=== PATIENT | female | born 1980 | race Caucasian/White ===

== ENCOUNTER → 2016-05-28 | Outpatient (CLI) | payer OTHER ==
[~2016-05-28] MED LIST: ALBU17IN INH; ALBU83IN INH; BISO5TAB5 PO; CEFD1CAP8 PO; DULE100A INH; LORA10TA2 PO; METF-699 PO; MONT10TA2 PO; PANT40TA2 PO; PRED10PA PO; PRED10TA PO; QUET1TAB8 PO; SERT-138 PO; TRAZ100T4 PO
[2016-05-28 15:23] LABS: ALBUMIN 3.6 GM/DL (3.2-5.2); ALBUMIN/GLOBULIN RATIO 1.24 (1.00-1.93); ALKALINE PHOSPHATASE 104 U/L (45-117); ALT/SGPT 27 U/L (12-78); ANION GAP 7 MEQ/L (8-16); AST/SGOT 14 U/L (15-37); BILIRUBIN,TOTAL 0.3 MG/DL (0.2-1.0); BLOOD UREA NITROGEN 13 MG/DL (7-18); CALCIUM LEVEL 8.7 MG/DL (8.5-10.1); CARBON DIOXIDE LEVEL 31 MEQ/L (21-32); CHLORIDE LEVEL 106 MEQ/L (98-107); CHOLESTEROL LEVEL 148 MG/DL (<200); GLOMERULAR FILTRATION RATE > 60.0 (>60); GLUCOSE, FASTING 88 MG/DL (70-105); POTASSIUM SERUM 4.1 MEQ/L (3.5-5.1); SODIUM LEVEL 144 MEQ/L (136-145); TOTAL PROTEIN 6.5 GM/DL (6.4-8.2); TRIGLYCERIDES LEVEL 88 MG/DL (<150)
== END | disposition home or self-care (01) ==
LOC: M WUC 13:07
PROVIDERS: ATTEND Nurse Practitioner Adult Health
DX: E11.9 Type 2 diabetes mellitus without complications (principal); E66.01 Morbid (severe) obesity due to excess calories

== ENCOUNTER → 2016-06-13 | Outpatient (CLI) | payer OTHER | LOC: M HL 15:15 | PROVIDERS: ATTEND Nurse Practitioner Adult Health | DX: E11.9 Type 2 diabetes mellitus without complications (principal) ==

== ENCOUNTER 2016-09-29 14:19 | Observation (INO) | payer OTHER ==
[~2016-09-29] VITALS: Ht 165.1 cm; Wt 112.0 kg
[2016-09-29] MEDS ORDERED: ONDANSETRON 4MG/2ML VIAL (J2405) IV ONE ×2 (15:15→18:45)
[2016-09-29] MEDS ORDERED: MORPHINE 2 MG/ML 1ML SYRINGE IV ONE (15:30)
[2016-09-29 15:40] LABS: BASO % 0.1 % (0.0-1.0); EOS # 0.4 K/mm3 (0.0-0.50); EOS % 2.7 % (0.0-3.0); LARGE UNSTAINED CELL # 0.1 K/mm3 (0.0-0.4); LARGE UNSTAINED CELL % 0.7 % (0.0-4.0); LYMPH # 2.1 K/mm3 (1.5-4.5); LYMPH % 13.2 % (24.0-44.0); MEAN CORPUSCULAR HEMOGLOBIN 29.2 pg (27.0-33.0); MEAN CORPUSCULAR HGB CONC 32.8 g/dl (32.0-36.5); MONO # 0.5 K/mm3 (0.0-0.8); NEUTROPHILS # 12.9 K/mm3 (1.8-7.7); NEUTROPHILS % 80.1 % (36.0-66.0); PLATELET COUNT, AUTOMATED 362 k/mm3 (150-450); RED CELL DISTRIBUTION WIDTH 13.5 % (11.5-14.5); WHITE BLOOD COUNT 16.1 K/mm3 (4.0-10.0)
[2016-09-29] MEDS: NS 1,000 ML IV SCH ×2 (15:46→18:37)
--- NOTE | 2016-09-29 15:55 | REP ---
Clinical: Flank pain. Comparison: 11/10/2013. Findings: Evaluation of the urinary tract system demonstrates a 3 mm nonobstructing left renal calculus. There is no evidence for hydroureteronephrosis or perinephric stranding and no obstructing ureteral calculi are identified. Pelvis demonstrates normal bladder. Mild hepatomegaly suggested. Spleen, pancreas, gallbladder, bilateral adrenal glands are normal for noncontrast evaluation. The enteric system including stomach, small and large bowel is without obstruction or acute inflammatory process. Normal terminal ileum and appendix are identified in the right lower quadrant. Pelvis demonstrates normal bladder and uterus/adnexa. IUD in satisfactory position along with evidence for bilateral tubal ligation. No ascites. No free air. No obvious adenopathy. Musculoskeletal structures are intact lung bases are clear Impression: 3 mm nonobstructing left renal calculus. Otherwise normal CT of the abdomen and pelvis. Signed by Chago Shirley MD 09/29/2016 03:47 P
[2016-09-29 16:01] LABS: ALBUMIN 3.8 GM/DL (3.2-5.2); ALBUMIN/GLOBULIN RATIO 1.23 (1.00-1.93); ALKALINE PHOSPHATASE 109 U/L (45-117); ALT/SGPT 32 U/L (12-78); AMYLASE 40 U/L (25-115); ANION GAP 9 MEQ/L (8-16); AST/SGOT 22 U/L (15-37); BILIRUBIN,DIRECT < 0.1 MG/DL (0.0-0.2); BILIRUBIN,TOTAL 0.3 MG/DL (0.2-1.0); BLOOD UREA NITROGEN 15 MG/DL (7-18); CALCIUM LEVEL 8.9 MG/DL (8.5-10.1); CARBON DIOXIDE LEVEL 25 MEQ/L (21-32); CHLORIDE LEVEL 106 MEQ/L (98-107); CREATININE FOR GFR 0.59 MG/DL (0.55-1.02); GLOMERULAR FILTRATION RATE > 60.0 (>60); GLUCOSE, FASTING 100 MG/DL (70-105); POTASSIUM SERUM 4.1 MEQ/L (3.5-5.1); SODIUM LEVEL 140 MEQ/L (136-145); TOTAL PROTEIN 6.9 GM/DL (6.4-8.2)
--- NOTE | 2016-09-29 16:14 | REP ---
CHEST X-RAY, PA AND LATERAL: 09/29/2016. Comparison: 10/21/2015. Clinical history: Right-sided flank pain. Findings: The two views show the lungs better inflated than the previous study. There is no pleural effusion or dense consolidation. I see no lateral pleural thickening, apical scarring or pneumothorax. The heart, mediastinal and hilar contours are normal. Airway is intact. Bony thorax shows no focal lesions. There is no free air under the diaphragm. Impression: 1. There is no acute cardiopulmonary change. Better inflation than on the previous study. Signed by Cj Diana MD 09/29/2016 04:58 P
[2016-09-29] MEDS ORDERED: NS 1,000 ML IV ONE (17:15)
[2016-09-29] MEDS ORDERED: CIPROFLOXACIN 400 MG in APPROPRIATE DILUENT 1 EA IV ONE (17:30)
[2016-09-29 17:48] LABS: CONTROL LINE HCG INT CTR LINE PRESENT
[2016-09-29] MEDS ORDERED: METOCLOPRAMIDE INJ 10MG/2ML VIAL (J2765) IV PRN (18:45)
[2016-09-29] MEDS ORDERED: ONDANSETRON 4MG/2ML VIAL (J2405) IV PRN (18:45)
[2016-09-29] MEDS ORDERED: BREO1INH3 INH (19:09)
[2016-09-29] MEDS ORDERED: ALLE180T33 PO (19:09)
[2016-09-29] MEDS ORDERED: ALBUTEROL SULFATE 2.5 MG/0.5 ML INH NEB SOLN NEB PRN (19:15)
[2016-09-29] MEDS ORDERED: traZODone 100 MG TAB PO PRN (19:15)
[2016-09-29] MEDS ORDERED: DEXTROSE 50% 50 ML SYRINGE IV PRN (19:30)
[2016-09-29] MEDS ORDERED: GLUCAGON FOR INJ 1 MG VIAL (J1610) SC PRN (19:30)
[2016-09-29] MEDS ORDERED: GLUCOSE 4 GM CHEW TABLET PO PRN (19:30)
[2016-09-29 20:35] VITALS: BP 147/80
[2016-09-29] MEDS: HumaLOG INSULIN (NovoLOG) PER UNIT SC SCH (21:00)
[2016-09-29] MEDS ORDERED: SYMBICORT 80/4.5MCG INHALER 6GM INH SCH (21:00)
[2016-09-29] MEDS: SERTRALINE 100 MG TAB PO SCH (21:05)
[2016-09-29] MEDS: PANTOPRAZOLE 40MG INJ (PROTONIX) (C9113) IV SCH (21:05)
[2016-09-29] MEDS: MONTELUKAST 10 MG TAB PO SCH (21:05)
[2016-09-29] MEDS: QUEtiapine FUMARATE 100 MG TAB PO SCH (21:05)
[2016-09-29] MEDS: cefTRIAXone SOD 1 GM in D5W MINI-BAG PLUS 50 ML IV SCH (21:06)
[2016-09-29] MEDS: DOXYCYCLINE HYCLATE 100 MG in D5W MINI-BAG PLUS 100 ML IV SCH (21:50)
[2016-09-29] MEDS: BREO ELLIPTA INH SCH (22:34)
[2016-09-30 05:43] LABS: BASO % 0.3 % (0.0-1.0); EOS # 0.5 K/mm3 (0.0-0.50); LARGE UNSTAINED CELL # 0.1 K/mm3 (0.0-0.4); LARGE UNSTAINED CELL % 1.1 % (0.0-4.0); LYMPH # 2.5 K/mm3 (1.5-4.5); LYMPH % 22.1 % (24.0-44.0); MEAN CORPUSCULAR HEMOGLOBIN 29.2 pg (27.0-33.0); MEAN CORPUSCULAR HGB CONC 32.6 g/dl (32.0-36.5); MEAN CORPUSCULAR VOLUME 89.7 fl (80.0-96.0); MONO # 0.5 K/mm3 (0.0-0.8); MONO % 4.4 % (0.0-5.0); NEUTROPHILS # 7.8 K/mm3 (1.8-7.7); NEUTROPHILS % 68.2 % (36.0-66.0); PLATELET COUNT, AUTOMATED 341 k/mm3 (150-450); RED CELL DISTRIBUTION WIDTH 13.4 % (11.5-14.5); WHITE BLOOD COUNT 11.4 K/mm3 (4.0-10.0)
[2016-09-30 05:53] LABS: ANION GAP 6 MEQ/L (8-16); BLOOD UREA NITROGEN 10 MG/DL (7-18); CARBON DIOXIDE LEVEL 29 MEQ/L (21-32); CHLORIDE LEVEL 107 MEQ/L (98-107); CREATININE FOR GFR 0.64 MG/DL (0.55-1.02); GLOMERULAR FILTRATION RATE > 60.0 (>60); GLUCOSE, FASTING 94 MG/DL (70-105); SODIUM LEVEL 142 MEQ/L (136-145)
[2016-09-30 06:00] VITALS: BP 129/75
[2016-09-30 06:37] LABS: POTASSIUM SERUM 3.2 MEQ/L (3.5-5.1)
[2016-09-30 06:38] LABS: CALCIUM LEVEL 7.7 MG/DL (8.5-10.1)
[2016-09-30] MEDS: NS 1,000 ML IV SCH ×2 (07:24→18:47)
[2016-09-30] MEDS: HumaLOG INSULIN (NovoLOG) PER UNIT SC SCH ×4 (07:30→21:00)
--- NOTE | 2016-09-30 07:44 | ECGEPIP ---
Stationary ECG Study [facility] Test Date: 2016-09-30 Pat Name: MACHO ARRIOLA Department: Room: [place] [address] Gender: F Security Site Supervisor: BAHMAN : 1980 Requested By: MARIA TERESA HOLT Order Number: [id number] Reading MD: Maria G Nance Measurements Intervals [place] Rate: 82 P: 50 PA: 185 QRS: -16 QRSD: 112 T: 30 QT: 392 QTc: 458 Interpretive Statements SINUS RHYTHM Left axis deviation STABLE C/W 10/18/11 Electronically Signed On 09-30-2016 7:43:32 EDT by Maria G Nance
[2016-09-30] MEDS: IPRATROPIUM 0.5MG/ALBUTEROL 2.5MG INH SOL UD 3ML (DUONEB)(J7620) NEB SCH ×3 (08:14→15:06)
[2016-09-30] MEDS: ENOXAPARIN 40 MG/0.4 ML SYRINGE (J1650) SC SCH (09:53)
[2016-09-30] MEDS: DOXYCYCLINE HYCLATE 100 MG in D5W MINI-BAG PLUS 100 ML IV SCH ×2 (09:53→22:32)
[2016-09-30 14:00] VITALS: BP 147/82
--- NOTE | 2016-09-30 14:51 | IPNPDOC ---
Subjective Date Seen The patient was seen on 09/30/16. Subjective Chief Complaint/HPI The patient is a 36-year-old female admitted with a reason for visit of Intractable Vomiting;Uti. Constitutional: Denies: Chills Eyes: Denies: Pain ENT: Denies: Head Aches Skin: Denies: Rash Pulmonary: Denies: Dyspnea Cardiovascular: Denies: Chest Pain, Palpitations Gastrointestinal: Denies: Nausea, Vomiting Genitourinary: Reports: Dysuria Objective Physical Examination General Exam: Positive: Alert, No Acute Distress Eye Exam: Positive: PERRLA Neck Exam: Negative: JVD Chest Exam: Positive: Clear to auscultation Heart Exam: Positive: Rate Normal Abdomen Exam: Positive: Normal bowel sounds, Tenderness (mild L CVAT, no suprapubic tenderness) Extremity Exam: Negative: Edema Skin Exam: Positive: Nl turgor and temperature Neuro Exam: Positive: Normal Gait Assessment /Plan Problems (1) Pyelonephritis Status: Acute Response to Treatment: Improving Problem Text: D2 ceftriaxone 1/doxy IV 100 BID patient denies vaginal dc, dyspareunia nor CMT c pelvic exam favor constellation of 1W worsening L CVAT, dysuria, acutely worse 09/29 and improved by 09/30 p abx is 2 L PN; although, placed on emperic PID coverage? patient reports Mirena-related infection being rxed x 3W c topical then unknown PO abx (Dr. 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 re what she was being rxed for, check UCX/BCX, check pelvic US-if -, change to PN rx 09/29/16 endocervical CX/wet prep few yeast 09/29/16 CT AP NAD, L intrarenal NO 3 stone 09/29/16 UA +LE, but no UCX/BCX done prior to abx (2) T2DM (type 2 diabetes mellitus) Status: Chronic Response to Treatment: Stable Problem Text: 08/2016 A1C 6.1 (3) Asthma, moderate persistent Status: Chronic Response to Treatment: Stable Problem Text: Stable on home regimen Plan/VTE VTE Prophylaxis Ordered?: Yes VS, I&O, 24H, [place] Vital Signs/I&O Vital Signs Date Time Temp Pulse Resp B/P (MAP) Pulse Ox O2 Delivery O2 Flow Rate FiO2 09/30/16 06:00 97.9 85 18 129/75 (93) 95 Room Air I&O- Last 24 Hours up to 6 AM 09/30/16 06:00 Intake Total 390 ml Output Total 200 ml Balance 190 ml Laboratory Data 24H LABS Laboratory Tests 2 09/29/16 15:27: White Blood Count 16.1H, Red Blood Count 4.78, Hemoglobin 14.0, Hematocrit 42.6 , Mean Corpuscular Volume 89.0, Mean Corpuscular Hemoglobin 29.2, Mean Corpuscular Hemoglobin Concent 32.8, Red Cell Distribution Width 13.5, Platelet Count 362, Neutrophils (%) (Auto) 80.1H, Lymphocytes (%) (Auto) 13.2L, Monocytes (%) (Auto) 3.0, Eosinophils (%) (Auto) 2.7, Basophils (%) (Auto) 0.1, Neutrophils # (Auto) 12.9H, Lymphocytes # (Auto) 2.1, Monocytes # (Auto) 0.5, Eosinophils # (Auto) 0.4, Basophils # (Auto) 0.0, Large Unclassified Cells % 0.7 , Large Unclassified Cells # 0.1, Anion Gap 9, Glomerular Filtration Rate > 60.0 , Calcium Level 8.9, Aspartate Amino Transf (AST/SGOT) 22, Alanine Aminotransferase (ALT/SGPT) 32, Alkaline Phosphatase 109, Total Bilirubin 0.3, Direct Bilirubin < 0.1, Total Protein 6.9, Albumin 3.8, Albumin/Globulin Ratio 1.23, Amylase Level 40, Lipase 84, Human Chorionic Gonadotropin, Qual NEGATIVE 09/29/16 16:18: Urine Appearance HAZY, Urine Color YELLOW, Urine pH 5.0, Urine Specific [place] 1.025, Urine Protein NEGATIVE, Urine Glucose (UA) NEGATIVE, Urine Ketones NEGATIVE, Urine Urobilinogen 0.2, Urine Bilirubin NEGATIVE, Urine Leukocyte Esterase 2+H, Urine Blood 3+H, Urine Nitrite NEGATIVE, Urine WBC (Auto) 29H, Urine RBC (Auto) 41H, Urine Hyaline Casts (Auto) 0, Urine Bacteria (Auto) 1+H, Urine Squamous Epithelial Cells 4, Urine Mucus (Auto) SMALL, Urine Sperm (Auto) 09/29/16 17:26: Chlamydia trachomatis DNA (NANCY) NEGATIVE, Neisseria gonorrhoeae DNA (NANCY) NEGATIVE 09/29/16 18:28: Lactic Acid Level 1.7 09/29/16 20:45: Bedside Glucose (Misc Panel) 104 09/30/16 05:07: White Blood Count 11.4H, Red Blood Count 4.22, Hemoglobin 12.3, Hematocrit 37.9 , Mean Corpuscular Volume 89.7, Mean Corpuscular Hemoglobin 29.2, Mean Corpuscular Hemoglobin Concent 32.6, Red Cell Distribution Width 13.4, Platelet Count 341, Neutrophils (%) (Auto) 68.2H, Lymphocytes (%) (Auto) 22.1L, Monocytes (%) (Auto) 4.4, Eosinophils (%) (Auto) 4.0H, Basophils (%) (Auto) 0.3 , Neutrophils # (Auto) 7.8H, Lymphocytes # (Auto) 2.5, Monocytes # (Auto) 0.5, Eosinophils # (Auto) 0.5, Basophils # (Auto) 0.0, Large Unclassified Cells % 1.1 , Large Unclassified Cells # 0.1, Anion Gap 6L, Glomerular Filtration Rate > 60.0, Blood Urea Nitrogen 10, Creatinine 0.64, Sodium Level 142, Potassium Level 3.2#L, Chloride Level 107, Carbon Dioxide Level 29, Calcium Level 7.7L 09/30/16 11:23: Bedside Glucose (Misc Panel) 113H CBC/BMP Laboratory Tests 09/29/16 15:27 Red Blood Count 4.78, Mean Corpuscular Volume 89.0, Mean Corpuscular Hemoglobin 29.2, Mean Corpuscular Hemoglobin Concent 32.8, Red Cell Distribution Width 13.5 , Neutrophils (%) (Auto) 80.1 H, Lymphocytes (%) (Auto) 13.2 L, Monocytes (%) ( Auto) 3.0, Eosinophils (%) (Auto) 2.7, Basophils (%) (Auto) 0.1, Neutrophils # ( Auto) 12.9 H, Lymphocytes # (Auto) 2.1, Monocytes # (Auto) 0.5, Eosinophils # ( Auto) 0.4, Basophils # (Auto) 0.0 09/30/16 05:07 Red Blood Count 4.22, Mean Corpuscular Volume 89.7, Mean Corpuscular Hemoglobin 29.2, Mean Corpuscular Hemoglobin Concent 32.6, Red Cell Distribution Width 13.4 , Neutrophils (%) (Auto) 68.2 H, Lymphocytes (%) (Auto) 22.1 L, Monocytes (%) ( Auto) 4.4, Eosinophils (%) (Auto) 4.0 H, Basophils (%) (Auto) 0.3, Neutrophils # (Auto) 7.8 H, Lymphocytes # (Auto) 2.5, Monocytes # (Auto) 0.5, Eosinophils # (Auto) 0.5, Basophils # (Auto) 0.0, Calcium Level 7.7 L Microbiology Microbiology 09/29/16 Wet Prep - Final, Resulted 09/29/16 Genital Culture - Preliminary, Resulted Yeast Like Organism Be Mae M.D. September 30, 2016 14:51
[2016-09-30] MEDS ORDERED: POTASSIUM CHLORIDE 10 MEQ SR TABLET PO ONE (16:00)
--- NOTE | 2016-09-30 16:36 | REP ---
Clinical: Pelvic pain. Technique: Transabdominal pelvic ultrasound followed by transvaginal examination for better evaluation of the endometrium and adnexa with color Doppler evaluation of the ovaries. Findings: Bladder is normal and measures 9.7 x 5.7 x 7.8 cm. Normal anteverted uterus measures 8.2 x 3.8 x 5.2 cm. The endometrial complex measures 4.8 mm thickness and IUD is identified in satisfactory position. Bilateral ovaries are normal in appearance and vascularity without torsion. Right ovary measures 4.9 x 3.3 x 3.9 cm; RI equal 0.66 and includes 3.6 cm cyst. Left ovary measures 2.7 x 1.8 x 2.4 cm; RI equal 0.57 and includes 1.5 cm cyst / follicle. No pelvic fluid or adnexal mass lesion. Impression: Normal uterus with IUD in satisfactory position. Normal bilateral ovaries without torsion. No free fluid. Signed by Chago Shirley MD 09/30/2016 04:28 P
[2016-09-30] MEDS: FLUCONAZOLE 100 MG TAB PO SCH (17:23)
[2016-09-30] MEDS: MONTELUKAST 10 MG TAB PO SCH (20:10)
[2016-09-30] MEDS: cefTRIAXone SOD 1 GM in D5W MINI-BAG PLUS 50 ML IV SCH (20:10)
[2016-09-30] MEDS: PANTOPRAZOLE 40MG INJ (PROTONIX) (C9113) IV SCH (20:10)
[2016-09-30] MEDS: SERTRALINE 100 MG TAB PO SCH (20:10)
[2016-09-30] MEDS: QUEtiapine FUMARATE 100 MG TAB PO SCH (20:10)
[2016-09-30] MEDS: BREO ELLIPTA INH SCH (20:18)
--- NOTE | 2016-09-30 21:20 | HPE ---
DATE OF ADMISSION: 09/29/2016 PRIMARY CARE PROVIDER: Be Negrete. CHIEF COMPLAINT: The patient presented to the hospital with generalized abdominal pain off-and-on, going on for 1-12 months, and intractable vomiting from today, inability to keep any food down. PAST MEDICAL HISTORY: The patient had an intrauterine device (IUD) placed in the end of July 2016, and had an infection after that, for which she completed a course of metronidazole, diabetes, asthma, fatty liver, morbid obesity, gastroesophageal reflux disease (GERD), irritable bowel syndrome, sleep apnea, bipolar one disorder, sensory neural hearing loss, liver cyst worked up at [facility], thought to be stress related, sinus tachycardia. HISTORY OF PRESENT ILLNESS: This is a 36-year-old female with the above past medical history who had an IUD placed at [facility] in the end of July 2016. After the procedure, she developed vaginal discharge and was thought to have an infection, so treated with a course of metronidazole, which she had finished about 1-2 weeks ago. She had been having intermittent abdominal pain, off and on for the past one and a half months since her IUD placement, as well as ongoing vaginal discharge. She presented to the hospital today because she started having intractable vomiting from the this afternoon and unable to keep anything down. In the emergency department (ED), the patient had lab work done which showed a white blood cell count (WBC) of 16.1. She had a pelvic exam done by the ED physician which did not show any cervical tenderness. However, there was a clear vaginal discharge present. The patient had a urinalysis (UA) which was dirty with 2+ leukocyte esterase, WBC of 29, RBC of 41. The patient had a CT abdomen and pelvis done without contrast which did not reveal any acute abnormality. Did show a 3 mm nonobstructing left renal calculus. The patient was treated in the emergency room with morphine for pain, Zofran for nausea. She was given intravenous (IV) fluids and was given a dose of Cipro. However, she continued to vomit. She was given a second dose of Zofran. Still her nausea did not decrease, so the hospitalist service was consulted for admission for urinary tract infection. On my exam, the patient complained of generalized abdominal pain, though on initial presentation she said that her pain was more on the right flank. She complained of persistent nausea. She denied any fever or chills. She denied any chest pain. Denied any shortness of breath. Denied any diarrhea. The patient is being admitted to the hospitalist service for urinary tract infection and possible pelvic inflammatory disease. PAST SURGICAL HISTORY: 1. Tubal ligation. 2. Tonsillectomy. 3. Perforated bowel. FAMILY HISTORY: Brother with juvenile diabetes. Two sisters, one has juvenile diabetes. Paternal grandmother with diabetes. Maternal uncle with diabetes. SOCIAL HISTORY: The patient does not smoke, does not use alcohol or recreational drugs. ALLERGIES: AMOXICILLIN, CLARITHROMYCIN, CLAVULANIC ACID, CONTRAST MEDIA, LATEX, METFORMIN, SHELLFISH. The patient, however, is on metformin as an outpatient. HOME MEDICATIONS: - albuterol two puff inhalation every four hours as needed - albuterol nebulizer every four hours as needed - Katerin 180 mg by mouth daily - fluticasone vilanterol 200/25 one puff at bedtime - metformin 1000 mg by mouth twice a day - montelukast 10 mg at bedtime - pantoprazole 40 mg at bedtime - quetiapine 500 mg at bedtime - sertraline 100 mg at bedtime - trazodone 100 mg at bedtime REVIEW OF SYSTEMS: All 10-point review of systems are negative except those mentioned in history of present illness (HPI). PHYSICAL EXAMINATION: VITAL SIGNS: Temperature 98, pulse 94, blood pressure 133/70, pulse oximetry 96% on room air. GENERAL: Patient awake, alert, oriented times three. Sitting up in bed in no acute distress. HEENT: Normocephalic, atraumatic. Moist mucous membranes. Anicteric eyes. The face is flushed as well as the neck. CHEST: Clear to auscultation. CARDIOVASCULAR: S1, S2 regular. No rubs, murmurs, or gallops. ABDOMEN: Obese, soft. Generalized tenderness present. Bowel sounds are sluggish. No guarding or rigidity. EXTREMITIES: No edema. LABORATORY DATA: WBC is 16.1, hemoglobin 14, platelets 362. Sodium 140, potassium 4.1, chloride 103, bicarbonate 25, BUN 15, creatinine 0.5, glucose 100, lactic acid 1.7, calcium 8.9. Total bilirubin 0.3. Liver function tests are normal. Amylase, lipase normal. UA as mentioned above. CT scan as mentioned above. ASSESSMENT AND PLAN: This is a 36-year-old female admitted for urinary tract infection and possible pelvic inflammatory disease. PLAN: 1. For urinary tract infection we will continue with ceftriaxone. Await urine culture. 2. Pelvic inflammatory disease. Dr. Payne from gynecology has been consulted. He is going to see the patient as a consult. We will continue the patient on ceftriaxone, as well as we will add doxycycline to cover for chlamydia. Endocervical and vaginal fluid cultures have been sent for chlamydia and gonococcus from the ED. 3. Asthma. Will continue with nebulizers. Will place the patient on Symbicort in place of Breo Ellipta. Continue with montelukast. 4. Diabetes. We will hold metformin as an inpatient. Will give the patient sliding-scale insulin and if required, long-acting insulin. 5. Bipolar one disorder. We will continue with sertraline, quetiapine and trazodone. 6. Obstructive sleep apnea (RYLIE). We will continue with continuous positive airway pressure (CPAP). 7. Morbid obesity complicating care. 8. Deep venous thrombosis (DVT) prophylaxis has been ordered. 9. Gastrointestinal (GI) prophylaxis has been ordered.
[2016-09-30 22:00] VITALS: BP 132/71
[2016-09-30] MEDS ORDERED: ACETAMINOPHEN 500 MG TAB PO PRN (22:15)
[2016-09-30] MEDS: IBUPROFEN 600 MG TAB PO PRN (22:33)
[2016-10-01 06:00] VITALS: BP 133/76
[2016-10-01 06:31] LABS: BASO % 0.4 % (0.0-1.0); EOS # 0.6 K/mm3 (0.0-0.50); EOS % 6.3 % (0.0-3.0); LARGE UNSTAINED CELL # 0.1 K/mm3 (0.0-0.4); LARGE UNSTAINED CELL % 1.3 % (0.0-4.0); LYMPH # 2.6 K/mm3 (1.5-4.5); LYMPH % 24.9 % (24.0-44.0); MEAN CORPUSCULAR HEMOGLOBIN 29.4 pg (27.0-33.0); MEAN CORPUSCULAR HGB CONC 33.4 g/dl (32.0-36.5); MEAN CORPUSCULAR VOLUME 87.9 fl (80.0-96.0); MONO # 0.5 K/mm3 (0.0-0.8); MONO % 4.9 % (0.0-5.0); NEUTROPHILS # 6.2 K/mm3 (1.8-7.7); NEUTROPHILS % 62.2 % (36.0-66.0); PLATELET COUNT, AUTOMATED 306 k/mm3 (150-450); RED CELL DISTRIBUTION WIDTH 13.7 % (11.5-14.5); WHITE BLOOD COUNT 9.9 K/mm3 (4.0-10.0)
[2016-10-01 06:38] LABS: ANION GAP 6 MEQ/L (8-16); BLOOD UREA NITROGEN 8 MG/DL (7-18); CALCIUM LEVEL 7.7 MG/DL (8.5-10.1); CARBON DIOXIDE LEVEL 28 MEQ/L (21-32); CHLORIDE LEVEL 109 MEQ/L (98-107); CREATININE FOR GFR 0.56 MG/DL (0.55-1.02); GLOMERULAR FILTRATION RATE > 60.0 (>60); GLUCOSE, FASTING 103 MG/DL (70-105); POTASSIUM SERUM 3.3 MEQ/L (3.5-5.1); SODIUM LEVEL 143 MEQ/L (136-145)
[2016-10-01] MEDS: NS 1,000 ML IV SCH (06:42)
[2016-10-01] MEDS: HumaLOG INSULIN (NovoLOG) PER UNIT SC SCH ×4 (07:57→21:00)
[2016-10-01] MEDS: IPRATROPIUM 0.5MG/ALBUTEROL 2.5MG INH SOL UD 3ML (DUONEB)(J7620) NEB SCH ×4 (08:02→23:05)
[2016-10-01] MEDS: FLUCONAZOLE 100 MG TAB PO SCH (09:52)
[2016-10-01] MEDS: ENOXAPARIN 40 MG/0.4 ML SYRINGE (J1650) SC SCH (09:52)
[2016-10-01] MEDS: DOXYCYCLINE HYCLATE 100 MG in D5W MINI-BAG PLUS 100 ML IV SCH (09:52)
[2016-10-01] MEDS: IBUPROFEN 600 MG TAB PO PRN ×2 (10:04→19:48)
[2016-10-01 14:00] VITALS: BP 125/75
--- NOTE | 2016-10-01 14:49 | IPNPDOC ---
Subjective Date Seen The patient was seen on 10/01/16. Subjective Chief Complaint/HPI The patient is a 36-year-old female admitted with a reason for visit of Intractable Vomiting;Uti. Constitutional: Denies: Chills Eyes: Denies: Pain ENT: Denies: Head Aches Cardiovascular: Denies: Chest Pain Gastrointestinal: Denies: Nausea, Vomiting Genitourinary: Denies: Dysuria Objective Physical Examination General Exam: Positive: Alert, No Acute Distress Eye Exam: Positive: PERRLA Neck Exam: Negative: JVD Chest Exam: Positive: Clear to auscultation Heart Exam: Positive: Rate Normal Abdomen Exam: Positive: Normal bowel sounds, Tenderness (mild L CVAT, no suprapubic tenderness) Extremity Exam: Negative: Edema Skin Exam: Positive: Nl turgor and temperature Neuro Exam: Positive: Normal Gait Assessment /Plan Problems (1) Pyelonephritis Status: Acute Response to Treatment: Improving Problem Text: D3 ceftriaxone 2 patient denies vaginal dc, dyspareunia nor CMT c pelvic exam favor constellation of 1W worsening L CVAT, dysuria, acutely worse 09/29 and improved by 09/30 p abx is 2 L PN; although, placed on emperic PID coverage? patient reports Mirena-related infection being rxed x 3W c topical then unknown PO abx (Dr. 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 trach/N. isaiah NANCY - 09/29/16 endocervical CX/wet prep few yeast 09/29/16 CT AP NAD, L intrarenal NO 3 stone 09/29/16 UA +LE, but no UCX/BCX done prior to abx (2) T2DM (type 2 diabetes mellitus) Status: Chronic Response to Treatment: Stable Problem Text: 08/2016 A1C 6.1 (3) Asthma, moderate persistent Status: Chronic Response to Treatment: Stable Problem Text: Stable on home regimen Plan/VTE VTE Prophylaxis Ordered?: Yes Disposition dc 10/02 vs 10/03 P CX results VS, I&O, 24H, Fishbone Vital Signs/I&O Vital Signs Date Time Temp Pulse Resp B/P (MAP) Pulse Ox O2 Delivery O2 Flow Rate FiO2 10/01/16 09:55 Room Air 10/01/16 08:04 92 10/01/16 06:00 97.2 17 133/76 (95) 93 I&O- Last 24 Hours up to 6 AM 10/01/16 06:00 Intake Total 1830 ml Output Total 2850 ml Balance -1020 ml Laboratory Data 24H LABS Laboratory Tests 2 09/30/16 17:10: Bedside Glucose (Misc Panel) 99 09/30/16 20:38: Bedside Glucose (Misc Panel) 134H 10/01/16 05:56: White Blood Count 9.9, Red Blood Count 4.06, Hemoglobin 11.9L, Hematocrit 35.7L , Mean Corpuscular Volume 87.9, Mean Corpuscular Hemoglobin 29.4, Mean Corpuscular Hemoglobin Concent 33.4, Red Cell Distribution Width 13.7, Platelet Count 306, Neutrophils (%) (Auto) 62.2, Lymphocytes (%) (Auto) 24.9, Monocytes ( %) (Auto) 4.9, Eosinophils (%) (Auto) 6.3H, Basophils (%) (Auto) 0.4, Neutrophils # (Auto) 6.2, Lymphocytes # (Auto) 2.6, Monocytes # (Auto) 0.5, Eosinophils # (Auto) 0.6H, Basophils # (Auto) 0.0, Large Unclassified Cells % 1.3, Large Unclassified Cells # 0.1, Anion Gap 6L, Glomerular Filtration Rate > 60.0, Blood Urea Nitrogen 8, Creatinine 0.56, Sodium Level 143, Potassium Level 3.3L, Chloride Level 109H, Carbon Dioxide Level 28, Calcium Level 7.7L 10/01/16 11:17: Bedside Glucose (Misc Panel) 167H CBC/BMP Laboratory Tests 10/01/16 05:56 Red Blood Count 4.06, Mean Corpuscular Volume 87.9, Mean Corpuscular Hemoglobin 29.4, Mean Corpuscular Hemoglobin Concent 33.4, Red Cell Distribution Width 13.7 , Neutrophils (%) (Auto) 62.2, Lymphocytes (%) (Auto) 24.9, Monocytes (%) (Auto ) 4.9, Eosinophils (%) (Auto) 6.3 H, Basophils (%) (Auto) 0.4, Neutrophils # ( Auto) 6.2, Lymphocytes # (Auto) 2.6, Monocytes # (Auto) 0.5, Eosinophils # (Auto ) 0.6 H, Basophils # (Auto) 0.0, Calcium Level 7.7 L Microbiology Microbiology 09/30/16 Blood Culture, Received Pending 09/30/16 Blood Culture, Received Pending 09/29/16 Wet Prep - Final, Resulted 09/29/16 Genital Culture - Preliminary, Resulted Yeast Like Organism 09/30/16 Urine Culture, Received Pending Be Mae M.D. October 01, 2016 14:48
[2016-10-01] MEDS: cefTRIAXone SOD 1 GM in D5W MINI-BAG PLUS 50 ML IV SCH (19:47)
[2016-10-01] MEDS: BREO ELLIPTA INH SCH (20:19)
[2016-10-01] MEDS: PANTOPRAZOLE 40MG INJ (PROTONIX) (C9113) IV SCH (20:40)
[2016-10-01] MEDS: SERTRALINE 100 MG TAB PO SCH (20:40)
[2016-10-01] MEDS: QUEtiapine FUMARATE 100 MG TAB PO SCH (20:40)
[2016-10-01] MEDS: MONTELUKAST 10 MG TAB PO SCH (20:40)
[2016-10-01 22:00] VITALS: BP 145/64
[2016-10-01] MEDS ORDERED: diphenhydrAMINE 50 MG CAP PO ONE (22:15)
[2016-10-01] MEDS ORDERED: methylPREDNISolone INJ 125 MG/2 ML VIAL (J2930) IV ONE (22:15)
[2016-10-02 01:30] VITALS: BP 129/86
[2016-10-02 06:55] LABS: BASO % 0.2 % (0.0-1.0); EOS # 0.1 K/mm3 (0.0-0.50); LARGE UNSTAINED CELL % 0.3 % (0.0-4.0); LYMPH # 1.1 K/mm3 (1.5-4.5); LYMPH % 8.6 % (24.0-44.0); MEAN CORPUSCULAR HEMOGLOBIN 29.4 pg (27.0-33.0); MEAN CORPUSCULAR VOLUME 89.1 fl (80.0-96.0); MONO # 0.2 K/mm3 (0.0-0.8); MONO % 1.4 % (0.0-5.0); NEUTROPHILS # 11.5 K/mm3 (1.8-7.7); NEUTROPHILS % 88.4 % (36.0-66.0); PLATELET COUNT, AUTOMATED 365 k/mm3 (150-450); RED CELL DISTRIBUTION WIDTH 13.6 % (11.5-14.5)
[2016-10-02 07:09] LABS: ANION GAP 8 MEQ/L (8-16); BLOOD UREA NITROGEN 10 MG/DL (7-18); CALCIUM LEVEL 8.1 MG/DL (8.5-10.1); CARBON DIOXIDE LEVEL 25 MEQ/L (21-32); CHLORIDE LEVEL 106 MEQ/L (98-107); CREATININE FOR GFR 0.66 MG/DL (0.55-1.02); GLOMERULAR FILTRATION RATE > 60.0 (>60); GLUCOSE, FASTING 158 MG/DL (70-105); SODIUM LEVEL 139 MEQ/L (136-145)
[2016-10-02 08:00] VITALS: BP 132/75
[2016-10-02] MEDS: IPRATROPIUM 0.5MG/ALBUTEROL 2.5MG INH SOL UD 3ML (DUONEB)(J7620) NEB SCH (08:06)
[2016-10-02] MEDS: FLUCONAZOLE 100 MG TAB PO SCH (08:12)
[2016-10-02] MEDS: HumaLOG INSULIN (NovoLOG) PER UNIT SC SCH (08:12)
[2016-10-02] MEDS: ENOXAPARIN 40 MG/0.4 ML SYRINGE (J1650) SC SCH (08:13)
[2016-10-02] MEDS ORDERED: FLUC10TA PO (10:04)
[2016-10-02] MEDS ORDERED: CEFD1CAP8 PO (10:04)
--- NOTE | 2016-10-02 10:37 | DSES ---
DATE OF ADMISSION: 09/29/2016 DATE OF DISCHARGE: 10/02/16 Primary care physician is JIL Marcano. Attending today is Dr. Momo Tinoco. HISTORY: This is a 36-year-old female, morbidly obese patient who presented at [facility] emergency room via ambulance with generalized abdominal pain on and off for 1-2 months with intractable vomiting, unable to keep any food down the day of her presentation. She was admitted to the hospital for urinary tract infection as well as suspected pelvic inflammatory disease. During her hospitalization, she has remained medically stable. She was started on intravenous (IV) Rocephin and doxycycline. She had a chest x-ray done in the ER, which was benign. CT scan of the abdomen and pelvis was benign with the exception of a 3 mm nonobstructing left kidney stone. Pelvic ultrasound was also obtained and was normal. She had genital culture done as well as wet prep which showed few yeast, otherwise was also normal. Blood cultures were negative. Urine culture was also obtained, although this was obtained after she had been started on antibiotics. On admission, her urinalysis revealed 3+ blood, 2+ leukocytes, +1 bacteria. Suspected that she in fact has pyelonephritis and therefore the doxycycline for pelvic inflammatory disease (PID). She was started on Diflucan as she did complain of some genital pruritus and she did have yeast on her culture. She has been continued on the Rocephin, receiving this once daily. We will change this to oral Omnicef for additional 7 days. She is eager to return home. She does feel comfortable returning home. Of note, she did have a rash on her abdomen that has developed since her hospitalization. She did get a dose of Benadryl and Solu-Medrol last night. The patient denies any hives. She feels as though the rash is associated with the detergents in the hospital and she is in fact had this occur in the past. Her discharge diagnoses include: 1. Acute pyelonephritis. 2. Type 2 diabetes. 3. Morbid obesity. 4. Moderate persistent asthma. 5. Renal lithiasis. Discharge medications include: - Cefdinir 300 mg by mouth twice a day times seven days - fluconazole 100 mg daily times seven days - albuterol sulfate nebulizer every 4 hours as needed for shortness of breath - Ventolin inhaler two puffs every four hours as needed for shortness of breath - Katerin 180 mg daily - Breo Ellipta 200/25 mcg one puff daily - metformin 1000 mg twice daily - singular 10 mg daily - Protonix 40 mg daily - Seroquel 500 mg daily before bed - sertraline 100 mg daily - trazodone 100 mg as needed for sleep Discharge plan: Will followup with JIL Marcano in 1 week. Activity should be as tolerated. Diet should be consistent carbohydrate. Attending attestation: I saw and evaluated the patient on the day of discharge, and I agree with the discharge plan of care as discussed and documented by Janiya Roach. Momo Tinoco MD [facility]omer
== END 2016-10-02 11:10 | disposition home or self-care (01) ==
LOC: M ED 18:05 → M ED INP 18:34 → M MSPAV 20:34 → M PED 10-02 01:20
PROVIDERS: ADMIT Internal Medicine Nephrology; ATTEND Family Medicine
DX: N10 Acute pyelonephritis (principal); E11.9 Type 2 diabetes mellitus without complications; E66.01 Morbid (severe) obesity due to excess calories; J45.40 Moderate persistent asthma, uncomplicated; N20.0 Calculus of kidney; R11.10 Vomiting, unspecified; R10.9 Unspecified abdominal pain; N73.9 Female pelvic inflammatory disease, unspecified; R21 Rash and other nonspecific skin eruption; F31.9 Bipolar disorder, unspecified; G47.33 Obstructive sleep apnea (adult) (pediatric); K21.9 Gastro-esophageal reflux disease without esophagitis; Z88.0 Allergy status to penicillin; Z88.1 Allergy status to other antibiotic agents; Z88.8 Allergy status to other drugs, medicaments and biological substances; Z91.040 Latex allergy status; Z91.041 Radiographic dye allergy status; Z91.013 Allergy to seafood; Z79.899 Other long term (current) drug therapy; Z79.84 Long term (current) use of oral hypoglycemic drugs
CPT/HCPCS: 36415; 71020; 74176; 76830; 76856; 80048; 80076; 81001; 82150; 83605; 83690; 84703; 85025; 87040; 87070; 87088; 87186; 87210; 87491; 87591; 93005; 93041; 93976; 94640; 96361; 96366; 96367; 96372; 96374; 96375; 96376; 99285; C9113; J0696; J0744; J1650; J2405; J2930

== ENCOUNTER → 2016-10-24 | Outpatient (CLI) | payer OTHER ==
[~2016-10-24] MED LIST changes: +ALLE180T33 PO; +BREO1INH3 INH; +FLUC10TA PO
== END ==
LOC: M WUC 17:33
PROVIDERS: ATTEND Nurse Practitioner Adult Health
DX: R82.99 Other abnormal findings in urine (principal)

== ENCOUNTER → 2016-10-26 | Outpatient (CLI) | payer OTHER | LOC: M WUC 08:20 | PROVIDERS: ATTEND Nurse Practitioner Adult Health | DX: R82.99 Other abnormal findings in urine (principal) ==

== ENCOUNTER → 2016-12-29 | Outpatient (CLI) | payer OTHER ==
[~2016-12-29] MED LIST changes: +TRAZ-136 PO; -TRAZ100T4 PO
[2016-12-29 13:57] LABS: ALBUMIN 3.5 GM/DL (3.2-5.2); ALKALINE PHOSPHATASE 87 U/L (45-117); ALT/SGPT 46 U/L (12-78); ANION GAP 11 MEQ/L (8-16); AST/SGOT 20 U/L (15-37); BILIRUBIN,TOTAL 0.3 MG/DL (0.2-1.0); BLOOD UREA NITROGEN 18 MG/DL (7-18); CALCIUM LEVEL 8.4 MG/DL (8.5-10.1); CARBON DIOXIDE LEVEL 25 MEQ/L (21-32); CHLORIDE LEVEL 105 MEQ/L (98-107); CREATININE FOR GFR 0.81 MG/DL (0.55-1.02); GLOMERULAR FILTRATION RATE > 60.0 (>60); GLUCOSE, FASTING 124 MG/DL (70-105); POTASSIUM SERUM 3.9 MEQ/L (3.5-5.1); SODIUM LEVEL 141 MEQ/L (136-145); TOTAL PROTEIN 6.2 GM/DL (6.4-8.2)
== END ==
LOC: M WUC 09:03
PROVIDERS: ATTEND Nurse Practitioner Adult Health
DX: E11.9 Type 2 diabetes mellitus without complications (principal); R94.6 Abnormal results of thyroid function studies

== ENCOUNTER → 2017-01-18 | Outpatient (CLI) | payer OTHER ==
[2017-01-18 15:38] LABS: ALBUMIN/GLOBULIN RATIO 1.33 (1.00-1.93); ALKALINE PHOSPHATASE 112 U/L (45-117); ALT/SGPT 55 U/L (12-78); AST/SGOT 38 U/L (15-37); BILIRUBIN,DIRECT < 0.1 MG/DL (0.0-0.2); BILIRUBIN,TOTAL 0.3 MG/DL (0.2-1.0); BLOOD UREA NITROGEN 13 MG/DL (7-18); CREATININE FOR GFR 0.74 MG/DL (0.55-1.02); GLOMERULAR FILTRATION RATE > 60.0 (>60)
== END ==
LOC: M LAB 14:28
PROVIDERS: ATTEND Nurse Practitioner Family
DX: K76.9 Liver disease, unspecified (principal)

== ENCOUNTER → 2017-03-23 | Outpatient (CLI) | payer OTHER ==
[2017-03-23 16:48] LABS: ALBUMIN 3.7 GM/DL (3.2-5.2); ALBUMIN/GLOBULIN RATIO 1.37 (1.00-1.93); ALKALINE PHOSPHATASE 102 U/L (45-117); ALT/SGPT 44 U/L (12-78); ANION GAP 9 MEQ/L (8-16); AST/SGOT 24 U/L (7-37); BILIRUBIN,TOTAL 0.3 MG/DL (0.2-1.0); BLOOD UREA NITROGEN 11 MG/DL (7-18); CALCIUM LEVEL 8.9 MG/DL (8.5-10.1); CARBON DIOXIDE LEVEL 27 MEQ/L (21-32); CHLORIDE LEVEL 106 MEQ/L (98-107); CHOLESTEROL LEVEL 154 MG/DL (<200); CREATININE FOR GFR 0.58 MG/DL (0.55-1.02); GLOMERULAR FILTRATION RATE > 60.0 (>60); GLUCOSE, FASTING 105 MG/DL (70-105); POTASSIUM SERUM 4.2 MEQ/L (3.5-5.1); SODIUM LEVEL 142 MEQ/L (136-145); TOTAL PROTEIN 6.4 GM/DL (6.4-8.2); TRIGLYCERIDES LEVEL 115 MG/DL (<150)
== END ==
LOC: M WUC 10:56
PROVIDERS: ATTEND Nurse Practitioner Adult Health
DX: E11.9 Type 2 diabetes mellitus without complications (principal); E66.01 Morbid (severe) obesity due to excess calories; R94.6 Abnormal results of thyroid function studies

== ENCOUNTER → 2017-04-18 | Outpatient (CLI) | payer OTHER ==
[2017-04-18 19:39] LABS: ANION GAP 8 MEQ/L (8-16); BLOOD UREA NITROGEN 15 MG/DL (7-18); CARBON DIOXIDE LEVEL 29 MEQ/L (21-32); CHLORIDE LEVEL 104 MEQ/L (98-107); CREATININE FOR GFR 0.67 MG/DL (0.55-1.02); GLOMERULAR FILTRATION RATE > 60.0 (>60); GLUCOSE, FASTING 95 MG/DL (70-105); POTASSIUM SERUM 4.3 MEQ/L (3.5-5.1); SODIUM LEVEL 141 MEQ/L (136-145)
== END ==
LOC: M WUC 17:23
PROVIDERS: ATTEND Nurse Practitioner Adult Health
DX: N20.0 Calculus of kidney (principal)

== ENCOUNTER → 2017-04-26 | Outpatient (CLI) | payer OTHER ==
[2017-04-26 17:49] LABS: IONIZED CALCIUM 4.7 MG/DL (4.5-5.3)
[2017-04-26 18:15] LABS: PHOSPHORUS LEVEL 2.3 MG/DL (2.5-4.9); URIC ACID 4.8 MG/DL (2.6-6.0)
[2017-04-26 20:27] LABS: CALCIUM OXALATE CRYSTALS LARGE
== END ==
LOC: M SMT 15:31
PROVIDERS: ATTEND Nurse Practitioner Women's Health
DX: N13.2 Hydronephrosis with renal and ureteral calculous obstruction (principal)

== ENCOUNTER → 2017-06-23 | Outpatient (CLI) | payer OTHER ==
[2017-06-23 11:05] LABS: HEMOGLOBIN 12.7 g/dl (12.0-16.0); MEAN CORPUSCULAR HEMOGLOBIN 27.6 pg (27.0-33.0); MEAN CORPUSCULAR HGB CONC 31.8 g/dl (32.0-36.5); PLATELET COUNT, AUTOMATED 343 10^3/uL (150-450); RED CELL DISTRIBUTION WIDTH 13.6 % (11.5-14.5); WHITE BLOOD COUNT 10.6 10^3/uL (4.0-10.0)
[2017-06-23 11:35] LABS: ALBUMIN 3.6 GM/DL (3.2-5.2); ALKALINE PHOSPHATASE 106 U/L (45-117); ALT/SGPT 36 U/L (12-78); ANION GAP 8 MEQ/L (8-16); AST/SGOT 19 U/L (7-37); BILIRUBIN,TOTAL 0.2 MG/DL (0.2-1.0); BLOOD UREA NITROGEN 15 MG/DL (7-18); CALCIUM LEVEL 8.5 MG/DL (8.5-10.1); CARBON DIOXIDE LEVEL 28 MEQ/L (21-32); CHLORIDE LEVEL 105 MEQ/L (98-107); CREATININE FOR GFR 0.68 MG/DL (0.55-1.30); GLOMERULAR FILTRATION RATE > 60.0 (>60); GLUCOSE, FASTING 125 MG/DL (70-100); POTASSIUM SERUM 4.4 MEQ/L (3.5-5.1); SODIUM LEVEL 141 MEQ/L (136-145); TOTAL PROTEIN 6.6 GM/DL (6.4-8.2)
[2017-06-23 11:41] LABS: MALB URINE SIEMENS 6.1 MG/L; MAU/CREAT RATIO 4.6 MCG/MG (0.0-30.0)
[2017-06-23 11:45] LABS: ESTIMATED AVERAGE GLUCOSE 137 MG/DL (60-110); HEMOGLOBIN A1c 6.4 %
== END ==
LOC: M WUC 08:48
DX: Z00.00 Encounter for general adult medical examination without abnormal findings (principal); E11.9 Type 2 diabetes mellitus without complications; E03.9 Hypothyroidism, unspecified

== ENCOUNTER 2017-07-30 21:22 | Inpatient (IN) | payer OTHER ==
[2017-07-30 22:28] LABS: HEMATOCRIT 39.3 % (36.0-47.0); HEMOGLOBIN 12.9 g/dl (12.0-16.0); MEAN CORPUSCULAR HEMOGLOBIN 27.4 pg (27.0-33.0); MEAN CORPUSCULAR HGB CONC 32.8 g/dl (32.0-36.5); MEAN CORPUSCULAR VOLUME 83.4 fl (80.0-96.0); PLATELET COUNT, AUTOMATED 363 10^3/uL (150-450); RED BLOOD COUNT 4.71 10^6/uL (4.00-5.40); RED CELL DISTRIBUTION WIDTH 13.2 % (11.5-14.5); WHITE BLOOD COUNT 11.8 10^3/uL (4.0-10.0)
[2017-07-30 22:42] LABS: AMPHETAMINES LEVEL URINE NEGATIVE (NEGATIVE); BARBITURATES URINE NEGATIVE (NEGATIVE); BENZODIAZEPINES URINE NEGATIVE (NEGATIVE); CANNABINOIDS URINE NEGATIVE (NEGATIVE); COCAINE METABOLITE URINE NEGATIVE (NEGATIVE); METHADONE URINE NEGATIVE (NEGATIVE); OPIATES URINE NEGATIVE (NEGATIVE); PHENCYCLIDINE URINE NEGATIVE (NEGATIVE)
[2017-07-30 22:54] LABS: ACETAMINOPHEN LEVEL < 2.0 UG/ML (10.0-30.0); ALBUMIN/GLOBULIN RATIO 1.29 (1.00-1.93); ALKALINE PHOSPHATASE 115 U/L (45-117); ALT/SGPT 40 U/L (12-78); ANION GAP 9 MEQ/L (8-16); AST/SGOT 24 U/L (7-37); BILIRUBIN,DIRECT < 0.1 MG/DL (0.0-0.2); BILIRUBIN,TOTAL 0.2 MG/DL (0.2-1.0); BLOOD UREA NITROGEN 14 MG/DL (7-18); CALCIUM LEVEL 8.9 MG/DL (8.5-10.1); CARBON DIOXIDE LEVEL 27 MEQ/L (21-32); CHLORIDE LEVEL 106 MEQ/L (98-107); CREATININE FOR GFR 0.69 MG/DL (0.55-1.30); ETHYL ALCOHOL (ETHANOL) 0.003 % (0.000-0.010); GLOMERULAR FILTRATION RATE > 60.0 (>60); GLUCOSE, FASTING 106 MG/DL (70-100); POTASSIUM SERUM 3.9 MEQ/L (3.5-5.1); SALICYLATE LEVEL < 1.7 MG/DL (5.0-30.0); SODIUM LEVEL 142 MEQ/L (136-145); TOTAL PROTEIN 7.1 GM/DL (6.4-8.2)
[2017-07-30 23:21] LABS: FREE THYROXINE INDEX 3.3 % (1.3-4.8); T UPTAKE 32 % (30-39); THYROXINE (T4) 10.2 UG/DL (4.5-12.0)
[2017-07-30] MEDS: QUEtiapine FUMARATE 200 MG TAB PO (23:47)
[2017-07-30] MEDS: LORazepam 1 MG TAB PO (23:47)
[2017-07-31] MEDS ORDERED: MOM 30ML SUSPENSION UDC PO (02:15)
[2017-07-31] MEDS ORDERED: MAALOX 30 ML SUSP *UDC PO (02:15)
[2017-07-31 06:44] LABS: BEDSIDE GLUCOSE 106 MG/DL (70-105)
[2017-07-31] MEDS: QUEtiapine FUMARATE 100 MG TAB PO (08:31)
[2017-07-31] MEDS: FEXOFENADINE 60 MG TAB PO (08:31)
[2017-07-31] MEDS: oxyBUTYnin *DITROPAN XL* 5 MG TABCR PO (08:31)
[2017-07-31] MEDS: metFORMIN XR 500MG TAB *GLUCOPHAGE XR PO ×2 (08:31→21:26)
[2017-07-31] MEDS: POTASSIUM CITRATE 1080 MG (10MEQ) TAB PO ×3 (08:31→17:32)
[2017-07-31] MEDS ORDERED: SERTRALINE HCL 50 MG TAB PO (09:00)
[2017-07-31 13:43] LABS: PROLACTIN 4.8 NG/ML
[2017-07-31 17:20] LABS: BEDSIDE GLUCOSE 96 MG/DL (70-105)
[2017-07-31] MEDS: ACETAMINOPHEN TAB 650MG DOSE (2X325MG) PO (19:37)
[2017-07-31] MEDS: SERTRALINE HCL 50 MG TAB PO (21:26)
[2017-07-31] MEDS: MONTELUKAST 10 MG TAB PO (21:26)
[2017-07-31] MEDS: PANTOPRAZOLE 40MG TAB (PROTONIX) PO (21:26)
[2017-07-31] MEDS: QUEtiapine FUMARATE 200 MG TAB PO (21:26)
[2017-07-31] MEDS: ALBUTEROL 90 MCG/ACT 8GM HFA INHALER INH (21:27)
[2017-07-31] MEDS: NYSTATIN 100,000 UNITS/GM TOPICAL PWD 15 GM TOP (22:03)
[2017-08-01 06:50] LABS: BEDSIDE GLUCOSE 115 MG/DL (70-105)
[2017-08-01 07:22] LABS: HEMATOCRIT 39.5 % (36.0-47.0); HEMOGLOBIN 12.9 g/dl (12.0-16.0); MEAN CORPUSCULAR HEMOGLOBIN 27.8 pg (27.0-33.0); MEAN CORPUSCULAR HGB CONC 32.7 g/dl (32.0-36.5); MEAN CORPUSCULAR VOLUME 85.1 fl (80.0-96.0); PLATELET COUNT, AUTOMATED 326 10^3/uL (150-450); RED BLOOD COUNT 4.64 10^6/uL (4.00-5.40); RED CELL DISTRIBUTION WIDTH 13.4 % (11.5-14.5)
[2017-08-01 07:55] LABS: FREE THYROXINE INDEX 2.6 % (1.3-4.8); T UPTAKE 35 % (30-39); THYROXINE (T4) 7.3 UG/DL (4.5-12.0)
[2017-08-01] MEDS: FEXOFENADINE 60 MG TAB PO (08:24)
[2017-08-01] MEDS: QUEtiapine FUMARATE 100 MG TAB PO ×2 (08:24→22:02)
[2017-08-01] MEDS: metFORMIN XR 500MG TAB *GLUCOPHAGE XR PO ×2 (08:24→22:02)
[2017-08-01] MEDS: oxyBUTYnin *DITROPAN XL* 5 MG TABCR PO (08:24)
[2017-08-01] MEDS: NYSTATIN 100,000 UNITS/GM TOPICAL PWD 15 GM TOP ×2 (08:25→22:17)
[2017-08-01] MEDS: POTASSIUM CITRATE 1080 MG (10MEQ) TAB PO ×3 (08:31→17:19)
[2017-08-01] MEDS: OLANZapine ORAL DISINTEGRATING TAB 5MG PO (13:15)
[2017-08-01] MEDS ORDERED: OLANZapine ORAL DISINTEGRATING TAB 5MG PO (15:45)
[2017-08-01 17:23] LABS: BEDSIDE GLUCOSE 96 MG/DL (70-105)
[2017-08-01] MEDS: OLANZapine 5 MG TAB PO (22:01)
[2017-08-01] MEDS: SERTRALINE HCL 50 MG TAB PO (22:02)
[2017-08-01] MEDS: PANTOPRAZOLE 40MG TAB (PROTONIX) PO (22:02)
[2017-08-01] MEDS: MONTELUKAST 10 MG TAB PO (22:02)
[2017-08-01] MEDS: BREO ELLIPTA INH (22:03)
[2017-08-02 06:16] LABS: BEDSIDE GLUCOSE 123 MG/DL (70-105)
[2017-08-02] MEDS: FEXOFENADINE 60 MG TAB PO (08:41)
[2017-08-02] MEDS: POTASSIUM CITRATE 1080 MG (10MEQ) TAB PO ×3 (08:41→17:36)
[2017-08-02] MEDS: QUEtiapine FUMARATE 100 MG TAB PO ×2 (08:41→22:04)
[2017-08-02] MEDS: oxyBUTYnin *DITROPAN XL* 5 MG TABCR PO (08:41)
[2017-08-02] MEDS: metFORMIN XR 500MG TAB *GLUCOPHAGE XR PO ×2 (08:41→22:04)
[2017-08-02] MEDS: NYSTATIN 100,000 UNITS/GM TOPICAL PWD 15 GM TOP (08:43)
[2017-08-02] MEDS: ACETAMINOPHEN TAB 650MG DOSE (2X325MG) PO (11:42)
[2017-08-02] MEDS: CLOTRIMAZOLE 1% TOPICAL CREAM 30GM TOP ×2 (14:35→22:06)
[2017-08-02 17:41] LABS: BEDSIDE GLUCOSE 130 MG/DL (70-105)
[2017-08-02] MEDS: OLANZapine 5 MG TAB PO (22:03)
[2017-08-02] MEDS: PANTOPRAZOLE 40MG TAB (PROTONIX) PO (22:03)
[2017-08-02] MEDS: MONTELUKAST 10 MG TAB PO (22:03)
[2017-08-02] MEDS: BREO ELLIPTA INH (22:05)
[2017-08-03 06:18] LABS: BEDSIDE GLUCOSE 124 MG/DL (70-105)
[2017-08-03] MEDS: ACETAMINOPHEN TAB 650MG DOSE (2X325MG) PO (08:12)
[2017-08-03] MEDS: metFORMIN XR 500MG TAB *GLUCOPHAGE XR PO ×2 (08:12→21:48)
[2017-08-03] MEDS: CLOTRIMAZOLE 1% TOPICAL CREAM 30GM TOP ×2 (08:12→21:49)
[2017-08-03] MEDS: oxyBUTYnin *DITROPAN XL* 5 MG TABCR PO (08:12)
[2017-08-03] MEDS: FEXOFENADINE 60 MG TAB PO (08:12)
[2017-08-03] MEDS: QUEtiapine FUMARATE 100 MG TAB PO ×2 (08:12→21:48)
[2017-08-03] MEDS: POTASSIUM CITRATE 1080 MG (10MEQ) TAB PO ×3 (08:12→17:21)
[2017-08-03] MEDS: SERTRALINE HCL 50 MG TAB PO (10:33)
[2017-08-03 17:06] LABS: BEDSIDE GLUCOSE 101 MG/DL (70-105)
[2017-08-03] MEDS: OLANZapine 5 MG TAB PO (21:48)
[2017-08-03] MEDS: MONTELUKAST 10 MG TAB PO (21:48)
[2017-08-03] MEDS: PANTOPRAZOLE 40MG TAB (PROTONIX) PO (21:48)
[2017-08-03] MEDS: SERTRALINE 100 MG TAB PO (21:48)
[2017-08-03] MEDS: BREO ELLIPTA INH (21:50)
[2017-08-04 06:41] LABS: BEDSIDE GLUCOSE 119 MG/DL (70-105)
[2017-08-04] MEDS: FEXOFENADINE 60 MG TAB PO (08:02)
[2017-08-04] MEDS: CLOTRIMAZOLE 1% TOPICAL CREAM 30GM TOP ×2 (08:02→21:46)
[2017-08-04] MEDS: metFORMIN XR 500MG TAB *GLUCOPHAGE XR PO ×2 (08:03→21:47)
[2017-08-04] MEDS: POTASSIUM CITRATE 1080 MG (10MEQ) TAB PO ×3 (08:03→17:25)
[2017-08-04] MEDS: QUEtiapine FUMARATE 100 MG TAB PO ×2 (08:03→21:47)
[2017-08-04] MEDS: oxyBUTYnin *DITROPAN XL* 5 MG TABCR PO (08:04)
[2017-08-04 17:17] LABS: BEDSIDE GLUCOSE 157 MG/DL (70-105)
[2017-08-04] MEDS: BREO ELLIPTA INH (21:46)
[2017-08-04] MEDS: OLANZapine 5 MG TAB PO (21:46)
[2017-08-04] MEDS: PANTOPRAZOLE 40MG TAB (PROTONIX) PO (21:47)
[2017-08-04] MEDS: SERTRALINE 100 MG TAB PO (21:47)
[2017-08-04] MEDS: MONTELUKAST 10 MG TAB PO (21:47)
[2017-08-05 07:41] LABS: BEDSIDE GLUCOSE 130 MG/DL (70-105)
[2017-08-05] MEDS: metFORMIN XR 500MG TAB *GLUCOPHAGE XR PO ×2 (08:06→22:18)
[2017-08-05] MEDS: POTASSIUM CITRATE 1080 MG (10MEQ) TAB PO ×3 (08:06→17:26)
[2017-08-05] MEDS: oxyBUTYnin *DITROPAN XL* 5 MG TABCR PO (08:07)
[2017-08-05] MEDS: FEXOFENADINE 60 MG TAB PO (08:08)
[2017-08-05] MEDS: QUEtiapine FUMARATE 100 MG TAB PO (08:09)
[2017-08-05] MEDS: CLOTRIMAZOLE 1% TOPICAL CREAM 30GM TOP ×2 (08:10→22:18)
[2017-08-05] MEDS: ACETAMINOPHEN TAB 650MG DOSE (2X325MG) PO (13:23)
[2017-08-05 17:14] LABS: BEDSIDE GLUCOSE 112 MG/DL (70-105)
[2017-08-05] MEDS: MONTELUKAST 10 MG TAB PO (22:17)
[2017-08-05] MEDS: OLANZapine 5 MG TAB PO (22:17)
[2017-08-05] MEDS: traZODone 50 MG TAB PO (22:17)
[2017-08-05] MEDS: SERTRALINE 100 MG TAB PO (22:17)
[2017-08-05] MEDS: PANTOPRAZOLE 40MG TAB (PROTONIX) PO (22:19)
[2017-08-05] MEDS: BREO ELLIPTA INH (22:19)
[2017-08-06 06:21] LABS: BEDSIDE GLUCOSE 110 MG/DL (70-105)
[2017-08-06] MEDS: FEXOFENADINE 60 MG TAB PO (08:04)
[2017-08-06] MEDS: CLOTRIMAZOLE 1% TOPICAL CREAM 30GM TOP ×2 (08:05→22:26)
[2017-08-06] MEDS: metFORMIN XR 500MG TAB *GLUCOPHAGE XR PO ×2 (08:05→22:25)
[2017-08-06] MEDS: oxyBUTYnin *DITROPAN XL* 5 MG TABCR PO (08:05)
[2017-08-06] MEDS: POTASSIUM CITRATE 1080 MG (10MEQ) TAB PO ×3 (08:05→17:27)
[2017-08-06] MEDS: ACETAMINOPHEN TAB 650MG DOSE (2X325MG) PO (10:26)
[2017-08-06 17:12] LABS: BEDSIDE GLUCOSE 121 MG/DL (70-105)
[2017-08-06] MEDS: PANTOPRAZOLE 40MG TAB (PROTONIX) PO (22:24)
[2017-08-06] MEDS: SERTRALINE 100 MG TAB PO (22:25)
[2017-08-06] MEDS: OLANZapine 5 MG TAB PO (22:25)
[2017-08-06] MEDS: MONTELUKAST 10 MG TAB PO (22:25)
[2017-08-06] MEDS: traZODone 50 MG TAB PO (22:25)
[2017-08-06] MEDS: BREO ELLIPTA INH (22:26)
[2017-08-07 06:18] LABS: BEDSIDE GLUCOSE 108 MG/DL (70-105)
[2017-08-07] MEDS: POTASSIUM CITRATE 1080 MG (10MEQ) TAB PO (07:50)
[2017-08-07] MEDS: ACETAMINOPHEN TAB 650MG DOSE (2X325MG) PO (07:52)
[2017-08-07] MEDS: CLOTRIMAZOLE 1% TOPICAL CREAM 30GM TOP (08:25)
[2017-08-07] MEDS: metFORMIN XR 500MG TAB *GLUCOPHAGE XR PO (08:26)
[2017-08-07] MEDS: FEXOFENADINE 60 MG TAB PO (08:27)
[2017-08-07] MEDS: oxyBUTYnin *DITROPAN XL* 5 MG TABCR PO (08:27)
== END 2017-08-07 12:00 | disposition home or self-care (01) | DRG 885 ==
LOC: M PSY 07-31 00:11 → M ED 21:22 → M PSY 07-31 20:40 → M ED INP 23:30
DX: F31.9 Bipolar disorder, unspecified (principal); Z68.42 Body mass index [BMI] 45.0-49.9, adult; K21.9 Gastro-esophageal reflux disease without esophagitis; J45.909 Unspecified asthma, uncomplicated; E28.2 Polycystic ovarian syndrome; E11.9 Type 2 diabetes mellitus without complications; G47.33 Obstructive sleep apnea (adult) (pediatric); B35.8 Other dermatophytoses; E66.9 Obesity, unspecified; Z79.4 Long term (current) use of insulin; Z79.899 Other long term (current) drug therapy; Z81.8 Family history of other mental and behavioral disorders; Z88.0 Allergy status to penicillin; Z91.013 Allergy to seafood; Z91.040 Latex allergy status; Z88.8 Allergy status to other drugs, medicaments and biological substances

== ENCOUNTER → 2017-09-06 | Outpatient (CLI) | payer OTHER ==
[2017-09-06 14:32] LABS: LITHIUM LEVEL 0.45 MEQ/L (0.60-1.20)
== END ==
LOC: M LAB 13:01
DX: Z51.81 Encounter for therapeutic drug level monitoring (principal); Z79.899 Other long term (current) drug therapy; F31.2 Bipolar disorder, current episode manic severe with psychotic features

== ENCOUNTER → 2017-09-11 | Outpatient (CLI) | payer OTHER ==
[2017-09-11 18:30] LABS: HEMATOCRIT 38.8 % (36.0-47.0); HEMOGLOBIN 12.5 g/dl (12.0-15.5); MEAN CORPUSCULAR HEMOGLOBIN 27.8 pg (27.0-33.0); MEAN CORPUSCULAR HGB CONC 32.2 g/dl (32.0-36.5); MEAN CORPUSCULAR VOLUME 86.2 fl (80.0-96.0); PLATELET COUNT, AUTOMATED 408 10^3/uL (150-450); RED CELL DISTRIBUTION WIDTH 13.8 % (11.5-14.5); WHITE BLOOD COUNT 14.8 10^3/uL (4.0-10.0)
[2017-09-11 20:08] LABS: LITHIUM LEVEL 0.34 MEQ/L (0.60-1.20)
== END ==
LOC: M LAB 17:52
DX: F31.2 Bipolar disorder, current episode manic severe with psychotic features (principal)

== ENCOUNTER → 2017-09-13 | Outpatient (CLI) | payer OTHER ==
[2017-09-13 07:19] LABS: LITHIUM LEVEL 0.48 MEQ/L (0.60-1.20)
== END ==
LOC: M LAB 06:07
DX: F31.2 Bipolar disorder, current episode manic severe with psychotic features (principal)
CPT/HCPCS: 80178

== ENCOUNTER → 2017-09-26 | Outpatient (CLI) | payer OTHER ==
[2017-09-26 07:10] LABS: HEMATOCRIT 39.5 % (36.0-47.0); HEMOGLOBIN 12.8 g/dl (12.0-15.5); MEAN CORPUSCULAR HEMOGLOBIN 27.8 pg (27.0-33.0); MEAN CORPUSCULAR HGB CONC 32.4 g/dl (32.0-36.5); MEAN CORPUSCULAR VOLUME 85.7 fl (80.0-96.0); PLATELET COUNT, AUTOMATED 407 10^3/uL (150-450); RED BLOOD COUNT 4.61 10^6/uL (4.00-5.40); WHITE BLOOD COUNT 14.2 10^3/uL (4.0-10.0)
[2017-09-26 07:42] LABS: ALBUMIN 3.5 GM/DL (3.2-5.2); ALBUMIN/GLOBULIN RATIO 1.17 (1.00-1.93); ALKALINE PHOSPHATASE 94 U/L (45-117); ALT/SGPT 34 U/L (12-78); ANION GAP 7 MEQ/L (8-16); AST/SGOT 20 U/L (7-37); BILIRUBIN,TOTAL 0.4 MG/DL (0.2-1.0); BLOOD UREA NITROGEN 10 MG/DL (7-18); CALCIUM LEVEL 8.8 MG/DL (8.5-10.1); CARBON DIOXIDE LEVEL 28 MEQ/L (21-32); CHLORIDE LEVEL 108 MEQ/L (98-107); CHOLESTEROL LEVEL 111 MG/DL (<200); CREATININE FOR GFR 0.71 MG/DL (0.55-1.30); GLOMERULAR FILTRATION RATE > 60.0 (>60); GLUCOSE, FASTING 124 MG/DL (70-100); HDL CHOLESTEROL 37 MG/DL (>40); LDL CHOLESTEROL 55.4 MG/DL (<100); NON-HDL-C 74 MG/DL; POTASSIUM SERUM 4.4 MEQ/L (3.5-5.1); SODIUM LEVEL 143 MEQ/L (136-145); TOTAL PROTEIN 6.5 GM/DL (6.4-8.2); TRIGLYCERIDES LEVEL 93 MG/DL (<150)
[2017-09-26 08:03] LABS: LITHIUM LEVEL 0.63 MEQ/L (0.60-1.20)
[2017-09-26 08:59] LABS: TOTAL 25(OH) VITAMIN D 14.5 NG/ML (30.0-100.0)
== END ==
LOC: M LAB 06:04
DX: F31.2 Bipolar disorder, current episode manic severe with psychotic features (principal)
CPT/HCPCS: 80178

== ENCOUNTER → 2017-09-26 | Outpatient (CLI) | payer OTHER | LOC: M EKG 16:55 | DX: I45.10 Unspecified right bundle-branch block (principal); Z79.899 Other long term (current) drug therapy | CPT/HCPCS: 93005 ==

== ENCOUNTER → 2017-11-03 | Outpatient (CLI) | payer OTHER ==
[2017-11-03 12:01] LABS: HEMATOCRIT 41.2 % (36.0-47.0); HEMOGLOBIN 13.1 g/dl (12.0-15.5); MEAN CORPUSCULAR HEMOGLOBIN 27.5 pg (27.0-33.0); MEAN CORPUSCULAR HGB CONC 31.8 g/dl (32.0-36.5); MEAN CORPUSCULAR VOLUME 86.4 fl (80.0-96.0); PLATELET COUNT, AUTOMATED 386 10^3/uL (150-450); RED BLOOD COUNT 4.77 10^6/uL (4.00-5.40); RED CELL DISTRIBUTION WIDTH 14.5 % (11.5-14.5); WHITE BLOOD COUNT 13.3 10^3/uL (4.0-10.0)
[2017-11-03 12:18] LABS: ALKALINE PHOSPHATASE 73 U/L (45-117); ALT/SGPT 43 U/L (12-78); ANION GAP 11 MEQ/L (8-16); AST/SGOT 15 U/L (7-37); BILIRUBIN,TOTAL 0.4 MG/DL (0.2-1.0); BLOOD UREA NITROGEN 10 MG/DL (7-18); CALCIUM LEVEL 8.6 MG/DL (8.5-10.1); CARBON DIOXIDE LEVEL 27 MEQ/L (21-32); CHLORIDE LEVEL 105 MEQ/L (98-107); CREATININE FOR GFR 0.66 MG/DL (0.55-1.30); GLOMERULAR FILTRATION RATE > 60.0 (>60); GLUCOSE, FASTING 97 MG/DL (70-100); POTASSIUM SERUM 3.9 MEQ/L (3.5-5.1); SODIUM LEVEL 143 MEQ/L (136-145)
[2017-11-03 12:19] LABS: ALBUMIN 3.5 GM/DL (3.2-5.2); ALBUMIN/GLOBULIN RATIO 1.17 (1.00-1.93); TOTAL PROTEIN 6.5 GM/DL (6.4-8.2)
[2017-11-03 12:21] LABS: ESTIMATED AVERAGE GLUCOSE 131 MG/DL (60-110); HEMOGLOBIN A1c 6.2 %
[2017-11-03 12:27] LABS: MALB URINE SIEMENS 7.4 MG/L; MAU/CREAT RATIO 5.2 MCG/MG (0.0-30.0)
== END ==
LOC: M WUC 08:25
DX: G47.30 Sleep apnea, unspecified (principal); E11.9 Type 2 diabetes mellitus without complications; R94.6 Abnormal results of thyroid function studies

== ENCOUNTER → 2018-01-18 | Outpatient (CLI) | payer OTHER ==
[2018-01-18 07:36] LABS: HEMATOCRIT 40.4 % (36.0-47.0); HEMOGLOBIN 12.9 g/dl (12.0-15.5); MEAN CORPUSCULAR HEMOGLOBIN 28.4 pg (27.0-33.0); MEAN CORPUSCULAR HGB CONC 31.9 g/dl (32.0-36.5); PLATELET COUNT, AUTOMATED 400 10^3/uL (150-450); RED BLOOD COUNT 4.54 10^6/uL (4.00-5.40); RED CELL DISTRIBUTION WIDTH 13.8 % (11.5-14.5); WHITE BLOOD COUNT 13.3 10^3/uL (4.0-10.0)
[2018-01-18 08:05] LABS: ALBUMIN 3.6 GM/DL (3.2-5.2); ALBUMIN/GLOBULIN RATIO 1.33 (1.00-1.93); ALKALINE PHOSPHATASE 73 U/L (45-117); ALT/SGPT 35 U/L (12-78); ANION GAP 12 MEQ/L (8-16); AST/SGOT 21 U/L (7-37); BILIRUBIN,TOTAL 0.3 MG/DL (0.2-1.0); BLOOD UREA NITROGEN 8 MG/DL (7-18); CALCIUM LEVEL 8.9 MG/DL (8.5-10.1); CARBON DIOXIDE LEVEL 24 MEQ/L (21-32); CHLORIDE LEVEL 107 MEQ/L (98-107); CREATININE FOR GFR 0.63 MG/DL (0.55-1.30); GLOMERULAR FILTRATION RATE > 60.0 (>60); GLUCOSE, FASTING 127 MG/DL (70-100); POTASSIUM SERUM 4.1 MEQ/L (3.5-5.1); SODIUM LEVEL 143 MEQ/L (136-145); TOTAL PROTEIN 6.3 GM/DL (6.4-8.2)
[2018-01-18 08:09] LABS: LITHIUM LEVEL 0.51 MEQ/L (0.60-1.20)
== END ==
LOC: M LAB 06:07
DX: F31.9 Bipolar disorder, unspecified (principal)
CPT/HCPCS: 80178

== ENCOUNTER → 2018-02-14 | Outpatient (CLI) | payer OTHER ==
[2018-02-14 06:59] LABS: HEMATOCRIT 41.2 % (36.0-47.0); MEAN CORPUSCULAR HEMOGLOBIN 28.4 pg (27.0-33.0); MEAN CORPUSCULAR HGB CONC 31.6 g/dl (32.0-36.5); PLATELET COUNT, AUTOMATED 401 10^3/uL (150-450); RED BLOOD COUNT 4.58 10^6/uL (4.00-5.40); RED CELL DISTRIBUTION WIDTH 13.7 % (11.5-14.5); WHITE BLOOD COUNT 12.7 10^3/uL (4.0-10.0)
[2018-02-14 07:28] LABS: ALBUMIN 3.8 GM/DL (3.2-5.2); ALBUMIN/GLOBULIN RATIO 1.36 (1.00-1.93); ALKALINE PHOSPHATASE 83 U/L (45-117); ALT/SGPT 34 U/L (12-78); ANION GAP 8 MEQ/L (8-16); AST/SGOT 19 U/L (7-37); BILIRUBIN,TOTAL 0.4 MG/DL (0.2-1.0); BLOOD UREA NITROGEN 10 MG/DL (7-18); CALCIUM LEVEL 9.3 MG/DL (8.5-10.1); CARBON DIOXIDE LEVEL 28 MEQ/L (21-32); CHLORIDE LEVEL 105 MEQ/L (98-107); CREATININE FOR GFR 0.71 MG/DL (0.55-1.30); GLOMERULAR FILTRATION RATE > 60.0 (>60); GLUCOSE, FASTING 131 MG/DL (70-100); LITHIUM LEVEL 0.68 MEQ/L (0.60-1.20); POTASSIUM SERUM 4.1 MEQ/L (3.5-5.1); SODIUM LEVEL 141 MEQ/L (136-145); TOTAL PROTEIN 6.6 GM/DL (6.4-8.2)
== END ==
LOC: M LAB 06:19
DX: F31.9 Bipolar disorder, unspecified (principal)

== ENCOUNTER → 2018-02-14 | Outpatient (CLI) | payer OTHER ==
[2018-02-14 08:21] LABS: ALBUMIN 3.8 GM/DL (3.2-5.2); ALBUMIN/GLOBULIN RATIO 1.36 (1.00-1.93); ALKALINE PHOSPHATASE 85 U/L (45-117); ALT/SGPT 33 U/L (12-78); ANION GAP 10 MEQ/L (8-16); AST/SGOT 18 U/L (7-37); BILIRUBIN,TOTAL 0.3 MG/DL (0.2-1.0); BLOOD UREA NITROGEN 10 MG/DL (7-18); CALCIUM LEVEL 9.3 MG/DL (8.5-10.1); CARBON DIOXIDE LEVEL 28 MEQ/L (21-32); CHLORIDE LEVEL 105 MEQ/L (98-107); CREATININE FOR GFR 0.74 MG/DL (0.55-1.30); GLOMERULAR FILTRATION RATE > 60.0 (>60); GLUCOSE, FASTING 121 MG/DL (70-100); POTASSIUM SERUM 4.3 MEQ/L (3.5-5.1); SODIUM LEVEL 143 MEQ/L (136-145); TOTAL PROTEIN 6.6 GM/DL (6.4-8.2)
[2018-02-14 08:34] LABS: ESTIMATED AVERAGE GLUCOSE 126 MG/DL (60-110)
== END ==
LOC: M LAB 07:11
DX: E11.9 Type 2 diabetes mellitus without complications (principal); R94.6 Abnormal results of thyroid function studies

== ENCOUNTER → 2018-02-28 | Outpatient (CLI) | payer OTHER | LOC: M RAD 15:54 | DX: R39.15 Urgency of urination (principal); Q62.31 Congenital ureterocele, orthotopic | CPT/HCPCS: 76775 ==

== ENCOUNTER → 2018-05-28 | Outpatient (CLI) | payer OTHER ==
[~2018-05-28] MED LIST changes: +CINN500T PO; +CRAN400C PO; +HYDR1CRE2 EXT; +IBUPOTC PO; -LORA10TA2 PO; +LORA10TA3 PO; +OLAN5TAB PO; +OXYB5TAB PO; -PANT40TA2 PO; +PANT40TA3 PO; +POTA10808 PO; +SERO400T PO; -TRAZ-136 PO; +TRAZ-163 PO; +TRAZO50TA PO
--- NOTE | 2018-05-29 05:15 | REP ---
Clinical: Right upper quadrant abdominal pain. Technique: Scott scale ultrasound using curved array transducer. Findings: The liver demonstrates diffuse fatty infiltration without focal hepatic lesion identified. The pancreas is incompletely evaluated due to interposed bowel gas but visualized portions appear normal. The gallbladder is partially contracted but without obvious wall thickening, gallstones or pericholecystic fluid. No biliary ductal dilatation is appreciated, and the common bile duct measures 4.0 mm diameter. The right kidney is normal in reniform shape without hydronephrosis and measures 12.2 x 6.4 x 5.3 cm. No ascites. Visualized portions of the abdominal aorta normal. Impression: Hepatic steatosis. Electronically Signed by Chago Shirley MD 05/29/2018 05:07 A
== END ==
LOC: M RAD 08:31
PROVIDERS: ATTEND Nurse Practitioner Adult Health
DX: K76.89 Other specified diseases of liver (principal); R10.11 Right upper quadrant pain

== ENCOUNTER → 2018-06-04 | Outpatient (CLI) | payer OTHER | LOC: M LAB 17:10 | PROVIDERS: ATTEND Nurse Practitioner Adult Health | DX: K58.9 Irritable bowel syndrome, unspecified (principal) ==

== ENCOUNTER → 2018-06-22 | Outpatient (CLI) | payer OTHER ==
[2018-06-22 09:58] LABS: HEMATOCRIT 39.9 % (36.0-47.0); HEMOGLOBIN 12.9 g/dl (12.0-15.5); MEAN CORPUSCULAR HEMOGLOBIN 28.1 pg (27.0-33.0); MEAN CORPUSCULAR HGB CONC 32.3 g/dl (32.0-36.5); MEAN CORPUSCULAR VOLUME 86.9 fl (80.0-96.0); PLATELET COUNT, AUTOMATED 357 10^3/uL (150-450); RED BLOOD COUNT 4.59 10^6/uL (4.00-5.40); WHITE BLOOD COUNT 11.7 10^3/uL (4.0-10.0)
== END ==
LOC: M LAB 09:29
PROVIDERS: ATTEND Registered Nurse Psychiatric/Mental Health
DX: F31.9 Bipolar disorder, unspecified (principal)

== ENCOUNTER → 2018-06-25 | Outpatient (CLI) | payer OTHER ==
--- NOTE | 2018-06-25 11:11 | REP ---
Radionuclide biliary scan: This is a continuation of the previously dictated report. Followup three our delayed images performed in AP and lateral projections. No gallbladder radiolabeling is identified on these three hour follow-up images. Electronically Signed by Adonay Lyman MD 06/25/2018 11:02 A
== END ==
LOC: M RAD 07:37
PROVIDERS: ATTEND Nurse Practitioner Adult Health
DX: R10.11 Right upper quadrant pain (principal)
CPT/HCPCS: 78226; A9537

== ENCOUNTER 2018-08-09 07:04 | Day surgery (SDC) | payer OTHER ==
[~2018-08-09] VITALS: Ht 157.5 cm; Wt 98.9 kg
[~2018-08-09 07:04] MED LIST changes: +BREO1INH INH; +DRIS50003 PO; +HYOS0.374 PO; +JANU100T PO; +LEVA0.636 INH; +LEVAINH INH; +LIDOCAINE 1% MDV 20ML VIAL SQ PRN; +LITH300C PO; +SERO1TAB PO; +TOLT4CAP3 PO; +TRAZ-160 PO; +ZOLO25TA PO
[2018-08-09] MEDS ORDERED: PROPOFOL 200 MG/20 ML VIAL As Ordered ONE ×2 (07:50→09:25)
[2018-08-09] MEDS ORDERED: dexameTHASONE 4 MG/ML 1ML VIAL (J1100) As Ordered ONE (07:50)
[2018-08-09] MEDS ORDERED: MIDAZOLAM INJ 2 MG/2 ML VIAL (J2250) As Ordered ONE (07:50)
[2018-08-09] MEDS ORDERED: ONDANSETRON 4MG/2ML VIAL (J2405) As Ordered ONE (07:50)
[2018-08-09] MEDS ORDERED: NEOSTIGMINE 10 MG/10 ML VIAL (J2710) As Ordered ONE (07:50)
[2018-08-09] MEDS ORDERED: fentaNYL 100 MCG/2 ML INJECTION (J3010) As Ordered ONE ×2 (07:50→09:06)
[2018-08-09] MEDS ORDERED: ROCURONIUM BROMIDE 50 MG/5 ML VIAL As Ordered ONE (07:50)
[2018-08-09] MEDS ORDERED: GLYCOPYRROLATE INJ 0.2 MG/ML 2 ML VIAL As Ordered ONE ×2 (07:50→07:55)
[2018-08-09] MEDS ORDERED: LIDOCAINE 2% INJ 100 MG/5 ML SDV (FOR ANES.) As Ordered ONE (07:50)
[2018-08-09] MEDS ORDERED: LR 1,000 ML IV ONE (08:00)
[2018-08-09] MEDS ORDERED: BUPIVACAINE/EPIN 0.25% 30 ML VIAL As Ordered ONE (08:26)
[2018-08-09] MEDS ORDERED: ONDANSETRON 4MG/2ML VIAL (J2405) IV PRN (10:15)
[2018-08-09] MEDS ORDERED: fentaNYL 100 MCG/2 ML INJECTION (J3010) IV PRN (10:15)
[2018-08-09] MEDS ORDERED: LR 1,000 ML IV SCH (10:15)
[2018-08-09] MEDS ORDERED: NORCO, ANEXSIA 5/325MG TABLET (HYDROcodone/ACETAMINOPHEN) PO PRN ×2 (10:15)
[2018-08-09] MEDS ORDERED: METOCLOPRAMIDE INJ 10MG/2ML VIAL (J2765) As Ordered ONE (10:26)
[2018-08-09] MEDS ORDERED: METOCLOPRAMIDE INJ 10MG/2ML VIAL (J2765) IV PRN (10:45)
[2018-08-09 12:27] VITALS: BP 133/68
--- NOTE | 2018-08-12 11:53 | RO ---
DATE OF PROCEDURE: 08/09/2018 PREPROCEDURE DIAGNOSIS: Chronic cholecystitis. POSTOPERATIVE DIAGNOSIS: Chronic cholecystitis. PROCEDURE: Laparoscopic cholecystectomy. SURGEON: Dr. Salamanca ACQUISITION ANALYST: None. ANESTHESIA: General: ESTIMATED BLOOD LOSS: 5. COMPLICATIONS: None. INDICATIONS FOR PROCEDURE: The patient 38-year-old female who presents with persistent upper quadrant abdominal pain and found to have chronic cholecystitis. Recommendation was to proceed with laparoscopic, possible open cholecystectomy. Risks and benefits of the procedure not limited but including bleeding, infection, hernia formation, damage to surrounding structures, need for further surgery were discussed in detail with the patient. Informed consent was obtained and procedure was planned. DESCRIPTION OF PROCEDURE: The patient brought back to operating room #3. After sufficient sedation, the abdomen was sterilely prepped and draped. Next, a time out was done confirming proper patient and proper procedure. Following that, a stab incision was made in left upper quadrant, Veress needle inserted and the abdomen was insufflated to 15 mmHg. Next, a 5 mm supraumbilical midline incision was made and a 5 mm Optiview port was used to gain access to the abdomen. Once the abdomen was entered, Veress needle site was examined and there were no signs of any injury. Veress needle was then removed. An 11 mm port placed subxiphoid and two 5 mm ports in right upper quadrant. Next, using the hook cautery, peritoneal and omental adhesions to the superior abdominal wall overlying the gallbladder and the liver were gently taken down. Once that was done, the gallbladder was identified scarred in to the liver bed. I was able to take down adhesions surrounding it and gently relax it a little bit to the point where I could get to the base. I was able to use some blunt and sharp dissection to dissect free the cystic duct and cystic artery. Once that was completed, they were both doubly clipped and cut. The gallbladder was removed from gallbladder fossa with electrocautery. Gallbladder was then brought out through the subxiphoid port site in a 10 mm EndoCatch bag. Abdomen was then desufflated. Skin incisions closed with #4-0 Vicryl subcuticular sutures. The abdomen was cleaned and dried. Steri-Strips, 4x4 and tape were applied, thus ending procedure.
== END 2018-08-09 12:30 | disposition home or self-care (01) ==
LOC: M SDC 07:04
PROVIDERS: ATTEND Surgery
DX: K80.10 Calculus of gallbladder with chronic cholecystitis without obstruction (principal); I10 Essential (primary) hypertension; E11.9 Type 2 diabetes mellitus without complications; K21.9 Gastro-esophageal reflux disease without esophagitis; G47.33 Obstructive sleep apnea (adult) (pediatric); K58.9 Irritable bowel syndrome, unspecified; J45.909 Unspecified asthma, uncomplicated; R00.0 Tachycardia, unspecified; F41.9 Anxiety disorder, unspecified; F31.9 Bipolar disorder, unspecified; F32.9 Major depressive disorder, single episode, unspecified; R06.83 Snoring; E66.9 Obesity, unspecified; Z88.1 Allergy status to other antibiotic agents; Z88.8 Allergy status to other drugs, medicaments and biological substances; Z91.013 Allergy to seafood; Z91.040 Latex allergy status; Z91.041 Radiographic dye allergy status; Z79.899 Other long term (current) drug therapy; Z79.84 Long term (current) use of oral hypoglycemic drugs; Z90.710 Acquired absence of both cervix and uterus; Z98.51 Tubal ligation status; Z68.41 Body mass index [BMI] 40.0-44.9, adult
CPT/HCPCS: 47562; 88304; J1100; J2250; J2405; J2710; J2765; J3010

== ENCOUNTER → 2018-08-16 | Outpatient (CLI) | payer OTHER ==
[~2018-08-16] MED LIST changes: -LIDOCAINE 1% MDV 20ML VIAL SQ PRN; +PRED-351 PO; -PRED10TA PO
[2018-08-16 09:11] LABS: ALBUMIN 3.7 GM/DL (3.2-5.2); ALT/SGPT 26 U/L (12-78); BILIRUBIN,TOTAL 0.3 MG/DL (0.2-1.0); BLOOD UREA NITROGEN 8 MG/DL (7-18); CALCIUM LEVEL 9.1 MG/DL (8.5-10.1); CARBON DIOXIDE LEVEL 28 MEQ/L (21-32); CHLORIDE LEVEL 106 MEQ/L (98-107); CREATININE FOR GFR 0.65 MG/DL (0.55-1.30); GLOMERULAR FILTRATION RATE > 60.0 (>60); GLUCOSE, FASTING 100 MG/DL (70-100); POTASSIUM SERUM 3.9 MEQ/L (3.5-5.1); SODIUM LEVEL 142 MEQ/L (136-145); TOTAL PROTEIN 6.7 GM/DL (6.4-8.2)
[2018-08-16 11:36] LABS: HEMOGLOBIN A1c 5.4 %
== END ==
LOC: M LAB 08:11
PROVIDERS: ATTEND Nurse Practitioner Adult Health
DX: E11.9 Type 2 diabetes mellitus without complications (principal)

== ENCOUNTER → 2018-11-18 | Outpatient (CLI) | payer OTHER ==
[~2018-11-18] MED LIST changes: -TRAZ-160 PO; +TRAZ-252 PO; +TRAZ1TAB10 PO; -TRAZO50TA PO
[2018-11-18 07:55] LABS: LITHIUM LEVEL 0.32 MEQ/L (0.60-1.20); THYROID STIMULATING HORMONE 8.37 uIU/ML (0.358-3.740)
== END ==
LOC: M LAB 07:03
PROVIDERS: ATTEND Registered Nurse Psychiatric/Mental Health
DX: F31.64 Bipolar disorder, current episode mixed, severe, with psychotic features (principal)

== ENCOUNTER → 2018-11-19 | Outpatient (CLI) | payer OTHER ==
[2018-11-19 07:59] LABS: HEMATOCRIT 41.8 % (36.0-47.0); HEMOGLOBIN 13.5 g/dl (12.0-15.5); MEAN CORPUSCULAR HGB CONC 32.3 g/dl (32.0-36.5); MEAN CORPUSCULAR VOLUME 89.7 fl (80.0-96.0); PLATELET COUNT, AUTOMATED 344 10^3/uL (150-450); RED BLOOD COUNT 4.66 10^6/uL (4.00-5.40); WHITE BLOOD COUNT 10.2 10^3/uL (4.0-10.0)
[2018-11-19 08:22] LABS: HEMOGLOBIN A1c 5.5 %
[2018-11-19 08:33] LABS: ALBUMIN 3.5 GM/DL (3.2-5.2); ALT/SGPT 28 U/L (12-78); BILIRUBIN,TOTAL 0.3 MG/DL (0.2-1.0); BLOOD UREA NITROGEN 9 MG/DL (7-18); CALCIUM LEVEL 8.8 MG/DL (8.5-10.1); CARBON DIOXIDE LEVEL 29 MEQ/L (21-32); CHLORIDE LEVEL 113 MEQ/L (98-107); GLOMERULAR FILTRATION RATE > 60.0 (>60); GLUCOSE, FASTING 100 MG/DL (70-100); POTASSIUM SERUM 3.8 MEQ/L (3.5-5.1); SODIUM LEVEL 137 MEQ/L (136-145); TOTAL PROTEIN 6.4 GM/DL (6.4-8.2)
[2018-11-19 08:35] LABS: MALB URINE SIEMENS 11.3 MG/L; MAU/CREAT RATIO 9.9 MCG/MG (0.0-30.0)
== END ==
LOC: M LAB 07:21
PROVIDERS: ATTEND Nurse Practitioner Adult Health
DX: D72.829 Elevated white blood cell count, unspecified (principal); E11.9 Type 2 diabetes mellitus without complications; E03.9 Hypothyroidism, unspecified

== ENCOUNTER → 2018-11-20 | Outpatient (REF) | payer OTHER | LOC: M SFHCPLAZ 15:41 | PROVIDERS: ATTEND Nurse Practitioner Adult Health | DX: R19.7 Diarrhea, unspecified (principal) ==

== ENCOUNTER → 2019-01-14 | Outpatient (CLI) | payer OTHER ==
[~2019-01-14] MED LIST changes: -BISO5TAB5 PO; +BISO5TAB9 PO; -OXYB5TAB PO; +OXYB5TAB2 PO
--- NOTE | 2019-01-14 08:00 | REP ---
Clinical: Hepatic adenoma. Technique: Real time tolbert scale and color evaluation using curved array transducer. Findings: Liver is diffusely heterogeneous and mildly increased echogenicity suggesting fatty infiltration. A small 1.9 cm isoechoic solid lesion in the anterior right lobe may correspond to the given history of hepatic adenoma. No further hepatic lesions are identified by ultrasound. Pancreas is incompletely evaluated due to interposed bowel gas. Gallbladder is not visualized. No biliary ductal dilatation is appreciated and the common bile duct measures 3.2 mm diameter. The right kidney is normal in reniform shape without hydronephrosis and measures 12/ 4 x 4.7 x 4.6 cm. No ascites. Impression: 1. Hepatic steatosis and/or hepatocellular disease with 1.9 cm isoechoic lesion in the right lobe possibly representing the given study of adenoma. Electronically Signed by Chago Shirley MD 01/14/2019 07:51 A
== END ==
LOC: M RAD 07:07
PROVIDERS: ATTEND Nurse Practitioner Family
DX: D13.4 Benign neoplasm of liver (principal)

== ENCOUNTER → 2019-02-19 | Outpatient (CLI) | payer OTHER ==
[2019-02-19 08:30] LABS: HEMATOCRIT 40.4 % (36.0-47.0); HEMOGLOBIN 13.3 g/dl (12.0-15.5); MEAN CORPUSCULAR HEMOGLOBIN 29.4 pg (27.0-33.0); MEAN CORPUSCULAR HGB CONC 32.9 g/dl (32.0-36.5); MEAN CORPUSCULAR VOLUME 89.4 fl (80.0-96.0); PLATELET COUNT, AUTOMATED 350 10^3/uL (150-450); RED BLOOD COUNT 4.52 10^6/uL (4.00-5.40); WHITE BLOOD COUNT 9.6 10^3/uL (4.0-10.0)
[2019-02-19 09:03] LABS: ALBUMIN 3.5 GM/DL (3.2-5.2); ALT/SGPT 31 U/L (12-78); BILIRUBIN,TOTAL 0.3 MG/DL (0.2-1.0); BLOOD UREA NITROGEN 9 MG/DL (7-18); CALCIUM LEVEL 8.8 MG/DL (8.5-10.1); CARBON DIOXIDE LEVEL 27 MEQ/L (21-32); CHLORIDE LEVEL 108 MEQ/L (98-107); CHOLESTEROL LEVEL 139 MG/DL (<200); CHOLESTEROL RISK RATIO 3.861 (<5); CREATININE FOR GFR 0.72 MG/DL (0.55-1.30); GLOMERULAR FILTRATION RATE > 60.0 (>60); GLUCOSE, FASTING 94 MG/DL (70-100); HDL CHOLESTEROL 36 MG/DL (>40); LDL CHOLESTEROL 70 MG/DL (<100); NON-HDL-C 103 MG/DL; POTASSIUM SERUM 4.3 MEQ/L (3.5-5.1); SODIUM LEVEL 142 MEQ/L (136-145); TOTAL PROTEIN 6.4 GM/DL (6.4-8.2); TRIGLYCERIDES LEVEL 166 MG/DL (<150)
[2019-02-19 09:08] LABS: MALB URINE SIEMENS 27.4 MG/L; MAU/CREAT RATIO 9.5 MCG/MG (0.0-30.0)
[2019-02-19 10:09] LABS: HEMOGLOBIN A1c 5.6 %
== END ==
LOC: M LAB 07:33
PROVIDERS: ATTEND Nurse Practitioner Adult Health
DX: E11.9 Type 2 diabetes mellitus without complications (principal); D72.829 Elevated white blood cell count, unspecified; E03.9 Hypothyroidism, unspecified; Z13.220 Encounter for screening for lipoid disorders

== ENCOUNTER → 2019-02-26 | Outpatient (CLI) | payer OTHER ==
[2019-02-26 12:13] LABS: BASO # 0.1 10^3/uL (0.0-0.2); BASO % 0.8 % (0.0-1.0); EOS # 0.3 10^3/uL (0.0-0.5); EOS % 2.8 % (0.0-3.0); HEMATOCRIT 40.9 % (36.0-47.0); HEMOGLOBIN 13.2 g/dl (12.0-15.5); LYMPH # 2.4 10^3/uL (1.5-5.0); LYMPH % 22.3 % (24.0-44.0); MEAN CORPUSCULAR HEMOGLOBIN 28.8 pg (27.0-33.0); MEAN CORPUSCULAR HGB CONC 32.3 g/dl (32.0-36.5); MEAN CORPUSCULAR VOLUME 89.3 fl (80.0-96.0); MONO # 0.7 10^3/uL (0.0-0.8); MONO % 6.4 % (0.0-5.0); NEUTROPHILS # 7.2 10^3/uL (1.5-8.5); NEUTROPHILS % 67.3 % (36.0-66.0); PLATELET COUNT, AUTOMATED 370 10^3/uL (150-450); RED BLOOD COUNT 4.58 10^6/uL (4.00-5.40); WHITE BLOOD COUNT 10.7 10^3/uL (4.0-10.0)
[2019-02-26 12:29] LABS: ALBUMIN 3.7 GM/DL (3.2-5.2); ALT/SGPT 31 U/L (12-78); BILIRUBIN,TOTAL 0.2 MG/DL (0.2-1.0); BLOOD UREA NITROGEN 12 MG/DL (7-18); CALCIUM LEVEL 9.2 MG/DL (8.5-10.1); CARBON DIOXIDE LEVEL 26 MEQ/L (21-32); CHLORIDE LEVEL 109 MEQ/L (98-107); CREATININE FOR GFR 0.68 MG/DL (0.55-1.30); GLOMERULAR FILTRATION RATE > 60.0 (>60); GLUCOSE, FASTING 98 MG/DL (70-100); LITHIUM LEVEL 0.66 MEQ/L (0.60-1.20); POTASSIUM SERUM 4.3 MEQ/L (3.5-5.1); SODIUM LEVEL 140 MEQ/L (136-145); TOTAL PROTEIN 6.5 GM/DL (6.4-8.2)
== END ==
LOC: M LRY 08:00
PROVIDERS: ATTEND Registered Nurse Psychiatric/Mental Health
DX: F31.64 Bipolar disorder, current episode mixed, severe, with psychotic features (principal)

== ENCOUNTER → 2019-03-03 | Outpatient (CLI) | payer OTHER ==
--- NOTE | 2019-03-03 19:22 | REP ---
Clinical: Left ovarian cyst. Technique: Transabdominal and transvaginal ultrasound examination using curved array transducer. Findings: Bladder is unremarkable and measures 12.0 x 5.8 x 8.0 cm. Evidence for prior hysterectomy. Right ovary measures 2.6 x 2.4 x 3.1 cm (RI 0.56) and includes 2.2 x 1.6 x 2.1 cm cyst. Left ovary measures 7.5 x 4.1 x 6.5 cm (RI 0.57) and includes 5.0 x 3.6 x 4.4 cm cyst, 5.9 x 3.5 x 4.4 cm complex septated cyst, and 3.4 x 2.2 x 3.1 cm septated cyst. No pelvic free fluid or adnexal mass lesion. Impression: 1. Simple and complex cysts (left greater than right). Consider reevaluation in 4-6 weeks to evaluate for resolution. Electronically Signed by Chago Shirley MD 03/03/2019 07:13 P
== END ==
LOC: M RAD 17:31
DX: N83.292 Other ovarian cyst, left side (principal)

== ENCOUNTER → 2019-03-08 | Outpatient (CLI) | payer OTHER | LOC: M LAB 09:48 | PROVIDERS: ATTEND Specialist | DX: N83.299 Other ovarian cyst, unspecified side (principal); E11.9 Type 2 diabetes mellitus without complications; E03.9 Hypothyroidism, unspecified; Z13.220 Encounter for screening for lipoid disorders ==

== ENCOUNTER → 2019-05-15 | Outpatient (CLI) | payer OTHER ==
[~2019-05-15] MED LIST changes: -OXYB5TAB2 PO; +OXYB5TAB3 PO
== END ==
LOC: M LAB 11:53
PROVIDERS: ATTEND Nurse Practitioner Adult Health
DX: E03.9 Hypothyroidism, unspecified (principal)

== ENCOUNTER → 2019-05-29 | Outpatient (CLI) | payer OTHER ==
[~2019-05-29] MED LIST changes: +BISO5TAB14 PO; -BISO5TAB9 PO; +OXYB-54 PO; -OXYB5TAB3 PO; -TRAZ-163 PO; +TRAZ-257 PO
[2019-05-29 08:11] LABS: BASO # 0.1 10^3/uL (0.0-0.2); BASO % 0.8 % (0.0-1.0); EOS # 0.4 10^3/uL (0.0-0.5); EOS % 3.5 % (0.0-3.0); HEMATOCRIT 42.3 % (36.0-47.0); HEMOGLOBIN 13.2 g/dl (12.0-15.5); LYMPH # 2.6 10^3/uL (1.5-5.0); LYMPH % 22.5 % (24.0-44.0); MEAN CORPUSCULAR HEMOGLOBIN 28.1 pg (27.0-33.0); MEAN CORPUSCULAR HGB CONC 31.2 g/dl (32.0-36.5); MEAN CORPUSCULAR VOLUME 90.2 fl (80.0-96.0); MONO # 0.6 10^3/uL (0.0-0.8); MONO % 5.5 % (0.0-5.0); NEUTROPHILS # 7.8 10^3/uL (1.5-8.5); NEUTROPHILS % 67.3 % (36.0-66.0); PLATELET COUNT, AUTOMATED 316 10^3/uL (150-450); RED BLOOD COUNT 4.69 10^6/uL (4.00-5.40); WHITE BLOOD COUNT 11.5 10^3/uL (4.0-10.0)
[2019-05-29 08:31] LABS: ALBUMIN 3.7 GM/DL (3.2-5.2); ALT/SGPT 29 U/L (12-78); BILIRUBIN,TOTAL 0.3 MG/DL (0.2-1.0); BLOOD UREA NITROGEN 10 MG/DL (7-18); CALCIUM LEVEL 8.9 MG/DL (8.5-10.1); CARBON DIOXIDE LEVEL 27 MEQ/L (21-32); CHLORIDE LEVEL 108 MEQ/L (98-107); CREATININE FOR GFR 0.61 MG/DL (0.55-1.30); GLOMERULAR FILTRATION RATE > 60.0 (>60); GLUCOSE, FASTING 102 MG/DL (70-100); LITHIUM LEVEL 0.68 MEQ/L (0.60-1.20); POTASSIUM SERUM 3.9 MEQ/L (3.5-5.1); SODIUM LEVEL 141 MEQ/L (136-145); TOTAL PROTEIN 6.3 GM/DL (6.4-8.2)
== END ==
LOC: M LAB 07:32
PROVIDERS: ATTEND Registered Nurse Psychiatric/Mental Health
DX: F31.64 Bipolar disorder, current episode mixed, severe, with psychotic features (principal)

== ENCOUNTER → 2019-06-21 | Outpatient (CLI) | payer OTHER ==
[~2019-06-21] MED LIST changes: -MONT10TA2 PO; +MONT10TA4 PO; +QUET100T2 PO; -QUET1TAB8 PO
[2019-06-21 18:22] LABS: BASO # 0.1 10^3/uL (0.0-0.2); BASO % 0.8 % (0.0-1.0); EOS # 0.3 10^3/uL (0.0-0.5); EOS % 3.1 % (0.0-3.0); HEMATOCRIT 41.9 % (36.0-47.0); HEMOGLOBIN 13.4 g/dl (12.0-15.5); LYMPH # 2.8 10^3/uL (1.5-5.0); MEAN CORPUSCULAR HEMOGLOBIN 28.9 pg (27.0-33.0); MEAN CORPUSCULAR VOLUME 90.3 fl (80.0-96.0); MONO # 0.6 10^3/uL (0.0-0.8); MONO % 5.4 % (0.0-5.0); NEUTROPHILS # 6.6 10^3/uL (1.5-8.5); NEUTROPHILS % 63.3 % (36.0-66.0); PLATELET COUNT, AUTOMATED 355 10^3/uL (150-450); RED BLOOD COUNT 4.64 10^6/uL (4.00-5.40); WHITE BLOOD COUNT 10.4 10^3/uL (4.0-10.0)
== END ==
LOC: M WUC 11:12
PROVIDERS: ATTEND Registered Nurse Psychiatric/Mental Health
DX: F31.64 Bipolar disorder, current episode mixed, severe, with psychotic features (principal)

== ENCOUNTER 2019-07-02 20:34 | Emergency (ER) | payer OTHER ==
[~2019-07-02] VITALS: Ht 157.5 cm; Wt 106.8 kg
[2019-07-02] MEDS ORDERED: dexameTHASONE 20 MG/5 ML VIAL (J1100) IV ONE (21:30)
[2019-07-02] MEDS ORDERED: IPRATROPIUM 0.5MG/ALBUTEROL 2.5MG INH SOL UD 3ML (DUONEB)(J7620) NEB ONE (21:30)
[2019-07-02] MEDS ORDERED: DEXTROMETHORPHAN 60MG/10ML SUSP 90ML BTL(DELSYM) PO ONE (21:30)
[2019-07-02 21:41] LABS: BASO # 0.1 10^3/uL (0.0-0.2); BASO % 0.8 % (0.0-1.0); EOS # 0.2 10^3/uL (0.0-0.5); EOS % 2.4 % (0.0-3.0); HEMATOCRIT 38.5 % (36.0-47.0); HEMOGLOBIN 12.4 g/dl (12.0-15.5); LYMPH # 1.2 10^3/uL (1.5-5.0); LYMPH % 12.6 % (24.0-44.0); MEAN CORPUSCULAR HEMOGLOBIN 28.6 pg (27.0-33.0); MEAN CORPUSCULAR HGB CONC 32.2 g/dl (32.0-36.5); MEAN CORPUSCULAR VOLUME 88.7 fl (80.0-96.0); MONO # 0.7 10^3/uL (0.0-0.8); MONO % 7.6 % (0.0-5.0); NEUTROPHILS % 76.3 % (36.0-66.0); PLATELET COUNT, AUTOMATED 262 10^3/uL (150-450); RED BLOOD COUNT 4.34 10^6/uL (4.00-5.40); WHITE BLOOD COUNT 9.2 10^3/uL (4.0-10.0)
[2019-07-02 21:58] LABS: BLOOD UREA NITROGEN 6 MG/DL (7-18); CALCIUM LEVEL 8.4 MG/DL (8.5-10.1); CARBON DIOXIDE LEVEL 25 MEQ/L (21-32); CHLORIDE LEVEL 109 MEQ/L (98-107); GLOMERULAR FILTRATION RATE > 60.0 (>60); GLUCOSE, FASTING 140 MG/DL (70-100); POTASSIUM SERUM 3.8 MEQ/L (3.5-5.1); SODIUM LEVEL 141 MEQ/L (136-145)
[2019-07-02 22:49] LABS: INFLUENZA A AMPLIFICATION NEGATIVE (NEGATIVE); INFLUENZA B AMPLIFICATION POSITIVE (NEGATIVE)
[2019-07-02] MEDS ORDERED: OSEL75CA PO (23:06)
[2019-07-02] MEDS ORDERED: PRED20TA PO (23:06)
[2019-07-02 23:13] VITALS: BP 118/72
[2019-07-02] MEDS ORDERED: OSELTAMIVIR PHOSPHATE 75 MG CAP (TAMIFLU) PO ONE (23:15)
--- NOTE | 2019-07-03 08:03 | REP ---
Chest x-ray: Two views. History: Dyspnea . Comparison study: September 29, 2016 . Findings: The lungs are well inflated and free of infiltrate. The pleural angles are sharp. The heart size is normal. Pulmonary vasculature is not increased. No significant bony abnormality is seen. Impression: Negative chest x-ray. Electronically Signed by Austin Navarrete MD 07/03/2019 07:54 A
--- NOTE | 2019-07-03 18:29 | ECGEPIP ---
[facility] - ED Test Date: 2019-07-02 Pat Name: MACHO ARRIOLA Department: Room: - Gender: Female Manager Brand: YVROSE : 1980 Requested By: OLIVER Luna Order Number: [id number] Reading MD: Adan Lewis Measurements Intervals Candor Rate: 96 P: 49 [place]: 174 QRS: -23 QRSD: 110 T: 49 QT: 372 QTc: 470 Interpretive Statements SINUS RHYTHM BORDERLINE LEFT AXIS DEVIATION LOW QRS VOLTAGE IN PRECORDIAL LEADS PATTERN CONSISTENT WITH PULMONARY DISEASE INCOMPLETE RIGHT BUNDLE BRANCH BLOCK MINIMAL VOLTAGE CRITERIA FOR LVH, CONSIDER NORMAL VARIANT SIMILAR TO 09/26/17 Electronically Signed on 07-03-2019 18:29:46 EST by Adan Lewis
== END 2019-07-02 23:18 | disposition home or self-care (01) ==
LOC: M ED 20:34 → EDBD 20:34 → M ED 23:18
DX: J10.1 Influenza due to other identified influenza virus with other respiratory manifestations (principal); J40 Bronchitis, not specified as acute or chronic; J45.901 Unspecified asthma with (acute) exacerbation; E11.9 Type 2 diabetes mellitus without complications; F31.9 Bipolar disorder, unspecified; K21.9 Gastro-esophageal reflux disease without esophagitis; Z79.899 Other long term (current) drug therapy; Z79.84 Long term (current) use of oral hypoglycemic drugs; Z88.0 Allergy status to penicillin; Z88.1 Allergy status to other antibiotic agents; Z88.8 Allergy status to other drugs, medicaments and biological substances; Z91.018 Allergy to other foods; Z91.040 Latex allergy status; Z91.041 Radiographic dye allergy status
CPT/HCPCS: 71046; 80048; 85025; 87502; 93005; 93041; 94640; 94760; 96374; 99284; J1100

== ENCOUNTER → 2019-09-18 | Outpatient (REF) | payer OTHER ==
[~2019-09-18] MED LIST changes: +OSEL75CA PO; +PRED20TA PO
[2019-09-18 18:48] LABS: APPEARANCE, URINE CLEAR (CLEAR); BACTERIA, URINE AUTO 1+ (NEGATIVE); BILIRUBIN, URINE AUTO NEGATIVE (NEGATIVE); BLOOD, URINE BLOOD NEGATIVE (NEGATIVE); COLOR, URINE YELLOW (YELLOW); GLUCOSE, URINE (UA) AUTO NEGATIVE (NEGATIVE); KETONE, URINE AUTO NEGATIVE (NEGATIVE); LEUKOCYTE ESTERASE, URINE AUTO NEGATIVE (NEGATIVE); MUCUS, URINE SMALL (NEGATIVE); NITRITE, URINE AUTO NEGATIVE (NEGATIVE); PROTEIN, URINE AUTO NEGATIVE (NEGATIVE); RBC, URINE AUTO 0 /HPF (0-3); SPECIFIC GRAVITY URINE AUTO 1.015 (1.002-1.035); SQUAMOUS EPITHELIAL CELL UR AU 1 /HPF (0-6); UROBILINOGEN, URINE AUTO 0.2 mg/dL (0.0-2.0); WBC, URINE AUTO 2 /HPF (0-3)
== END ==
LOC: M SMT 18:08
PROVIDERS: ATTEND Specialist
DX: R35.0 Frequency of micturition (principal)

== ENCOUNTER → 2019-09-25 | Outpatient (CLI) | payer OTHER ==
[2019-09-25 18:03] LABS: BLOOD UREA NITROGEN 9 MG/DL (7-18); GLOMERULAR FILTRATION RATE > 60.0 (>60)
== END ==
LOC: M WUC 12:58
DX: D13.4 Benign neoplasm of liver (principal)

== ENCOUNTER → 2019-11-12 | Outpatient (CLI) | payer OTHER ==
[2019-11-12 14:57] LABS: HEMATOCRIT 41.5 % (36.0-47.0); MEAN CORPUSCULAR HEMOGLOBIN 29.1 pg (27.0-33.0); MEAN CORPUSCULAR HGB CONC 31.3 g/dl (32.0-36.5); MEAN CORPUSCULAR VOLUME 92.8 fl (80.0-96.0); PLATELET COUNT, AUTOMATED 324 10^3/uL (150-450); RED BLOOD COUNT 4.47 10^6/uL (4.00-5.40); WHITE BLOOD COUNT 10.9 10^3/uL (4.0-10.0)
[2019-11-12 15:22] LABS: HEMOGLOBIN A1c 5.9 %
[2019-11-12 15:31] LABS: ALBUMIN 3.6 GM/DL (3.2-5.2); ALT/SGPT 39 U/L (12-78); BILIRUBIN,TOTAL 0.3 MG/DL (0.2-1.0); BLOOD UREA NITROGEN 8 MG/DL (7-18); CALCIUM LEVEL 9.1 MG/DL (8.5-10.1); CARBON DIOXIDE LEVEL 27 MEQ/L (21-32); CHLORIDE LEVEL 106 MEQ/L (98-107); CHOLESTEROL LEVEL 115 MG/DL (<200); CHOLESTEROL RISK RATIO 3.484 (<5); CREATININE FOR GFR 0.76 MG/DL (0.55-1.30); GLOMERULAR FILTRATION RATE > 60.0 (>60); GLUCOSE, FASTING 124 MG/DL (70-100); HDL CHOLESTEROL 33 MG/DL (>40); LDL CHOLESTEROL 52 MG/DL (<100); MAU/CREAT RATIO 7.6 MCG/MG (0.0-30.0); NON-HDL-C 82 MG/DL; POTASSIUM SERUM 3.8 MEQ/L (3.5-5.1); SODIUM LEVEL 141 MEQ/L (136-145); TRIGLYCERIDES LEVEL 149 MG/DL (<150)
== END ==
LOC: M WUC 10:03
PROVIDERS: ATTEND Nurse Practitioner Adult Health
DX: Z13.220 Encounter for screening for lipoid disorders (principal); E03.9 Hypothyroidism, unspecified; E11.9 Type 2 diabetes mellitus without complications; D72.829 Elevated white blood cell count, unspecified

== ENCOUNTER → 2019-11-12 | Outpatient (CLI) | payer OTHER ==
[2019-11-12 14:58] LABS: BASO # 0.1 10^3/uL (0.0-0.2); BASO % 0.8 % (0.0-1.0); EOS # 0.4 10^3/uL (0.0-0.5); EOS % 3.2 % (0.0-3.0); HEMATOCRIT 41.8 % (36.0-47.0); HEMOGLOBIN 12.9 g/dl (12.0-15.5); LYMPH # 2.5 10^3/uL (1.5-5.0); LYMPH % 22.7 % (24.0-44.0); MEAN CORPUSCULAR HEMOGLOBIN 28.7 pg (27.0-33.0); MEAN CORPUSCULAR HGB CONC 30.9 g/dl (32.0-36.5); MEAN CORPUSCULAR VOLUME 92.9 fl (80.0-96.0); MONO # 0.6 10^3/uL (0.0-0.8); MONO % 5.6 % (0.0-5.0); NEUTROPHILS # 7.5 10^3/uL (1.5-8.5); NEUTROPHILS % 67.3 % (36.0-66.0); PLATELET COUNT, AUTOMATED 320 10^3/uL (150-450); WHITE BLOOD COUNT 11.2 10^3/uL (4.0-10.0)
[2019-11-12 15:21] LABS: HEMOGLOBIN A1c 5.9 %
[2019-11-12 15:28] LABS: ALBUMIN 3.6 GM/DL (3.2-5.2); ALT/SGPT 35 U/L (12-78); BILIRUBIN,TOTAL 0.4 MG/DL (0.2-1.0); BLOOD UREA NITROGEN 7 MG/DL (7-18); CALCIUM LEVEL 9.2 MG/DL (8.5-10.1); CARBON DIOXIDE LEVEL 27 MEQ/L (21-32); CHLORIDE LEVEL 106 MEQ/L (98-107); CHOLESTEROL LEVEL 114 MG/DL (<200); CHOLESTEROL RISK RATIO 3.454 (<5); GLOMERULAR FILTRATION RATE > 60.0 (>60); GLUCOSE, FASTING 128 MG/DL (70-100); HDL CHOLESTEROL 33 MG/DL (>40); LDL CHOLESTEROL 51 MG/DL (<100); LITHIUM LEVEL 0.96 MEQ/L (0.60-1.20); NON-HDL-C 81 MG/DL; POTASSIUM SERUM 3.7 MEQ/L (3.5-5.1); SODIUM LEVEL 142 MEQ/L (136-145); TOTAL PROTEIN 6.1 GM/DL (6.4-8.2); TRIGLYCERIDES LEVEL 149 MG/DL (<150)
== END ==
LOC: M WUC 09:58
PROVIDERS: ATTEND Registered Nurse Psychiatric/Mental Health
DX: F31.64 Bipolar disorder, current episode mixed, severe, with psychotic features (principal)

== ENCOUNTER → 2019-12-25 | Outpatient (REF) | payer OTHER ==
[~2019-12-25] MED LIST changes: -METF-699 PO; +METF-817 PO; +PANT40TA29 PO; -PANT40TA3 PO
== END ==
LOC: M LABWUC 14:15
PROVIDERS: ATTEND Nurse Practitioner Adult Health
DX: E03.9 Hypothyroidism, unspecified (principal)

== ENCOUNTER → 2020-01-22 | Outpatient (CLI) | payer OTHER | LOC: M WUC 16:54 | PROVIDERS: ATTEND Nurse Practitioner Psychiatric/Mental Health | DX: F31.9 Bipolar disorder, unspecified (principal) ==

== ENCOUNTER → 2020-03-03 | Outpatient (CLI) | payer OTHER ==
[2020-03-03 11:45] LABS: HEMOGLOBIN A1c 6.3 %
[2020-03-03 12:03] LABS: ALT/SGPT 26 U/L (12-78); BLOOD UREA NITROGEN 7 MG/DL (7-18); CARBON DIOXIDE LEVEL 25 MEQ/L (21-32); CHLORIDE LEVEL 106 MEQ/L (98-107); CREATININE FOR GFR 0.64 MG/DL (0.55-1.30); GLOMERULAR FILTRATION RATE > 60.0 (>60); GLUCOSE, FASTING 148 MG/DL (70-100); SODIUM LEVEL 139 MEQ/L (136-145)
[2020-03-03 12:04] LABS: ALBUMIN 3.4 GM/DL (3.2-5.2); BILIRUBIN,TOTAL 0.4 MG/DL (0.2-1.0); TOTAL PROTEIN 6.3 GM/DL (6.4-8.2)
[2020-03-03 12:06] LABS: CREATININE, URINE 97.8 MG/DL; MALB URINE SIEMENS 6.3 MG/L; MAU/CREAT RATIO 6.4 MCG/MG (0.0-30.0)
== END ==
LOC: M WUC 08:02
PROVIDERS: ATTEND Nurse Practitioner Adult Health
DX: E11.9 Type 2 diabetes mellitus without complications (principal); K76.0 Fatty (change of) liver, not elsewhere classified; E03.9 Hypothyroidism, unspecified

== ENCOUNTER → 2020-03-26 | Outpatient (CLI) | payer OTHER ==
[2020-03-26 18:05] LABS: BLOOD UREA NITROGEN 4 MG/DL (7-18); GLOMERULAR FILTRATION RATE > 60.0 (>60)
== END ==
LOC: M WUC 15:54
PROVIDERS: ATTEND Nurse Practitioner Family
DX: D13.4 Benign neoplasm of liver (principal)

== ENCOUNTER → 2020-05-04 | Outpatient (CLI) | payer OTHER ==
[~2020-05-04] MED LIST changes: -MONT10TA4 PO; +MONT5TAB2 PO
== END ==
LOC: M WUC 17:20
PROVIDERS: ATTEND Nurse Practitioner Psychiatric/Mental Health
DX: F31.9 Bipolar disorder, unspecified (principal)

== ENCOUNTER → 2020-05-19 | Outpatient (CLI) | payer OTHER ==
[2020-05-19 11:05] LABS: HEMATOCRIT 41.3 % (36.0-47.0); HEMOGLOBIN 12.9 g/dl (12.0-15.5); MEAN CORPUSCULAR HEMOGLOBIN 28.2 pg (27.0-33.0); MEAN CORPUSCULAR HGB CONC 31.2 g/dl (32.0-36.5); MEAN CORPUSCULAR VOLUME 90.2 fl (80.0-96.0); PLATELET COUNT, AUTOMATED 280 10^3/uL (150-450); RED BLOOD COUNT 4.58 10^6/uL (4.00-5.40); WHITE BLOOD COUNT 8.9 10^3/uL (4.0-10.0)
[2020-05-19 11:26] LABS: HEMOGLOBIN A1c 7.2 %
[2020-05-19 11:39] LABS: ALBUMIN 3.8 GM/DL (3.2-5.2); ALT/SGPT 36 U/L (12-78); BILIRUBIN,TOTAL 0.3 MG/DL (0.2-1.0); BLOOD UREA NITROGEN 8 MG/DL (7-18); CARBON DIOXIDE LEVEL 30 MEQ/L (21-32); CHLORIDE LEVEL 106 MEQ/L (98-107); CHOLESTEROL LEVEL 144 MG/DL (<200); CHOLESTEROL RISK RATIO 4.235 (<5); CREATININE FOR GFR 0.66 MG/DL (0.55-1.30); GLOMERULAR FILTRATION RATE > 60.0 (>60); GLUCOSE, FASTING 267 MG/DL (70-100); HDL CHOLESTEROL 34 MG/DL (>40); LDL CHOLESTEROL 72 MG/DL (<100); NON-HDL-C 110 MG/DL; POTASSIUM SERUM 3.8 MEQ/L (3.5-5.1); SODIUM LEVEL 141 MEQ/L (136-145); TOTAL PROTEIN 6.3 GM/DL (6.4-8.2); TRIGLYCERIDES LEVEL 188 MG/DL (<150)
[2020-05-19 11:45] LABS: MALB URINE SIEMENS 7.9 MG/L; MAU/CREAT RATIO 5.7 MCG/MG (0.0-30.0)
== END ==
LOC: M WUC 08:01
PROVIDERS: ATTEND Nurse Practitioner Adult Health
DX: K76.0 Fatty (change of) liver, not elsewhere classified (principal); E11.9 Type 2 diabetes mellitus without complications; D72.829 Elevated white blood cell count, unspecified; E03.9 Hypothyroidism, unspecified

== ENCOUNTER → 2020-08-11 | Outpatient (CLI) | payer OTHER ==
[~2020-08-11] MED LIST changes: +MONT10TA10 PO; -MONT5TAB2 PO
[2020-08-11 11:40] LABS: HEMATOCRIT 42.9 % (36.0-47.0); MEAN CORPUSCULAR HEMOGLOBIN 28.6 pg (27.0-33.0); MEAN CORPUSCULAR HGB CONC 32.6 g/dl (32.0-36.5); MEAN CORPUSCULAR VOLUME 87.7 fl (80.0-96.0); PLATELET COUNT, AUTOMATED 319 10^3/uL (150-450); RED BLOOD COUNT 4.89 10^6/uL (4.00-5.40); WHITE BLOOD COUNT 7.7 10^3/uL (4.0-10.0)
[2020-08-11 12:05] LABS: HEMOGLOBIN A1c 6.7 %
[2020-08-11 12:13] LABS: CREATININE, URINE 72.3 MG/DL; MALB URINE SIEMENS < 5.0 MG/L; MAU/CREAT RATIO 6.9 MCG/MG (0.0-30.0)
[2020-08-11 12:20] LABS: ALBUMIN 3.7 GM/DL (3.2-5.2); ALT/SGPT 39 U/L (12-78); BILIRUBIN,TOTAL 0.5 MG/DL (0.2-1.0); BLOOD UREA NITROGEN 6 MG/DL (7-18); CALCIUM LEVEL 9.1 MG/DL (8.5-10.1); CARBON DIOXIDE LEVEL 28 MEQ/L (21-32); CHLORIDE LEVEL 108 MEQ/L (98-107); CHOLESTEROL LEVEL 138 MG/DL (<200); CHOLESTEROL RISK RATIO 3.833 (<5); GLOMERULAR FILTRATION RATE > 60.0 (>60); GLUCOSE, FASTING 125 MG/DL (70-100); HDL CHOLESTEROL 36 MG/DL (>40); LDL CHOLESTEROL 82 MG/DL (<100); NON-HDL-C 102 MG/DL; POTASSIUM SERUM 3.8 MEQ/L (3.5-5.1); SODIUM LEVEL 140 MEQ/L (136-145); TOTAL 25(OH) VITAMIN D 38.9 NG/ML (30.0-100.0); TOTAL PROTEIN 6.2 GM/DL (6.4-8.2); TRIGLYCERIDES LEVEL 101 MG/DL (<150)
== END ==
LOC: M WUC 10:15
PROVIDERS: ATTEND Nurse Practitioner Adult Health
DX: K76.0 Fatty (change of) liver, not elsewhere classified (principal); E11.9 Type 2 diabetes mellitus without complications; E03.9 Hypothyroidism, unspecified; Z13.220 Encounter for screening for lipoid disorders; E55.9 Vitamin D deficiency, unspecified

== ENCOUNTER → 2020-08-17 | Outpatient (CLI) | payer OTHER | LOC: M WUC 11:00 | PROVIDERS: ATTEND Nurse Practitioner Psychiatric/Mental Health | DX: F31.9 Bipolar disorder, unspecified (principal) ==

== ENCOUNTER → 2020-08-26 | Outpatient (CLI) | payer OTHER | LOC: M LABSMTC 12:14 | PROVIDERS: ATTEND Anesthesiology | DX: Z01.818 Encounter for other preprocedural examination (principal); Z11.52 Encounter for screening for COVID-19 ==

== ENCOUNTER 2020-08-31 06:33 | Day surgery (SDC) | payer OTHER ==
[~2020-08-31] VITALS: Ht 157.5 cm; Wt 105.2 kg
[~2020-08-31 06:33] MED LIST changes: +ATOM60CA7 PO; +CLON0.5T2 PO; +COLE625T PO; +ESTR1DIS TOP; +FAMO1TAB25 PO; +GLIP2.5T6 PO; +HYDR50TA70 PO; +LEVO75TA4 PO; +LEVOTAB10 PO; +LITH150C PO; +LITH600C PO; +NS 1,000 ML IV ONE; +PROP10TA56 PO; +QUET400T PO; +SERT50TA29 PO; +VITA-243 PO
[2020-08-31] MEDS ORDERED: propofoL 200 MG/20 ML VIAL As Ordered ONE (07:18)
[2020-08-31] MEDS ORDERED: fentaNYL 100 MCG/2 ML INJECTION (J3010) As Ordered ONE (07:19)
[2020-08-31] MEDS ORDERED: LIDOCAINE 2% 100MG/5ML SDV (FOR ANES.) As Ordered ONE (07:24)
--- NOTE | 2020-08-31 07:50 | ROOR ---
Patient Name: Dilma Wade Procedure Date: 08/31/2020 7:32 AM Date of : 1980 Age: 40 Room: [facility] Gender: Female Note Status: Finalized Procedure: Upper GI endoscopy Indications: Suspected gastroparesis, Nausea with vomiting Providers: Jayson PALMER MD Referring MD: Lakesha Buck NP Requesting Provider: Medicines: Monitored Anesthesia Care Complications: No immediate complications. Procedure: Pre-Anesthesia Assessment: - The heart rate, respiratory rate, oxygen saturations, blood pressure, adequacy of pulmonary ventilation, and response to care were monitored throughout the procedure. The Endoscope was introduced through the mouth, and advanced to the second part of duodenum. The upper GI endoscopy was somewhat difficult due to presence of food. Successful completion of the procedure was aided by lavage. The patient tolerated the procedure well. Findings: A medium amount of food (residue) was found in the entire examined stomach. Removal of food was accomplished. The esophagus was normal. The stomach was normal. The examined duodenum was normal. Suspect gastroparesis due to retained gastric contents. Impression: - Gastroparesis: A medium amount of food (residue) in the stomach. Removal was successful. - Normal stomach. - Normal esophagus. - Normal examined duodenum. Recommendation: - Gastroparesis diet: - Eat smaller, more frequent meals throughout the day. - Low fat diet. - Liquid/soft foods are tolerated better than solid foods. - Low fiber/well cooked vegetables are tolerated better than high fiber/fibrous foods/raw vegetables. - Avoid medications that inhibit gastric/intestinal motility such as narcotic medications. Procedure Code(s): --- Professional --- 20824, Esophagogastroduodenoscopy, flexible, transoral; with removal of foreign body(s) Diagnosis Code(s): --- Professional --- T18.2XXA, Foreign body in stomach, initial encounter K31.84, Gastroparesis R11.2, Nausea with vomiting, unspecified CPT copyright 2019 [employer]. All rights reserved. The codes documented in this report are preliminary and upon information coder review may be revised to meet current compliance requirements. Jayson Palmer MD Jayson PALMER MD 08/31/2020 7:50:12 AM Electronically signed by Jayson PALMER MD Number of Addenda: 0 Note Initiated On: 08/31/2020 7:32 AM Estimated Blood Loss: Estimated blood loss: none.
[2020-08-31 08:05] VITALS: BP 135/98
== END 2020-08-31 08:11 | disposition home or self-care (01) ==
LOC: M OPP 06:33
PROVIDERS: ATTEND Internal Medicine Gastroenterology
DX: R11.2 Nausea with vomiting, unspecified (principal); T18.2XXA Foreign body in stomach, initial encounter; K31.84 Gastroparesis; E11.9 Type 2 diabetes mellitus without complications; E03.9 Hypothyroidism, unspecified; K58.9 Irritable bowel syndrome, unspecified; K21.9 Gastro-esophageal reflux disease without esophagitis; F41.9 Anxiety disorder, unspecified; F31.9 Bipolar disorder, unspecified; J45.909 Unspecified asthma, uncomplicated; G47.30 Sleep apnea, unspecified; Z88.1 Allergy status to other antibiotic agents; Z91.013 Allergy to seafood; Z91.040 Latex allergy status; Z91.041 Radiographic dye allergy status; Z79.51 Long term (current) use of inhaled steroids; Z79.899 Other long term (current) drug therapy; Z83.3 Family history of diabetes mellitus
CPT/HCPCS: 43247; J3010

== ENCOUNTER → 2020-10-05 | Outpatient (CLI) | payer OTHER ==
[~2020-10-05] MED LIST changes: -NS 1,000 ML IV ONE
[2020-10-05 11:09] LABS: BLOOD UREA NITROGEN 7 MG/DL (7-18); CALCIUM LEVEL 9.2 MG/DL (8.5-10.1); CARBON DIOXIDE LEVEL 27 MEQ/L (21-32); CHLORIDE LEVEL 107 MEQ/L (98-107); GLOMERULAR FILTRATION RATE > 60.0 (>60); GLUCOSE, FASTING 206 MG/DL (70-100); POTASSIUM SERUM 3.7 MEQ/L (3.5-5.1); SODIUM LEVEL 140 MEQ/L (136-145)
== END ==
LOC: M WUC 08:01
PROVIDERS: ATTEND Nurse Practitioner Women's Health
DX: Q64.4 Malformation of urachus (principal); R10.30 Lower abdominal pain, unspecified

== ENCOUNTER → 2020-10-07 | Outpatient (CLI) | payer OTHER ==
[~2020-10-07] MED LIST changes: +ISOVUE-370 76% 100ML VIAL As Ordered ONE
--- NOTE | 2020-10-07 11:58 | REPVR ---
PROCEDURE INFORMATION: Exam: CT Abdomen And Pelvis Without And With Contrast Exam date and time: 10/07/2020 10:47 AM Age: 40 years old Clinical indication: Other: Pelvic pain; Additional info: Urachal cyst abd pelvic pain TECHNIQUE: Imaging protocol: Computed tomography of the abdomen and pelvis without and with contrast. Radiation optimization: All CT scans at this facility use at least one of these dose optimization techniques: automated exposure control; mA and/or kV adjustment per patient size (includes targeted exams where dose is matched to clinical indication); or iterative reconstruction. Contrast material: ISOVUE 370; Contrast volume: 100 ml; Contrast route: INTRAVENOUS (IV); COMPARISON: CT ABD PELVIS W/O CONTRAST 09/29/2016 3:28 PM FINDINGS: Pleural spaces: Interstitial prominence, trace dependent airspace disease, small pleural effusions. Liver: Fatty infiltration of the liver. Gallbladder and bile ducts: Status post cholecystectomy. Pancreas: No pancreatic mass or ductal dilatation. Spleen: No splenomegaly. Adrenal glands: Unremarkable adrenals. Kidneys and ureters: 1 mm right ureteral calculus at the L3 level, without significant hydronephrosis. Stomach and bowel: Mild gastric wall thickening. Mild ileal dilatation and fecalization. Prominent stool. Diverticula, without pericolonic inflammation. Appendix: No acute appendicitis. Intraperitoneal space: No significant free fluid. Vasculature: Normal caliber of the abdominal aorta. Lymph nodes: Subcentimeter lymph nodes. Urinary bladder: Normal bladder morphology. Reproductive: Status post hysterectomy. Bones/joints: Osteitis pubis and asymmetric sacroiliac joint sclerosis. Subcentimeter bone islands. Degenerative change. Soft tissues: Infiltration of subcutaneous fat about the umbilicus. IMPRESSION: 1. 1 mm right ureteral calculus at the L3 level, without significant hydronephrosis. 2. Additional findings as described above. Electronically signed by: Joaquín Florez On 10/07/2020 11:58:37 AM
== END ==
LOC: M RAD 10:14
PROVIDERS: ATTEND Nurse Practitioner Women's Health
DX: R10.30 Lower abdominal pain, unspecified (principal); Q64.4 Malformation of urachus

== ENCOUNTER → 2020-11-09 | Outpatient (CLI) | payer OTHER ==
[~2020-11-09] MED LIST changes: +FAMO10TA50 PO; -FAMO1TAB25 PO; -ISOVUE-370 76% 100ML VIAL As Ordered ONE
[2020-11-09 12:55] LABS: HEMOGLOBIN A1c 6.2 %
[2020-11-09 13:17] LABS: CREATININE, URINE 91.5 MG/DL; MALB URINE SIEMENS 8.3 MG/L
[2020-11-09 13:19] LABS: ALBUMIN 3.8 GM/DL (3.2-5.2); ALT/SGPT 33 U/L (12-78); BILIRUBIN,TOTAL 0.2 MG/DL (0.2-1.0); BLOOD UREA NITROGEN 9 MG/DL (7-18); CALCIUM LEVEL 9.1 MG/DL (8.5-10.1); CARBON DIOXIDE LEVEL 28 MEQ/L (21-32); CHLORIDE LEVEL 108 MEQ/L (98-107); CREATININE FOR GFR 0.58 MG/DL (0.55-1.30); GLOMERULAR FILTRATION RATE > 60.0 (>60); GLUCOSE, FASTING 145 MG/DL (70-100); SODIUM LEVEL 140 MEQ/L (136-145); TOTAL 25(OH) VITAMIN D 39.6 NG/ML (30.0-100.0); TOTAL PROTEIN 6.2 GM/DL (6.4-8.2)
== END ==
LOC: M WUC 10:30
PROVIDERS: ATTEND Nurse Practitioner Adult Health
DX: E11.9 Type 2 diabetes mellitus without complications (principal); K76.0 Fatty (change of) liver, not elsewhere classified; E03.9 Hypothyroidism, unspecified

== ENCOUNTER → 2021-02-03 | Outpatient (CLI) | payer OTHER ==
[~2021-02-03] MED LIST changes: +OLAN1TAB16 PO; -OLAN5TAB PO; -QUET400T PO; +QUET400T2 PO
[2021-02-03 19:56] LABS: BLOOD UREA NITROGEN 9 MG/DL (7-18); GLOMERULAR FILTRATION RATE > 60.0 (>60)
== END ==
LOC: M WUC 15:54
PROVIDERS: ATTEND Internal Medicine Gastroenterology
DX: D37.6 Neoplasm of uncertain behavior of liver, gallbladder and bile ducts (principal)

== ENCOUNTER → 2021-02-07 | Outpatient (CLI) | payer OTHER ==
[~2021-02-07] MED LIST changes: +PROHANCE 279.3MG/ML 15ML VIAL As Ordered ONE; +PROHANCE 279.3MG/ML 5ML VIAL As Ordered ONE
--- NOTE | 2021-02-08 08:38 | REP ---
INDICATION: NEOPLASM OF UNCERTAIN BEHAVIOR OF LIVER, GB . COMPARISON: Comparison is made with recent CT study abdomen and pelvis October 07, 2020. There is a comparison MRI study of the liver from November 25 2013. TECHNIQUE: Axial and coronal T1 and T2 weighted sequences include spin echo, gradient echo, diffusion, 3D MRCP, and dynamically acquired sequential postcontrast images. Gadolinium enhancement dose is 20 mL of intravenous ProHance. FINDINGS: The liver is mildly prominent in size with a midclavicular vertical span of 18 cm. The spleen is normal in size and homogeneous. The gallbladder is surgically absent. There is no evidence of intrahepatic or extrahepatic biliary obstruction or dilation. The common bile duct is normal in size and appearance. No filling defect. Common bile duct diameter is a 0.4 cm. The pancreatic duct is not dilated. T2 weighted scans do not confirm the presence of subtle liver mass lesions. Hepatic parenchyma is homogeneous on today's MR images. There is signal dropout diffusely in the liver on the out of phase sequence consistent with diffuse fatty infiltration in the liver. No focal hepatic mass lesion is seen. No renal or adrenal lesion is observed. No pancreatic lesion is seen. On dynamically acquired sequential postcontrast sequences, the liver parenchyma enhances homogeneously without evidence of mass or focal abnormality. IMPRESSION: Mildly enlarged liver with diffuse fatty infiltration but no focal mass lesion. Post cholecystectomy. Otherwise normal ERCP sequences. <Electronically signed by Yoel Navarrete > 02/08/21 1807
== END ==
LOC: M RAD 18:00
PROVIDERS: ATTEND Internal Medicine Gastroenterology
DX: K76.0 Fatty (change of) liver, not elsewhere classified (principal)
CPT/HCPCS: 74183; A9576

== ENCOUNTER → 2021-02-17 | Outpatient (REF) | payer OTHER ==
[~2021-02-17] MED LIST changes: -PROHANCE 279.3MG/ML 15ML VIAL As Ordered ONE; -PROHANCE 279.3MG/ML 5ML VIAL As Ordered ONE
== END ==
LOC: M SFHCPLAZ 08:14
PROVIDERS: ATTEND Nurse Practitioner Adult Health
DX: K76.0 Fatty (change of) liver, not elsewhere classified (principal); E11.9 Type 2 diabetes mellitus without complications; Z13.220 Encounter for screening for lipoid disorders; E03.9 Hypothyroidism, unspecified; E55.9 Vitamin D deficiency, unspecified

== ENCOUNTER → 2021-02-18 | Outpatient (CLI) | payer OTHER ==
[2021-02-18 13:30] LABS: MALB URINE SIEMENS 6.4 MG/L; MAU/CREAT RATIO 5.7 MCG/MG (0.0-30.0)
[2021-02-18 13:42] LABS: ALBUMIN 3.6 GM/DL (3.2-5.2); ALT/SGPT 45 U/L (12-78); BILIRUBIN,TOTAL 0.3 MG/DL (0.2-1.0); BLOOD UREA NITROGEN 10 MG/DL (7-18); CALCIUM LEVEL 9.6 MG/DL (8.5-10.1); CARBON DIOXIDE LEVEL 28 MEQ/L (21-32); CHLORIDE LEVEL 108 MEQ/L (98-107); CHOLESTEROL LEVEL 156 MG/DL (<200); CHOLESTEROL RISK RATIO 4.216 (<5); CREATININE FOR GFR 0.74 MG/DL (0.55-1.30); GLOMERULAR FILTRATION RATE > 60.0 (>58); GLUCOSE, FASTING 153 MG/DL (70-100); HDL CHOLESTEROL 37 MG/DL (>40); LDL CHOLESTEROL 91 MG/DL (<100); NON-HDL-C 119 MG/DL; POTASSIUM SERUM 4.2 MEQ/L (3.5-5.1); SODIUM LEVEL 139 MEQ/L (136-145); TOTAL PROTEIN 6.2 GM/DL (6.4-8.2); TRIGLYCERIDES LEVEL 142 MG/DL (<150)
[2021-02-18 13:48] LABS: TOTAL 25(OH) VITAMIN D 34.2 NG/ML (30.0-100.0)
[2021-02-18 18:36] LABS: HEMOGLOBIN A1c 6.2 %
== END ==
LOC: M WUC 07:44
PROVIDERS: ATTEND Nurse Practitioner Adult Health
DX: E55.9 Vitamin D deficiency, unspecified (principal); E11.9 Type 2 diabetes mellitus without complications; K76.0 Fatty (change of) liver, not elsewhere classified; Z13.220 Encounter for screening for lipoid disorders

== ENCOUNTER → 2021-02-18 | Outpatient (CLI) | payer OTHER ==
[2021-02-18 12:47] LABS: LITHIUM LEVEL 1.05 MEQ/L (0.60-1.20)
[2021-02-21 08:42] LABS: ALBUMIN 3.6 GM/DL (3.2-5.2); BLOOD UREA NITROGEN 10 MG/DL (7-18); CALCIUM LEVEL 9.5 MG/DL (8.5-10.1); CARBON DIOXIDE LEVEL 26 MEQ/L (21-32); CHLORIDE LEVEL 109 MEQ/L (98-107); CREATININE FOR GFR 0.75 MG/DL (0.55-1.30); FREE THYROXINE INDEX 2.2 % (1.3-4.8); GLOMERULAR FILTRATION RATE > 60.0 (>58); GLUCOSE, FASTING 151 MG/DL (70-100); PHOSPHORUS LEVEL 3.1 MG/DL (2.5-4.9); POTASSIUM SERUM 4.2 MEQ/L (3.5-5.1); SODIUM LEVEL 140 MEQ/L (136-145); T UPTAKE 34 % (30-39); THYROXINE (T4) 6.4 UG/DL (4.5-12.0)
== END ==
LOC: M WUC 08:03
PROVIDERS: ATTEND Nurse Practitioner Psychiatric/Mental Health
DX: F31.9 Bipolar disorder, unspecified (principal)

== ENCOUNTER 2021-03-19 15:41 | Emergency (ER) | payer OTHER ==
[~2021-03-19] VITALS: Ht 157.5 cm; Wt 104.5 kg
--- OUTSIDE RECORDS SUMMARY | 2021-03-19 15:46 | CCD | Continuity of Care Document ---
Author Author Dilma PALMER MD Organization Unknown Address [address] [place] [id number] Phone [phone] Care Team Providers Care Manager Auto Name Role Phone Lakesha Buck R.N. AUTM [phone] AUTM Unavailable AUTM Unavailable Daya Adams NP AUTM Unavailable AUTM Unavailable Problems Active Problems Provider Date Gastrointestinal tract finding Jayson Palmer MD Onset: Irritable bowel syndrome Jayson Palmer MD Onset: 03/22/20 15 Digestive symptom Jayson Palmer MD Onset: 03/22/2015 Generalized abdominal pain Jayson Palmer MD Onset: 2014 Nausea Jayson Palmer MD Onset: 03/22/2015 Heartburn Jayson Palmer MD Onset: 03/22/2015 Dysphagia Jayson Palmer MD Onset: 03/22/2015 Endometriosis (clinical) Shelby Grullon MD Onset: 03/22/20 15 Morbid obesity Shelby Grullon MD Onset: 03/22/2015 Counseling Shelby Grullon MD Onset: 03/22/2015 Female climacteric state Shelby Grullon MD Onset: 03/22/20 15 Mild intermittent asthma Wilder Hernandez D.O. Onset: 11/08/19 16 Obstructive sleep apnea syndrome Wilder Hernandez D.O. Onset: 11/08/2015 Mild intermittent asthma Wilder Hernandez D.O. Onset: 11/03/19 17 Candidiasis Wilder Hernandez D.O. Onset: 11/02/2016 Allergic asthma without status asthmaticus Adonay Salamanca DO Onset: 07/04/2018 Social History Type Date Description Comments Sex Unknown ETOH Use Denies alcohol use Recreational Drug Use Denies Drug Use Tobacco Use Reviewed: 11/28/19 Patient has never smoked Smoking Status Reviewed: 11/09/20 Patient has never smoked Allergies and adverse reactions Active Allergies Criticality Reaction | Severity Comments Date Latex Unable to assess criticality RASH 12/30/2013 Clindamycin Unable to assess criticality 12/30/2013 Clarithromycin Unable to assess criticality mood disorder 12/03/2013 Augmentin Unable to assess criticality Diarrhea, RASH 07/03/2011 IVP Dye Unable to assess criticality 12/05/2007 Medications Active Medications SIG Qnty Indications Ordering Provide r Date Famotidine 40mg Tablets 1 tab by mouth at bedtime 30tabs Jayson Palmer MD 02/23/[address] 1 by mouth twice a day (esophagitis, difficult swallowing) 60tabs Jayson Palmer MD 02/23/2021 Prednisone 10mg Tablets 4 tabs daily x 5days, then 3 tabs daily x 5 days, then 2 tabs daily x 5 days, then 1 tab daily x 5 days 50tabs J45.21 Wilder Hernandez D.O. 11/09/2020 Symbicort 160-4.5mcg/Act Aerosol 2 puff twice a day 10.200gm Wilder Hernandez D.O. 11/09/2020 Singulair 10mg Tablets 1 po q d 1month Shelby Grullon MD 09/06/2010 Welchol 625mg Tablets take 2 tablets by mouth 2 times per day with meals Unknown Estradiol 0.1mg/24HR Patches Biweek Unknown Glipizide 5mg Tablets Unknown Januvia 50mg Tablets 60 daily Unknown Hydroxyzine HCL 10mg Tablets Unknown Propranolol HCL 10mg Tablets 1 tab by mouth twice daily. hold dose if having dizziness/ light headedness.. Unknown Strattera 60mg Capsules 1 tab by mouth every day Unknown Clonazepam 0.5mg Tablets 1 tab by mouth every day Unknown Seroquel 100mg Tablets 1 tab by mouth every night Unknown Levothyroxine Sodium 50mcg Tablets 1 by mouth every day 30tabs Unknown Levalbuterol HCL 1.25mg/3ML Nebuli zer 1 vial via neb every 4 hours as needed Unknown Levocetirizine Dihydrochloride 5mg Tablets 1 by mouth every day Unknown 000 Hyoscyamine Sulfate ER 0.375mg Tablets ER 12HR 1 by mouth twice a day 30tabs Unknown [place] Carbonate 600mg Capsules 3 caps by mouth every day Unknown Trazodone HCL 100mg Tablets 1 tab by mouth every day every evening 30tabs Unknown 00 Vitamin D (Ergocalciferol) [id number] Capsules 1 by mouth every week Unknown CPAP +6 marras Unknown Seroquel 400mg Tablets 1 by mouth every night Unknown Immunizations CPT Code Status Date Vaccine Lot # [id number] Given 02/06/2019 Flublock, Quadrivalent 64713 Given 01/13/2016 Influenza Virus Split 3 Yrs And Above For Intramuscular Use 35005 Given 03/17/2015 Influenza Virus Split 3 Yrs And Above For Intramuscular Use Q2036 Given 2013 Influenza Vaccine 3 Years Of Age Or Older (Flulaval) Vital Signs Date Vital Result Comment 02/23/2021 3:29pm BP Systolic 129 mmHg BP Diastolic 82 mmHg Height 62.50 inches 5'2.50" Weight 234.00 lb BMI (Body Mass Index) 42.1 kg/m2 [place] Body Weight 110 lb Weight 106.142 kg BSA (Body Surface Area) 2.06 m2 11/09/2020 2:47pm BP Systolic 122 mmHg BP Diastolic 78 mmHg Heart Rate 80 /min O2 % BldC Oximetry 96 % Height 62.50 inches 5'2.50" Weight 234.25 lb BMI (Body Mass Index) 42.2 kg/m2 [place] Body Weight 110 lb Weight 106.256 kg BSA (Body Surface Area) 2.06 m2 Results Test Acquired Date Facility Test Result H/L Range Note BUN & Creatinine ([facility]) 02/03/2021 [facility] Lab [address] [place], [place] [id number] [phone] Blood Urea Nitrogen 9 mg/dL Normal 7-18 Creatinine With GFR 02/03/2021 [facility] nter Main Lab [address] [place], [place] [id number] [phone] Creatinine For GFR 0.70 mg/dL Normal 0.55-1.30 Glomerular Filtration Rate > 60.0 Normal >60 1 FVL/Tanner 11/09/2020 [facility] SEE IMAGE FVC-Pred 3.53 L FVC-Pre 1.66 L FVC-%Pred-Pre 47 L FVC-LLN 2.86 L Fev1-Pred 2.89 L Fev1-Pre 1.45 L Fev1-%Pred-Pre 49 L Fev1-LLN 2.34 L Fev6-Pred 3.47 L Fev6-Pre 1.66 L Fev6-%Pred-Pre 47 L Fev6-LLN 2.82 L Tkz2cgl-Akqv 83 % Thl7fqo-Buc 87 % Cuz5ucp-%Pred-Pre 105 % Yad5tav-MTY 73 % Iji2knw-Kqno 98 % Wht6mig-Ehv 100 % Cnj1xgg-%Pred-Pre 101 % FEFMax-Pred 6.75 L/E/sec FEFMax-Pre 3.11 L/E/sec FEFMax-%Pred-Pre 46 L/E/sec FEFMax-LLN 5.12 L/E/sec Axa8125-Gboh 3.08 L/E/sec Add8413-Wxz 1.48 L/E/sec Njn9557-%Pred-Pre 47 L/E/sec Kjj8148-NWW 1.90 L/E/sec ExpTime-Pre 5.98 sec Onj4mkz9-Gzma 84 % Daf0htk0-Wti 87 % Kju7stf0-%Pred-Pre 103 % Crd4ahm3-USJ 75 % 1 Units are mL/min/1.73 m2 Chronic Kidney Disease Staging per NKF: Stage I & II GFR >=60 Normal to Mildly Decreased Stage III GFR 30-59 Moderately Decreased Stage IV GFR 15-29 Severely Decreased Stage V GFR <15 Very Little GFR Left ESRD GFR <15 on ANTENNA INSTALLER Procedures Date Code Description Status 02/23/2021 18072 Office/Outpatient Established Mo d MDM 30-39 Min Completed 11/09/2020 41204 Office/Outpatient Established Mo d MDM 30-39 Min Completed 11/09/2020 03461 Spirometry Completed 08/31/2020 94245 Endoscopy Upper GI Remove Foreig n Body Completed Medical Devices Description No Information Available Encounters Type Date Location Provider Dx Diagnosis Office Visit 02/23/2021 3:30p [facility] Gastroenterology Pra ctice Jayson Palmer MD K31.84 Gastroparesis D13.4 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liver 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 J45.21 Mild intermittent asthma with (acute) ex acerbation G47.33 Obstructive sleep apnea (tanesha lt) (pediatric) Assessments Date Code Description Provider 02/23/2021 K31.84 Gastroparesis Jayson Palmer MD 02/23/2021 D13.4 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liver Jayson reyes MD 02/23/2021 D37.6 Neoplasm of uncertai n behavior of liver, gallbladder and bile ducts Jayson Palmer MD 11/09/2020 J45.21 Mild intermittent asthma with (a cute) exacerbation Liset RamirezA. 11/09/2020 G47.33 Obstructive sleep apnea (adult) (pediatric) Liset RamirezAArmani 08/31/2020 T18.2xxA Foreign body in stomach, initial encounter Jayson Palmer MD 08/31/2020 K31.84 Gastroparesis Jayson Palmer MD 08/31/2020 R11.2 Nausea with vomiting, unspecifie d Jayson Palmer MD Plan of Treatment Future Appointment(s):* 03/24/2021 2:30 pm - Tong Ya PArmaniAArmani at [facility] Pulmonary/Thoracic 02/23/2021 - Jayson Palmer MD* K31.84 Gastroparesis * D13.4 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liver * D37.6 Neoplasm of uncertain behavior of liver, gallbladder and bile ducts * * Comments:* 1) gastroparesis is intermittently quite symptomatic for her. She is following instructions on dietary modification, but has not had great improvement---, I will increase her PPI to BID and Use H2B at bedtime. to see if we can get improvement.2) The biopsy proven hepatic adenoma is not visualized on this MRI. Either this has resolved (s/p Oophorectomy 2018)---Itr is possiblew that the reduction of hormones has allowed the adenoma to shrink/diasappear---I will recheck her MRI in another year. thren will decide if needs follow up.3) FATIMA--Cont to try to lose weight. -no other treatment available * Follow up:* 1 year (MRI/Ct before) Functional Status Description No Information Available Mental Status Description No Information Available Referrals Description No Information Available
--- OUTSIDE RECORDS SUMMARY | 2021-03-19 15:46 | CCD ---
Author Author [facility] Organization [facility] Address Unknown Phone Unavailable Care Team Providers Care Manager Dialysis Name Role Phone Melissa Cavazos Unavailable PROBLEMS Type Condition ICD9-CM Code [id number] Code Onset Dates Condition S tatus W/U Status Risk SNOMED Code Notes Problem DM2 (diabetes mellitus, type 2) E11.9 Active confi rmed [id number] She is a type 2 diabetic who is treated with metformin and Januvia therapy. Her most recent hemoglobin A1c was 5.8% in May 2018. At that time she also had optimal lipid control. Problem IBS (irritable bowel syndrome) K58.9 Active confir med 25082551 She had a negative test for celiac sprue in May 2018. Her symptoms are controlled with hyoscyamine as needed. Problem Sleep apnea G47.30 Active confirmed 03032916 She is monitored by her lay up operator and is compliant with her CPAP +6 cm of water therapy. Problem Fatty liver K76.0 Active confirmed 28865525 7 Problem Seasonal allergies J30.2 Active confirmed 3 69149512 Problem Mood disorder F39 Active confirmed 596882 05 Problem Renal calculus, left N20.0 Active confirmed 06231004 Problem Sensorineural hearing loss (SNHL) of both ears H90 .3 Active confirmed 561562096 Problem Adenoma determined by biopsy of liver D13.4 Ac tive confirmed 600430495 Problem Tachycardia R00.0 Active confirmed 7561166 Problem Ureteral stone with hydronephrosis N13.2 Activ e confirmed 697869506 Problem Urge incontinence N39.41 Active confirmed 87 402204 Problem Leukocytosis, unspecified D72.829 Active confirmed 229866116 Problem Gastroparesis K31.84 Active confirmed 261622 006 Problem Kidney stone on left side N20.0 Active confirmed 61327727 Problem GERD (gastroesophageal reflux disease) K21.9 A ctive confirmed 540123046 Problem 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 Problem Morbid obesity E66.01 Active confirmed 20294 6002 She has been losing weight partially due to her abdominal issues but her body mass index still exceeds 40 kg/m2. Problem Asthma J45.909 Active confirmed 497874475 He r asthma is well- controlled. PFTs were normal in May 2018. Refer to pulmonary note from May 2018. She is on Breo daily and albuterol MDI as needed. She has not required albuterol nebulizations in some time. She is also on Singulair. 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 confirmed 530024295 Problem Hypothyroidism (acquired) E03.9 Active confirmed 232923389 Problem Vitamin D deficiency E55.9 Active confirmed 05506125 ALLERGIES Allergen (clinical drug ingredient) Drug/Non Drug Allergy do cumented on EMR Reaction Allergy Type Onset Date Status lurasidone Latuda(NDC Code:[address]-79) confusion Drug Allergy Active amoxicillin / clavulanate Augmentin(NDC Code:[address]-17) Rash Drug Allergy Active metformin MetFORMIN HCl ER(NDC Code:[address]-53) nausea/vomiti ng Drug Allergy Active erythromycin Erythromycin Base(NDC Code:[address]-85) Confusion Peng g Allergy Active benztropine Cogentin(NDC Code:[address]-07) shakes Drug Allergy Active aripiprazole Abilify(NDC Code:[address]-86) Confusion Drug Allergy Active Resperal Confusion Drug Allergy Active CT contrast rash,hives,vomiting Non Drug Allergy Active olanzapine Zyprexa(NDC Code:[address]-42) Confusion Drug Allergy Active ziprasidone Geodon(NDC Code:[address]-16) massive weight gain Drug A llergy Active Latex Latex Rash Non Drug Allergy Active ENCOUNTERS from 1981 to 2021-01-13 Encounter Location Date Provider Diagnosis [facility] [address] [phone] [place] [address] Jan, Melissa Cavazos Nocturia R35.1 ; Urge incontinence N39.4 1 and Urinary frequency R35.0 IMMUNIZATIONS Vaccine Route Administration Date Status Influenza Pharmacy Given Unknown Feb 03, 2019 Adminis tered Influenza Pharmacy Given Unknown Jan 15, 2018 Adminis tered Depo-Medrol 40mg Methylpredisolone Acetate IM Intramuscular Jul 02, 2019 Administered Depo-Medrol 40mg Methylpredisolone Acetate IM Intramuscular October 24, 2017 Administered TDAP 0.5mL (Boostrix) IM Intramuscular December 05, 2019 Administe red Pneumococcal 0.5mL Prevnar 13 IM Intramuscular November 16, 2020 A dministered Influenza Pharmacy Given Unknown Jan 22, 2020 Adminis tered Influenza 6mo & up Fluzone IM Intramuscular Jan 15, 2018 Admi nistered Influenza 6mo & up Fluzone Unknown Jan 04, 2017 Admin istered Influenza 6mo & up Fluzone Unknown Jan 13, 2016 Admin istered SOCIAL HISTORY Tobacco Use: Social History Observation Description Date Details (start date - stop date) Never Smoker Sex Assigned At : Social History Observation Description Sex Assigned At Unknown Audit Question Answer Notes Total Score: 0 Interpretation: Alcohol Education Language: Question Answer Notes Languages spoken: Czech Yarsanism: Question Answer Notes Yarsanism 03 Amish Sexual Hx: Question Answer Notes Had sex in the last 12 months (vaginal, oral, or anal)? Yes with Men only Use protection? Yes How often? All of the time Drug and Alcohol Question Answer Notes Total Score: 0 Interpretation: No problems reported Alcohol Screening: Question Answer Notes Did you have a drink containing alcohol in the past year? No Points 0 Interpretation Negative BMI Care Goal Follow-Up Question Answer Notes Above Normal BMI Follow-Up Exercise promotion: strengt h training, Exercise promotion: stretching, Giving encouragement to exercise Tobacco Use: Question Answer Notes Are you a: never smoker never smoker REASON FOR REFERRAL No Information VITAL SIGNS Weight 235 lbs Jan, Weight-kg 106.6 kg Jan, Height 62 in Jan, BMI 42.98 kg/m2 Jan, Heart Rate 83 /min Jan, Respiratory Rate 18 /min Jan, Temperature 96.9 degrees Fahrenheit Jan, Oximetry 98% Jan, Blood pressure systolic 132 mm Hg Jan, Blood pressure diastolic 78 mm Hg Jan, MEDICATIONS Medication SIG (Take, Route, Frequency, Duration) Notes Start Da te End Date Status Breo Ellipta 200-25 MCG/INH 1 puff Inhalation Once a day Active traZODone HCl 100 MG 1 tablet Orally before bedtime Active OneTouch Delica Lancets Fine _ one lancet subcutaneous ly daily Dx:E11.9 for 30 day(s) May, Active hydrOXYzine HCl 50 MG 1 tablet as needed Orally twice daily Active clonazePAM 0.5 MG 1 tablet at bedtime Orally Once a day Not-Taking Benadryl Allergy 25 MG 1 cap Orally 2 caps [address] sc an September, Active Levalbuterol HCl 1.25 MG/3ML 3 ml Inhalation every 6 h rs prn shortness of breath Active SEROquel _ 400mg and 100 mg= 500 mgs Orally Once a day at bedtime psych (tolerating 05/20/18) Active OKKAMTouch Verio Flex System w/Device as directed Dx:E11.9 Daily Feb, Active Famotidine 20 MG 1 tablet at bedtime as needed Orally Onc e a day for 30 day(s) Active Cogentin 1 MG/ML 1 ml Injection Once a day for 30 day(s) BID Not-Taking Pantoprazole Sodium 40 mg 1 tablet Orally Once a day for 30 Active Fluconazole 100 MG 1 tablet Orally Daily for 3 days September Active OneTouch Verio _ one strip In Vitro three times a day Dx:E11.9 for 30 day(s) May, Active Strattera 80 MG 1 capsule in the morning Orally Once a day Active clonazePAM 0.5 MG 1 tablet on the tongue and a llow to dissolve at bedtime Orally Once a day Active Hyoscyamine Sulfate ER 0.375 MG 1 tablet Orally every 12 hrs for 30 Active May Use CPAP _ _ Active predniSONE 50 MG 1 tablet Orally 1 tablet [address], then a 7 hours prior and 1 hour prior September, Active Vitamin D (Ergocalciferol) 1.25 MG (71243 UT) TAKE 1 C APSULE BY MOUTH ONCE WEEKLY for 28 Active OneTouch Verio - ONE MISCELLANEOUS EVERY DAY for 50 Not-Taking Pimecrolimus 1 % 1 application Externally Twice a day Active Levocetirizine Dihydrochloride 5 MG 1 tablet in the ev ening Orally Once a day for 30 Active Estradiol 0.025 MG/24HR 1 patch to skin Transdermal Two times a Week for 30 day(s) September, Active glipiZIDE ER 2.5 MG TAKE ONE TABLET BY MOUTH IN THE MORNING WITH BREAKFAST for 30 Active Montelukast Sodium 10 MG 1 tab orally Daily for 30 Active Drisdol 07350 UNIT 1 capsule Orally weekly for 28 Active Zoloft 50 MG 1 tablet Orally Daily A ctive [place] Carbonate 600 MG 1 cap Orally twice daily take 150 at bedtim e Active Temovate 0.05 % 1 application topically Twic e a day prn right leg rash for 10 day(s) May, Active Januvia 100 MG 1 tablet Orally Once a day for 30 day(s) Active Estradiol 0.1 MG/GM as directed Vaginal Active Propranolol HCl 10 MG 1 tablet Orally bid for 30 day(s) Active Pantoprazole Sodium 40 mg 1 tablet Orally Once a day Active Welchol 625 MG 1 tab Orally Twice a day Active Levothyroxine Sodium 75 MCG 1 tablet in the morning on an empty stomach Orally Once a day for 30 day(s) May, Active Symbicort 160-4.5 MCG/ACT 2 puffs Inhalation Twice a day Active Propranolol HCl 10 MG 1 tablet Orally Once a day for 30 day( s) 10 mg in AM and 20mg in PM Active Levalbuterol Tartrate 45 MCG/ACT 1 puff as needed Inhalation every 4 hrs Active PROCEDURES No Information RESULTS No Results REASON FOR VISIT PTNS MEDICAL (GENERAL) HISTORY Type Description Date Medical History DM2 (diabetes mellitus, type 2) Medical History Asthma Medical History Fatty liver Medical History Morbid obesity Medical History IBS (irritable bowel syndrome) Medical History GERD (gastroesophageal reflux disease) Medical History Sleep apnea Medical History Bipolar 1 disorder Medical History Tachycardia Medical History Sensorineural Hearing Loss Medical History Liver Cyst work up at [facility]-continues to follow with [facility] estrogen generated Surgical History Tonsillectomy Surgical History Tubal ligation Surgical History perforated bowel 2002? Surgical History Partial hysterectomy, [facility] A ssist 12/21/16 Surgical History Laproscopic cholecystectomy-Dr. Salamanca 0 08/09/2018 Surgical History Larroscopic -bilateral ovaries-[facility] Surgical History Upper GI endoscopy, suspect gastroparesi s 08/31/20 Hospitalization History [facility]-Asthma exacerbation, DM2 , Morbid obesity, Depression, Insomnia 10/19-10/21/2015 Goals Section No Information Health Concerns No Information MEDICAL EQUIPMENT No Information MENTAL STATUS No Information FUNCTIONAL STATUS No Information ASSESSMENTS Encounter Date Diagnosis Assessment Notes Treatment Notes Treatm ent Clinical Notes Jan, Nocturia (ICD-10 - R35.1) Jan, Urge incontinence (ICD-10 - N39.41) Jan, Urinary frequency (ICD-10 - R35.0) PLAN OF TREATMENT Next Appt Details 2 Months Reason:PTNS Provider Name:Lakesha Buck, 01:00:00 PM, [address] [facility], , [place], [address], Provider Name:Melissa Cavazos, 2021-03-14 1 03:30:00 PM, [address], , [place], [address], Follow Up:2 MonthsPTNS Insurance Providers Payer Name Payer Address Payer Phone Insured Name Patient Relati onship to Insured Coverage Start Date Coverage End Date [facility] [id number] [facility] [id number] MACHO ARRIOLA self
--- OUTSIDE RECORDS SUMMARY | 2021-03-19 15:46 | CCD | Continuity of Care Document ---
Author Author Dilma PALMER MD Organization Unknown Address [address] [place] [address] Phone [phone] Care Team Providers Care Production Machine Tender Name Role Phone Lakesha Buck R.N. AUTM [phone] AUTM Unavailable AUTM Unavailable Daya Adams NP [...] by mouth twice a day 30tabs Unknown [place] Carbonate 600mg Capsules 3 caps by mouth every day Unknown Trazodone HCL 100mg Tablets 1 tab by mouth every day every evening 30tabs Unknown 00 Vitamin D (Ergocalciferol) 23732Jxgm Capsules 1 by mouth every week Unknown CPAP +6 marras Unknown Seroquel 400mg Tablets 1 by mouth every night Unknown Immunizations CPT Code Status Date Vaccine Lot # [id number] Given 02/06/2019 Flublock, Quadrivalent 93861 Given 01/13/2016 Influenza Virus Split 3 Yrs And Above For Intramuscular Use 79670 Given 03/17/2015 Influenza Virus Split 3 Yrs And Above For Intramuscular Use Q2036 Given 2013 Influenza Vaccine 3 Years Of Age Or Older (Flulaval) Vital Signs Date Vital Result Comment 02/23/2021 3:29pm BP Systolic 129 mmHg BP Diastolic 82 mmHg Height 62.50 inches 5'2.50" Weight 234.00 lb BMI (Body Mass Index) 42.1 kg/m2 [place] Body Weight 110 lb Weight 106.142 kg BSA (Body Surface Area) 2.06 m2 11/09/2020 2:47pm BP Systolic 122 mmHg BP Diastolic 78 mmHg Heart Rate 80 /min O2 % BldC Oximetry 96 % Height 62.50 inches 5'2.50" Weight 234.25 lb BMI (Body Mass Index) 42.2 kg/m2 [place] Body Weight 110 lb Weight 106.256 kg BSA (Body Surface Area) 2.06 m2 Results Test Acquired Date Facility Test Result H/L Range Note BUN & Creatinine ([facility]) 02/03/2021 [facility] Main Lab [address], [place] [id number] [phone] Blood Urea Nitrogen 9 mg/dL Normal 7-18 Creatinine With GFR 02/03/2021 [facility] nter Main Lab [address], [place] [address] [phone] Creatinine For GFR 0.70 mg/dL Normal 0.55-1.30 Glomerular Filtration Rate > 60.0 Normal >60 1 FVL/Tanner 11/09/2020 [employer] [facility] SEE IMAGE FVC-Pred 3.53 L FVC-Pre 1.66 L FVC-%Pred-Pre 47 L FVC-LLN 2.86 L Fev1-Pred 2.89 L Fev1-Pre 1.45 L Fev1-%Pred-Pre 49 L Fev1-LLN 2.34 L Fev6-Pred 3.47 L Fev6-Pre 1.66 L Fev6-%Pred-Pre 47 L Fev6-LLN 2.82 L Lbl2crn-Qfwp 83 % Gzx6rvv-Sah 87 % Mqf6jhu-%Pred-Pre 105 % Zkg7jcu-HBV 73 % Htk8qvk-Macb 98 % Nhn2tif-Xbw 100 % Ahh6xpj-%Pred-Pre 101 % FEFMax-Pred 6.75 L/E/sec FEFMax-Pre 3.11 L/E/sec FEFMax-%Pred-Pre 46 L/E/sec FEFMax-LLN 5.12 L/E/sec Wlg5991-Byhf 3.08 L/E/sec Psx4287-Kvg 1.48 L/E/sec Gsz1284-%Pred-Pre 47 L/E/sec Xxb9325-SJA 1.90 L/E/sec ExpTime-Pre 5.98 sec Byv0glo9-Mkch 84 % Lby6yga7-Svb 87 % Arg8dyy0-%Pred-Pre 103 % Vmn1eyn1-QMS 75 % 1 Units are mL/min/1.73 m2 Chronic Kidney Disease Staging per NKF: Stage I & II GFR >=60 Normal to Mildly Decreased Stage III GFR 30-59 Moderately Decreased Stage IV GFR 15-29 Severely Decreased Stage V GFR <15 Very Little GFR Left ESRD GFR <15 on CASE MANAGEMENT COORDINATOR Procedures Date Code Description Status 02/23/2021 19831 Office/Outpatient Established Mo d MDM 30-39 Min Completed 11/09/2020 65049 Office/Outpatient Established Mo d MDM 30-39 Min Completed 11/09/2020 41661 Spirometry Completed 08/31/2020 98751 Endoscopy Upper GI Remove Foreig n Body Completed Medical Devices Description No Information Available Encounters Type Date Location Provider Dx Diagnosis Office Visit 02/23/2021 3:30p [facility] G[facility] Jayson Palmer MD K31.84 Gastroparesis D13.4 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 J45.21 Mild intermittent [...] 2:30 pm - Tong Ya PArmaniAArmani at [facility] Pulmonary/Thoracic 02/23/2021 - Jayson Palmer MD* K31.84 [...]
--- OUTSIDE RECORDS SUMMARY | 2021-03-19 15:46 | CCD | Continuity of Care Document ---
Author Author Dilma PALMER MD Organization Unknown Address [address] [place] [address] Phone [phone] Care Team Providers Care Case Liner Name Role Phone Laurenkeyonna Lakesha Swift R.N. AUTM [phone] AUTM Unavailable AUTM Unavailable Daya Adams NP [...] Status Reviewed: 11/09/20 Patient has never smoked Allergies, Adverse Reactions, Alerts Active Allergies Criticality Reaction | Severity Comments Date Latex Unable to assess criticality RASH 12/30/2013 Clindamycin Unable to assess criticality 12/30/2013 Clarithromycin Unable to assess criticality mood disorder 12/03/2013 Augmentin Unable to assess criticality Diarrhea, RASH 07/03/2011 IVP Dye Unable to assess criticality 12/05/2007 Medications Active Medications SIG Qnty Indications Ordering Provide r Date Symbicort 160-4.5mcg/Act Aerosol 2 puff twice a day 10.200gm Wilder Hernandez D.O. 11/09/2020 Prednisone 10mg Tablets 4 tabs daily x 5days, then 3 tabs daily x 5 days, then 2 tabs daily x 5 days, then 1 tab daily x 5 days 50tabs J45.21 Wilder Hernandez D.O. 11/09/2020 Singulair 10mg Tablets 1 po q d 1month Shelby Grullon MD 09/06/2010 Famotidine 20mg Tablets 1 tab by mouth Unknown Welchol 625mg Tablets take 2 tablets by [...] Tablets 1 by mouth every day Unknown 00/00/0 000 Hyoscyamine Sulfate ER 0.375mg Tablets ER 12HR 1 by mouth twice a day 30tabs Unknown [place] Carbonate 600mg Capsules 3 caps by mouth every day Unknown Trazodone HCL 100mg Tablets 1 tab by mouth every day every evening 30tabs Unknown 00 Vitamin D (Ergocalciferol) 47499Whdl Capsules 1 by mouth every week Unknown CPAP +6 marras Unknown Seroquel 400mg Tablets 1 by mouth every night Unknown Protonix 40mg Tablets DR 1 by mouth every day 30tabs Unknown Immunizations CPT Code Status Date Vaccine Lot # 52778 Given 02/06/2019 Flublock, Quadrivalent 00144 Given 01/13/2016 Influenza Virus Split 3 Yrs And Above For Intramuscular Use 61152 Given 03/17/2015 Influenza Virus Split 3 Yrs And Above For Intramuscular Use Q2036 Given 2013 Influenza Vaccine 3 Years Of Age Or Older (Flulaval) Vital Signs Date Vital Result Comment 11/09/2020 2:47pm BP Systolic 122 mmHg BP Diastolic 78 mmHg Heart Rate 80 /min O2 % BldC Oximetry 96 % Height 62.50 inches 5'2.50" Weight 234.25 lb BMI (Body Mass Index) 42.2 kg/m2 [place] Body Weight 110 lb Weight 106.256 kg BSA (Body Surface Area) 2.06 m2 07/08/2020 2:41pm BP Systolic 147 mmHg BP Diastolic 82 mmHg Height 62.50 inches 5'2.50" Weight 240.00 lb BMI (Body Mass Index) 43.2 kg/m2 [place] Body Weight 110 lb Weight 108.864 kg BSA (Body Surface Area) 2.08 m2 Results Test Acquired Date Facility Test Result H/L Range Note BUN & Creatinine ([facility]) 02/03/2021 [facility] Main Lab [address] [place] [address] [phone] Blood Urea Nitrogen 9 mg/dL Normal 7-18 Creatinine With GFR 02/03/2021 [facility] nter Main Lab [address] [place] [address] [phone] Creatinine For GFR 0.70 mg/dL Normal 0.55-1.30 Glomerular Filtration Rate > 60.0 Normal >60 1 FVL/Tanner 11/09/2020 [facility] SEE IMAGE FVC-Pred 3.53 L FVC-Pre 1.66 L FVC-%Pred-Pre 47 L FVC-LLN 2.86 L Fev1-Pred 2.89 L Fev1-Pre 1.45 L Fev1-%Pred-Pre 49 L Fev1-LLN 2.34 L Fev6-Pred 3.47 L Fev6-Pre 1.66 L Fev6-%Pred-Pre 47 L Fev6-LLN 2.82 L Bkz3puh-Ksow 83 % Ljw3swn-Ylo 87 % Szb2vij-%Pred-Pre 105 % Ujj9lhc-YFB 73 % Tca6nyo-Qnsv 98 % Byp1rns-Xyl 100 % Nje5mst-%Pred-Pre 101 % FEFMax-Pred 6.75 L/E/sec FEFMax-Pre 3.11 L/E/sec FEFMax-%Pred-Pre 46 L/E/sec FEFMax-LLN 5.12 L/E/sec Urt4025-Oend 3.08 L/E/sec Wut9753-Ilr 1.48 L/E/sec Eum5063-%Pred-Pre 47 L/E/sec Hji8563-ZIO 1.90 L/E/sec ExpTime-Pre 5.98 sec Jtu1ciw2-Czmu 84 % Igy0xhd6-Jxo 87 % Atf6zpr3-%Pred-Pre 103 % Mkz6aco6-WVF 75 % 1 Units are mL/min/1.73 m2 Chronic Kidney Disease Staging per NKF: Stage I & II GFR >=60 Normal to Mildly Decreased Stage III GFR 30-59 Moderately Decreased Stage IV GFR 15-29 Severely Decreased Stage V GFR <15 Very Little GFR Left ESRD GFR <15 on MARINE PIPEFITTER HELPER Procedures Date Code Description Status 11/09/2020 98984 Office/Outpatient Established Mo d MDM 30-39 Min Completed 11/09/2020 65607 Spirometry Completed 08/31/2020 54143 Endoscopy Upper GI Remove Foreig n Body Completed Medical Devices Description No Information Available Encounters Type Date Location Provider Dx Diagnosis Office Visit 11/09/2020 3:00p [facility] HEATHER Ramirez J45.21 Mild intermittent asthma with (acute) ex acerbation G47.33 Obstructive sleep apnea (tanesha lt) (pediatric) Assessments Date Code Description Provider 11/09/2020 J45.21 Mild intermittent asthma with (a cute) exacerbation HEATHER Ramirez 11/09/2020 G47.33 Obstructive sleep apnea (adult) (pediatric) HEATHER Ramirez 08/31/2020 T18.2xxA Foreign body in stomach, initial encounter Jayson Palmer MD 08/31/2020 K31.84 Gastroparesis Jayson Palmer MD 08/31/2020 R11.2 Nausea with vomiting, unspecifie d Jayson Palmer MD Plan of Treatment Future Appointment(s):* 02/21/2021 2:30 pm - HEATHER Ramirez at [facility] * 02/23/2021 3:30 pm - Jayson Palmer MD at [facility] 11/09/2020 - HEATHER Ramirez* J45.21 Mild intermittent asthma with (acute) exacerbation * G47.33 Obstructive sleep apnea (adult) (pediatric) * * New Medication:* Prednisone 10 mg * Follow up:* 1. Follow up in 3 months with tanner Functional Status Description No Information Available Mental Status Description No Information Available Referrals Description No Information Available
--- OUTSIDE RECORDS SUMMARY | 2021-03-19 15:46 | CCD ---
Author Author [facility] Organization [facility] Address Unknown Phone Unavailable Care Team Providers Care Signal Intelligence Analyst Name Role Phone Andrewfaina Timmy Unavailable PROBLEMS Type Condition ICD9-CM Code GDK00-HC Code Onset Dates Condition S tatus W/U Status Risk SNOMED Code Notes Problem ADHD (attention deficit hyperactivity disorder) F9 0.9 Active confirmed 549123563 Problem Personality disorder, unspecified F60.9 Active con firmed [id number] Problem Bipolar disorder, current ep isode mixed, severe, with psychotic features F31.64 Active confirmed 114060070 Problem Bipolar 1 disorder F31.9 Active confirmed 3 [id number] ALLERGIES No Information ENCOUNTERS from 1980 to 2021-02-03 Encounter Location Date Provider Diagnosis [address] [address] Jan, Timmy Westbrook IMMUNIZATIONS No Information SOCIAL HISTORY Sex Assigned At : Social History Observation Description Sex Assigned At Unknown REASON FOR REFERRAL No Information VITAL SIGNS No information MEDICATIONS Medication SIG (Take, Route, Frequency, Duration) Notes Start Da te End Date Status SEROquel 400 MG 2 Orally qhs Active Yuvafem 0.1mg 1 application Vaginal Two times a Week Active [place] Carbonate 600 MG as directed Orally bid Active Levothyroxine Sodium 75 MCG 1 tablet in the morning on an empty stomach Orally am 75mg Active Sertraline HCl 50 MG 1 tablet Orally Once a day for 30 days Jul, Active Protonix 40 MG 1 tablet Orally pm Ac tive WelChol 625 1 tablet po bid Active Levocetirizine-Loratadine 10 1tablet po am Active Strattera 80 MG 1 capsule in the morning Orally Once a day Active traZODone HCl 100 MG 1 tablet at bedtime Orally Once a day Jun, Active clonazePAM 0.5 MG 1 tablet Orally qhs for 30 days Jun, Active Breo Ellipta 100-25 MCG/INH 1 puff Inhalation pm Active SEROquel 100 MG 1 tablet at bedtime Orally Once a day Active Propranolol HCl 20 MG 1 tablet Orally bid 10mg bid Active Yuvafem 0.1mg 1 patch transdermal 2x weekly Active [place] Carbonate 150 MG 1 capsule Orally QHS Active Hyoscyamine Sulfate ER 0.375 MG 1 tablet Orally bid Active QUEtiapine Fumarate 50 MG 1 Orally qam Active hydrOXYzine HCl 50 MG 1 tablet as needed Orally bid Active singulair 10mg 1 tablet po pm Active Januvia 100 MG 1 tablet Orally daily Jul, Active Atomoxetine HCl 80 MG 1 capsule in the morning Orally Once a day Active PROCEDURES No Information RESULTS No Results REASON FOR VISIT Appt today MEDICAL (GENERAL) HISTORY Type Description Date Medical History Allergies : seasonal allergi es, CT contrast - rash,hives,vomiting, Latex - rash, Abilify - confusion, Augmentin - Rash, Goals Section No Information Health Concerns No Information MEDICAL EQUIPMENT No Information MENTAL STATUS No Information FUNCTIONAL STATUS No Information ASSESSMENTS No Information PLAN OF TREATMENT Next Appt Details Provider Name:Timmy Westbrook, 2021-02-17 0 6:00:00 PM, [address] [place] [address], [phone], Provider Name:Kanwal Mcgee, 03-03 04:20:00 PM, [address] [place] [address], [phone], Provider Name:Timmy Westbrook 2021-03-03 0 5:00:00 PM, [address] [place] [address], [phone], Provider Name:Timmy Westbrook 2021-03-17 0 5:00:00 PM, [address] [place] [address], [phone], Provider Name:Timmy Westbrook 2021-03-31 0 5:00:00 PM, [address] [place] [address], [phone], Insurance Providers Payer Name Payer Address Payer Phone Insured Name Patient Relati onship to Insured Coverage Start Date Coverage End Date [facility] [address] [address] [facility] [phone] MACHO NERI self
--- OUTSIDE RECORDS SUMMARY | 2021-03-19 15:46 | CCD | Continuity of Care Document ---
Author Author Dilma PALMER MD Organization Unknown Address [address] [place] [address] Phone [phone] Care Team Providers Care Net Application Support Specialist Name Role Phone Lakesha Buck R.N. AUTM [phone] AUTM Unavailable AUTM Unavailable Daya Adams NP [...] by mouth twice a day 30tabs Unknown [place] Carbonate 600mg Capsules 3 caps by mouth every day Unknown Trazodone HCL 100mg Tablets 1 tab by mouth every day every evening 30tabs Unknown 00 Vitamin D (Ergocalciferol) [id number] Capsules 1 by mouth every week Unknown CPAP +6 marras Unknown Seroquel 400mg Tablets 1 by mouth every night Unknown Immunizations CPT Code Status Date Vaccine Lot # 61507 Given 02/06/2019 Flublock, Quadrivalent 76004 Given 01/13/2016 Influenza Virus Split 3 Yrs And Above For Intramuscular Use 91228 Given 03/17/2015 Influenza Virus Split 3 Yrs And Above For Intramuscular Use Q2036 Given 2013 Influenza Vaccine 3 Years Of Age Or Older (Flulaval) Vital Signs Date Vital Result Comment 02/23/2021 3:29pm BP Systolic 129 mmHg BP Diastolic 82 mmHg Height 62.50 inches 5'2.50" Weight 234.00 lb BMI (Body Mass Index) 42.1 kg/m2 [place] Body Weight 110 lb Weight 106.142 kg BSA (Body Surface Area) 2.06 m2 11/09/2020 2:47pm BP Systolic 122 mmHg BP Diastolic 78 mmHg Heart Rate 80 /min O2 % BldC Oximetry 96 % Height 62.50 inches 5'2.50" Weight 234.25 lb BMI (Body Mass Index) 42.2 kg/m2 [place] Body Weight 110 lb Weight 106.256 kg BSA (Body Surface Area) 2.06 m2 Results Test Acquired Date Facility Test Result H/L Range Note BUN & Creatinine ([facility]) 02/03/2021 [facility] Main Lab [address], [place] [id number] [phone] Blood Urea Nitrogen 9 mg/dL Normal 7-18 Creatinine With GFR 02/03/2021 [facility] Main Lab [address], [place] [id number] [phone] Creatinine For GFR 0.70 mg/dL Normal 0.55-1.30 Glomerular Filtration Rate > 60.0 Normal >60 1 FVL/Tanner 11/09/2020 [facility] SEE IMAGE FVC-Pred 3.53 L FVC-Pre 1.66 L FVC-%Pred-Pre 47 L FVC-LLN 2.86 L Fev1-Pred 2.89 L Fev1-Pre 1.45 L Fev1-%Pred-Pre 49 L Fev1-LLN 2.34 L Fev6-Pred 3.47 L Fev6-Pre 1.66 L Fev6-%Pred-Pre 47 L Fev6-LLN 2.82 L Ybr3lto-Aqhq 83 % Pad9jyi-Ejv 87 % Wrm2myf-%Pred-Pre 105 % Iyy0kce-FWJ 73 % Jln4qgt-Ttpi 98 % Zmw7rqh-Oas 100 % Arq9amg-%Pred-Pre 101 % FEFMax-Pred 6.75 L/E/sec FEFMax-Pre 3.11 L/E/sec FEFMax-%Pred-Pre 46 L/E/sec FEFMax-LLN 5.12 L/E/sec Hoe1776-Fdav 3.08 L/E/sec Ugs6166-Vsp 1.48 L/E/sec Tia6414-%Pred-Pre 47 L/E/sec Umq4855-RZY 1.90 L/E/sec ExpTime-Pre 5.98 sec Csi6wls9-Gcgf 84 % Hnn4ali5-Zrs 87 % Hox1szd1-%Pred-Pre 103 % Vuc8usc3-UEH 75 % 1 Units are mL/min/1.73 m2 Chronic Kidney Disease Staging per NKF: Stage I & II GFR >=60 Normal to Mildly Decreased Stage III GFR 30-59 Moderately Decreased Stage IV GFR 15-29 Severely Decreased Stage V GFR <15 Very Little GFR Left ESRD GFR <15 on REPAIR WELDER Procedures Date Code Description Status 02/23/2021 53664 Office/Outpatient Established Mo d MDM 30-39 Min Completed 11/09/2020 65630 Office/Outpatient Established Mo d MDM 30-39 Min Completed 11/09/2020 56178 Spirometry Completed 08/31/2020 28270 Endoscopy Upper GI Remove Foreig n Body Completed Medical Devices Description No Information Available Encounters Type Date Location Provider Dx Diagnosis Office Visit 02/23/2021 3:30p [facility] Gastroenterology Pra [facility]ice Jayson Palmer MD K31.84 Gastroparesis D13.4 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 J45.21 Mild intermittent [...] 2:30 pm - Tong Ya PArmaniAArmani at [facility] Pulmonary/Thoracic 02/23/2021 - Jayson Palmer MD* K31.84 [...]
--- OUTSIDE RECORDS SUMMARY | 2021-03-19 15:46 | CCD ---
Author Author [facility] Organization [facility] Address Unknown Phone Unavailable Care Team Providers Care Design Printer Balloon Name Role Phone Lakesha Buck Unavailable PROBLEMS Type Condition ICD9-CM Code FFF51-AC Code Onset Dates Condition S tatus W/U Status Risk SNOMED Code Notes Problem DM2 (diabetes mellitus, type 2) E11.9 Active confi rmed 09071194 She is a type 2 diabetic who is treated with metformin and Januvia therapy. Her most recent hemoglobin A1c was 5.8% in May 2018. At that time she also had optimal lipid control. Problem IBS (irritable bowel syndrome) K58.9 Active confir med 41613947 She had a negative test for celiac sprue in May 2018. Her symptoms are controlled with hyoscyamine as needed. Problem Sleep apnea G47.30 Active confirmed 10867157 She is monitored by her general farm hand and is compliant with her CPAP +6 cm of water therapy. 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 Ac tive confirmed 416200586 Problem Tachycardia R00.0 Active confirmed 9911414 Problem Ureteral stone with hydronephrosis N13.2 Activ e confirmed 283032552 Problem Urge incontinence N39.41 Active confirmed 87 918353 Problem Leukocytosis, unspecified D72.829 Active confirmed 269864794 Problem Gastroparesis K31.84 Active confirmed 518506 006 Problem Kidney stone on left side N20.0 Active confirmed 73832959 Problem GERD (gastroesophageal reflux disease) K21.9 A ctive confirmed 837579072 Problem 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 Problem Morbid obesity E66.01 Active confirmed 89038 6002 She has been losing weight partially due to her abdominal issues but her body mass index still exceeds 40 kg/m2. Problem Asthma J45.909 Active confirmed 300246359 He r asthma is well- controlled. PFTs were normal in May 2018. Refer to pulmonary note from May 2018. She is on Breo daily and albuterol MDI as needed. She has not required albuterol nebulizations in some time. She is also on Singulair. 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 confirmed 425231478 Problem Hypothyroidism (acquired) E03.9 Active confirmed 634381726 Problem Vitamin D deficiency E55.9 Active confirmed ALLERGIES Allergen (clinical drug ingredient) Drug/Non Drug Allergy do cumented on EMR Reaction Allergy Type Onset Date Status lurasidone Latuda(NDC Code:[address]-28) confusion Drug Allergy Active amoxicillin / clavulanate Augmentin(NDC Code:[address]-05) Rash Drug Allergy Active metformin MetFORMIN HCl ER(NDC Code:[address]-32) nausea/vomiti ng Drug Allergy Active erythromycin Erythromycin Base(NDC Code:[address]-80) Confusion Peng g Allergy Active benztropine Cogentin(NDC Code:[address]-36) shakes Drug Allergy Active aripiprazole Abilify(NDC Code:[address]-55) Confusion Drug Allergy Active Resperal Confusion Drug Allergy Active CT contrast rash,hives,vomiting Non Drug Allergy Active olanzapine Zyprexa(NDC Code:[address]-63) Confusion Drug Allergy Active ziprasidone Geodon(NDC Code:[address]-51) massive weight gain Drug A llergy Active Latex Latex Rash Non Drug Allergy Active ENCOUNTERS from 1981 to 2021-02-17 Encounter Location Date Provider [facility] [address] [facility] [phone] [place] [address] Feb, Lakesha Buck DM2 (diabetes mellitus, type 2) E11.9 ; Fatty liver K76.0 ; Asthma J45.909 ; Hypothyroidism (acquired) E03.9 ; Screening, lipid Z13.220 and Vitamin D deficiency E55.9 IMMUNIZATIONS Vaccine Route Administration Date Status Moderna #3 dose COVID-19 (given elsewhere) SARSCOV2 VAC 100M CG/0.5ML IM Unknown Jan 20, 2021 Administered Influenza Pharmacy Given Unknown Jan 22, 2020 Adminis tered Moderna #2 dose COVID-19 (given elsewhere) SARSCOV2 VAC 100M CG/0.5ML IM Unknown Jun 16, 2020 Administered Moderna #1 dose COVID-19 SARSCOV2 VAC 100MCG/0.5ML IM Unknown May 19, 2020 Administered Influenza 6mo & up Fluzone Unknown Jan 13, 2016 Admin istered Influenza Pharmacy Given Unknown Feb 03, 2019 Adminis tered Influenza Pharmacy Given Unknown Jan 15, 2018 Adminis tered Depo-Medrol 40mg Methylpredisolone Acetate IM Intramuscular Jul 02, 2019 Administered Depo-Medrol 40mg Methylpredisolone Acetate IM Intramuscular October 24, 2017 Administered TDAP 0.5mL (Boostrix) IM Intramuscular December 05, 2019 Administe red Pneumococcal 0.5mL Prevnar 13 IM Intramuscular November 16, 2020 A dministered Influenza 6mo & up Fluzone IM Intramuscular Jan 15, 2018 Admi nistered Influenza 6mo & up Fluzone Unknown Jan 04, 2017 Admin istered SOCIAL HISTORY Tobacco Use: Social History Observation Description Date Details (start date - stop date) Never Smoker Sex Assigned At : Social History Observation Description Sex Assigned At Unknown Audit Question Answer Notes Total Score: 0 Interpretation: Alcohol Education Language: Question Answer Notes Languages spoken: Panamanian Yarsanism: Question Answer Notes Yarsanism 03 Latter Day Sexual Hx: Question Answer Notes Had sex [...] Notes Start Da te End Date Status Famotidine 20 MG 1 tablet at bedtime as needed Orally Onc e a day for 30 day(s) Active traZODone HCl 100 MG 1 tablet Orally before bedtime Active OneTouch Delica Lancets Fine _ one lancet subcutaneous ly daily Dx:E11.9 for 30 day(s) May, Active Breo Ellipta 200-25 MCG/INH 1 puff Inhalation Once a day Active clonazePAM 0.5 MG 1 tablet at bedtime Orally Once a day Not-Taking Benadryl Allergy 25 MG 1 cap Orally 2 caps [address] sc an September, Active Strattera 80 MG 1 capsule in the morning Orally Once a day Active SEROquel _ 400mg and 100 mg= 500 mgs Orally Once a day at bedtime psych (tolerating 05/20/18) Active UngalliToBioIQ Verio Flex System w/Device as directed Dx:E11.9 Daily Feb, Active Levalbuterol HCl 1.25 MG/3ML 3 ml Inhalation every 6 h rs prn shortness of breath Active Cogentin 1 MG/ML 1 ml Injection Once a day for 30 day(s) BID Not-Taking Pantoprazole Sodium 40 mg 1 tablet Orally Once a day for 30 Active Fluconazole 100 MG 1 tablet Orally Daily for 3 days September Active OneTouch Verio _ one strip In Vitro three times a day Dx:E11.9 for 30 day(s) May, Active Montelukast Sodium 10 MG TAKE ONE TABLET BY MOUTH EVERY DAY for 30 Active clonazePAM 0.5 MG 1 tablet on [...] September, Active Vitamin D (Ergocalciferol) 1.25 MG (39342 UT) TAKE 1 C APSULE BY MOUTH ONCE WEEKLY for 28 Active Drisdol 64984 UNIT 1 capsule Orally weekly for 28 Active OneTouch Verio - ONE MISCELLANEOUS EVERY DAY for 50 Not-Taking Levocetirizine Dihydrochloride 5 MG 1 tablet in the ev ening Orally Once a day for 30 Active Estradiol 0.1 MG/GM as directed Vaginal Active glipiZIDE ER 2.5 MG TAKE ONE TABLET BY MOUTH IN THE MORNING WITH BREAKFAST for 30 Active Propranolol HCl 10 MG 1 tablet Orally bid for 30 day(s) Active Estradiol 0.025 MG/24HR 1 patch to skin Transdermal Two times a Week for 30 day(s) September, Active Zoloft 50 MG 1 tablet Orally Daily A ctive [place] Carbonate 600 MG 1 cap Orally twice daily take 150 at bedtim e Active Temovate 0.05 % 1 application topically Twic e a day prn right leg rash for 10 day(s) May, Active Januvia 100 MG 1 tablet Orally Once a day for 30 day(s) Active hydrOXYzine HCl 50 MG 1 tablet as needed Orally twice daily Active Pimecrolimus 1 % 1 application Externally Twice a day Active Pantoprazole Sodium 40 mg 1 tablet [...] Information RESULTS No Results REASON FOR VISIT Lab slip MEDICAL (GENERAL) HISTORY Type Description Date Medical History DM2 (diabetes mellitus, type 2) Medical History Asthma Medical History Fatty liver Medical History Morbid obesity Medical History IBS (irritable bowel syndrome) Medical History GERD (gastroesophageal reflux disease) Medical History Sleep apnea Medical History Bipolar 1 disorder Medical History Tachycardia Medical History Sensorineural Hearing Loss Medical History Liver Cyst work up at [facility]-continues to follow with [facility] estrogen generated Surgical History Tonsillectomy Surgical History Tubal ligation Surgical History perforated bowel 2002? Surgical History Partial hysterectomy, [facility] 12/21/16 Surgical History Laproscopic cholecystectomy-Dr. Salamanca 0 08/09/2018 Surgical History Larroscopic -bilateral ovaries-[place] Surgical History Upper GI endoscopy, suspect gastroparesi s 08/31/20 Hospitalization History [facility]-Asthma exacerbation, DM2 , Morbid obesity, Depression, Insomnia 10/19-10/21/2015 Goals Section No Information Health Concerns No Information MEDICAL EQUIPMENT No Information MENTAL STATUS No Information FUNCTIONAL STATUS No Information ASSESSMENTS Encounter Date Diagnosis Assessment Notes Treatment Notes Treatm ent Clinical Notes Feb, DM2 (diabetes mellitus, type 2) (ICD-10 - E11.9) Feb, Fatty liver (ICD-10 - K76.0) Feb, Asthma (ICD-10 - J45.909) Feb, Hypothyroidism (acquired) (ICD-10 - E03.9) Feb, Screening, lipid (ICD-10 - Z13.220) Feb, Vitamin D deficiency (ICD-10 - E55.9) PLAN OF TREATMENT Medication Medication Name Sig Start Date Stop Date Montelukast Sodium 10 MG TAKE ONE TABLET BY MOUTH EVERY DAY for 30 Next Appt Details Provider Name:Lakesha Buck, 01:00:00 PM, [address] [facility], , [place], [address], Provider Name:Melissa Cavazos, 2021-03-14 1 03:30:00 PM, [address], , [place], [address], Insurance Providers Payer Name Payer Address Payer Phone Insured Name Patient Relati onship to Insured Coverage Start Date Coverage End Date [facility] [id number] [facility] [phone] MACHO ARRIOLA self
--- OUTSIDE RECORDS SUMMARY | 2021-03-19 15:46 | CCD | Continuity of Care Document ---
Author Author Dilma FRAGOSO F.N.P. Organization Unknown Address [address] [place] [address] Phone [phone] Care Team Providers Care Timber Robber Name Role Phone Lakesha Buck JIL AUTM [phone] Problems Description No Information Available Social History Type Date Description Comments Sex Unknown ETOH Use Social Drinker Tobacco Use Start: Unknown Patient has never smoked Sun Exposure minimum amount of sun exposure Sun Exposure Has experienced blistering from sunburns Sun Exposure Uses > 30 SPF also wears a sun shirt Sun Exposure Has never used tanning bed Allergies, Adverse Reactions, Alerts Active Allergies Criticality Reaction | Severity Comments Date Latex Unable to assess criticality 11/15/2016 Chloromycetin Unable to assess criticality 11/15/2016 Augmentin Unable to assess criticality 11/15/2016 Contrast Dye Unable to assess criticality 11/30/2016 Medications Active Medications SIG Qnty Indications Ordering Provide r Date Xyzal Allergy 24HR 5mg Tablets 1 by mouth twice a day 60tabs MICHAEL Barnhart 03/19/2019 Ciclopirox 0.77% Gel apply to feet twice a day x 2 weeks 45gm Vee Fragoso, F.N.P. 2018 Clobetasol Propionate 0.05% Ointme nt apply to r hand sparingly twice a day x 10-14 days 30gm Karlene Fragoso, F.N.P. 11/15/2016 Levothyroxine Sodium Unknown 0 Strattera Unknown Trazodone HCL Unknown Januvia Unknown Glipizide Unknown Vitamin D Unknown Hydroxyzine HCL Unknown 0 Clozapine Unknown Estradiol Unknown Levalbuterol HCL Unknown 00 [place] Carbonate 150mg Capsules Unknown C-Pap Machine Unknown Singulair Unknown Breo Ellipta Unknown Protonix Unknown Zoloft Unknown Seroquel Unknown History Medications Elidel 1% Cream apply to R lower leg sparingly twice a day as needed 30gm L20.89 MAXIMILIAN Burdick 07/27/2020 - 12/27/2020 Immunizations Description No Information Available Vital Signs Date Vital Result Comment 12/29/2020 9:41am BP Systolic 127 mmHg BP Diastolic 63 mmHg Weight 234.00 lb Respiratory Rate 16 /min 08/19/2020 8:18am BP Systolic 125 mmHg BP Diastolic 76 mmHg Weight 234.00 lb Body Temperature 97.3 F Results Description No Information Available Procedures Date Code Description Status 12/29/2020 53388 Office/Outpatient Established Mo d MDM 30-39 Min Completed 08/19/2020 97063 Office/Outpatient Established Lo w MDM 20-29 Min Completed 07/27/2020 54298 Office/Outpatient Established Mo d MDM 30-39 Min Completed Medical Devices Description No Information Available Encounters Type Date Location Provider Dx Diagnosis Office Visit 12/29/2020 9:30a Main Office Vee Fragoso, F.N.P. D22.5 Melanocytic nevi of trunk D22.62 Melanocytic nevi of left upp er limb, including shoulder L81.3 Cafe au lait spots L71.8 Other rosacea L20.89 Other atopic dermatitis L84 Corns and callosities Z12.83 Encounter for screening for malignant neoplasm of skin Office Visit 08/19/2020 8:15a Main Office EDUARDO Thompson L20.89 Other atopic dermatitis Office Visit 07/27/2020 8:00a Main Office EDUARDO Thompson L20.89 Other atopic dermatitis R20.8 Other disturbances of skin s ensation Assessments Date Code Description Provider 12/29/2020 D22.5 Melanocytic nevi of trunk Radha ThomasonN.PArmani 12/29/2020 D22.62 Melanocytic nevi of left upper l imb, including shoulder Radha CaliN.PArmani 12/29/2020 L81.3 Cafe au lait spots Vee hughes F.N.P. 12/29/2020 L71.8 Other rosacea Vee helms, F.N.P. 12/29/2020 L20.89 Other atopic dermatitis Valentin Fragoso F.N.P. 12/29/2020 L84 Corns and callosities Vee Fragoso F.N.P. 12/29/2020 Z12.83 Encounter for screening for araceli gnant neoplasm of skin Xavier Cali.N.P. 08/19/2020 L20.89 Other atopic dermatitis MAXIMILIAN Thompson 07/27/2020 L20.89 Other atopic dermatitis MAXIMILIAN Thompson 07/27/2020 R20.8 Other disturbances of skin sensa tion MAXIMILIAN Thompson Plan of Treatment Future Appointment(s):* 01/02/2022 9:45 am - Vee Fragoso F.N.P. at Main Office 12/29/2020 - Vee Fragoso F.N.P.* D22.5 Melanocytic nevi of trunk* Comments:* Nevus on trunk appear healthy. Monitor for changes. Sun protection and sunscreen use discussed. Discussed if any moles change in shape or color, itch, bleed or burn to contact the office for evaluation sooner than their interval appointment. * D22.62 Melanocytic nevi of left upper limb, including shoulder* Comments:* Nevus located on L arm appears healthy. Monitor for changes. Should any moles change in shape or color, itch, bleed or burn patient instructed to call office for evaluation sooner than their interval appointment. * L81.3 Cafe au lait spots* Comments:* Sunscreen use and sun protection discussed. * L71.8 Other rosacea* Comments:* Stable.Call with problems. * L20.89 Other atopic dermatitis* Comments:* Long history of atopic dermatitis.Discussed treatment with Dupixent.Mandyixent Espinoza paperwork signed today.Continue Clobetasol 0.05% ointment PRN for flares.Knows topical steroid safety and to not over use to prevent atrophyContinue Xyzal 5 mg daily.Call with problems. * L84 Corns and callosities* Comments:* Discussed diagnosis and treatment options.Discussed to purchase Urea 40% cream on [employer] and to use daily.Can try using Pumice stone after showering.Call with problems. * Z12.83 Encounter for screening for malignant neoplasm of skin* Comments:* See above * Follow up:* Yearly/PRN - [facility] Functional Status Description No Information Available Mental Status Description No Information Available Referrals Description No Information Available"
--- OUTSIDE RECORDS SUMMARY | 2021-03-19 15:47 | CCD ---
Author Author [facility] Organization [facility] Address Unknown Phone Unavailable Care Team Providers Care [employer] Name Role Phone ELLIOTT WEEMS MD Unavailable Unavailable DANK, ELLIOTT LA Unavailable Unavailable DANK, ELLIOTT LA Unavailable Unavailable DANK, ELLIOTT LA Unavailable Unavailable DANK, ELLIOTT LA Unavailable Unavailable DANK, ELLIOTT LA Unavailable Unavailable DANK, ELLIOTT LA Unavailable Unavailable DANK, ELLIOTT LA Unavailable Unavailable DANK, ELLIOTT LA Unavailable Unavailable DANK, ELLIOTT LA Unavailable Unavailable REINELLIOTT KNIGHT MD Unavailable Unavailable REINELLIOTT KNIGHT MD Unavailable Unavailable REINELLIOTT KNIGHT MD Unavailable Unavailable ELLIOTT WEEMS MD Unavailable Unavailable ELLIOTT WEEMS MD Unavailable Unavailable ELLIOTT WEEMS MD Unavailable Unavailable REINELLIOTT KNIGHT MD Unavailable Unavailable ELLIOTT WEEMS MD Unavailable Unavailable ELLIOTT WEEMS MD Unavailable Unavailable ELLIOTT WEEMS MD Unavailable Unavailable ELLIOTT WEEMS MD Unavailable Unavailable REINELLIOTT KNIGHT MD Unavailable Unavailable ELLIOTT WEEMS MD Unavailable Unavailable ELLIOTT WEEMS MD Unavailable Unavailable ELLIOTT WEEMS MD Unavailable Unavailable ELLIOTT WEEMS MD Unavailable Unavailable ELLIOTT WEEMS MD Unavailable Unavailable ELLIOTT WEEMS MD Unavailable Unavailable ELLIOTT WEEMS MD Unavailable Unavailable ELLIOTT WEEMS MD Unavailable Unavailable ELLIOTT WEEMS MD Unavailable Unavailable ELLIOTT WEEMS MD Unavailable Unavailable ELLIOTT WEEMS MD Unavailable Unavailable REINDL, ELLIOTT LA Unavailable Unavailable REINDL, ELLIOTT LA Unavailable Unavailable REINDL, ELLIOTT LA Unavailable Unavailable REINDL, ELLIOTT LA Unavailable Unavailable REINDL, ELLIOTT LA Unavailable Unavailable REINDL, ELLIOTT LA Unavailable Unavailable REINDL, ELLIOTT LA Unavailable Unavailable REINDL, ELLIOTT LA Unavailable Unavailable REINDL, ELLIOTT LA Unavailable Unavailable LETTIERE, A DRE PA Unavailable Unavailable LETTIERE, A DRE PA Unavailable Unavailable LETTIERE, A DRE PA Unavailable Unavailable LETTIERE, A DRE PA Unavailable Unavailable LETTIERE, A DRE PA Unavailable Unavailable LETTIERE, A DRE PA Unavailable Unavailable LETTIERE, A DRE PA Unavailable Unavailable LETTIERE, A DRE PA Unavailable Unavailable LETTIERE, A DRE PA Unavailable Unavailable LETTIERE, A DRE PA Unavailable Unavailable LETTIERE, A DRE PA Unavailable Unavailable LETTIERE, A DRE PA Unavailable Unavailable LETTIERE, A DRE PA Unavailable Unavailable LETTIERE, A DRE PA Unavailable Unavailable LETTIERE, A DRE PA Unavailable Unavailable LETTIERE, A DRE PA Unavailable Unavailable LETTIERE, A DRE PA Unavailable Unavailable LETTIERE, A DRE PA Unavailable Unavailable LETTIERE, A DRE PA Unavailable Unavailable LETTIERE, A DRE PA Unavailable Unavailable LETTIERE, A DRE PA Unavailable Unavailable LETTIERE, A DRE PA Unavailable Unavailable LETTIERE, A DRE PA Unavailable Unavailable LETTIERE, A DRE PA Unavailable Unavailable LETTIERE, A DRE PA Unavailable Unavailable LETTIERE, A DRE PA Unavailable Unavailable LETTIERE, A DRE PA Unavailable Unavailable LETTIERE, A DRE PA Unavailable Unavailable LETTIERE, A DRE PA Unavailable Unavailable LETTIERE, A DRE PA Unavailable Unavailable LETTIERE, A DRE PA Unavailable Unavailable Jamison CAMACHOSIE Unavailable Unavailable [place], Edilia PIPELINE DISPATCH OPERATOR Unavailable Unavailable [place], Edilia PIPELINE DISPATCH OPERATOR Unavailable Unavailable [place], Edilia PIPELINE DISPATCH OPERATOR Unavailable Unavailable [place], Edilia PIPELINE DISPATCH OPERATOR Unavailable Unavailable [place], Edilia PIPELINE DISPATCH OPERATOR Unavailable Unavailable [place], Edilia PIPELINE DISPATCH OPERATOR Unavailable Unavailable [place], Edilia PIPELINE DISPATCH OPERATOR Unavailable Unavailable [place], Edilia PIPELINE DISPATCH OPERATOR Unavailable Unavailable [place], Edilia PIPELINE DISPATCH OPERATOR Unavailable Unavailable [place], Edilia PIPELINE DISPATCH OPERATOR Unavailable Unavailable [place], Edilia PIPELINE DISPATCH OPERATOR Unavailable Unavailable [place], Edilia PIPELINE DISPATCH OPERATOR Unavailable Unavailable [place], Edilia PIPELINE DISPATCH OPERATOR Unavailable Unavailable [place], Edilia PIPELINE DISPATCH OPERATOR Unavailable Unavailable [place], Edilia PIPELINE DISPATCH OPERATOR Unavailable Unavailable [place], Edilia PIPELINE DISPATCH OPERATOR Unavailable Unavailable [place], Edilia PIPELINE DISPATCH OPERATOR Unavailable Unavailable [place], Edilia PIPELINE DISPATCH OPERATOR Unavailable Unavailable [place], Edilia PIPELINE DISPATCH OPERATOR Unavailable Unavailable [place], Edilia PIPELINE DISPATCH OPERATOR Unavailable Unavailable [place], Edilia PIPELINE DISPATCH OPERATOR Unavailable Unavailable [place], Edilia PIPELINE DISPATCH OPERATOR Unavailable Unavailable [place], Edilia PIPELINE DISPATCH OPERATOR Unavailable Unavailable [place], Edilia PIPELINE DISPATCH OPERATOR Unavailable Unavailable [place], Edilia PIPELINE DISPATCH OPERATOR Unavailable Unavailable [place], Edilia PIPELINE DISPATCH OPERATOR Unavailable Unavailable [place], Edilia PIPELINE DISPATCH OPERATOR Unavailable Unavailable [place], Edilia PIPELINE DISPATCH OPERATOR Unavailable Unavailable [place], Edilia PIPELINE DISPATCH OPERATOR Unavailable Unavailable [place], Edilia PIPELINE DISPATCH OPERATOR Unavailable Unavailable [place], Edilia PIPELINE DISPATCH OPERATOR Unavailable Unavailable [place], Edilia PIPELINE DISPATCH OPERATOR Unavailable Unavailable [place], Edilia PIPELINE DISPATCH OPERATOR Unavailable Unavailable [place], Edilia PIPELINE DISPATCH OPERATOR Unavailable Unavailable [place], Edilia PIPELINE DISPATCH OPERATOR Unavailable Unavailable [place], Edilia PIPELINE DISPATCH OPERATOR Unavailable Unavailable Zee Camacho Unavailable Wenceslao Camacohe Unavailable Jamison PRIETO Unavailable Unavailable Locker[place], S Haley PIPELINE DISPATCH OPERATOR-C Unavailable Unavailable [place]ocker[place], S Haley PIPELINE DISPATCH OPERATOR-C Unavailable Unavailable [place], S Haley PIPELINE DISPATCH OPERATOR-C Unavailable Unavailable [place], S Haley PIPELINE DISPATCH OPERATOR-C Unavailable Unavailable [place], S Haley PIPELINE DISPATCH OPERATOR-C Unavailable Unavailable [place], S Haley PIPELINE DISPATCH OPERATOR-C Unavailable Unavailable [place]ocker[place], S Haley PIPELINE DISPATCH OPERATOR-C Unavailable Unavailable [place]ocker[place], S Haley PIPELINE DISPATCH OPERATOR-C Unavailable Unavailable [place], S Haley PIPELINE DISPATCH OPERATOR-C Unavailable Unavailable [place]ocker[place], S Haley PIPELINE DISPATCH OPERATOR-C Unavailable Unavailable [place], S Haley PIPELINE DISPATCH OPERATOR-C Unavailable Unavailable [place]ocker[place], S Haley PIPELINE DISPATCH OPERATOR-C Unavailable Unavailable [place], S Haley PIPELINE DISPATCH OPERATOR-C Unavailable Unavailable [place]ocker[place], S Haley PIPELINE DISPATCH OPERATOR-C Unavailable Unavailable [place], S Haley PIPELINE DISPATCH OPERATOR-C Unavailable Unavailable [place], S Haley PIPELINE DISPATCH OPERATOR-C Unavailable Unavailable [place], S Haley PIPELINE DISPATCH OPERATOR-C Unavailable Unavailable [place], S Haley PIPELINE DISPATCH OPERATOR-C Unavailable Unavailable [place], S Haley PIPELINE DISPATCH OPERATOR-C Unavailable Unavailable [place], S Haley PIPELINE DISPATCH OPERATOR-C Unavailable Unavailable [place], S Haley PIPELINE DISPATCH OPERATOR-C Unavailable Unavailable [place], S Haley PIPELINE DISPATCH OPERATOR-C Unavailable Unavailable [place], S Haley PIPELINE DISPATCH OPERATOR-C Unavailable Unavailable [place], S Haley PIPELINE DISPATCH OPERATOR-C Unavailable Unavailable DESJARLAIS, JASWINDER JOURNEYMAN PLUMBER Unavailable Unavailable DESJARLAIS, JASWINDER JOURNEYMAN PLUMBER Unavailable Unavailable DESJARLAIS, JASWINDER JOURNEYMAN PLUMBER Unavailable Unavailable DESJARLAIS, JASWINDER JOURNEYMAN PLUMBER Unavailable Unavailable DESJARLAIS, JASWINDER JOURNEYMAN PLUMBER Unavailable Unavailable DESJARLAIS, JASWINDER JOURNEYMAN PLUMBER Unavailable Unavailable DESJARLAIS, JASWINDER JOURNEYMAN PLUMBER Unavailable Unavailable DESJARLAIS, JASWINDER JOURNEYMAN PLUMBER Unavailable Unavailable DESJARLAIS, JASWINDER JOURNEYMAN PLUMBER Unavailable Unavailable DESJARLAIS, JASWINDER JOURNEYMAN PLUMBER Unavailable Unavailable Vance, W Les RPA-C Unavailable Unavailable Vance, W Les RPA-C Unavailable Unavailable Vance, W Les RPA-C Unavailable Unavailable Vance, W Les RPA-C Unavailable Unavailable Vance, W Les RPA-C Unavailable Unavailable Vance, W Les RPA-C Unavailable Unavailable Vance, W Les RPA-C Unavailable Unavailable Vance, W Les RPA-C Unavailable Unavailable Vance, W Les RPA-C Unavailable Unavailable Vance, W Les RPA-C Unavailable Unavailable Vance, W Les RPA-C Unavailable Unavailable Vance, W Les RPA-C Unavailable Unavailable Vance, W Les RPA-C Unavailable Unavailable Vance, W Les RPA-C Unavailable Unavailable Vance, W Les RPA-C Unavailable Unavailable Vance, W Les RPA-C Unavailable Unavailable Vance, W Les RPA-C Unavailable Unavailable VELAZCO, M NIKOLAY PA Unavailable Unavailable VELAZCO, M NIKOLAY PA Unavailable Unavailable VELAZCO, M NIKOLAY PA Unavailable Unavailable VELAZCO, M NIKOLAY PA Unavailable Unavailable VELAZCO, M NIKOLAY PA Unavailable Unavailable VELAZCO, M NIKOLAY PA Unavailable Unavailable VELAZCO, M NIKOLAY PA Unavailable Unavailable VELAZCO, M NIKOLAY PA Unavailable Unavailable VELAZCO, M NIKOLAY PA Unavailable Unavailable VELAZCO, M NIKOLAY PA Unavailable Unavailable VELAZCO, M NIKOLAY PA Unavailable Unavailable VELAZCO, M NIKOLAY PA Unavailable Unavailable VELAZCO, M NIKOLAY PA Unavailable Unavailable VELAZCO, M NIKOLAY PA Unavailable Unavailable VELAZCO, M NIKOLAY PA Unavailable Unavailable VELAZCO, M NIKOLAY PA Unavailable Unavailable VELAZCO, M NIKOLAY PA Unavailable Unavailable VELAZCO, M NIKOLAY PA Unavailable Unavailable VELAZCO, M NIKOLAY PA Unavailable Unavailable VELAZCO, M NIKOLAY PA Unavailable Unavailable VELAZCO, M NIKOLAY PA Unavailable Unavailable VELAZCO, M NIKOLAY PA Unavailable Unavailable VELAZCO, M NIKOLAY PA Unavailable Unavailable VELAZCO, M NIKOLAY PA Unavailable Unavailable VELAZCO, M NIKOLAY PA Unavailable Unavailable VELAZCO, M NIKOLAY PA Unavailable Unavailable VELAZCO, M NIKOLAY PA Unavailable Unavailable VELAZCO, M NIKOLAY PA Unavailable Unavailable VELAZCO, M NIKOLAY PA Unavailable Unavailable VELAZCO, M NIKOLAY PA Unavailable Unavailable VELAZCO, M NIKOLAY PA Unavailable Unavailable VELAZCO, M NIKOLAY PA Unavailable Unavailable VELAZCO, M NIKOLAY PA Unavailable Unavailable VELAZCO, M NIKOLAY PA Unavailable Unavailable VELAZCO, M NIKOLAY PA Unavailable Unavailable Timmy Westbrook Unavailable Timmy Westbrook Unavailable Re-disclosure Warning The records that you are about to access may contain information from federally-assisted alcohol or drug abuse programs. If such information is present, then the following federally mandated warning applies: This information has been disclosed to you from records protected by federal confidentiality rules (42 CFR part 2). The federal rules prohibit you from making any further disclosure of this information unless further disclosure is expressly permitted by the written consent of the person to whom it pertains or as otherwise permitted by 42 CFR part 2. A general authorization for the release of medical or other information is NOT sufficient for this purpose. The Federal rules restrict any use of the information to criminally investigate or prosecute any alcohol or drug abuse patient.The records that you are about to access may contain highly sensitive health information, the redisclosure of which is protected by Article 27-F of the [facility] Public Health law. If you continue you may have access to information: Regarding HIV / AIDS; Provided by facilities licensed or operated by the [facility] Office of Mental Health; or Provided by the [facility] Office for People With Developmental Disabilities. If such information is present, then the following [facility] mandated warning applies: This information has been disclosed to you from confidential records which are protected by state law. State law prohibits you from making any further disclosure of this information without the specific written consent of the person to whom it pertains, or as otherwise permitted by law. Any unauthorized further disclosure in violation of state law may result in a fine or nursing home sentence or both. A general authorization for the release of medical or other information is NOT sufficient authorization for further disc losure. Family History Family Member Name Family Member Gender Family Member Status Date o f Status Description Data Source(s) Unknown Unknown Problem MEDENT ([facility], ) Unknown Unknown Problem MEDENT ([facility]) brother,sister,pgm,paternal aunt Encounters Encounter Providers Location Date Indications Data Source(s ) Outpatient Attender: Timmy Westbrook 03/17/2021 05:00:[address] [facility] Outpatient Attender: Timmy Westbrook 03/03/2021 04:54:[address] [facility] Outpatient Attender: JASWINDER SILVA NP 03/03/2021 04: 11:00 PM [facility] Outpatient Attender: ELLIOTT Celestin/Bennie/Mark/Adria dl 02/23/2021 03:30:00 PM EDT MEDENT ([facility], ) Outpatient Attender: Timmy Westbrook 02/17/2021 05:39:[address] [facility] Unknown [id number] [facility] [address] 02/16/2021 12:00:00 AM EDT eCW1 ([facility]) Outpatient Attender: Timmy Westbrook 02/03/2021 05:00:[address] [facility] 02/03/2021 12:00:00 AM EDT eCW1 ([facility]) Outpatient Attender: Timmy Westbrook 01/20/2021 04:23:[address] [facility] Outpatient Attender: JASWINDER SILVA NP 01/20/2021 04: 20:00 PM [facility] Outpatient [id number] [facility] [address] 01/12/2021 12:00:00 AM EDT eCW1 ([facility]) Outpatient Attender: Timmy Westbrook 12/30/2020 03:53:00 PM [facility] Outpatient Attender: Vee Haji [facility] Main Office 12/29/2020 09:30:00 AM EDT MEDENT ([facility]) Outpatient Attender: JASWINDER SILVA NP 12/21/2020 04: 03:00 PM [facility] Outpatient Attender: Timmy Westbrook 12/16/2020 03:54:00 PM [facility] Outpatient Attender: Timmy Westbrook 12/03/2020 03:54:00 PM [facility] Outpatient [id number] [facility] [address] 12/01/2020 12:00:00 AM EDT eCW1 ([facility]) Outpatient Attender: JASWINDER SILVA NP 11/23/2020 04: 20:00 PM [facility] Outpatient [address] [facility] [address] 11/16/2020 12:00:00 AM EDT eCW1 ([facility]) Outpatient Attender: NIKOLAY Celestin/Bennie/Mark/Adria knight 11/09/2020 03:00:00 PM EDT MEDENT ([facility] Unknown [id number] [facility] [address] 11/08/2020 12:00:00 AM EDT eCW1 ([facility]) Outpatient Attender: Timmy Westbrook 11/05/2020 03:59:00 PM [facility] Outpatient Attender: JASWINDER SILVA NP 10/26/2020 04: 13:00 PM [facility] Outpatient [id number] [facility] [address] 10/20/2020 12:00:00 AM EDT [facility]CW1 [facility] Outpatient Attender: Zee Camacho 10/18/2020 05:58:00 PM [facility] Unknown [id number] [facility] [address] 10/07/2020 12:00:00 AM EDT eCW1 [facility]) Outpatient Attender: JASWINDER SILVA NP 10/01/2020 01: 00:00 PM [facility] Outpatient Attender: eZe Camacho 09/27/2020 04:43:00 PM [facility] Unknown [id number] [facility] [address] 09/22/2020 12:00:00 AM EDT eCW1 ([facility]) Outpatient Attender: JASWINDER SILVA NP 09/21/2020 04: 19:00 PM [facility] Unknown [id number] [facility] [address] 09/14/2020 12:00:00 AM EDT eCW1 ([facility]) Outpatient Attender: Zee Camacho 09/13/2020 05:49:00 PM [facility] Outpatient [id number] [facility] [address] 09/08/2020 12:00:00 AM EDT eCW1 ([facility]) Outpatient Attender: Zee Nicholas: ZEE CAMACHO 08/30/2020 04:46:00 PM [facility] Unknown [id number] [facility] [address] 08/26/2020 12:00:00 AM EDT eCW1 ([facility]) Outpatient Attender: JASWINDER SILVA NP 08/24/2020 04: 10:00 PM [facility] Outpatient Attender: Haley CLARKC Main Office 08/19/2020 08:15:00 AM EDT [facility] Attender: Zee Nicholas: ZEE CAMACHO 08/16/2020 04:55:00 PM [facility] Outpatient [address] [facility] [address] 08/16/2020 12:00:00 AM EDT eCW1 ([facility]) Unknown [address] [facility] [address] 08/03/2020 12:00:00 AM EDT eCW1 ([facility]) Outpatient Attender: Zee CamachoAttender: ZEE CAMACHO 08/02/2020 04:49:00 PM [facility] Outpatient [address] [facility] [address] 07/28/2020 12:00:00 AM EDT eCW1 ([facility]) Outpatient Attender: JASWINDER SILVA NP 07/27/2020 04: 11:00 PM [facility] Outpatient Attender: Haley YAO Main Office 07/27/2020 08:00:00 AM EDT MEDENT ([facility]) Outpatient Attender: ZEE CAMACHO 07/19/2020 04:48:00 PM [facility] Outpatient Attender: ELLIOTT Celestin/Bennie/Mark/Adria knight 07/08/2020 01:45:00 PM EST MEDENT ([facility]) Outpatient Attender: ZEE CAMACHO 07/05/2020 05:00:00 PM [facility] Outpatient Attender: JASWINDER SILVA NP 06/29/2020 04: 00:00 PM [facility] Outpatient Attender: ZEE CAMACHO 06/21/2020 05:00:00 PM [facility] Outpatient [id number] [facility] [address] 06/17/2020 12:00:00 AM EST eCW1 ([facility]) Outpatient Attender: JASWINDER SILVA NP 06/15/2020 04: 16:00 PM [facility] Outpatient Attender: ZEE CAMACHO 06/07/2020 04:41:00 PM [facility] Outpatient Attender: DRE xavier 05/28/2020 04:25:00 PM EST MEDENT ([facility] Outpatient [address] [facility] [address] 05/26/2020 12:00:00 AM EST [facility]CW[facility] Outpatient Attender: ZEE CAMACHO 05/24/2020 05:40:00 PM [facility] Outpatient Attender: JASWINDER SILVA NP 05/20/2020 04: 20:00 PM [facility] Outpatient [address] [facility] [address] 05/19/2020 12:00:00 AM EST eCW1 ([facility] Unknown [address] [facility] [address] 05/19/2020 12:00:00 AM EST [facility]CW1 ([facility] Unknown [address] [facility] [address] 05/11/2020 12:00:00 AM EST eCW1 ([facility] Outpatient Attender: ZEE CAMACHO 05/10/2020 01:00:00 PM [facility] Outpatient Attender: ZEE CAMACHO 04/29/2020 06:00:00 PM [facility] Outpatient Attender: JASWINDER SILVA NP 04/27/2020 04: 40:00 PM [facility] Outpatient [address] [facility] [address] 04/21/2020 12:00:00 AM EST [facility]CW1 ([facility] Outpatient 04/21/2020 12:00:00 AM [facility] Outpatient Attender: ZEE CAMACHO 04/14/2020 05:00:00 PM [facility] Outpatient Referrer: EDWARD PRIETO 04/13/2020 12:00:00 AM [facility] Unknown [address] [facility] [address] 04/12/2020 12:00:00 AM EST [facility]CW1 [facility] Outpatient Attender: EDWARD PRIETO [id number] 04/07/2020 12 :00:00 AM EST 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 Outpatient 04/07/2020 12:00:00 AM [facility] Outpatient Attender: JASWINDER SILVA NP 04/06/2020 04: 40:00 PM [facility] Unknown [address] [facility] [address] 04/06/2020 12:00:00 AM EST eCW1 ([facility]) Outpatient Attender: ZEE CAMACHO 04/05/2020 05:00:00 PM [facility] Outpatient Attender: EDWARD PRIETO 04/05/2020 12:00:00 AM [facility] Outpatient Referrer: EDWARD PRIETO 03/30/2020 12 :00:00 AM EST 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liver [facility] 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liver Outpatient Attender: ZEE CAMACHO 03/25/2020 04:42:00 PM [facility] Outpatient Attender: JASWINDER SILVA NP 03/12/2020 04: 00:00 PM [facility] Outpatient Attender: ZEE CAMACHO 03/11/2020 06:00:00 PM [facility] Outpatient [address] [facility] [address] 03/10/2020 12:00:00 AM EDT eCW1 ([facility]) Outpatient [address] [facility] [address] 03/03/2020 12:00:00 AM EDT eCW1 ([facility]) Outpatient Attender: JASWINDER SILVA NP 02/27/2020 04: 00:00 PM [facility] Outpatient Attender: ZEE CAMACHO 02/26/2020 06:00:00 PM [facility] Unknown [address] [facility] [address] 02/23/2020 12:00:00 AM EDT eCW1 ([facility]) Outpatient Attender: ZEE CAMACHO 02/12/2020 06:00:00 PM [facility] Unknown [address] [facility] [address] 02/11/2020 12:00:00 AM EDT eCW1 ([facility]) Outpatient Attender: JASWINDER SILVA NP 02/05/2020 [facility]: ZEE CAMACHO 01/29/2020 06:00:[address] [facility] Outpatient Attender: JASWINDER SILVA JOURNEYMAN PLUMBER 01/08/2020 10[facility]: ZEE CAMACHO 01/06/2020 06:00:[address] [facility] Outpatient Attender: ZEE CAMACHO 12/24/2019 06:00:[address] [facility] Outpatient Attender: JASWINDER SILVA JOURNEYMAN PLUMBER 12/12/2019 01[facility]: ZEE CAMACHO 12/10/2019 01:00:[address] [facility] Outpatient Attender: ZEE CAMACHO 11/19/2019 10:21:[address] [facility] Outpatient Attender: ZEE CAMACHO 11/10/2019 02:00:[address] [facility] Outpatient Attender: ZEE CAMACHO 10/27/2019 02:00:[address] [facility] Outpatient Attender: ZEE CAMACHO 10/13/2019 02:00:[address] [facility] Outpatient Attender: EDWARD [id number] 10/08/2019 12 :00:00 AM EDT 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liver [facility] 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liver Outpatient Attender: ZEE CAMACHO 09/30/2019 06:15:[address] [facility] Outpatient Attender: ZEE CAMACHO 09/15/2019 05:00:[address] [facility] Outpatient Attender: ZEE CAMACHO 09/01/2019 05:00:[address] [facility] Outpatient Attender: ZEE CAMACHO 08/21/2019 05:00:[address] [facility] Outpatient Attender: ZEE CAMACHO 07/17/2019 04:59:00 PM [facility] Attender: ZEE CAMACHO 06/19/2019 05:00:00 PM [facility] Emergency Attender: Les STOVALL EMERGENCY ROOM-ER 1 06/15/2016 02:07:00 PM EST - 04/14/2017 04:06:00 PM [facility] Immunizations Vaccine Date Status Description Data Source(s) Moderna #3 dose COVID-19 (given elsewhere) SARSCOV2 VA C 100MCG/0.5ML IM 01/20/2021 07:26:00 AM EDT completed eCW1 ([facility]) COVID-19 VACCINE Moderna 01/20/2021 12:00:00 AM EDT completed [facility] Vaccine Series Complete: YESThis Data wa s Submitted to [facility] Via [employer]. Pneumococcal conjugate PCV 13 11/16/2020 02:16:00 PM EDT completed eCW1 ([facility]) Pneumococcal conjugate PCV 13 11/16/2020 02:16:00 PM EDT completed eCW1 ([facility]) Pneumococcal conjugate PCV 13 11/16/2020 02:16:00 PM EDT completed eCW1 ([facility]) Pneumococcal conjugate PCV 13 11/16/2020 02:16:00 PM EDT completed eCW1 ([facility]) Moderna #2 dose COVID-19 (given elsewhere) SARSCOV2 VA C 100MCG/0.5ML IM 06/16/2020 07:26:00 AM EST completed eCW1 ([facility]) COVID-19 VACCINE Moderna 06/16/2020 12:00:00 AM EST completed [facility] Vaccine Series Complete: YESThis Data wa s Submitted to [facility] Via [employer]. Moderna #1 dose COVID-19 SARSCOV2 VAC 100MCG/0.5ML IM 05/19/2020 07:25:00 AM EST completed eCW1 ([facility]) COVID-19 VACCINE Moderna 05/19/2020 12:00:00 AM EST completed [facility] Vaccine Series Complete: NOThis Data was Submitted to [facility] Via [employer]. IIV3. This is one of two codes replacing CVX 15, which is being retired. 01/22/2020 12:50:00 PM EDT completed eCW1 ([facility]) IIV3. This is one of two codes replacing CVX 15, which is being retired. 01/22/2020 12:50:00 PM EDT completed eCW1 ([facility]) IIV3. This is one of two codes replacing CVX 15, which is being retired. 01/22/2020 12:50:00 PM EDT completed eCW1 ([facility]) IIV3. This is one of two codes replacing CVX 15, which is being retired. 01/22/2020 12:50:00 PM EDT completed eCW1 ([facility]) IIV3. This is one of two codes replacing CVX 15, which is being retired. 01/22/2020 12:50:00 PM EDT completed eCW1 ([facility]) IIV3. This is one of two codes replacing CVX 15, which is being retired. 01/22/2020 12:50:00 PM EDT completed eCW1 ([facility]) IIV3. This is one of two codes replacing CVX 15, which is being retired. 01/22/2020 12:50:00 PM EDT completed eCW1 ([facility]) IIV3. This is one of two codes replacing CVX 15, which is being retired. 01/22/2020 12:50:00 PM EDT completed eCW1 ([facility]) IIV3. This is one of two codes replacing CVX 15, which is being retired. 01/22/2020 12:50:00 PM EDT completed eCW1 ([facility]) IIV3. This is one of two codes replacing CVX 15, which is being retired. 01/22/2020 12:50:00 PM EDT completed eCW1 ([facility]) IIV3. This is one of two codes replacing CVX 15, which is being retired. 01/22/2020 12:50:00 PM EDT completed eCW1 ([facility]) IIV3. This is one of two codes replacing CVX 15, which is being retired. 01/22/2020 12:50:00 PM EDT completed eCW1 ([facility]) IIV3. This is one of two codes replacing CVX 15, which is being retired. 01/22/2020 12:50:00 PM EDT completed eCW1 ([facility]) IIV3. This is one of two codes replacing CVX 15, which is being retired. 01/22/2020 12:50:00 PM EDT completed eCW1 ([facility]) IIV3. This is one of two codes replacing CVX 15, which is being retired. 01/22/2020 12:50:00 PM EDT completed eCW1 ([facility]) IIV3. This is one of two codes replacing CVX 15, which is being retired. 01/22/2020 12:50:00 PM EDT completed eCW1 ([facility]) IIV3. This is one of two codes replacing CVX 15, which is being retired. 01/22/2020 12:50:00 PM EDT completed eCW1 ([facility]) IIV3. This is one of two codes replacing CVX 15, which is being retired. 01/22/2020 12:50:00 PM EDT completed eCW1 ([facility]) IIV3. This is one of two codes replacing CVX 15, which is being retired. 01/22/2020 12:50:00 PM EDT completed eCW1 ([facility]) IIV3. This is one of two codes replacing CVX 15, which is being retired. 01/22/2020 12:50:00 PM EDT completed eCW1 ([facility]) IIV3. This is one of two codes replacing CVX 15, which is being retired. 01/22/2020 12:50:00 PM EDT completed eCW1 ([facility]) IIV3. This is one of two codes replacing CVX 15, which is being retired. 01/22/2020 12:50:00 PM EDT completed eCW1 ([facility]) IIV3. This is one of two codes replacing CVX 15, which is being retired. 01/22/2020 12:50:00 PM EDT completed eCW1 ([facility]) IIV3. This is one of two codes replacing CVX 15, which is being retired. 01/22/2020 12:50:00 PM EDT completed eCW1 ([facility]) IIV3. This is one of two codes replacing CVX 15, which is being retired. 01/22/2020 12:50:00 PM EDT completed eCW1 ([facility]) IIV3. This is one of two codes replacing CVX 15, which is being retired. 01/22/2020 12:50:00 PM EDT completed eCW1 ([facility]) IIV3. This is one of two codes replacing CVX 15, which is being retired. 01/22/2020 12:50:00 PM EDT completed eCW1 ([facility]) INFLUENZA VIRUS VACCINE QUADRIVALENT (6 MOS AN D UP) 01/22/2020 12:00:00 AM EDT completed [facility] Medications Medication Brand Name Start Date Product Form Dose Route Admi nistrative Instructions Pharmacy Instructions Status Indications Reaction Description Data Source(s) 600 mg 03/14/2021 12:00:00 AM EDT capsule 60 TAKE ONE CAPSULE TWO TIMES A DAY DIRECTED TAKE ONE CAPSULE TWO TIMES A DAY DIRECTED SOLD: 03/14/2021 [facility] 5 mg 03/14/2021 12:00:00 AM EDT tablet 30 TAKE ONE TABLET BY MOUTH IN THE EVENING TAKE ONE TABLET BY MOUTH IN THE EVENING SOLD: 03/14/2021 [facility] 100 mg 03/07/2021 12:00:00 AM EDT tablet 30 TAKE ONE TABLET BY MOUTH EVERY DAY TAKE ONE TABLET BY MOUTH EVERY DAY SOLD: 03/12/2021 [facility] 0.5 mg 03/04/2021 12:00:00 AM EDT tablet 30 TAKE ONE TABLET BY MOUTH AT BEDTIME MAXIMUM DAILY DOSE = 1 TABLET TAKE ONE TABLET BY MOUTH AT BEDTIME MAXIMUM DAILY DOSE = 1 TABLET SOLD: 03/05/2021 [facility] Famotidine 40 MG Oral Tablet FAMOTIDINE 02/23/2021 12:00:00 AM EDT tab let 30 TAKE ONE TABLET BY MOUTH AT BEDTIME TAKE ONE TABLET BY MOUTH AT BEDTIME SOLD: 02/23/2021 [facility] Famotidine 40 MG Oral Tablet Famotidine 02/23/2021 12:00:00 AM EDT ORAL active MEDENT ([facility], ) pantoprazole 40 MG Delayed Release Oral Tablet [Protonix] Pr otonix 02/23/2021 12:00:00 AM EDT ORAL active M EDENT ([facility], ) pantoprazole 40 MG Delayed Release Oral Tablet PANTOPRAZOLE SODIUM 02/23/2021 12:00:00 AM EDT tablet,delayed release (DR/EC) 60 T CARRILLO ONE TABLET BY MOUTH TWICE A DAY TAKE ONE TABLET BY MOUTH TWICE A DAY SOLD: 02/23/2021 [facility] 60 mcg (15 mcg x 4)/0.5 mL 02/18/2021 12:00:00 AM EDT suspen trey 0 USE DIRECTED USE DIRECTED SOLD: 02/18/2021 [facility] 150 mg 02/11/2021 12:00:00 AM EDT capsule 30 TAKE ONE CAPSULE BY MOUTH AT BEDTIME TAKE ONE CAPSULE BY MOUTH AT BEDTIME SOLD: 02/11/2021 [facility] 150 mg 02/11/2021 12:00:00 AM EDT capsule 30 TAKE ONE CAPSULE BY MOUTH AT BEDTIME TAKE ONE CAPSULE BY MOUTH AT BEDTIME SOLD: 03/14/2021 [facility] 50 mg 02/06/2021 12:00:00 AM EDT tablet 30 TAKE ONE TABLET BY MOUTH EVERY DAY TAKE ONE TABLET BY MOUTH EVERY DAY SOLD: 02/06/2021 [facility] 50 mg 02/06/2021 12:00:00 AM EDT tablet 30 TAKE ONE TABLET BY MOUTH EVERY DAY TAKE ONE TABLET BY MOUTH EVERY DAY SOLD: 03/12/2021 [facility] montelukast 10 MG Oral Tablet MONTELUKAST SODIUM 02/05/2021 12:0 0:00 AM EDT tablet 30 TAKE ONE TABLET BY MOUTH EVERY D AY TAKE ONE TABLET BY MOUTH EVERY DAY SOLD: 02/06/2021 [facility] montelukast 10 MG Oral Tablet MONTELUKAST SODIUM 02/05/2021 12:0 0:00 AM EDT tablet 30 TAKE ONE TABLET BY MOUTH EVERY D AY TAKE ONE TABLET BY MOUTH EVERY DAY SOLD: 03/12/2021 [facility] 100 mcg/0.5 mL 01/24/2021 12:00:00 AM EDT suspension 0 INJECT DIRECTED (THIRD DOSE) INJECT DIRECTED (THIRD DOSE) SOLD: 01/24/2021 [facility] 0.5 mg 01/20/2021 12:00:00 AM EDT tablet 30 TAKE ONE TABLET BY MOUTH AT BEDTIME MAXIMUM DAILY DOSE = ONE TABLET TAKE ONE TABLET BY MOUTH AT BEDTIME MAXIMUM DAILY DOSE = ONE TABLET SOLD: 01/20/2021 [facility] Trazodone Hydrochloride 100 MG Oral Tablet TRAZODONE HCL 01/11/2021 12:00:00 AM EDT tablet 30 TAKE ONE TABLET BY MOUTH AT BEDTIME TAKE ONE TABLET BY MOUTH AT BEDTIME SOLD: 03/12/2021 [facility] Trazodone Hydrochloride 100 MG Oral Tablet TRAZODONE HCL 01/11/2021 12:00:00 AM EDT tablet 30 TAKE ONE TABLET BY MOUTH AT BEDTIME TAKE ONE TABLET BY MOUTH AT BEDTIME SOLD: 01/12/2021 [facility] 12 % 01/11/2021 12:00:00 AM EDT lotion 226 APPLY TO FOOT TWO TIMES A DAY APPLY TO FOOT TWO TIMES A DAY SOLD: 01/12/2021 [facility] Trazodone Hydrochloride 100 MG Oral Tablet TRAZODONE HCL 01/11/2021 12:00:00 AM EDT tablet 30 TAKE ONE TABLET BY MOUTH AT BEDTIME TAKE ONE TABLET BY MOUTH AT BEDTIME SOLD: 02/06/2021 [facility] 0.5 mg 12/27/2020 12:00:00 AM EDT tablet 30 TAKE ONE TABLET BY MOUTH AT BEDTIME MAXIMUM DAILY DOSE = 1 TABLET TAKE ONE TABLET BY MOUTH AT BEDTIME MAXIMUM DAILY DOSE = 1 TABLET SOLD: 12/28/2020 [facility] 625 mg 12/07/2020 12:00:00 AM EDT tablet 60 TAKE ONE TABLET BY MOUTH TWICE A DAY TAKE ONE TABLET BY MOUTH TWICE A DAY SOLD: 02/18/2021 [facility] 75 mcg 12/07/2020 12:00:00 AM EDT tablet 30 TAKE ONE TABLET BY MOUTH EVERY MORNING ON AN EMPTY STOMACH TAKE ONE TABLET BY MOUTH EVERY MORNING O N AN EMPTY STOMACH SOLD: 03/14/2021 [facility] 75 mcg 12/07/2020 12:00:00 AM EDT tablet 30 TAKE ONE TABLET BY MOUTH EVERY MORNING ON AN EMPTY STOMACH TAKE ONE TABLET BY MOUTH EVERY MORNING O N AN EMPTY STOMACH SOLD: 02/18/2021 [facility] 75 mcg 12/07/2020 12:00:00 AM EDT tablet 30 TAKE ONE TABLET BY MOUTH EVERY MORNING ON AN EMPTY STOMACH TAKE ONE TABLET BY MOUTH EVERY MORNING O N AN EMPTY STOMACH SOLD: 12/17/2020 [facility] 625 mg 12/07/2020 12:00:00 AM EDT tablet 60 TAKE ONE TABLET BY MOUTH TWICE A DAY TAKE ONE TABLET BY MOUTH TWICE A DAY SOLD: 12/17/2020 [facility] 75 mcg 12/07/2020 12:00:00 AM EDT tablet 30 TAKE ONE TABLET BY MOUTH EVERY MORNING ON AN EMPTY STOMACH TAKE ONE TABLET BY MOUTH EVERY MORNING O N AN EMPTY STOMACH SOLD: 01/20/2021 [facility] 625 mg 12/07/2020 12:00:00 AM EDT tablet 60 TAKE ONE TABLET BY MOUTH TWICE A DAY TAKE ONE TABLET BY MOUTH TWICE A DAY SOLD: 01/20/2021 [facility] 160-4.5 mcg/actuation 12/01/2020 12:00:00 AM EDT HFA aerosol inhaler 10 INHALE TWO PUFFS BY MOUTH TWICE A DAY INHALE TWO PUFFS BY MOUTH TWICE A DAY SOLD: 12/06/2020 [facility] quetiapine 50 MG Oral Tablet QUETIAPINE FUMARATE 11/24/2020 12:0 0:00 AM EDT tablet 30 TAKE ONE TABLET BY MOUTH EVERY M ORNING TAKE ONE TABLET BY MOUTH EVERY MORNING SOLD: 11/26/2020 [facility] quetiapine 50 MG Oral Tablet QUETIAPINE FUMARATE 11/24/2020 12:0 0:00 AM EDT tablet 30 TAKE ONE TABLET BY MOUTH EVERY M ORNING TAKE ONE TABLET BY MOUTH EVERY MORNING SOLD: 01/20/2021 [facility] 80 mg 11/24/2020 12:00:00 AM EDT capsule 30 TAKE ONE CAPSULE BY MOUTH EVERY MORNING TAKE ONE CAPSULE BY MOUTH EVERY MORNING SOLD: 11/26/2020 [facility] 80 mg 11/24/2020 12:00:00 AM EDT capsule 30 TAKE ONE CAPSULE BY MOUTH EVERY MORNING TAKE ONE CAPSULE BY MOUTH EVERY MORNING SOLD: 02/20/2021 [facility] quetiapine 50 MG Oral Tablet QUETIAPINE FUMARATE 11/24/2020 12:0 0:00 AM EDT tablet 30 TAKE ONE TABLET BY MOUTH EVERY M ORNING TAKE ONE TABLET BY MOUTH EVERY MORNING SOLD: 12/17/2020 [facility] quetiapine 50 MG Oral Tablet QUETIAPINE FUMARATE 11/24/2020 12:0 0:00 AM EDT tablet 30 TAKE ONE TABLET BY MOUTH EVERY M ORNING TAKE ONE TABLET BY MOUTH EVERY MORNING SOLD: 02/06/2021 [facility] 80 mg 11/24/2020 12:00:00 AM EDT capsule 30 TAKE ONE CAPSULE BY MOUTH EVERY MORNING TAKE ONE CAPSULE BY MOUTH EVERY MORNING SOLD: 01/23/2021 [facility] 80 mg 11/24/2020 12:00:00 AM EDT capsule 30 TAKE ONE CAPSULE BY MOUTH EVERY MORNING TAKE ONE CAPSULE BY MOUTH EVERY MORNING SOLD: 12/28/2020 [facility] 0.5 mg 11/24/2020 12:00:00 AM EDT tablet 30 TAKE ONE TABLET BY MOUTH AT BEDTIME MAXIMUM DAILY DOSE = 1 TAKE ONE TABLET BY MOUTH AT BEDTIME MAXI MUM DAILY DOSE = 1 SOLD: 11/26/2020 [facility] 75 mcg 11/15/2020 12:00:00 AM EDT tablet 30 TAKE ONE TABLET BY MOUTH EVERY MORNING ON AN EMPTY STOMACH TAKE ONE TABLET BY MOUTH EVERY MORNING O N AN EMPTY STOMACH SOLD: 11/18/2020 [facility] 2.5 mg 11/15/2020 12:00:00 AM EDT tablet extended release 24hr 30 TAKE ONE TABLET BY MOUTH EVERY DAY WITH BREAKFAST TAKE ONE TABLET BY MOUTH EVERY DAY WITH BREAKFAST SOLD: 11/18/2020 [facility] 625 mg 11/15/2020 12:00:00 AM EDT tablet 60 TAKE ONE TABLET BY MOUTH TWICE A DAY TAKE ONE TABLET BY MOUTH TWICE A DAY SOLD: 11/18/2020 [facility] 400 mg 11/13/2020 12:00:00 AM EDT tablet 60 TAKE TWO TABLETS BY MOUTH AT BEDTIME TAKE TWO TABLETS BY MOUTH AT BEDTIME SOLD: 01/23/2021 [facility] 400 mg 11/13/2020 12:00:00 AM EDT tablet 60 TAKE TWO TABLETS BY MOUTH AT BEDTIME TAKE TWO TABLETS BY MOUTH AT BEDTIME SOLD: 11/13/2020 [facility] 400 mg 11/13/2020 12:00:00 AM EDT tablet 60 TAKE TWO TABLETS BY MOUTH AT BEDTIME TAKE TWO TABLETS BY MOUTH AT BEDTIME SOLD: 02/20/2021 [facility] 10 mg 11/09/2020 12:00:00 AM EDT tablet 50 TAKE 4 TABLETS BY MOUTH ONCE DAILY FOR 5 DAYS THEN 3 ONCE DAILY FOR 5 DAYS THEN 2 ONCE DAILY FOR 5 DAYS THEN 1 ONCE DAILY FOR 5 DAYS TAKE 4 TABLETS BY MOUTH ONCE DAILY FOR 5 DAYS THEN 3 ONCE DAILY FOR 5 DAYS THEN 2 ONCE DAILY FOR 5 DAYS THEN 1 ONCE DAILY FOR 5 DAYS SOLD: 11/09/2020 [facility] 160-4.5 mcg/actuation 11/09/2020 12:00:00 AM EDT HFA aerosol inhaler 10 INHALE TWO PUFFS BY MOUTH TWICE A DAY INHALE TWO PUFFS BY MOUTH TWICE A DAY SOLD: 11/09/2020 [facility] 60 ACTUAT Budesonide 0.16 MG/ACTUAT / fo rmoterol fumarate 0.0045 MG/ACTUAT Metered Dose Inhaler [Symbicort] Symbicort 11/09/2020 12:00:00 AM EDT RESPIRATORY active MEDENT ( [facility], ) Prednisone 10 MG Oral Tablet Prednisone 11/09/2020 12:00:00 AM EDT active MEDENT ([facility], ) 1,250 mcg (50,000 unit) 11/05/2020 12:00:00 AM EDT capsule 4 TAKE ONE CAPSULE BY MOUTH EVERY WEEK TAKE ONE CAPSULE BY MOUTH EVERY WEEK SOLD: 02/06/2021 [facility] 1,250 mcg (50,000 unit) 11/05/2020 12:00:00 AM EDT capsule 4 TAKE ONE CAPSULE BY MOUTH EVERY WEEK TAKE ONE CAPSULE BY MOUTH EVERY WEEK SOLD: 01/09/2021 [facility] 1,250 mcg (50,000 unit) 11/05/2020 12:00:00 AM EDT capsule 4 TAKE ONE CAPSULE BY MOUTH EVERY WEEK TAKE ONE CAPSULE BY MOUTH EVERY WEEK SOLD: 11/09/2020 [facility] 1,250 mcg (50,000 unit) 11/05/2020 12:00:00 AM EDT capsule 4 TAKE ONE CAPSULE BY MOUTH EVERY WEEK TAKE ONE CAPSULE BY MOUTH EVERY WEEK SOLD: 12/06/2020 [facility] 1,250 mcg (50,000 unit) 11/05/2020 12:00:00 AM EDT capsule 4 TAKE ONE CAPSULE BY MOUTH EVERY WEEK TAKE ONE CAPSULE BY MOUTH EVERY WEEK SOLD: 03/05/2021 [facility] 600 mg 10/26/2020 12:00:00 AM EDT capsule 60 TAKE ONE CAPSULE BY MOUTH TWICE A DAY DIRECTED TAKE ONE CAPSULE BY MOUTH TWICE A DAY DIRECTED SOLD : 12/17/2020 [facility] 600 mg 10/26/2020 12:00:00 AM EDT capsule 60 TAKE ONE CAPSULE BY MOUTH TWICE A DAY DIRECTED TAKE ONE CAPSULE BY MOUTH TWICE A DAY DIRECTED SOLD : 01/20/2021 [facility] quetiapine 50 MG Oral Tablet QUETIAPINE FUMARATE 10/26/2020 12:0 0:00 AM EDT tablet 30 TAKE ONE TABLET BY MOUTH EVERY M ORNING TAKE ONE TABLET BY MOUTH EVERY MORNING SOLD: 10/26/2020 [facility] 20 mg 10/26/2020 12:00:00 AM EDT tablet 60 TAKE ONE TABLET BY MOUTH TWICE A DAY TAKE ONE TABLET BY MOUTH TWICE A DAY SOLD: 12/17/2020 [facility] 80 mg 10/26/2020 12:00:00 AM EDT capsule 30 TAKE ONE CAPSULE BY MOUTH EVERY MORNING TAKE ONE CAPSULE BY MOUTH EVERY MORNING SOLD: 10/26/2020 [facility] 20 mg 10/26/2020 12:00:00 AM EDT tablet 60 TAKE ONE TABLET BY MOUTH TWICE A DAY TAKE ONE TABLET BY MOUTH TWICE A DAY SOLD: 01/20/2021 [facility] 20 mg 10/26/2020 12:00:00 AM EDT tablet 60 TAKE ONE TABLET BY MOUTH TWICE A DAY TAKE ONE TABLET BY MOUTH TWICE A DAY SOLD: 10/26/2020 [facility] 50 mg 10/26/2020 12:00:00 AM EDT tablet 60 TAKE ONE TABLET BY MOUTH TWICE A DAY NEEDED TAKE ONE TABLET BY MOUTH TWICE A DAY NEEDED SOLD: 10/26/2020 [facility] 20 mg 10/26/2020 12:00:00 AM EDT tablet 60 TAKE ONE TABLET BY MOUTH TWICE A DAY TAKE ONE TABLET BY MOUTH TWICE A DAY SOLD: 02/18/2021 [facility] 600 mg 10/26/2020 12:00:00 AM EDT capsule 60 TAKE ONE CAPSULE BY MOUTH TWICE A DAY DIRECTED TAKE ONE CAPSULE BY MOUTH TWICE A DAY DIRECTED SOLD : 10/26/2020 [facility] 0.5 mg 10/26/2020 12:00:00 AM EDT tablet 30 TAKE ONE TABLET BY MOUTH AT BEDTIME MAXIMUM DAILY DOSE = ONE TABLET TAKE ONE TABLET BY MOUTH AT BEDTIME MAXIMUM DAILY DOSE = ONE TABLET SOLD: 10/26/2020 [facility] 50 mg 10/26/2020 12:00:00 AM EDT tablet 60 TAKE ONE TABLET BY MOUTH TWICE A DAY NEEDED TAKE ONE TABLET BY MOUTH TWICE A DAY NEEDED SOLD: 02/20/2021 [facility] 50 mg 10/26/2020 12:00:00 AM EDT tablet 60 TAKE ONE TABLET BY MOUTH TWICE A DAY NEEDED TAKE ONE TABLET BY MOUTH TWICE A DAY NEEDED SOLD: 12/06/2020 [facility] 600 mg 10/26/2020 12:00:00 AM EDT capsule 60 TAKE ONE CAPSULE BY MOUTH TWICE A DAY DIRECTED TAKE ONE CAPSULE BY MOUTH TWICE A DAY DIRECTED SOLD : 02/18/2021 [facility] 50 mg 10/26/2020 12:00:00 AM EDT tablet 60 TAKE ONE TABLET BY MOUTH TWICE A DAY NEEDED TAKE ONE TABLET BY MOUTH TWICE A DAY NEEDED SOLD: 12/28/2020 [facility] 400 mg 10/22/2020 12:00:00 AM EDT tablet 60 TAKE TWO TABLETS BY MOUTH AT BEDTIME TAKE TWO TABLETS BY MOUTH AT BEDTIME SOLD: 10/25/2020 [facility] 0.375 mg 10/17/2020 12:00:00 AM EDT tablet extended release 12 hr 60 TAKE ONE TABLET BY MOUTH EVERY 12 HOURS TAKE ONE TABLET BY MOUTH EVERY 12 HOURS SOLD: 03/14/2021 [facility] pantoprazole 40 MG Delayed Release Oral Tablet PANTOPRAZOLE SODIUM 10/17/2020 12:00:00 AM EDT tablet,delayed release (DR/EC) 30 T CARRILLO ONE TABLET BY MOUTH EVERY DAY TAKE ONE TABLET BY MOUTH EVERY DAY SOLD: 02/18/2021 [facility] 0.375 mg 10/17/2020 12:00:00 AM EDT tablet extended release 12 hr 60 TAKE ONE TABLET BY MOUTH EVERY 12 HOURS TAKE ONE TABLET BY MOUTH EVERY 12 HOURS SOLD: 10/19/2020 [facility] pantoprazole 40 MG Delayed Release Oral Tablet PANTOPRAZOLE SODIUM 10/17/2020 12:00:00 AM EDT tablet,delayed release (DR/EC) 30 T CARRILLO ONE TABLET BY MOUTH EVERY DAY TAKE ONE TABLET BY MOUTH EVERY DAY SOLD: 10/19/2020 [facility] 0.375 mg 10/17/2020 12:00:00 AM EDT tablet extended release 12 hr 60 TAKE ONE TABLET BY MOUTH EVERY 12 HOURS TAKE ONE TABLET BY MOUTH EVERY 12 HOURS SOLD: 11/18/2020 [facility] 0.375 mg 10/17/2020 12:00:00 AM EDT tablet extended release 12 hr 60 TAKE ONE TABLET BY MOUTH EVERY 12 HOURS TAKE ONE TABLET BY MOUTH EVERY 12 HOURS SOLD: 02/18/2021 [facility] pantoprazole 40 MG Delayed Release Oral Tablet PANTOPRAZOLE SODIUM 10/17/2020 12:00:00 AM EDT tablet,delayed release (DR/EC) 30 T CARRILLO ONE TABLET BY MOUTH EVERY DAY TAKE ONE TABLET BY MOUTH EVERY DAY SOLD: 11/18/2020 [facility] 0.375 mg 10/17/2020 12:00:00 AM EDT tablet extended release 12 hr 60 TAKE ONE TABLET BY MOUTH EVERY 12 HOURS TAKE ONE TABLET BY MOUTH EVERY 12 HOURS SOLD: 12/17/2020 [facility] pantoprazole 40 MG Delayed Release Oral Tablet PANTOPRAZOLE SODIUM 10/17/2020 12:00:00 AM EDT tablet,delayed release (DR/EC) 30 T CARRILLO ONE TABLET BY MOUTH EVERY DAY TAKE ONE TABLET BY MOUTH EVERY DAY SOLD: 12/17/2020 [facility] 0.375 mg 10/17/2020 12:00:00 AM EDT tablet extended release 12 hr 60 TAKE ONE TABLET BY MOUTH EVERY 12 HOURS TAKE ONE TABLET BY MOUTH EVERY 12 HOURS SOLD: 01/20/2021 [facility] pantoprazole 40 MG Delayed Release Oral Tablet PANTOPRAZOLE SODIUM 10/17/2020 12:00:00 AM EDT tablet,delayed release (DR/EC) 30 T CARRILLO ONE TABLET BY MOUTH EVERY DAY TAKE ONE TABLET BY MOUTH EVERY DAY SOLD: 01/20/2021 [facility] 150 mg 10/13/2020 12:00:00 AM EDT capsule 30 TAKE ONE CAPSULE BY MOUTH AT BEDTIME TAKE ONE CAPSULE BY MOUTH AT BEDTIME SOLD: 11/13/2020 [facility] 150 mg 10/13/2020 12:00:00 AM EDT capsule 30 TAKE ONE CAPSULE BY MOUTH AT BEDTIME TAKE ONE CAPSULE BY MOUTH AT BEDTIME SOLD: 01/09/2021 [facility] 150 mg 10/13/2020 12:00:00 AM EDT capsule 30 TAKE ONE CAPSULE BY MOUTH AT BEDTIME TAKE ONE CAPSULE BY MOUTH AT BEDTIME SOLD: 12/17/2020 [facility] 150 mg 10/13/2020 12:00:00 AM EDT capsule 30 TAKE ONE CAPSULE BY MOUTH AT BEDTIME TAKE ONE CAPSULE BY MOUTH AT BEDTIME SOLD: 10/13/2020 [facility] Benadryl Allergy 25 MG Benadryl Allergy 25 MG 09/22/2020 12:00:00 AM E DT active Benadryl Allergy 25 MG eC W1 ([facility]) Benadryl Allergy 25 MG Benadryl Allergy 25 MG 09/22/2020 12:00:00 AM E DT active Benadryl Allergy 25 MG eC W1 ([facility]) Prednisone 50 MG Oral Tablet PredniSONE 50 MG PredniSONE 50 MG 09/22/2020 12:00:00 AM EDT 1.0 {tablet} active Pr edniSONE 50 MG eCW1 ([facility]) predniSONE 50 MG predniSONE 50 MG 09/22/2020 12:00:00 AM EDT 1.0 {tablet} active predniSONE 50 MG eCW1 ([facility]) Benadryl Allergy 25 MG Benadryl Allergy 25 MG 09/22/2020 12:00:00 AM E DT active Benadryl Allergy 25 MG eC W1 ([facility]) Prednisone 50 MG Oral Tablet predniSONE 50 MG predniSONE 50 MG 09/22/2020 12:00:00 AM EDT 1.0 {tablet} active pr edniSONE 50 MG eCW1 ([facility]) Prednisone 50 MG Oral Tablet predniSONE 50 MG predniSONE 50 MG 09/22/2020 12:00:00 AM EDT 1.0 {tablet} active pr edniSONE 50 MG eCW1 ([facility]) 20 mg 09/22/2020 12:00:00 AM EDT tablet 90 TAKE ONE TABLET BY MOUTH THREE TIMES A DAY TAKE ONE TABLET BY MOUTH THREE TIMES A DAY SOLD: 09/22/2020 [facility] Benadryl Allergy 25 MG Benadryl Allergy 25 MG 09/22/2020 12:00:00 AM E DT active Benadryl Allergy 25 MG eC W1 ([facility]) Prednisone 50 MG Oral Tablet predniSONE 50 MG predniSONE 50 MG 09/22/2020 12:00:00 AM EDT 1.0 {tablet} active pr edniSONE 50 MG eCW1 ([facility]) Benadryl Allergy 25 MG Benadryl Allergy 25 MG 09/22/2020 12:00:00 AM E DT active Benadryl Allergy 25 MG eC W1 ([facility]) Benadryl Allergy 25 MG Benadryl Allergy 25 MG 09/22/2020 12:00:00 AM E DT active eCW1 ([facility]) Prednisone 50 MG Oral Tablet PredniSONE 50 MG PredniSONE 50 MG 09/22/2020 12:00:00 AM EDT 1.0 {tablet} active eCW1 ([facility]) Prednisone 50 MG Oral Tablet predniSONE 50 MG predniSONE 50 MG 09/22/2020 12:00:00 AM EDT 1.0 {tablet} active pr edniSONE 50 MG eCW1 ([facility]) Cyproheptadine hydrochloride 4 MG Oral Tablet CYPROHEPTADINE HCL 09/22/2020 12:00:00 AM EDT tablet 60 TAKE ONE TABLET BY MOUTH TWICE A DAY TAKE ONE TABLET BY MOUTH TWICE A DAY SOLD: 09/22/2020 [facility] Benadryl Allergy 25 MG Benadryl Allergy 25 MG 09/22/2020 12:00:00 AM E DT active Benadryl Allergy 25 MG eC W1 ([facility]) Benadryl Allergy 25 MG Benadryl Allergy 25 MG 09/22/2020 12:00:00 AM E DT active Benadryl Allergy 25 MG eC W1 ([facility]) 50 mg 09/22/2020 12:00:00 AM EDT tablet 3 TAKE 1 TABLET BY MOUTH [address] THEN 1 TABLET 7 HOURS PRIOR AND 1 TABLET 1 HOUR PRIOR TAKE 1 TABLET BY MOUTH [address] THEN 1 TABLET 7 HOURS PRIOR AND 1 TABLET 1 HOUR PRIOR SOLD: 09/22/2020 [facility] Prednisone 50 MG Oral Tablet predniSONE 50 MG predniSONE 50 MG 09/22/2020 12:00:00 AM EDT 1.0 {tablet} active pr edniSONE 50 MG eCW1 ([facility]) 100 mg 09/15/2020 12:00:00 AM EDT tablet 3 TAKE ONE TABLET BY MOUTH EVERY DAY TAKE ONE TABLET BY MOUTH EVERY DAY SOLD: 09/16/2020 [facility] Fluconazole 100 MG Oral Tablet Fluconazole 100 MG 09/14/2020 12:00: 00 AM EDT 1.0 {tablet} active Fluconazole 100 MG eCW1 ([facility]) Fluconazole 100 MG Oral Tablet Fluconazole 100 MG 09/14/2020 12:00: 00 AM EDT 1.0 {tablet} active eCW1 ([facility]) Fluconazole 100 MG Oral Tablet Fluconazole 100 MG 09/14/2020 12:00: 00 AM EDT 1.0 {tablet} active Fluconazole 100 MG eCW1 ([facility]) Fluconazole 100 MG Oral Tablet Fluconazole 100 MG 09/14/2020 12:00: 00 AM EDT 1.0 {tablet} active Fluconazole 100 MG eCW1 ([facility]) Fluconazole 100 MG Oral Tablet Fluconazole 100 MG 09/14/2020 12:00: 00 AM EDT 1.0 {tablet} active Fluconazole 100 MG eCW1 ([facility]) Fluconazole 100 MG Oral Tablet Fluconazole 100 MG 09/14/2020 12:00: 00 AM EDT 1.0 {tablet} active Fluconazole 100 MG eCW1 ([facility]) Fluconazole 100 MG Oral Tablet Fluconazole 100 MG 09/14/2020 12:00: 00 AM EDT 1.0 {tablet} active Fluconazole 100 MG eCW1 ([facility]) Fluconazole 100 MG Oral Tablet Fluconazole 100 MG 09/14/2020 12:00: 00 AM EDT 1.0 {tablet} active Fluconazole 100 MG eCW1 ([facility]) Fluconazole 100 MG Fluconazole 100 MG 09/14/2020 12:00:00 AM EDT 1.0 {tablet} active Fluconazole 100 MG e CW1 ([facility]) montelukast 10 MG Oral Tablet MONTELUKAST SODIUM 09/13/2020 12:0 0:00 AM EDT tablet 30 TAKE ONE TABLET BY MOUTH EVERY D AY TAKE ONE TABLET BY MOUTH EVERY DAY SOLD: 09/16/2020 [facility] montelukast 10 MG Oral Tablet MONTELUKAST SODIUM 09/13/2020 12:0 0:00 AM EDT tablet 30 TAKE ONE TABLET BY MOUTH EVERY D AY TAKE ONE TABLET BY MOUTH EVERY DAY SOLD: 10/19/2020 [facility] montelukast 10 MG Oral Tablet MONTELUKAST SODIUM 09/13/2020 12:0 0:00 AM EDT tablet 30 TAKE ONE TABLET BY MOUTH EVERY D AY TAKE ONE TABLET BY MOUTH EVERY DAY SOLD: 11/18/2020 [facility] montelukast 10 MG Oral Tablet MONTELUKAST SODIUM 09/13/2020 12:0 0:00 AM EDT tablet 30 TAKE ONE TABLET BY MOUTH EVERY D AY TAKE ONE TABLET BY MOUTH EVERY DAY SOLD: 01/09/2021 [facility] montelukast 10 MG Oral Tablet MONTELUKAST SODIUM 09/13/2020 12:0 0:00 AM EDT tablet 30 TAKE ONE TABLET BY MOUTH EVERY D AY TAKE ONE TABLET BY MOUTH EVERY DAY SOLD: 12/17/2020 [facility] Trazodone Hydrochloride 100 MG Oral Tablet TRAZODONE HCL 09/10/2020 12:00:00 AM EDT tablet 30 TAKE ONE TABLET BY MOUTH AT BEDTIME TAKE ONE TABLET BY MOUTH AT BEDTIME SOLD: 12/06/2020 [facility] Trazodone Hydrochloride 100 MG Oral Tablet TRAZODONE HCL 09/10/2020 12:00:00 AM EDT tablet 30 TAKE ONE TABLET BY MOUTH AT BEDTIME TAKE ONE TABLET BY MOUTH AT BEDTIME SOLD: 11/09/2020 [facility] Trazodone Hydrochloride 100 MG Oral Tablet TRAZODONE HCL 09/10/2020 12:00:00 AM EDT tablet 30 TAKE ONE TABLET BY MOUTH AT BEDTIME TAKE ONE TABLET BY MOUTH AT BEDTIME SOLD: 10/11/2020 [facility] Trazodone Hydrochloride 100 MG Oral Tablet TRAZODONE HCL 09/10/2020 12:00:00 AM EDT tablet 30 TAKE ONE TABLET BY MOUTH AT BEDTIME TAKE ONE TABLET BY MOUTH AT BEDTIME SOLD: 09/11/2020 [facility] 500 mg 09/08/2020 12:00:00 AM EDT tablet 28 TAKE ONE TABLET BY MOUTH FOUR TIMES A DAY TAKE ONE TABLET BY MOUTH FOUR TIMES A DAY SOLD: 09/08/2020 [facility] 5 mg 09/04/2020 12:00:00 AM EDT tablet 30 TAKE ONE TABLET BY MOUTH EVERY EVENING TAKE ONE TABLET BY MOUTH EVERY EVENING SOLD: 12/06/2020 [facility] 5 mg 09/04/2020 12:00:00 AM EDT tablet 30 TAKE ONE TABLET BY MOUTH EVERY EVENING TAKE ONE TABLET BY MOUTH EVERY EVENING SOLD: 11/09/2020 [facility] 5 mg 09/04/2020 12:00:00 AM EDT tablet 30 TAKE ONE TABLET BY MOUTH EVERY EVENING TAKE ONE TABLET BY MOUTH EVERY EVENING SOLD: 10/11/2020 [facility] 5 mg 09/04/2020 12:00:00 AM EDT tablet 30 TAKE ONE TABLET BY MOUTH EVERY EVENING TAKE ONE TABLET BY MOUTH EVERY EVENING SOLD: 09/08/2020 [facility] 5 mg 09/04/2020 12:00:00 AM EDT tablet 30 TAKE ONE TABLET BY MOUTH EVERY EVENING TAKE ONE TABLET BY MOUTH EVERY EVENING SOLD: 02/06/2021 [facility] 5 mg 09/04/2020 12:00:00 AM EDT tablet 30 TAKE ONE TABLET BY MOUTH EVERY EVENING TAKE ONE TABLET BY MOUTH EVERY EVENING SOLD: 01/09/2021 [facility] 100 mg 08/28/2020 12:00:00 AM EDT tablet 30 TAKE ONE TABLET BY MOUTH EVERY DAY TAKE ONE TABLET BY MOUTH EVERY DAY SOLD: 09/03/2020 [facility] 100 mg 08/28/2020 12:00:00 AM EDT tablet 30 TAKE ONE TABLET BY MOUTH EVERY DAY TAKE ONE TABLET BY MOUTH EVERY DAY SOLD: 10/03/2020 [facility] 100 mg 08/28/2020 12:00:00 AM EDT tablet 30 TAKE ONE TABLET BY MOUTH EVERY DAY TAKE ONE TABLET BY MOUTH EVERY DAY SOLD: 11/04/2020 [facility] 100 mg 08/28/2020 12:00:00 AM EDT tablet 30 TAKE ONE TABLET BY MOUTH EVERY DAY TAKE ONE TABLET BY MOUTH EVERY DAY SOLD: 12/06/2020 [facility] 100 mg 08/28/2020 12:00:00 AM EDT tablet 30 TAKE ONE TABLET BY MOUTH EVERY DAY TAKE ONE TABLET BY MOUTH EVERY DAY SOLD: 01/09/2021 [facility] 100 mg 08/28/2020 12:00:00 AM EDT tablet 30 TAKE ONE TABLET BY MOUTH EVERY DAY TAKE ONE TABLET BY MOUTH EVERY DAY SOLD: 02/06/2021 [facility] 2 % 08/26/2020 12:00:00 AM EDT solution 100 USE 15-30ML BY MOUTH TO SWISH AND SPIT EVERY 4-6 HOURS DO NOT EAT OR DRINK FOR 30 MINUTES AFTER USE USE 15- 30ML BY MOUTH TO SWISH AND SPIT EVERY 4-6 HOURS DO NOT EAT OR DRINK FOR 30 MINUTES AFTER USE SOLD: 08/28/2020 [facility] 0.12 % 08/26/2020 12:00:00 AM EDT mouthwash 946 USE 15ML BY MOUTH TO RINSE FOR 30 SECONDS THEN SPIT TWO TIMES A DAY AVOID RINSING OR EATING FOR 30 MINUTES FOLLOWING TREATMENT USE 15ML BY MOUTH TO RINSE FOR 30 SECOND S THEN SPIT TWO TIMES A DAY AVOID RINSING OR EATING FOR 30 MINUTES FOLLOWING TREATMENT SOLD: 08/26/2020 [facility] 600 mg 08/20/2020 12:00:00 AM EDT capsule 60 TAKE ONE CAPSULE BY MOUTH TWICE A DAY DIRECTED TAKE ONE CAPSULE BY MOUTH TWICE A DAY DIRECTED SOLD : 08/23/2020 [facility] 600 mg 08/20/2020 12:00:00 AM EDT capsule 60 TAKE ONE CAPSULE BY MOUTH TWICE A DAY DIRECTED TAKE ONE CAPSULE BY MOUTH TWICE A DAY DIRECTED SOLD : 09/21/2020 [facility] 50 mg 08/12/2020 12:00:00 AM EDT tablet 30 TAKE ONE TABLET BY MOUTH EVERY DAY TAKE ONE TABLET BY MOUTH EVERY DAY SOLD: 12/06/2020 [facility] 50 mg 08/12/2020 12:00:00 AM EDT tablet 30 TAKE ONE TABLET BY MOUTH EVERY DAY TAKE ONE TABLET BY MOUTH EVERY DAY SOLD: 11/04/2020 [facility] 50 mg 08/12/2020 12:00:00 AM EDT tablet 30 TAKE ONE TABLET BY MOUTH EVERY DAY TAKE ONE TABLET BY MOUTH EVERY DAY SOLD: 10/03/2020 [facility] 50 mg 08/12/2020 12:00:00 AM EDT tablet 30 TAKE ONE TABLET BY MOUTH EVERY DAY TAKE ONE TABLET BY MOUTH EVERY DAY SOLD: 08/14/2020 [facility] 0.5 mg 08/06/2020 12:00:00 AM EDT tablet 60 TAKE ONE TABLET BY MOUTH TWICE A DAY NEEDED MAXIMUM DAILY DOSE = TWO TABLETS TAKE ONE TABLET BY MOUTH TWICE A DAY NEEDED MAXIMUM DAILY DOSE = TWO TABLETS SOLD: 08/08/2020 [facility] 150 mg 07/31/2020 12:00:00 AM EDT capsule 30 TAKE ONE CAPSULE BY MOUTH EVERY DAY TAKE ONE CAPSULE BY MOUTH EVERY DAY SOLD: 09/11/2020 [facility] 150 mg 07/31/2020 12:00:00 AM EDT capsule 30 TAKE ONE CAPSULE BY MOUTH EVERY DAY TAKE ONE CAPSULE BY MOUTH EVERY DAY SOLD: 08/08/2020 [facility] 600 mg 07/29/2020 12:00:00 AM EDT capsule 60 TAKE ONE CAPSULE BY MOUTH TWICE A DAY DIRECTED TAKE ONE CAPSULE BY MOUTH TWICE A DAY DIRECTED SOLD : 07/29/2020 [facility] 1 % 07/28/2020 12:00:00 AM EDT cream 30 APPLY TO RIGHT LOWER LEG SPARINGLY TWO TIMES A DAY NEEDED APPLY TO RIGHT LOWER LEG SPARINGLY TWO T IMES A DAY NEEDED SOLD: 07/29/2020 [facility] 50 mg 07/28/2020 12:00:00 AM EDT tablet 90 TAKE ONE TABLET BY MOUTH EVERY 8 HOURS NEEDED TAKE ONE TABLET BY MOUTH EVERY 8 HOURS NEEDED SOLD: 07/29/2020 [facility] 50 mg 07/28/2020 12:00:00 AM EDT tablet 90 TAKE ONE TABLET BY MOUTH EVERY 8 HOURS NEEDED TAKE ONE TABLET BY MOUTH EVERY 8 HOURS NEEDED SOLD: 09/18/2020 [facility] Sertraline 50 MG Oral Tablet Sertraline HCl 50 MG Sertraline HCl 50 MG 07/28/2020 12:00:00 AM EDT 1.0 {tablet} active Sertraline HCl 50 MG eCW1 ([facility]) sitagliptin 100 MG Oral Tablet [Januvia] Januvia 100 MG [facility] 100 MG 07/27/2020 12:00:00 AM EDT 1.0 {tablet} active Januvia 100 MG eCW1 ([facility]) Pimecrolimus 10 MG/ML Topical Cream [Elidel] Elidel 12:00:00 AM EDT completed MEDENT ([facility]) 60 mg 07/09/2020 12:00:00 AM EST capsule 20 TAKE ONE CAPSULE BY MOUTH EVERY MORNING TAKE ONE CAPSULE BY MOUTH EVERY MORNING SOLD: 08/14/2020 [facility] 0.5 mg 07/09/2020 12:00:00 AM EST tablet 60 TAKE ONE TABLET BY MOUTH TWICE A DAY MAXIMUM DAILY DOSE = 2 TABLETS TAKE ONE TABLET BY MOUTH TWICE A DAY MAX IMUM DAILY DOSE = 2 TABLETS SOLD: 07/09/2020 [facility] 60 mg 07/09/2020 12:00:00 AM EST capsule 30 TAKE ONE CAPSULE BY MOUTH EVERY MORNING TAKE ONE CAPSULE BY MOUTH EVERY MORNING SOLD: 07/09/2020 [facility] 150 mg 07/09/2020 12:00:00 AM EST capsule 30 TAKE ONE CAPSULE BY MOUTH AT BEDTIME TAKE ONE CAPSULE BY MOUTH AT BEDTIME SOLD: 07/09/2020 [facility] 60 mg 07/09/2020 12:00:00 AM EST capsule 24 TAKE ONE CAPSULE BY MOUTH EVERY MORNING TAKE ONE CAPSULE BY MOUTH EVERY MORNING SOLD: 09/16/2020 [facility] 60 mg 07/09/2020 12:00:00 AM EST capsule 30 TAKE ONE CAPSULE BY MOUTH EVERY MORNING TAKE ONE CAPSULE BY MOUTH EVERY MORNING SOLD: 10/11/2020 [facility] Clonazepam 0.5 MG Oral Tablet clonazePAM 0.5 MG clonazePAM 0 .5 MG 07/08/2020 12:00:00 AM EST 1.0 {tablet} active cl onazePAM 0.5 MG eCW1 ([facility]) Trazodone Hydrochloride 100 MG Oral Tablet TRAZODONE HCL 07/08/2020 12:00:00 AM EST tablet 30 TAKE ONE TABLET BY MOUTH AT BEDTIME TAKE ONE TABLET BY MOUTH AT BEDTIME SOLD: 07/08/2020 [facility] Trazodone Hydrochloride 100 MG Oral Tablet traZODone H Cl 100 MG traZODone HCl 100 MG 07/08/2020 12:00:00 AM EST 1.0 {tablet_at_bedtime} active traZODone HCl 100 MG eCW1 ([facility]) Trazodone Hydrochloride 100 MG Oral Tablet TRAZODONE HCL 07/08/2020 12:00:00 AM EST tablet 30 TAKE ONE TABLET BY MOUTH AT BEDTIME TAKE ONE TABLET BY MOUTH AT BEDTIME SOLD: 08/08/2020 [facility] 400 mg 06/29/2020 12:00:00 AM EST tablet 30 TAKE ONE TABLET BY MOUTH AT BEDTIME TAKE ONE TABLET BY MOUTH AT BEDTIME SOLD: 09/21/2020 [facility] 50 mg 06/29/2020 12:00:00 AM EST tablet 30 TAKE ONE TABLET BY MOUTH EVERY DAY TAKE ONE TABLET BY MOUTH EVERY DAY SOLD: 07/08/2020 [facility] 400 mg 06/29/2020 12:00:00 AM EST tablet 30 TAKE ONE TABLET BY MOUTH AT BEDTIME TAKE ONE TABLET BY MOUTH AT BEDTIME SOLD: 07/23/2020 [facility] 400 mg 06/29/2020 12:00:00 AM EST tablet 30 TAKE ONE TABLET BY MOUTH AT BEDTIME TAKE ONE TABLET BY MOUTH AT BEDTIME SOLD: 07/08/2020 [facility] 400 mg 06/29/2020 12:00:00 AM EST tablet 30 TAKE ONE TABLET BY MOUTH AT BEDTIME TAKE ONE TABLET BY MOUTH AT BEDTIME SOLD: 08/23/2020 [facility] quetiapine 100 MG Oral Tablet QUETIAPINE FUMARATE 06/26/2020 12: 00:00 AM EST tablet 30 TAKE ONE TABLET BY MOUTH AT BEDT DAVID TAKE ONE TABLET BY MOUTH AT BEDTIME SOLD: 08/23/2020 [facility] quetiapine 100 MG Oral Tablet QUETIAPINE FUMARATE 06/26/2020 12: 00:00 AM EST tablet 30 TAKE ONE TABLET BY MOUTH AT BEDT DAVID TAKE ONE TABLET BY MOUTH AT BEDTIME SOLD: 07/23/2020 [facility] 1,250 mcg (50,000 unit) 06/26/2020 12:00:00 AM EST capsule 4 TAKE ONE CAPSULE BY MOUTH ONCE WEEKLY TAKE ONE CAPSULE BY MOUTH ONCE WEEKLY SOLD: 09/18/2020 [facility] quetiapine 100 MG Oral Tablet QUETIAPINE FUMARATE 06/26/2020 12: 00:00 AM EST tablet 30 TAKE ONE TABLET BY MOUTH AT BEDT DAVID TAKE ONE TABLET BY MOUTH AT BEDTIME SOLD: 06/28/2020 [facility] 1,250 mcg (50,000 unit) 06/26/2020 12:00:00 AM EST capsule 4 TAKE ONE CAPSULE BY MOUTH ONCE WEEKLY TAKE ONE CAPSULE BY MOUTH ONCE WEEKLY SOLD: 08/23/2020 [facility] 1,250 mcg (50,000 unit) 06/26/2020 12:00:00 AM EST capsule 4 TAKE ONE CAPSULE BY MOUTH ONCE WEEKLY TAKE ONE CAPSULE BY MOUTH ONCE WEEKLY SOLD: 10/11/2020 [facility] 1,250 mcg (50,000 unit) 06/26/2020 12:00:00 AM EST capsule 4 TAKE ONE CAPSULE BY MOUTH ONCE WEEKLY TAKE ONE CAPSULE BY MOUTH ONCE WEEKLY SOLD: 07/23/2020 [facility] 1,250 mcg (50,000 unit) 06/26/2020 12:00:00 AM EST capsule 4 TAKE ONE CAPSULE BY MOUTH ONCE WEEKLY TAKE ONE CAPSULE BY MOUTH ONCE WEEKLY SOLD: 06/28/2020 [facility] quetiapine 100 MG Oral Tablet QUETIAPINE FUMARATE 06/26/2020 12: 00:00 AM EST tablet 30 TAKE ONE TABLET BY MOUTH AT BEDT DAVID TAKE ONE TABLET BY MOUTH AT BEDTIME SOLD: 09/18/2020 [facility] 600 mg 06/16/2020 12:00:00 AM EST capsule 60 TAKE ONE CAPSULE BY MOUTH TWICE A DAY TAKE ONE CAPSULE BY MOUTH TWICE A DAY SOLD: 06/17/2020 [facility] 150 mg 06/16/2020 12:00:00 AM EST capsule 30 TAKE ONE CAPSULE BY MOUTH AT BEDTIME TAKE ONE CAPSULE BY MOUTH AT BEDTIME SOLD: 06/16/2020 [facility] Trazodone Hydrochloride 100 MG Oral Tablet TRAZODONE HCL 06/16/2020 12:00:00 AM EST tablet 30 TAKE ONE TABLET BY MOUTH AT BEDTIME TAKE ONE TABLET BY MOUTH AT BEDTIME SOLD: 06/17/2020 [facility] Clobetasol Propionate 0.0005 MG/MG Topical Ointment [T emovate] Temovate 0.05 % Temovate 0.05 % 05/26/2020 12:00:00 AM EST 1.0 {application} active Temovate 0.05 % eCW1 ([facility]) 2.5 mg 05/26/2020 12:00:00 AM EST tablet extended release 24hr 30 TAKE ONE TABLET BY MOUTH WITH BREAKFAST TAKE ONE TABLET BY MOUTH WITH BREAKFAST SOLD: 10/19/2020 [facility] 75 mcg 05/26/2020 12:00:00 AM EST tablet 30 TAKE ONE TABLET IN THE MORNING ON AN EMPTY STOMACH TAKE ONE TABLET IN THE MORNING ON AN EMPTY STOMACH [place] 10 mg 05/26/2020 12:00:00 AM EST tablet 60 TAKE ONE TABLET BY MOUTH TWO TIMES A DAY TAKE ONE TABLET BY MOUTH TWO TIMES A DAY SOLD: 01/09/2021 [facility] 24 HR Glipizide 2.5 MG Extended Release Oral Tablet Gl ipiZIDE ER 2.5 MG GlipiZIDE ER 2.5 MG 05/26/2020 12:00:00 AM EST 1.0 {tablet_with_bre akfast} active GlipiZIDE ER 2.5 MG eCW1 ([facility]) 2.5 mg 05/26/2020 12:00:00 AM EST tablet extended release 24hr 30 TAKE ONE TABLET BY MOUTH WITH BREAKFAST TAKE ONE TABLET BY MOUTH WITH BREAKFAST SOLD: 09/18/2020 [facility] Levothyroxine Sodium 0.075 MG Oral Tablet Levothyroxin e Sodium 75 MCG Levothyroxine Sodium 75 MCG 05/26/2020 12:00:00 AM EST active Levothyroxine Sodium 75 MCG eCW1 ([facility]) 10 mg 05/26/2020 12:00:00 AM EST tablet 60 TAKE ONE TABLET BY MOUTH TWO TIMES A DAY TAKE ONE TABLET BY MOUTH TWO TIMES A DAY SOLD: 05/26/2020 [facility] Levothyroxine Sodium 0.075 MG Oral Tablet Levothyroxin e Sodium 75 MCG Levothyroxine Sodium 75 MCG 05/26/2020 12:00:00 AM EST active Levothyroxine Sodium 75 MCG eCW1 ([facility]) 24 HR Glipizide 2.5 MG Extended Release Oral Tablet Gl ipiZIDE ER 2.5 MG GlipiZIDE ER 2.5 MG 05/26/2020 12:00:00 AM EST 1.0 {tablet_with_bre akfast} active GlipiZIDE ER 2.5 MG eCW1 ([facility]) Clobetasol Propionate 0.0005 MG/MG Topical Ointment [T emovate] Temovate 0.05 % Temovate 0.05 % 05/26/2020 12:00:00 AM EST 1.0 {application} active Temovate 0.05 % eCW1 ([facility]) Levothyroxine Sodium 0.075 MG Oral Tablet Levothyroxin e Sodium 75 MCG Levothyroxine Sodium 75 MCG 05/26/2020 12:00:00 AM EST active Levothyroxine Sodium 75 MCG eCW1 ([facility]) Levothyroxine Sodium 0.075 MG Oral Tablet Levothyroxin e Sodium 75 MCG Levothyroxine Sodium 75 MCG 05/26/2020 12:00:00 AM EST active Levothyroxine Sodium 75 MCG eCW1 ([facility]) 75 mcg 05/26/2020 12:00:00 AM EST tablet 30 TAKE ONE TABLET IN THE MORNING ON AN EMPTY STOMACH TAKE ONE TABLET IN THE MORNING ON AN EMPTY STOMACH [place] 24 HR Glipizide 2.5 MG Extended Release Oral Tablet Gl ipiZIDE ER 2.5 MG GlipiZIDE ER 2.5 MG 05/26/2020 12:00:00 AM EST 1.0 {tablet_with_bre akfast} active GlipiZIDE ER 2.5 MG eCW1 ([facility]) Levothyroxine Sodium 0.075 MG Oral Tablet Levothyroxin e Sodium 75 MCG Levothyroxine Sodium 75 MCG 05/26/2020 12:00:00 AM EST active Levothyroxine Sodium 75 MCG eCW1 ([facility]) Levothyroxine Sodium 0.075 MG Oral Tablet Levothyroxin e Sodium 75 MCG Levothyroxine Sodium 75 MCG 05/26/2020 12:00:00 AM EST active Levothyroxine Sodium 75 MCG eCW1 ([facility]) 10 mg 05/26/2020 12:00:00 AM EST tablet 60 TAKE ONE TABLET BY MOUTH TWO TIMES A DAY TAKE ONE TABLET BY MOUTH TWO TIMES A DAY SOLD: 06/24/2020 [facility] Clobetasol Propionate 0.0005 MG/MG Topical Ointment [T emovate] Temovate 0.05 % Temovate 0.05 % 05/26/2020 12:00:00 AM EST 1.0 {application} active Temovate 0.05 % eCW1 ([facility]) Propranolol Hydrochloride 10 MG Oral Tablet Propranolo l HCl 10 MG Propranolol HCl 10 MG 05/26/2020 12:00:00 AM EST 1.0 {tablet} ac tive Propranolol HCl 10 MG eCW1 ([facility]) Temovate 0.05 % Temovate 0.05 % 05/26/2020 12:00:00 AM EST 1.0 {application} active Temovate 0.05 % eCW1 ([facility]) Propranolol Hydrochloride 10 MG Oral Tablet Propranolo l HCl 10 MG Propranolol HCl 10 MG 05/26/2020 12:00:00 AM EST 1.0 {tablet} ac tive Propranolol HCl 10 MG eCW1 ([facility]) Clobetasol Propionate 0.0005 MG/MG Topical Ointment [T emovate] Temovate 0.05 % Temovate 0.05 % 05/26/2020 12:00:00 AM EST 1.0 {application} active eCW1 ([facility]) Clobetasol Propionate 0.0005 MG/MG Topical Ointment [T emovate] Temovate 0.05 % Temovate 0.05 % 05/26/2020 12:00:00 AM EST 1.0 {application} active Temovate 0.05 % eCW1 ([facility]) Clobetasol Propionate 0.0005 MG/MG Topical Ointment [T emovate] Temovate 0.05 % Temovate 0.05 % 05/26/2020 12:00:00 AM EST 1.0 {application} active Temovate 0.05 % eCW1 ([facility]) 75 mcg 05/26/2020 12:00:00 AM EST tablet 30 TAKE ONE TABLET IN THE MORNING ON AN EMPTY STOMACH TAKE ONE TABLET IN THE MORNING ON AN EMPTY STOMACH [place] [facility] Clobetasol Propionate 0.0005 MG/MG Topical Ointment [T emovate] Temovate 0.05 % Temovate 0.05 % 05/26/2020 12:00:00 AM EST 1.0 {application} active Temovate 0.05 % eCW1 ([facility]) 24 HR Glipizide 2.5 MG Extended Release Oral Tablet Gl ipiZIDE ER 2.5 MG GlipiZIDE ER 2.5 MG 05/26/2020 12:00:00 AM EST 1.0 {tablet_with_bre akfast} active GlipiZIDE ER 2.5 MG eCW1 ([facility]) Levothyroxine Sodium 0.075 MG Oral Tablet Levothyroxin e Sodium 75 MCG Levothyroxine Sodium 75 MCG 05/26/2020 12:00:00 AM EST active Levothyroxine Sodium 75 MCG eCW1 ([facility]) Levothyroxine Sodium 0.075 MG Oral Tablet Levothyroxin e Sodium 75 MCG Levothyroxine Sodium 75 MCG 05/26/2020 12:00:00 AM EST active Levothyroxine Sodium 75 MCG eCW1 ([facility]) 10 mg 05/26/2020 12:00:00 AM EST tablet 60 TAKE ONE TABLET BY MOUTH TWO TIMES A DAY TAKE ONE TABLET BY MOUTH TWO TIMES A DAY SOLD: 08/23/2020 [facility] Propranolol Hydrochloride 10 MG Oral Tablet Propranolo l HCl 10 MG Propranolol HCl 10 MG 05/26/2020 12:00:00 AM EST 1.0 {tablet} ac tive Propranolol HCl 10 MG eCW1 ([facility]) Levothyroxine Sodium 0.075 MG Oral Tablet Levothyroxin e Sodium 75 MCG Levothyroxine Sodium 75 MCG 05/26/2020 12:00:00 AM EST active Levothyroxine Sodium 75 MCG eCW1 ([facility]) 2.5 mg 05/26/2020 12:00:00 AM EST tablet extended release 24hr 30 TAKE ONE TABLET BY MOUTH WITH BREAKFAST TAKE ONE TABLET BY MOUTH WITH BREAKFAST SOLD: 06/24/2020 [facility] 75 mcg 05/26/2020 12:00:00 AM EST tablet 30 TAKE ONE TABLET IN THE MORNING ON AN EMPTY STOMACH TAKE ONE TABLET IN THE MORNING ON AN EMPTY STOMACH [place] [facility] Clobetasol Propionate 0.0005 MG/MG Topical Ointment [T emovate] Temovate 0.05 % Temovate 0.05 % 05/26/2020 12:00:00 AM EST 1.0 {application} active Temovate 0.05 % eCW1 ([facility]) Levothyroxine Sodium 0.075 MG Oral Tablet Levothyroxin e Sodium 75 MCG Levothyroxine Sodium 75 MCG 05/26/2020 12:00:00 AM EST active Levothyroxine Sodium 75 MCG eCW1 ([facility]) 2.5 mg 05/26/2020 12:00:00 AM EST tablet extended release 24hr 30 TAKE ONE TABLET BY MOUTH WITH BREAKFAST TAKE ONE TABLET BY MOUTH WITH BREAKFAST SOLD: 05/26/2020 [facility] 0.05 % 05/26/2020 12:00:00 AM EST ointment 30 USE ONE APPLICATION TWICE A DAY NEEDED ON RIGHT LEG RASH TOPICALLY FOR TEN DAYS USE ONE APPLICATION TWICE A DAY NEEDED ON RIGHT LEG RASH TOPICALLY FOR TEN DAYS SOLD: 06/01/2020 [facility] Clobetasol Propionate 0.0005 MG/MG Topical Ointment [T emovate] Temovate 0.05 % Temovate 0.05 % 05/26/2020 12:00:00 AM EST 1.0 {application} active Temovate 0.05 % eCW1 ([facility]) Clobetasol Propionate 0.0005 MG/MG Topical Ointment [T emovate] Temovate 0.05 % Temovate 0.05 % 05/26/2020 12:00:00 AM EST 1.0 {application} active Temovate 0.05 % eCW1 ([facility]) Clobetasol Propionate 0.0005 MG/MG Topical Ointment [T emovate] Temovate 0.05 % Temovate 0.05 % 05/26/2020 12:00:00 AM EST 1.0 {application} active Temovate 0.05 % eCW1 ([facility]) Levothyroxine Sodium 0.075 MG Oral Tablet Levothyroxin e Sodium 75 MCG Levothyroxine Sodium 75 MCG 05/26/2020 12:00:00 AM EST active Levothyroxine Sodium 75 MCG eCW1 ([facility]) Clobetasol Propionate 0.0005 MG/MG Topical Ointment [T emovate] Temovate 0.05 % Temovate 0.05 % 05/26/2020 12:00:00 AM EST 1.0 {application} active Temovate 0.05 % eCW1 ([facility]) Clobetasol Propionate 0.0005 MG/MG Topical Ointment [T emovate] Temovate 0.05 % Temovate 0.05 % 05/26/2020 12:00:00 AM EST 1.0 {application} active Temovate 0.05 % eCW1 ([facility]) Levothyroxine Sodium 0.075 MG Oral Tablet Levothyroxin e Sodium 75 MCG Levothyroxine Sodium 75 MCG 05/26/2020 12:00:00 AM EST active Levothyroxine Sodium 75 MCG eCW1 ([facility]) 24 HR Glipizide 2.5 MG Extended Release Oral Tablet Gl ipiZIDE ER 2.5 MG GlipiZIDE ER 2.5 MG 05/26/2020 12:00:00 AM EST 1.0 {tablet_with_bre akfast} active GlipiZIDE ER 2.5 MG eCW1 ([facility]) Levothyroxine Sodium 0.075 MG Oral Tablet Levothyroxin e Sodium 75 MCG Levothyroxine Sodium 75 MCG 05/26/2020 12:00:00 AM EST active Levothyroxine Sodium 75 MCG eCW1 ([facility]) 2.5 mg 05/26/2020 12:00:00 AM EST tablet extended release 24hr 30 TAKE ONE TABLET BY MOUTH WITH BREAKFAST TAKE ONE TABLET BY MOUTH WITH BREAKFAST SOLD: 08/23/2020 [facility] 75 mcg 05/26/2020 12:00:00 AM EST tablet 30 TAKE ONE TABLET IN THE MORNING ON AN EMPTY STOMACH TAKE ONE TABLET IN THE MORNING ON AN EMPTY STOMACH [place]ACE [facility] 10 mg 05/26/2020 12:00:00 AM EST tablet 60 TAKE ONE TABLET BY MOUTH TWO TIMES A DAY TAKE ONE TABLET BY MOUTH TWO TIMES A DAY SOLD: 09/18/2020 [facility] Levothyroxine Sodium 0.075 MG Oral Tablet Levothyroxin e Sodium 75 MCG Levothyroxine Sodium 75 MCG 05/26/2020 12:00:00 AM EST active Levothyroxine Sodium 75 MCG eCW1 ([facility]) Clobetasol Propionate 0.0005 MG/MG Topical Ointment [T emovate] Temovate 0.05 % Temovate 0.05 % 05/26/2020 12:00:00 AM EST 1.0 {application} active Temovate 0.05 % eCW1 ([facility]) Clobetasol Propionate 0.0005 MG/MG Topical Ointment [T emovate] Temovate 0.05 % Temovate 0.05 % 05/26/2020 12:00:00 AM EST 1.0 {application} active Temovate 0.05 % eCW1 ([facility]) Propranolol Hydrochloride 10 MG Oral Tablet Propranolo l HCl 10 MG Propranolol HCl 10 MG 05/26/2020 12:00:00 AM EST 1.0 {tablet} ac tive Propranolol HCl 10 MG eCW1 ([facility]) Levothyroxine Sodium 0.075 MG Oral Tablet Levothyroxin e Sodium 75 MCG Levothyroxine Sodium 75 MCG 05/26/2020 12:00:00 AM EST active Levothyroxine Sodium 75 MCG eCW1 ([facility]) Levothyroxine Sodium 0.075 MG Oral Tablet Levothyroxin e Sodium 75 MCG Levothyroxine Sodium 75 MCG 05/26/2020 12:00:00 AM EST active eCW1 ([facility]) Clobetasol Propionate 0.0005 MG/MG Topical Ointment [T emovate] Temovate 0.05 % Temovate 0.05 % 05/26/2020 12:00:00 AM EST 1.0 {application} active Temovate 0.05 % eCW1 ([facility]) 2.5 mg 05/26/2020 12:00:00 AM EST tablet extended release 24hr 30 TAKE ONE TABLET BY MOUTH WITH BREAKFAST TAKE ONE TABLET BY MOUTH WITH BREAKFAST SOLD: 07/23/2020 [facility] Propranolol Hydrochloride 10 MG Oral Tablet Propranolo l HCl 10 MG Propranolol HCl 10 MG 05/26/2020 12:00:00 AM EST 1.0 {tablet} ac tive Propranolol HCl 10 MG eCW1 ([facility]) 75 mcg 05/26/2020 12:00:00 AM EST tablet 30 TAKE ONE TABLET IN THE MORNING ON AN EMPTY STOMACH TAKE ONE TABLET IN THE MORNING ON AN EMPTY STOMACH [facility] Levothyroxine Sodium 0.075 MG Oral Tablet Levothyroxin e Sodium 75 MCG Levothyroxine Sodium 75 MCG 05/26/2020 12:00:00 AM EST active Levothyroxine Sodium 75 MCG eCW1 ([facility]) pantoprazole 40 MG Delayed Release Oral Tablet PANTOPRAZOLE SODIUM 05/25/2020 12:00:00 AM EST tablet,delayed release (DR/EC) 30 T CARRILLO ONE TABLET BY MOUTH EVERY DAY TAKE ONE TABLET BY MOUTH EVERY DAY SOLD: 05/26/2020 [facility] pantoprazole 40 MG Delayed Release Oral Tablet PANTOPRAZOLE SODIUM 05/25/2020 12:00:00 AM EST tablet,delayed release (DR/EC) 30 T CARRILLO ONE TABLET BY MOUTH EVERY DAY TAKE ONE TABLET BY MOUTH EVERY DAY SOLD: 08/23/2020 [facility] pantoprazole 40 MG Delayed Release Oral Tablet PANTOPRAZOLE SODIUM 05/25/2020 12:00:00 AM EST tablet,delayed release (DR/EC) 30 T CARRILLO ONE TABLET BY MOUTH EVERY DAY TAKE ONE TABLET BY MOUTH EVERY DAY SOLD: 09/18/2020 [facility] pantoprazole 40 MG Delayed Release Oral Tablet PANTOPRAZOLE SODIUM 05/25/2020 12:00:00 AM EST tablet,delayed release (DR/EC) 30 T CARRILLO ONE TABLET BY MOUTH EVERY DAY TAKE ONE TABLET BY MOUTH EVERY DAY SOLD: 06/28/2020 [facility] pantoprazole 40 MG Delayed Release Oral Tablet PANTOPRAZOLE SODIUM 05/25/2020 12:00:00 AM EST tablet,delayed release (DR/EC) 30 T CARRILLO ONE TABLET BY MOUTH EVERY DAY TAKE ONE TABLET BY MOUTH EVERY DAY SOLD: 07/23/2020 [facility] 100 mg 05/17/2020 12:00:00 AM EST tablet 30 TAKE ONE TABLET BY MOUTH AT BEDTIME TAKE ONE TABLET BY MOUTH AT BEDTIME SOLD: 05/17/2020 [facility] 0.5 mg 05/17/2020 12:00:00 AM EST tablet 60 TAKE ONE TABLET BY MOUTH TWICE A DAY MAXIMUM DAILY DOSE = 2 TABLETS TAKE ONE TABLET BY MOUTH TWICE A DAY MAX IMUM DAILY DOSE = 2 TABLETS SOLD: 05/17/2020 [facility] 0.375 mg 04/21/2020 12:00:00 AM EST tablet extended release 12 hr 60 TAKE ONE TABLET BY MOUTH EVERY 12 HOURS TAKE ONE TABLET BY MOUTH EVERY 12 HOURS SOLD: 08/23/2020 [facility] 0.375 mg 04/21/2020 12:00:00 AM EST tablet extended release 12 hr 60 TAKE ONE TABLET BY MOUTH EVERY 12 HOURS TAKE ONE TABLET BY MOUTH EVERY 12 HOURS SOLD: 04/28/2020 [facility] 0.375 mg 04/21/2020 12:00:00 AM EST tablet extended release 12 hr 60 TAKE ONE TABLET BY MOUTH EVERY 12 HOURS TAKE ONE TABLET BY MOUTH EVERY 12 HOURS SOLD: 09/18/2020 [facility] 0.375 mg 04/21/2020 12:00:00 AM EST tablet extended release 12 hr 60 TAKE ONE TABLET BY MOUTH EVERY 12 HOURS TAKE ONE TABLET BY MOUTH EVERY 12 HOURS SOLD: 06/17/2020 [facility] 0.375 mg 04/21/2020 12:00:00 AM EST tablet extended release 12 hr 60 TAKE ONE TABLET BY MOUTH EVERY 12 HOURS TAKE ONE TABLET BY MOUTH EVERY 12 HOURS SOLD: 07/23/2020 [facility] 625 mg 04/12/2020 12:00:00 AM EST tablet 60 TAKE ONE TABLET BY MOUTH TWICE A DAY TAKE ONE TABLET BY MOUTH TWICE A DAY SOLD: 06/24/2020 [facility] 625 mg 04/12/2020 12:00:00 AM EST tablet 60 TAKE ONE TABLET BY MOUTH TWICE A DAY TAKE ONE TABLET BY MOUTH TWICE A DAY SOLD: 08/23/2020 [facility] 60 mg 04/12/2020 12:00:00 AM EST capsule 30 TAKE ONE CAPSULE BY MOUTH EVERY MORNING TAKE ONE CAPSULE BY MOUTH EVERY MORNING SOLD: 05/14/2020 [facility] 625 mg 04/12/2020 12:00:00 AM EST tablet 60 TAKE ONE TABLET BY MOUTH TWICE A DAY TAKE ONE TABLET BY MOUTH TWICE A DAY SOLD: 07/23/2020 [facility] 60 mg 04/12/2020 12:00:00 AM EST capsule 30 TAKE ONE CAPSULE BY MOUTH EVERY MORNING TAKE ONE CAPSULE BY MOUTH EVERY MORNING SOLD: 04/14/2020 [facility] 625 mg 04/12/2020 12:00:00 AM EST tablet 60 TAKE ONE TABLET BY MOUTH TWICE A DAY TAKE ONE TABLET BY MOUTH TWICE A DAY SOLD: 09/18/2020 [facility] 625 mg 04/12/2020 12:00:00 AM EST tablet 60 TAKE ONE TABLET BY MOUTH TWICE A DAY TAKE ONE TABLET BY MOUTH TWICE A DAY SOLD: 04/14/2020 [facility] 625 mg 04/12/2020 12:00:00 AM EST tablet 60 TAKE ONE TABLET BY MOUTH TWICE A DAY TAKE ONE TABLET BY MOUTH TWICE A DAY SOLD: 10/19/2020 [facility] 60 mg 04/12/2020 12:00:00 AM EST capsule 30 TAKE ONE CAPSULE BY MOUTH EVERY MORNING TAKE ONE CAPSULE BY MOUTH EVERY MORNING SOLD: 06/07/2020 [facility] 25 mg 04/02/2020 12:00:00 AM EST tablet 90 TAKE ONE TABLET BY MOUTH EVERY 8 HOURS TAKE ONE TABLET BY MOUTH EVERY 8 HOURS SOLD: 04/02/2020 [facility] 0.5 mg 04/02/2020 12:00:00 AM EST tablet 60 TAKE ONE TABLET BY MOUTH TWICE A DAY MAXIMUM DAILY DOSE = 2 TAKE ONE TABLET BY MOUTH TWICE A DAY MAX IMUM DAILY DOSE = 2 SOLD: 04/02/2020 [facility] 0.1 mg/24 hr 03/25/2020 12:00:00 AM EST patch semiweekly 24 APPLY 1 PATCH TOPICALLY TWICE A WEEK APPLY 1 PATCH TOPICALLY TWICE A WEEK SOLD: 09/03/2020 [facility] 0.1 mg/24 hr 03/25/2020 12:00:00 AM EST patch semiweekly 24 APPLY 1 PATCH TOPICALLY TWICE A WEEK APPLY 1 PATCH TOPICALLY TWICE A WEEK SOLD: 03/25/2020 [facility] 0.1 mg/24 hr 03/25/2020 12:00:00 AM EST patch semiweekly 24 APPLY 1 PATCH TOPICALLY TWICE A WEEK APPLY 1 PATCH TOPICALLY TWICE A WEEK SOLD: 02/18/2021 [facility] 0.1 mg/24 hr 03/25/2020 12:00:00 AM EST patch semiweekly 24 APPLY 1 PATCH TOPICALLY TWICE A WEEK APPLY 1 PATCH TOPICALLY TWICE A WEEK SOLD: 11/26/2020 [facility] 10 mg 03/19/2020 12:00:00 AM EST tablet 90 TAKE ONE TABLET BY MOUTH THREE TIMES A DAY TAKE ONE TABLET BY MOUTH THREE TIMES A DAY SOLD: 03/19/2020 [facility] 10 mg 03/19/2020 12:00:00 AM EST tablet 90 TAKE ONE TABLET BY MOUTH THREE TIMES A DAY TAKE ONE TABLET BY MOUTH THREE TIMES A DAY SOLD: 04/14/2020 [facility] 100 mg 03/11/2020 12:00:00 AM EDT tablet 30 TAKE ONE TABLET BY MOUTH EVERY DAY TAKE ONE TABLET BY MOUTH EVERY DAY SOLD: 03/11/2020 [facility] 100 mg 03/11/2020 12:00:00 AM EDT tablet 30 TAKE ONE TABLET BY MOUTH EVERY DAY TAKE ONE TABLET BY MOUTH EVERY DAY SOLD: 07/29/2020 [facility] 100 mg 03/11/2020 12:00:00 AM EDT tablet 30 TAKE ONE TABLET BY MOUTH EVERY DAY TAKE ONE TABLET BY MOUTH EVERY DAY SOLD: 04/07/2020 [facility] 100 mg 03/11/2020 12:00:00 AM EDT tablet 30 TAKE ONE TABLET BY MOUTH EVERY DAY TAKE ONE TABLET BY MOUTH EVERY DAY SOLD: 07/08/2020 [facility] 100 mg 03/11/2020 12:00:00 AM EDT tablet 30 TAKE ONE TABLET BY MOUTH EVERY DAY TAKE ONE TABLET BY MOUTH EVERY DAY SOLD: 06/07/2020 [facility] montelukast 10 MG Oral Tablet MONTELUKAST SODIUM 03/11/2020 12:0 0:00 AM EDT tablet 30 TAKE ONE TABLET BY MOUTH EVERY D AY TAKE ONE TABLET BY MOUTH EVERY DAY SOLD: 07/08/2020 [facility] 100 mg 03/11/2020 12:00:00 AM EDT tablet 30 TAKE ONE TABLET BY MOUTH EVERY DAY TAKE ONE TABLET BY MOUTH EVERY DAY SOLD: 05/05/2020 [facility] montelukast 10 MG Oral Tablet MONTELUKAST SODIUM 03/11/2020 12:0 0:00 AM EDT tablet 30 TAKE ONE TABLET BY MOUTH EVERY D AY TAKE ONE TABLET BY MOUTH EVERY DAY SOLD: 06/07/2020 [facility] montelukast 10 MG Oral Tablet MONTELUKAST SODIUM 03/11/2020 12:0 0:00 AM EDT tablet 30 TAKE ONE TABLET BY MOUTH EVERY D AY TAKE ONE TABLET BY MOUTH EVERY DAY SOLD: 05/14/2020 [facility] montelukast 10 MG Oral Tablet MONTELUKAST SODIUM 03/11/2020 12:0 0:00 AM EDT tablet 30 TAKE ONE TABLET BY MOUTH EVERY D AY TAKE ONE TABLET BY MOUTH EVERY DAY SOLD: 08/16/2020 [facility] montelukast 10 MG Oral Tablet MONTELUKAST SODIUM 03/11/2020 12:0 0:00 AM EDT tablet 30 TAKE ONE TABLET BY MOUTH EVERY D AY TAKE ONE TABLET BY MOUTH EVERY DAY SOLD: 04/14/2020 [facility] sitagliptin 100 MG Oral Tablet [Januvia] Januvia 100 MG [facility] 100 MG 03/10/2020 12:00:00 AM EDT 1.0 {tablet} active Januvia 100 MG eCW1 ([facility]) sitagliptin 100 MG Oral Tablet [Januvia] Januvia 100 MG [facility] 100 MG 03/10/2020 12:00:00 AM EDT 1.0 {tablet} active Januvia 100 MG eCW1 ([facility]) sitagliptin 100 MG Oral Tablet [Januvia] Januvia 100 MG [facility] 100 MG 03/10/2020 12:00:00 AM EDT 1.0 {tablet} active Januvia 100 MG eCW1 ([facility]) sitagliptin 100 MG Oral Tablet [Januvia] Januvia 100 MG [facility] 100 MG 03/10/2020 12:00:00 AM EDT 1.0 {tablet} active Januvia 100 MG eCW1 ([facility]) sitagliptin 100 MG Oral Tablet [Januvia] Januvia 100 MG [facility] 100 MG 03/10/2020 12:00:00 AM EDT 1.0 {tablet} active Januvia 100 MG eCW1 ([facility]) sitagliptin 100 MG Oral Tablet [Januvia] Januvia 100 MG [facility] 100 MG 03/10/2020 12:00:00 AM EDT 1.0 {tablet} active Januvia 100 MG eCW1 ([facility]) sitagliptin 100 MG Oral Tablet [Januvia] Januvia 100 MG [facility] 100 MG 03/10/2020 12:00:00 AM EDT 1.0 {tablet} active Januvia 100 MG eCW1 ([facility]) sitagliptin 100 MG Oral Tablet [Januvia] Januvia 100 MG [facility] 100 MG 03/10/2020 12:00:00 AM EDT 1.0 {tablet} active Januvia 100 MG eCW1 ([facility]) 50 mg 03/10/2020 12:00:00 AM EDT capsule 1 TAKE 1 TABLET [address] TAKE 1 TABLET [address] SOLD: 03/11/2020 [facility] Diphenhydramine Hydrochloride 50 MG Oral Tablet diphenhydrAMINE HCl 50 MG Oral Tablet (BENADRYL) diphenhydrAMINE HCl 50 MG Oral Tablet (BENADRYL) 03/09 12:00:00 AM EDT active Liver lesion 1 tablet, [address] [facility] Liver lesion Prednisone 50 MG Oral Tablet predniSONE 50 MG Oral Tab let (DELTASONE) predniSONE 50 MG Oral Tablet (DELTASONE) 03/09/2020 12:00:00 AM EDT active Liver lesion 1 tablet 13 hours prior to C T, [address] and [address] [facility] Liver lesion BLOOD SUGAR DIAGNOSTIC 03/05/2020 12:00:00 AM EDT strip 50 DIRECTED ONCE DAILY DIRECTED ONCE DAILY SOLD: 03/11/2020 [facility] 400 mg 03/04/2020 12:00:00 AM EDT tablet 30 TAKE ONE TABLET BY MOUTH AT BEDTIME TAKE ONE TABLET BY MOUTH AT BEDTIME SOLD: 03/11/2020 [facility] 400 mg 03/04/2020 12:00:00 AM EDT tablet 30 TAKE ONE TABLET BY MOUTH AT BEDTIME TAKE ONE TABLET BY MOUTH AT BEDTIME SOLD: 04/14/2020 [facility] 400 mg 03/04/2020 12:00:00 AM EDT tablet 30 TAKE ONE TABLET BY MOUTH AT BEDTIME TAKE ONE TABLET BY MOUTH AT BEDTIME SOLD: 05/14/2020 [facility] 400 mg 03/04/2020 12:00:00 AM EDT tablet 30 TAKE ONE TABLET BY MOUTH AT BEDTIME TAKE ONE TABLET BY MOUTH AT BEDTIME SOLD: 06/07/2020 [facility] 5 mg 03/02/2020 12:00:00 AM EDT tablet 30 TAKE ONE TABLET BY MOUTH EVERY EVENING TAKE ONE TABLET BY MOUTH EVERY EVENING SOLD: 08/08/2020 [facility] 5 mg 03/02/2020 12:00:00 AM EDT tablet 30 TAKE ONE TABLET BY MOUTH EVERY EVENING TAKE ONE TABLET BY MOUTH EVERY EVENING SOLD: 03/11/2020 [facility] 5 mg 03/02/2020 12:00:00 AM EDT tablet 30 TAKE ONE TABLET BY MOUTH EVERY EVENING TAKE ONE TABLET BY MOUTH EVERY EVENING SOLD: 06/14/2020 [facility] 5 mg 03/02/2020 12:00:00 AM EDT tablet 30 TAKE ONE TABLET BY MOUTH EVERY EVENING TAKE ONE TABLET BY MOUTH EVERY EVENING SOLD: 05/17/2020 [facility] 5 mg 03/02/2020 12:00:00 AM EDT tablet 30 TAKE ONE TABLET BY MOUTH EVERY EVENING TAKE ONE TABLET BY MOUTH EVERY EVENING SOLD: 07/08/2020 [facility] 300 mg 02/28/2020 12:00:00 AM EDT tablet 30 TAKE ONE TABLET BY MOUTH AT BEDTIME TAKE ONE TABLET BY MOUTH AT BEDTIME SOLD: 03/11/2020 [facility] 600 mg 02/20/2020 12:00:00 AM EDT capsule 90 TAKE ONE CAPSULE BY MOUTH THREE TIMES A DAY TAKE ONE CAPSULE BY MOUTH THREE TIMES A DAY SOLD: 02/20/2020 [facility] quetiapine 100 MG Oral Tablet QUETIAPINE FUMARATE 02/20/2020 12: 00:00 AM EDT tablet 30 TAKE ONE TABLET BY MOUTH AT BEDT DAVID TAKE ONE TABLET BY MOUTH AT BEDTIME SOLD: 04/28/2020 [facility] 600 mg 02/20/2020 12:00:00 AM EDT capsule 90 TAKE ONE CAPSULE BY MOUTH THREE TIMES A DAY TAKE ONE CAPSULE BY MOUTH THREE TIMES A DAY SOLD: 04/28/2020 [facility] quetiapine 100 MG Oral Tablet QUETIAPINE FUMARATE 02/20/2020 12: 00:00 AM EDT tablet 30 TAKE ONE TABLET BY MOUTH AT BEDT DAVID TAKE ONE TABLET BY MOUTH AT BEDTIME SOLD: 05/26/2020 [facility] 25 mg 02/20/2020 12:00:00 AM EDT tablet 90 TAKE ONE TABLET BY MOUTH EVERY 8 HOURS TAKE ONE TABLET BY MOUTH EVERY 8 HOURS SOLD: 02/20/2020 [facility] 10 mg 02/20/2020 12:00:00 AM EDT tablet 60 TAKE ONE TABLET BY MOUTH TWICE A DAY TAKE ONE TABLET BY MOUTH TWICE A DAY SOLD: 02/20/2020 [facility] quetiapine 100 MG Oral Tablet QUETIAPINE FUMARATE 02/20/2020 12: 00:00 AM EDT tablet 30 TAKE ONE TABLET BY MOUTH AT BEDT DAVID TAKE ONE TABLET BY MOUTH AT BEDTIME SOLD: 02/20/2020 [facility] 50 mg 02/14/2020 12:00:00 AM EDT tablet 30 TAKE ONE TABLET BY MOUTH EVERY DAY TAKE ONE TABLET BY MOUTH EVERY DAY SOLD: 04/14/2020 [facility] 50 mg 02/14/2020 12:00:00 AM EDT tablet 30 TAKE ONE TABLET BY MOUTH EVERY DAY TAKE ONE TABLET BY MOUTH EVERY DAY SOLD: 05/14/2020 [facility] 50 mg 02/14/2020 12:00:00 AM EDT tablet 30 TAKE ONE TABLET BY MOUTH EVERY DAY TAKE ONE TABLET BY MOUTH EVERY DAY SOLD: 02/20/2020 [facility] 50 mg 02/14/2020 12:00:00 AM EDT tablet 30 TAKE ONE TABLET BY MOUTH EVERY DAY TAKE ONE TABLET BY MOUTH EVERY DAY SOLD: 06/07/2020 [facility] 5 mg 2020 12:00:00 AM EDT tablet 30 TAKE ONE TABLET BY MOUTH EVERY EVENING TAKE ONE TABLET BY MOUTH EVERY EVENING SOLD: 02/20/2020 [facility] BLOOD SUGAR DIAGNOSTIC 02/12/2020 12:00:00 AM EDT strip 100 ONE MISCELLANEOUS THREE TIMES A DAY ONE MISCELLANEOUS THREE TIMES A DAY SOLD: 05/28/2020 [facility] BLOOD SUGAR DIAGNOSTIC 02/12/2020 12:00:00 AM EDT strip 100 ONE MISCELLANEOUS THREE TIMES A DAY ONE MISCELLANEOUS THREE TIMES A DAY SOLD: 07/08/2020 [facility] BLOOD SUGAR DIAGNOSTIC 02/12/2020 12:00:00 AM EDT strip 100 ONE MISCELLANEOUS THREE TIMES A DAY ONE MISCELLANEOUS THREE TIMES A DAY SOLD: 02/12/2020 [facility] 0.5 mg 02/11/2020 12:00:00 AM EDT tablet 60 TAKE ONE TABLET BY MOUTH TWICE A DAY MAXIMUM DAILY DOSE = 2 TAKE ONE TABLET BY MOUTH TWICE A DAY MAX IMUM DAILY DOSE = 2 SOLD: 02/12/2020 [facility] 1 mg 02/11/2020 12:00:00 AM EDT tablet 60 TAKE ONE TABLET BY MOUTH TWICE A DAY NEEDED TAKE ONE TABLET BY MOUTH TWICE A DAY NEEDED SOLD: 02/12/2020 [facility] 1 mg 02/11/2020 12:00:00 AM EDT tablet 60 TAKE ONE TABLET BY MOUTH TWICE A DAY NEEDED TAKE ONE TABLET BY MOUTH TWICE A DAY NEEDED SOLD: 04/14/2020 [facility] 1,250 mcg (50,000 unit) 01/29/2020 12:00:00 AM EDT capsule 4 TAKE 1 CAPSULE BY MOUTH ONCE WEEKLY TAKE 1 CAPSULE BY MOUTH ONCE WEEKLY SOLD: 02/26/2020 [facility] 1,250 mcg (50,000 unit) 01/29/2020 12:00:00 AM EDT capsule 4 TAKE 1 CAPSULE BY MOUTH ONCE WEEKLY TAKE 1 CAPSULE BY MOUTH ONCE WEEKLY SOLD: 06/01/2020 [facility] quetiapine 100 MG Oral Tablet QUETIAPINE FUMARATE 01/29/2020 12: 00:00 AM EDT tablet 30 TAKE ONE TABLET BY M OUTH AT BEDTIME WITH 400MG TABLET FOR A TOTAL OF 500MG TAKE ONE TABLET BY MOUTH AT BEDTIME WITH 400MG TABLET FOR A TOTAL OF 500MG SOLD: 01/30/2020 [facility] 1,250 mcg (50,000 unit) 01/29/2020 12:00:00 AM EDT capsule 4 TAKE 1 CAPSULE BY MOUTH ONCE WEEKLY TAKE 1 CAPSULE BY MOUTH ONCE WEEKLY SOLD: 01/30/2020 [facility] 1,250 mcg (50,000 unit) 01/29/2020 12:00:00 AM EDT capsule 4 TAKE 1 CAPSULE BY MOUTH ONCE WEEKLY TAKE 1 CAPSULE BY MOUTH ONCE WEEKLY SOLD: 03/25/2020 [facility] 1,250 mcg (50,000 unit) 01/29/2020 12:00:00 AM EDT capsule 4 TAKE 1 CAPSULE BY MOUTH ONCE WEEKLY TAKE 1 CAPSULE BY MOUTH ONCE WEEKLY SOLD: 05/05/2020 [facility] 0.5 mg 01/22/2020 12:00:00 AM EDT tablet 60 TAKE ONE TABLET BY MOUTH TWICE A DAY NEEDED TAKE ONE TABLET BY MOUTH TWICE A DAY NEEDED SOLD: 020 [facility] . UNIT 01/22/2020 12:00:00 AM EDT Injectable 1 AD MIN FEE ADMIN FEE SOLD: 01/22/2020 [facility] 0.5 mg 01/20/2020 12:00:00 AM EDT tablet 30 TAKE ONE TABLET BY MOUTH AT BEDTIME MAXIMUM DAILY DOSE = ONE TABLET TAKE ONE TABLET BY MOUTH AT BEDTIME MAXIMUM DAILY DOSE = ONE TABLET SOLD: 01/21/2020 [facility] 0.1 mg/24 hr 12/29/2019 12:00:00 AM EDT patch semiweekly 24 APPLY 1 PATCH TO SKIN TWICE A WEEK APPLY 1 PATCH TO SKIN TWICE A WEEK SOLD: 06/18/2020 [facility] 60 mg 12/05/2019 12:00:00 AM EDT capsule 30 TAKE ONE CAPSULE BY MOUTH EVERY MORNING TAKE ONE CAPSULE BY MOUTH EVERY MORNING SOLD: 02/12/2020 [facility] Trazodone Hydrochloride 100 MG Oral Tablet TRAZODONE HCL 11/26/2019 12:00:00 AM EDT tablet 30 TAKE ONE TABLET BY MOUTH AT BEDTIME TAKE ONE TABLET BY MOUTH AT BEDTIME SOLD: 02/12/2020 [facility] 50 mg 11/26/2019 12:00:00 AM EDT tablet 30 TAKE ONE TABLET BY MOUTH EVERY DAY TAKE ONE TABLET BY MOUTH EVERY DAY SOLD: 01/28/2020 [facility] 600 mg 11/25/2019 12:00:00 AM EDT capsule 90 TAKE ONE CAPSULE BY MOUTH THREE TIMES A DAY MAXIMUM DAILY DOSE = 3 TAKE ONE CAPSULE BY MOUTH THREE TIMES A DAY MAXIMUM DAILY DOSE = 3 SOLD: 01/21/2020 [facility] 400 mg 11/25/2019 12:00:00 AM EDT tablet 30 TAKE ONE TABLET BY MOUTH AT BEDTIME TAKE ONE TABLET BY MOUTH AT BEDTIME SOLD: 01/21/2020 [facility] 50 mcg 11/24/2019 12:00:00 AM EDT tablet 30 TAKE ONE TABLET BY MOUTH EVERY DAY TAKE ONE TABLET BY MOUTH EVERY DAY SOLD: 01/28/2020 [facility] 50 mcg 11/24/2019 12:00:00 AM EDT tablet 30 TAKE ONE TABLET BY MOUTH EVERY DAY TAKE ONE TABLET BY MOUTH EVERY DAY SOLD: 04/28/2020 [facility] 50 mcg 11/24/2019 12:00:00 AM EDT tablet 30 TAKE ONE TABLET BY MOUTH EVERY DAY TAKE ONE TABLET BY MOUTH EVERY DAY SOLD: 03/25/2020 [facility] 50 mcg 11/24/2019 12:00:00 AM EDT tablet 30 TAKE ONE TABLET BY MOUTH EVERY DAY TAKE ONE TABLET BY MOUTH EVERY DAY SOLD: 02/26/2020 [facility] pantoprazole 40 MG Delayed Release Oral Tablet PANTOPRAZOLE SODIUM 11/06/2019 12:00:00 AM EDT tablet,delayed release (DR/EC) 30 T CARRILLO ONE TABLET BY MOUTH EVERY DAY TAKE ONE TABLET BY MOUTH EVERY DAY SOLD: 02/26/2020 [facility] pantoprazole 40 MG Delayed Release Oral Tablet PANTOPRAZOLE SODIUM 11/06/2019 12:00:00 AM EDT tablet,delayed release (DR/EC) 30 T CARRILLO ONE TABLET BY MOUTH EVERY DAY TAKE ONE TABLET BY MOUTH EVERY DAY SOLD: 03/25/2020 [facility] pantoprazole 40 MG Delayed Release Oral Tablet PANTOPRAZOLE SODIUM 11/06/2019 12:00:00 AM EDT tablet,delayed release (DR/EC) 30 T CARRILLO ONE TABLET BY MOUTH EVERY DAY TAKE ONE TABLET BY MOUTH EVERY DAY SOLD: 04/28/2020 [facility] pantoprazole 40 MG Delayed Release Oral Tablet PANTOPRAZOLE SODIUM 11/06/2019 12:00:00 AM EDT tablet,delayed release (DR/EC) 30 T CARRILLO ONE TABLET BY MOUTH EVERY DAY TAKE ONE TABLET BY MOUTH EVERY DAY SOLD: 01/28/2020 [facility] 50 mg 11/05/2019 12:00:00 AM EDT tablet 30 TAKE ONE TABLET BY MOUTH EVERY DAY TAKE ONE TABLET BY MOUTH EVERY DAY SOLD: 09/03/2020 [facility] Trazodone Hydrochloride 100 MG Oral Tablet TRAZODONE HCL 11/05/2019 12:00:00 AM EDT tablet 30 TAKE ONE TABLET BY MOUTH AT BEDTIME TAKE ONE TABLET BY MOUTH AT BEDTIME SOLD: 04/14/2020 [facility] 50 mg 11/05/2019 12:00:00 AM EDT tablet 30 TAKE ONE TABLET BY MOUTH EVERY DAY TAKE ONE TABLET BY MOUTH EVERY DAY SOLD: 07/29/2020 [facility] 600 mg 10/16/2019 12:00:00 AM EDT capsule 60 TAKE ONE CAPSULE BY MOUTH THREE TIMES A DAY TAKE ONE CAPSULE BY MOUTH THREE TIMES A DAY SOLD: 07/09/2020 [facility] 0.375 mg 10/03/2019 12:00:00 AM EDT tablet extended release 12 hr 60 TAKE ONE TABLET BY MOUTH EVERY 12 HOURS TAKE ONE TABLET BY MOUTH EVERY 12 HOURS SOLD: 03/25/2020 [facility] 0.375 mg 10/03/2019 12:00:00 AM EDT tablet extended release 12 hr 60 TAKE ONE TABLET BY MOUTH EVERY 12 HOURS TAKE ONE TABLET BY MOUTH EVERY 12 HOURS SOLD: 02/20/2020 [facility] 0.375 mg 10/03/2019 12:00:00 AM EDT tablet extended release 12 hr 60 TAKE ONE TABLET BY MOUTH EVERY 12 HOURS TAKE ONE TABLET BY MOUTH EVERY 12 HOURS SOLD: 01/21/2020 [facility] 625 mg 09/11/2019 12:00:00 AM EDT tablet 60 TAKE ONE TABLET BY MOUTH TWICE A DAY TAKE ONE TABLET BY MOUTH TWICE A DAY SOLD: 02/12/2020 [facility] montelukast 10 MG Oral Tablet MONTELUKAST SODIUM 08/25/2019 12:0 0:00 AM EDT tablet 30 TAKE ONE TABLET BY MOUTH EVERY D AY TAKE ONE TABLET BY MOUTH EVERY DAY SOLD: 02/12/2020 [facility] Providers Payer name Policy type / Coverage type Policy ID Covered constitution party ID Covered constitution party's relationship to desai Policy Desai Plan Information POMCO [id number] SP [id number] POMCO [id number] SP [id number] POMCO [id number] Self [id number] POMCO [id number] SP [id number] POMCO [id number] SP [id number] POMCO [id number] SP [id number] POMCO [id number] SP [id number] r Commercial [id number] Self [id number] UMR U [id number] Self [id number] UMR [facility] [id number] SP [id number] UMR [facility] [id number] SP [id number] UMR [facility] [id number] SP [id number] Umr Commercial [id number] Self [id number] ANSI-Commercial [id number] ANSI-Commercial [id number] ANSI-Commercial [id number] ANSI-Commercial [id number] ANSI-Commercial [id number] ANSI-Commercial [id number] ANSI-Commercial [id number] ANSI-Commercial [id number] ANSI-Commercial [id number] ANSI-Commercial [id number] ANSI-Commercial [id number] [facility] Medigap Part B [id number] Self [id number] [facility] Medigap Part B [id number] Self [id number] ANSI-Commercial [id number] ANSI-Commercial [id number] ANSI-Commercial [id number] ANSI-Commercial [id number] ANSI-Commercial [id number]-vqix-9659-x5y1-h5r0uf292tz5 ANSI-Commercial 54qz8b5x-fh46-79ad-20gg-29t355879f90 67iy1s6r-it79-21qv-09dh-15w719948o89 ANSI-Commercial 141d2v7l-4l0d-2791-6m95-62d66279kdb9 933m4s7s-3i3w-4316-7o05-17h21484dze4 ANSI-Commercial 2a92626l-2756-967d-5118-c6wk20125h7d 1y68269v-0845-830u-6042-p8nu78794f1m ANSI-Commercial 78rgsd5v-53j5-3213-37h7-0x1tohqgs31b 80rqwf2h-01c4-8390-75c4-7t4ztanlt18y ANSI-Commercial 7s164wii-082z-2377-ez77-i643117579b2 1q859rxj-748m-0893-sh87-x223103220j2 ANSI-Commercial 6qb1k4gh-2e0y-6v7h-m0q4-8x9al28856ok 9ai2r6hu-4f1y-0t3u-o7f9-2l2oi43366ee ANSI-Commercial u73s7032-504g-9914-g825-128kym8994k7 f79g6995-961d-8197-x248-641qcu2460r5 [facility] [id number] Self [id number] ANSI-Commercial fs2w9589-ot9y-38dg-812q-96a7129163bw cf3w5886-ov7g-38xm-191f-58p2019106ce ANSI-Commercial 3368i586-44l8-5025-160o-1372pnx315wb 7257n999-16b4-4342-724b-3530uqo153ji ANSI-Commercial 9i230556-wv40-3817-m945-w782009q948w 5a669604-ec18-5454-r172-m161372k327p ANSI-Commercial 4m1eis5s-hs56-9802-eac1-971e84x912gd 2l4fco4a-fb16-7324-pru4-847d25s521pv Self Pay P none S none ANSI-Commercial 9b5y7607-ig90-5kmf-81h6-c6z94070m987 8l7d3364-an52-0yby-07w6-d5k88120h855 ANSI-Commercial 52mp1386-23cy-5c46-4qr7-15w3980n25v7 79fe4608-55vm-3v48-0dg0-57n7080y45a1 ANSI-Commercial 4x6639nl-56q7-599a-v63q-298396ou9w51 5l7928ne-49o4-235h-g16b-993579ad8q56 ANSI-Commercial v30168es-nycl-383t-5kl7-x3py16vhf5l8 i55529ki-jeef-035r-9ao4-i1sp91dnd3t3 ANSI-Commercial 5u0c0p10-d933-9401-0a29-64u92h0h7832 2z3h1u00-w274-6688-0d49-25u29l7c3935 ANSI-Commercial 94c226cq-1525-0g27-y790-66o29p37yxp2 95d960jy-6846-8u23-u210-79k47s05jah1 ANSI-Commercial n0618939-0z82-5464-9911-115cuv466l4r e3449129-8o61-7429-7157-496crh431n3q ANSI-Commercial 952147is-42vk-1u9k-0544-r06544h6z76k 329046zl-45fv-6e6r-7668-c95290b3k22m ANSI-Commercial 5727ek9u-v059-3d19-aaog-m8730do1o026 7495sz7n-z378-1s90-dugf-v9793kq0n813 ANSI-Commercial on60j146-007e-8y46-r7ox-544s6b5rom43 hj80v588-054z-8l36-s1up-697w1s5uxt59 ANSI-Commercial tlv6h976-3130-4976-eh1i-3m8wzy1xp7r3 fsy4z394-7337-6578-zu1u-4l9pzz2bw7c0 ANSI-Commercial 824a97g7-02q8-6161-2yz5-8o7rb42k6k7b 977h68e2-04k3-4061-6vf0-4l3qg18s0z2v ANSI-Commercial 99czky19-7d13-6i12-1522-3h3v9c4366z7 48cvai16-5n03-9c80-0016-4i9m8t4074q5 ANSI-Commercial v8e74g5q-985w-02ug-3007-138n5cz8h3d5 j5c99m9h-180u-04jq-6713-219d6hc3t0p7 ANSI-Commercial umy08v5x-i7r9-0x13-e29z-59i710631709 aco96c6l-x0y7-7v86-f72y-39v851445234 ANSI-Commercial i28hs018-0g97-3tru-ha68-35z8zh9717kx d20nh729-1u96-9zdz-pt09-21w0zm6878jv ANSI-Commercial 292w5f73-rk5q-3wry-jb96-720qk100701a 205h9w64-cg4q-8prs-ak35-871lm667872v ANSI-Commercial 5379l09y-93gy-3tpu-5525-34gy996t2n3n 4089z52f-74tc-7byo-0081-67nr495d6l5e ANSI-Commercial 7e08x17r-402b-7cw6-tcu8-6t0e715584z5 1n16s46x-908k-9ir2-lyd8-2h8n460002q4 ANSI-Commercial u7c751mz-28i6-79nr-er3c-ed92t9112g8d j6o504sm-46w6-06dt-rx3p-ht70i8413g1a ANSI-Commercial 82u0l733-zkb4-223n-07se-14041l15019h 02z6v060-gjr6-563s-72ax-11841u51059c ANSI-Commercial h519chyr-03qs-224p-d0r8-40i1r92k153k q099jkar-63sp-679n-b4m9-12j0r84q077w ANSI-Commercial my56v227-ck68-7og5-jd44-z70n7438004t zn80j826-jh07-8ns6-rh02-r17j2316150u ANSI-Commercial 9756d350-0744-140g-d134-82811k405as4 2682t058-3826-700o-o136-94592r075dk2 ANSI-Commercial 7aw40f3x-r756-0r43-5gf9-a0616gwj6afa 9ve14o0l-n270-5r72-6op6-a8713ars8fvg ANSI-Commercial 7e92c33x-0626-0n90-a6s5-2wo3m03f3599 6h49x56z-7472-1q93-t9v9-9rc5a96l1529 ANSI-Commercial 4ij63x04-wjaf-3ysq-6t9q-r851fx054v69 0xs05q55-owvq-3dul-3y4u-n632ko037x75 ANSI-Commercial g4kxi27e-iu0m-0i13-x9m3-32s0s0j2162p q2zqf96u-jh6u-6e22-k0l7-96f9t9q2646q ANSI-Commercial 55p0d783-9779-6up1-37a1-h8qpl82173v4 72d3w444-0390-2jg8-21o6-o8lyr27787h5 ANSI-Commercial 1qo62dko-2c08-5h9w-67w2-zb6415c10p44 3ap78poe-6t31-9w0w-16o0-tt7344b07a64 ANSI-Commercial 9w365793-8827-5n31-1088-2ji791516a37 9n279411-2464-2k17-3767-0ll089698f88 ANSI-Commercial 384v4l44-c569-311r-t338-878n3u63070o 605k8a54-g999-949x-w258-964x3u99575a ANSI-Commercial 85kz2533-6a7x-6vwf-533h-9994046nlc7k 99gh0810-2g1a-7qbi-323o-2698325meb8p ANSI-Commercial 162f5x80-fa69-2883-m918-7ya6qlq95991 285c1c92-ss18-4086-p834-6xv7zny17899 ANSI-Commercial 379ul70k-7x06-651m-r7f1-6320fi34zp26 437qt54p-1f94-298u-x2j2-1722xu91aw52 ANSI-Commercial 3008d0y2-dg5o-2934-6q6k-cd1nbafu565b 2137h8m0-ki2t-2959-4v1r-em1poonb598y ANSI-Commercial 48lqj052-3446-3159-rt3o-d31z0sd95z8b 79yws675-6421-2351-it9q-u14d5cs27w6c ANSI-Commercial 2ayz38u7-6c95-7491-157a-dokn88730884 0jid19a5-9o83-0337-518u-jgan67515921 ANSI-Commercial rgs43784-320y-505u-7lpc-8bg14h76hw4v zoa30366-927v-360l-0qip-3tp90k21mw9n ANSI-Commercial 053er68j-4405-2254-ab41-r8657fg719f0 664sn84r-9716-6511-kt01-g2584sx503k1 ANSI-Commercial 90ol7cf4-kmi9-8170-l4i9-14v8y3d8h617 35fh1ga1-edk1-9303-e1v9-17u6s3f0p572 ANSI-Commercial 35e94c7f-8396-7481-5ng9-wn2n7y1s28aa 40v88j5m-8073-4259-0sf4-tn6q3v1h83wh ANSI-Commercial 4ei41729-50yv-12r7-bp0t-55x0238i800t 4fl79362-29hu-60d5-sk4x-93y2195h265r ANSI-Commercial w239g15z-29w6-9345-b558-duw941697580 j981y61r-12t1-5999-y433-zpn987311477 ANSI-Commercial rq8w8q48-5e11-00r6-lb32-qxvdql0u9637 za8x1o40-9j10-51w9-jf85-swusoy7u2779 ANSI-Commercial 1z8j0orl-95rn-3t9y-f386-g081n31cq953 9d5g6lgo-94jz-0f3x-p282-b273w25ll783 ANSI-Commercial t55og10r-883z-6281-4f4g-qw5k7805k3d0 l79iq05y-438n-7455-3s6t-ba9p8137t4e2 ANSI-Commercial k6042n8q-79so-510z-77o1-emfg22rd6nm8 n0173a8v-32ql-776s-95s6-amda29vl9xy6 UMR [facility] [id number] SP [id number] POMCO [id number] SP [id number] POMCO [id number] SP [id number] POMCO P UNAVAILABLE S UNAVAILA BLE Self Pay P UNAVAILABLE S UNAVAILA BLE POMCO HEA [id number] S [id number] [employer] Commercial [id number] Self [id number] POMCO [id number] SP [id number] POMCO [id number] SP [id number] POMCO [id number] SP [id number] POMCO PPO P [id number] S [id number] NCA COMP [id number] SP [id number] POMCO 2 [id number] SELFPAY 5 UNAVAILABLE 1 UNAVAILA BLE O UNAVAILABLE UNAVAILA BLE UMR [facility] [id number] SP [id number] NCA COMP [employer]. P [id number] S [id number] UMR [id number] S [id number] SELF PAY UNAVAILABLE S UNAVAILA BLE UMR [id number] S [id number] UMR [id number] S [id number] UMR [id number] S [id number] N POMCO [id number] S [id number] UMR [id number] S [id number] UMR [id number] S [id number] UMR [id number] S [id number] UMR O [id number] S [id number] UMR HEA [id number] S [id number] ANSI-Commercial 517t6c6q-05tp-9v7s-o466-[id number] 639k7z2z-50zf-4c9a-l512-u5841v94f348 Problems, Conditions, and Diagnoses Code Display Name Description Problem Type Effective Dates Data Source(s) F90.9 Attention-deficit hyperactivity disorder , unspecified type ATTENTION- DEFICIT HYPERACTIVITY DISORDER, UNSPECIF Diagnosis 02/17/2021 05:39:00 PM [facility] F60.9 Personality disorder, unspecified PERSONALITY DI SORDER, UNSPECIFIED Diagnosis 02/17/2021 05:39:00 PM EDT [facility] F31.9 Bipolar disorder, unspecified BIPOLAR DISORDER, UNSPEC IFIED Diagnosis 02/17/2021 05:39:00 PM EDT [facility] D13.4 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liver 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liver Diag nosis 04/07/2020 08:10:13 AM [facility] R25.1 Tremor, unspecified TREMOR, UNSPECIFIED Diagnosis 1 06:00:00 PM EDT [facility] K31.84 [id number] Gastroparesis Problem 11/16/2020 12:00:00 AM EDT eCW1 ([facility]) 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 Problem 09/22/2020 12:00:00 AM EDT eCW1 ([facility]) E55.9 Vitamin D deficiency Vitamin D deficiency Problem 08/04/2020 12:00:00 AM EDT eCW1 ([facility]) F60.9 Personality disorder Personality disorder, unspecified Problem 03/11/2020 12:00:00 AM EDT eCW1 ([facility]) F90.9 Attention deficit hyperactivity disorder ADHD (attention deficit hyperactivity disorder) Problem 02/12/2020 12:00:00 AM EDT eCW1 ([facility]) Surgeries/Procedures Procedure Description Date Indications Data Source(s) OFFICE OUTPATIENT VISIT 25 MINUTES 02/23/2021 12:00:00 AM EDT MEDKAILE[facility] ([facility], ) OFFICE OUTPATIENT VISIT 25 MINUTES 12/29/2020 12:00:00 AM EDT [facility] ([facility]) PNEUMOCOCCAL CONJ VACCINE 13 VALENT IM 11/16/2020 12:0 0:00 AM EDT eCW1 ([facility]) Spirometry 11/09/2020 12:00:00 AM EDT Hilario PARRA ([facility], ) OFFICE OUTPATIENT VISIT 25 MINUTES 11/09/2020 12:00:00 AM EDT [facility]AILE[facility] ([facility], ) Endoscopy Upper GI Remove Foreign Body 08/31/2020 12:0 0:00 AM EDT [facility] ([facility], ) OFFICE OUTPATIENT VISIT 15 MINUTES 08/19/2020 12:00:00 AM EDT [facility] ([facility]) OFFICE OUTPATIENT VISIT 25 MINUTES 07/27/2020 12:00:00 AM EDT [facility] ([facility]) OFFICE OUTPATIENT NEW 30 MINUTES 07/08/2020 12:00:00 A M EST [facility] ([facility]) Results ID Date Data Source [id number] 02/03/2021 03:54:00 PM EDT [facility] ([facility]) Name Value Range Interpretation Code Description Data Thu rce(s) Supporting Document(s) Creatinine For GFR 0.70 mg/dL 0.55-1.30 Normal (applies to non -numeric results) [facility] ([facility]) Glomerular Filtration Rate Laboratory test result Normal (applies to non- numeric results) [facility]) <content>Units are mL/min/1.73 m2</content>
<content></content>
<content>Chronic Kidney Disease Staging per NKF:</content>
<content></content>
<content>Stage I & II GFR >=60 Normal to Mildly Decreased</content>
<content>Stage III GFR 30- 59 Moderately Decreased</content>
<content>Stage IV GFR 15-29 Severely Decreased</content>
<content>Stage V GFR <15 Very Little GFR Left</content>
<content>ESRD GFR <15 on ACCOUNT RECEIVABLE ASSOCIATE</content>
<content></content> ID Date Data Source [id number] 02/03/2021 03:54:00 PM EDT [facility] ([facility]) Name Value Range Interpretation Code Description Data Thu rce(s) Supporting Document(s) Urea nitrogen [Mass/volume] in Serum or Plasma 9 mg/dL 7 -18 Normal (applies to non-numeric results) [facility]) ID Date Data Source [id number] 11/09/2020 02:50:00 PM EDT [facility] ([facility]) Name Value Range Interpretation Code Description Data Thu rce(s) Supporting Document(s) FVC-Pred 3.53 L [facility] ([facility], ) PDFReport Laboratory test result [facility] ([facility], ) FVC-%Pred-Pre 47 L [facility] ([facility], ) FVC-Pre 1.66 L [facility] ([facility]) FVC-LLN 2.86 L [facility] ([facility], ) Fev1-Pre 1.45 L [facility] ([facility]) Fev1-%Pred-Pre 49 L [facility] ([facility]) Fev1-Pred 2.89 L [facility] ([facility]) Fev1-LLN 2.34 L [facility] ([facility]) Fev6-Pre 1.66 L [facility] ([facility]) Fev6-Pred 3.47 L [facility] ([facility]) Ysr7ltw-Jovb 83 % [facility] ([facility]) Fev6-%Pred-Pre 47 L [facility] ([facility]) Fev6-LLN 2.82 L [facility] ([facility]) Avc1nyh-Did 87 % [facility] ([facility]) Knu0iwy-%Pred-Pre 105 % [facility] ([facility]) Wge0epv-MWL 73 % [facility] ([facility]) Azq8krb-Sgtx 98 % [facility] ([facility]) Cvz5dhf-Nla 100 % [facility] ([facility]) Tnx7gnt-%Pred-Pre 101 % [facility] ([facility]) FEFMax-%Pred-Pre 46 L/E/sec [facility] ([facility]) FEFMax-Pred 6.75 L/E/sec [facility] ([facility]) FEFMax-Pre 3.11 L/E/sec [facility] ([facility]) FEFMax-LLN 5.12 L/E/sec [facility] ([facility], ) Rqq0260-Qbjr 3.08 L/E/sec [facility] ([facility]) Ygj7373-Tsf 1.48 L/E/sec [facility] ([facility]) Kjl0747-UIJ 1.90 L/E/sec [facility] ([facility], ) Mhq4506-%Pred-Pre 47 L/E/sec [facility] ([facility]) ExpTime-Pre 5.98 sec [facility] ([facility]) Bhb8ocv3-Ndbu 84 % [facility] ([facility], ) Snq6sua4-%Pred-Pre 103 % [facility] ([facility]) Ocj3iqb6-Xqu 87 % [facility] ([facility]) Hjt5kjz5-TUK 75 % [facility] ([facility]) ID Date Data Source [id number] 09/22/2020 12:00:00 AM EDT [facility] Name Value Range Interpretation Code Description Data Thu rce(s) Supporting Document(s) 2019 Novel Coronavirus RNA Negative [facility] This lab was ordered by [facility] and reported by [facility]. ID Date Data Source [id number] 08/26/2020 09:30:00 AM EDT [facility] Name Value Range Interpretation Code Description Data Thu rce(s) Supporting Document(s) SARS-CoV-2 (COVID-19) RNA [Presence] in Respiratory specimen by NANCY with probe detection Not Detected [facility] This lab was ordered by [facility] and reported by [employer]. ID Date Data Source [id number] 04/07/2020 09:42:[address] [facility] Name Value Range Interpretation Code Description Data Thu rce(s) Supporting Document(s) Progress Note [facility] CVDMSc5hJxGYRsDh17/SAZcgKPUor3FcCTowOUx9ECtmSGMpH5RbITK6hV3eQFX3ZAeSTkAmMyLaPHF1 [facility] [file] ICAgICAgICAgICAgICAgICAgICAgICAgICAgICAgICAgICAgICAgICAgICAgICAgICAgICAgICAgICAg ICAgICAgICAgICAgICAgICAgICAgICAgDQogICAgIC AgICAgICAgICAgICAgICAgICAgICAgICAgICAgICAgICAgICAgICAgICAgICAgICAgICAgICAgICAgIC AgICAgICAgICAgICAgICAgICAgICAgICAgICAgICAgICAgDQogICAgICAgICAgICAgICAgICAgICAgIC AgICAgICAgICAgICAgICAgICAgICAgICAgICAgICAg ICAgICAgICAgICAgICAgICAgICAgICAgICAgICAgICAgICAgICAgICAgICAgDQogICAgICAgICAgICAg ICAgICAgICAgICAgICAgICAgICAgICAgICAgICAgICAgICAgICAgICAgICAgICAgICAgICAgICAgICAg ICAgICAgICAgICAgICAgICAgICAgICAgICAgDQogIC AgICAgICAgICAgICAgICAgICAgICAgICAgICAgICAgICAgICAgICAgICAgICAgICAgICAgICAgICAgIC AgICAgICAgICAgICAgICAgICAgICAgICAgICAgICAgICAgICAgDQogICAgICAgICAgICAgICAgICAgIC AgICAgICAgICAgICAgICAgICAgICAgICAgICAgICAg ICAgICAgICAgICAgICAgICAgICAgICAgICAgICAgICAgICAgICAgICAgICAgICAgDQogICAgICAgICAg ICAgICAgICAgICAgICAgICAgICAgICAgICAgICAgICAgICAgICAgICAgICAgICAgICAgICAgICAgICAg ICAgICAgICAgICAgICAgICAgICAgICAgICAgICAgDQ ogICAgICAgICAgICAgICAgICAgICAgICAgICAgICAgICAgICAgICAgICAgICAgICAgICAgICAgICAgIC AgICAgICAgICAgICAgICAgICAgICAgICAgICAgICAgICAgICAgICAgDQogICAgICAgICAgICAgICAgIC AgICAgICAgICAgICAgICAgICAgICAgICAgICAgICAg ICAgICAgICAgICAgICAgICAgICAgICAgICAgICAgICAgICAgICAgICAgICAgICAgICAgDQogICAgICAg ICAgICAgICAgICAgICAgICAgICAgICAgICAgICAgICAgICAgICAgICAgICAgICAgICAgICAgICAgICAg ICAgICAgICAgICAgICAgICAgICAgICAgICAgICAgIC WdNMl2X9plHIQnWZMdXM0eENh7Vh7+ENnFYoIrDVZ0hfPleQ2OZP8ur7UqRKmxYWZpz9TlFUz5TA3BMO ZpWCarPJ8CODanzt9IDOAgFTYhxCXQy0alHmLjWJQ8NFYjPtqrYO0CGCOzD9mpfsFgBJEmTSEQORjmIR ZXXIgpILVZSMWhYONnDwWzQxTdVILgGSYgTLBWSC0B VkOtZ3FbjY68MPWOFz1+YZrgeoWlZycEVtGdVOWwc8CfJEp0VH9JETAqCziwc4HiEoJnIOBWZAcyQI3B YLJ8AIQtGPSpGn4TGQXeQ867rnXzZD0WVa9XEdHkGN2dfo1UBsWyQXGzAraAHvw1NGxdZW3BlNHlWJzR my5qqsQlrxNRh1WcuoNquTNNq2udVYArNYcxWAgru7 YfpKHfOFQEPFTugOGoJE8hFZ9wRDFlPXY1TcXxXIGRKH9ARYOkBUYvrXAhMFTrSJNUBU6IELtpEMG3LK YqhdBdgCPgAEohAS0LLZEywbJlJuRoPBBGUTl+Ir9BQO3px9ToRDksHKRbLZ0lcp0KSAgKUsMpV2C6yS TsC2Z5KXbeXe0WWRDzQTCyQyAqONNZXRaxQH7GAC7w dxY2EZ7JqHNfKIQpXYLaqLKxRIl3V37ixHAxMVtjYA3LOWC+Shirley+Mf4YZIBzKFWvODNxJmGcJTLKMbIj L6OcR2ULj4FyC8SdEY38kTpfkfXqSDplEP7ZKR8yLBJtMSPPIW2ZyBSojK4qhiFlSrReABEFSnQvW52m qZFjHUFrVPHoXAUiIa9TVFEzN9VpuySzwLhhceUlAD YwEEGFRG9SXLqcxdGpbLSfbFyvMV19lInpEW0BBp9UGwGdRL1wxt8QoFWaFt9XBSInZF5KIPKgMKTvLV ZtTCY0WKOsSvDjNEglHCLfJXGpSVE9WDBqLBCoYV0HSsHkXBUwSUtiRCEvGYIkUZBpgm7XZCWmUWM0HB r1UNDxOPXsWSTcDXcwSPSpXDRkEWT4GSOvJIBfCF2G FrTdJOPmPNM2CYjhOQYoZMEgzm4NMRAcXNApFjo3UrGzFJGaGAHxEInqKFBjJWA7NYi2DBUhSKHfUQ9V BwOzUIRdLJqlYAGyHOWnJRSlpv7OKHLoFMClKZj8AFPkNFGsTYFmXYkaBRTrGNHcVFx6GOAiQXGpFR4D PxVtHRRtJDC3NGFcUUJaTFGsda2AZWQmQEJeVad0UP UqKWDhSHDtZTnlGCYcTFN5UoAdABJyLRSbQB9GHqMaJGXnDZW8OjmgPDWnWRDkyw2FBRYyBVKpKAbwKn RhTKGtTBVqENsiUESzZUP1YLX7PXQsOIMcVR4HVsQxRCNsUCv9AAjlIMCgFMHojc5FUCHxAXOiYCX0Tj PbCBRiJYLwCMerHBBkQIKwGmI8POJwEJMbLL8SKiCw XGZtVsHkRhyoGIGaUUEomw2PNDXnEVIoTOKkICGjKAXoGVLsOBeaVYFdISJfYyZ7ZZZwSKHjKU3RDxBa BIFaMYV4PJKmWLWgEJPimb9TUGWuKHM3UGL9GvIeLEVrHUNfWGimOZNeFPA9GCM1ZBKhQOJrHM7KZsGt JDUdDPA1JtCzYLCsITWtuo9WLNTrLJV0PgejJWEkNZ ViZTGiTWsySPSxGYM2KhY5YBBvKVCkVL3XUxUpHCWeINn2SSUuVAQpXTWqdd9HBQXkTKE6DFCpIDVhKA BnYQRaWFtcZYZqMCL9XXS4BSWbBHPdKL4BSdWsABHgBtUhTAapQGUoUDSwtr7UZNRjUEX5POV2DWNbHI FnEHXlUWrkFFFlPVJwHwL5ZQYjINIxMB5HIvGtOZss PLGMNls2XDdqB4o0GKBwYZ6OD1Hrk2ZcTmIhFYLAPDwiGQ4jtuOaYBSaUe3TA3lKOyc2E6M0RYFxJXUg ByPoJYZmQdJpCjSiWZXtBxp2BhJiBS3pZXK9FpJnQAA5HdNaAwO5IEI9IvR7BaN3MHS2YfZpTbF8PpRh NV4HSw0VAyD5UFH7hTPnCl1KHbM9ZZpYYmBcJX0TIWh= ID Date Data Source [id number] 04/02/2020 04:47:[address] [facility] MR ABDOMEN WITH AND WITHOUT CONTRAST [id number] 83FINAL RESULTInterpreted by:Lino Montes MDINDICATION: 40-year-old female follow-up liver adenomas liver mass protocol.TECHNIQUE: Multisequence multiplanar images of the abdomen were obtained with and without intravenous contrast. COMPARISON: MRI abdomen dated 09/29/2019.FINDINGS:Lungs: There are small bilateral pleural effusions.Bones: The osseous structures demonstrate no clear evidence of pathology. No suspicious osseous lesion is seen. Redemonstration of bone island within the T7 vertebral body.Body wall: No subcutaneous fat stranding or fluid.Vasculature: Aorta is normal in course and caliber. No aneurysm in the visible region.Liver: The liver is enlarged measuring up to 20.0 cm at the midclavicular line. There is diffuse signal dropout on the out of phase images consistent with steatosis.Stable 2.4 x 1.7 cm lesion with arterial enhancement and washout on the delayed phases in the posterior dome of segment 2 is stable.Previously described 1.4 x 1.2 cm lesion in segment 6 is inconspicuous on this study.Previously described 2.5 x 1.8 cm lesion in segment 7 is unchanged in size and configuration.Previously described subtle area of enhancement in segment 8 is also not appreciated on this study.Gallbladder: The gallbladder is surgically absent. Biliary Ducts: There is no biliary ductal dilatation. Spleen: Normal in size and configuration.Pancreas: Fatty infiltration of the pancreas. No ductal dilation or peripancreatic fat stranding.Adrenal Glands: Normal in size and configuration.Kidneys:The right kidney again appears partially malrotated. No hydroureteronephrosis or visible mass in either kidney.Bowel: The visualized bowel is normal in course and caliber. No bowel wall thickening or dilation visible. Peritoneum: There is no intraabdominal ascites.Lymph nodes: Prominent left-sided axillary lymph nodes are incompletely demonstrated but the largest visible node measures up to 1.1 cm in short axis diameter. Subcentimeter periaortic and mesenteric contents are also present.IMPRESSION: 1. Multiple enhancing liver lesions as described in detail above, nonspecific lesions, but hepatocellular carcinoma cannot be excluded. Recommend continued surveillance for further clarification and to assess change.2. Previously described lesions in segment 6 and segment 8 are not well demonstrated on this study.3. Liver steatosis.4. Small bilateral pleural effusions.5. Other incidental and/or chronic findings as above.END IMPRESSIONThis document has been electronically signed by Yareli Lala MD on 04/02/2020 4:45 PM Name Value Range Interpretation Code Description Data Thu rce(s) Supporting Document(s) Procedure Social History Code Duration Value Status Description Data Source(s ) Smoking 01/12/2021 12:00:00 AM EDT Never Smoker completed Never S moker eCW1 ([facility]) Smoking 01/12/2021 12:00:00 AM EDT Never Smoker completed Never S moker eCW1 ([facility]) Smoking 12/01/2020 12:00:00 AM EDT Never Smoker completed Never S moker eCW1 ([facility]) Smoking 11/19/2020 12:00:00 AM EDT Never Smoker completed Never S moker eCW1 ([facility]) Smoking 11/09/2020 12:00:00 AM EDT Patient has never smoked co mpleted Patient has never smoked [facility] ([facility], ) Smoking 10/20/2020 12:00:00 AM EDT Never Smoker completed Never S moker eCW1 ([facility]) Smoking 10/20/2020 12:00:00 AM EDT Never Smoker completed Never S moker eCW1 ([facility]) Smoking 09/08/2020 12:00:00 AM EDT Never Smoker completed Never S moker eCW1 ([facility]) Smoking 09/08/2020 12:00:00 AM EDT Never Smoker completed Never S moker eCW1 ([facility]) Smoking 09/08/2020 12:00:00 AM EDT Never Smoker completed Never S moker eCW1 ([facility]) Smoking 09/08/2020 12:00:00 AM EDT Never Smoker completed Never S moker eCW1 ([facility]) Smoking 08/16/2020 12:00:00 AM EDT Never Smoker completed Never S moker eCW1 ([facility]) Smoking 08/16/2020 12:00:00 AM EDT Never Smoker completed Never S moker eCW1 ([facility]) Smoking 07/28/2020 12:00:00 AM EDT Never Smoker completed Never S moker eCW1 ([facility]) Smoking 07/28/2020 12:00:00 AM EDT Never Smoker completed Never S moker eCW1 ([facility]) Smoking 06/17/2020 12:00:00 AM EST Never Smoker completed Never S moker eCW1 ([facility]) Smoking 05/28/2020 12:00:00 AM EST Patient has never smoked co mpleted Patient has never smoked [facility] ([facility]) Smoking 05/26/2020 12:00:00 AM EST Never Smoker completed Never S moker eCW1 ([facility]) Smoking 05/26/2020 12:00:00 AM EST Never Smoker completed Never S moker eCW1 ([facility]) Smoking 05/19/2020 12:00:00 AM EST Never Smoker completed Never S moker eCW1 ([facility]) Smoking 05/19/2020 12:00:00 AM EST Never Smoker completed Never S moker eCW1 ([facility]) Smoking 04/21/2020 12:00:00 AM EST Never Smoker completed Never S moker eCW1 ([facility]) Smoking 04/21/2020 12:00:00 AM EST Never Smoker completed Never S moker eCW1 ([facility]) Alcohol intake 04/07/2020 12:00:00 AM EST Current non-d soraya of alcohol (finding) completed Current non-drinker of alcohol (finding) [facility] Tobacco use and exposure 04/07/2020 12:00:00 AM EST Never used co mpleted Never used [facility] Smoking 04/07/2020 12:00:00 AM EST Never smoker completed Never s [facility] Smoking 03/13/2020 12:00:00 AM EDT Never Smoker completed Never S moker eCW1 ([facility]) Smoking 03/13/2020 12:00:00 AM EDT Never Smoker completed Never S moker eCW1 ([facility]) Smoking 03/13/2020 12:00:00 AM EDT Never Smoker completed Never S moker eCW1 ([facility]) Smoking 03/10/2020 12:00:00 AM EDT Never Smoker completed Never S moker eCW1 ([facility]) Vital Signs ID Date Data Source UNK Name Value Range Interpretation Code Description Data Source(s) [facility]stolic blood [facility] 129 mm[Hg] 129 [facility] Diastolic blood pressure 82 mm[Hg] 82 mm[Hg] [facility] ([facility]) Body height 62.50 [in_i] 62.50 [in_i] [facility] ([facility]) 5'2.50" Body weight 234.00 [lb_av] 234.00 [lb_av] MEDEN T ([facility]) Body mass index (BMI) [Ratio] 42.1 kg/m2 42.1 k g/m2 [facility] ([facility]) [place] body weight 110 [lb_av] 110 [lb_av] MEDEN T ([facility]) Body weight 106.142 kg 106.142 kg [facility] ([facility]) Body surface area Derived from formula 2.06 m2 2.06 m2 [facility] ([facility]) Body weight 235 [lb_av] 235 [lb_av] eCW1 ([facility]) Body weight 106.6 kg 106.6 kg eCW1 ([facility]) Body height 62 [in_i] 62 [in_i] eCW1 ([facility]) Body mass index (BMI) [Ratio] 42.98 kg/m2 42.98 kg/m2 W1 ([facility]) Heart rate 83 /min 83 /min eCW1 ([facility]) Respiratory rate 18 /min 18 /min eCW1 ([facility]) Body temperature 96.9 [degF] 96.9 [degF] eCW1 ( [facility]) Systolic blood pressure 132 mm[Hg] 132 mm[Hg] e CW1 ([facility]) Diastolic blood pressure 78 mm[Hg] 78 mm[Hg] eCW1 ([facility]) Systolic blood pressure 127 mm[Hg] 127 mm[Hg] M EDENT ([facility]) Respiratory rate 16 /min 16 /min MEDENT ( [facility]) Diastolic blood pressure 63 mm[Hg] 63 mm[Hg] MEDENT ([facility]) Body weight 234.00 [lb_av] 234.00 [lb_av] MEDEN T ([facility]) Body height 62 [in_i] 62 [in_i] eCW1 ([facility]) Body mass index (BMI) [Ratio] 42.61 kg/m2 42.61 kg/m2 eCW1 ([facility]) Heart rate 84 /min 84 /min eCW1 ([facility]) Respiratory rate 18 /min 18 /min eCW1 ([facility]) Body temperature 96.9 [degF] 96.9 [degF] eCW1 ( [facility]) Systolic blood pressure 118 mm[Hg] 118 mm[Hg] e CW1 ([facility]) Diastolic blood pressure 80 mm[Hg] 80 mm[Hg] eCW1 ([facility]) Body weight 233 [lb_av] 233 [lb_av] eCW1 ([facility]) Body weight 232 [lb_av] 232 [lb_av] eCW1 ([facility]) Body temperature 98.3 [degF] 98.3 [degF] eCW1 ( [facility]) Systolic blood pressure 108 mm[Hg] 108 mm[Hg] e CW1 ([facility]) Diastolic blood pressure 70 mm[Hg] 70 mm[Hg] eCW1 ([facility]) Body height 62 [in_i] 62 [in_i] eCW1 ([facility]) Body mass index (BMI) [Ratio] 42.43 kg/m2 42.43 kg/m2 eCW1 ([facility]) Heart rate 90 /min 90 /min eCW1 ([facility] [facility] Respiratory rate 18 /min 18 /min eCW1 (formerly [facility]) Oxygen saturation in Arterial blood by Pulse oximetry 96 % 96 % MEDENT ([facility]) Heart rate 80 /min 80 /min MEDENT ([facility]) Body height 62.50 [in_i] 62.50 [in_i] MEDENT ([facility]) 5'2.50" Body weight 234.25 [lb_av] 234.25 [lb_av] MEDEN T ([facility]) Body mass index (BMI) [Ratio] 42.2 kg/m2 42.2 k g/m2 [facility] ([facility]) [place] body weight 110 [lb_av] 110 [lb_av] MEDEN T ([facility]) Body weight 106.256 kg 106.256 kg [facility] ([facility]) Body surface area Derived from formula 2.06 m2 2.06 m2 [facility] ([facility]) Systolic blood pressure 122 mm[Hg] 122 mm[Hg] [facility] Diastolic blood pressure 78 mm[Hg] 78 mm[Hg] [facility] ([facility]) Oxygen saturation in Arterial blood by Pulse oximetry 96 % 96 % [facility] ([facility]) Body height 62.50 [in_i] 62.50 [in_i] [facility] ([facility]) 5'2.50" Body weight 234.25 [lb_av] 234.25 [lb_av] MEDEN T ([facility]) Body mass index (BMI) [Ratio] 42.2 kg/m2 42.2 k g/m2 [facility] ([facility]) [place] body weight 110 [lb_av] 110 [lb_av] MEDEN T ([facility]) Body weight 106.256 kg 106.256 kg [facility] ([facility]) Body surface area Derived from formula 2.06 m2 2.06 m2 MEDENT ([facility], ) Body weight 231 [lb_av] 231 [lb_av] eCW1 ([facility]) Body height 62 [in_i] 62 [in_i] eCW1 ([facility]) Body mass index (BMI) [Ratio] 42.25 kg/m2 42.25 kg/m2 eCW1 ([facility]) Heart rate 93 /min 93 /min eCW1 ([facility]) Respiratory rate 19 /min 19 /min eCW1 (formerly [facility]) Body temperature 97.3 [degF] 97.3 [degF] eCW1 ( [facility]) Systolic blood pressure 132 mm[Hg] 132 mm[Hg] e CW1 ([facility]) Diastolic blood pressure 78 mm[Hg] 78 mm[Hg] eCW1 ([facility]) Body weight 232 [lb_av] 232 [lb_av] eCW1 ([facility]) Body mass index (BMI) [Ratio] 42.43 kg/m2 42.43 kg/m2 eCW1 ([facility]) Heart rate 80 /min 80 /min eCW1 ([facility]) Respiratory rate 18 /min 18 /min eCW1 (formerly [facility]) Body temperature 96.9 [degF] 96.9 [degF] eCW1 ( [facility]) Systolic blood pressure 114 mm[Hg] 114 mm[Hg] e CW1 ([facility]) Diastolic blood pressure 80 mm[Hg] 80 mm[Hg] eCW1 ([facility]) Body height 62 [in_i] 62 [in_i] eCW1 ([facility]) Systolic blood pressure 125 mm[Hg] 125 mm[Hg] M EDENT ([facility]) Diastolic blood pressure 76 mm[Hg] 76 mm[Hg] MEDENT ([facility]) Body weight 234.00 [lb_av] 234.00 [lb_av] MEDEN T ([facility]) Body temperature 97.3 [degF] 97.3 [degF] MEDENT ([facility]) Respiratory rate 18 /min 18 /min eCW1 (formerly [facility]) Body weight 233 [lb_av] 233 [lb_av] eCW1 ([facility]) Heart rate 97 /min 97 /min eCW1 ([facility]) Body height 62 [in_i] 62 [in_i] eCW1 ([facility]) Body temperature 98.6 [degF] 98.6 [degF] eCW1 ( [facility]) Body mass index (BMI) [Ratio] 42.61 kg/m2 42.61 kg/m2 eCW1 ([facility]) Systolic blood pressure 130 mm[Hg] 130 mm[Hg] e CW1 ([facility]) Diastolic blood pressure 80 mm[Hg] 80 mm[Hg] eCW1 ([facility]) Body weight 247 [lb_av] 247 [lb_av] eCW1 ([facility]) Body height 62 [in_i] 62 [in_i] eCW1 ([facility]) Body mass index (BMI) [Ratio] 45.17 kg/m2 45.17 kg/m2 eCW1 ([facility]) Heart rate 79 /min 79 /min eCW1 ([facility]) Respiratory rate 18 /min 18 /min eCW1 (formerly [facility]) Body temperature 98.6 [degF] 98.6 [degF] eCW1 ( [facility]) Systolic blood pressure 102 mm[Hg] 102 mm[Hg] e CW1 ([facility]) Diastolic blood pressure 69 mm[Hg] 69 mm[Hg] eCW1 ([facility]) Body mass index (BMI) [Ratio] 43.2 kg/m2 43.2 k g/m2 MEDENT ([facility] ) [place] body weight 110 [lb_av] 110 [lb_av] MEDEN T ([facility], ) Body weight 108.864 kg 108.864 kg MEDKAILEE ([facility], ) Body height 62.50 [in_i] 62.50 [in_i] MEDENT ([facility]) 5'2.50" Body weight 240.00 [lb_av] 240.00 [lb_av] MEDEN T ([facility]) Body surface area Derived from formula 2.08 m2 2.08 m2 [facility] ([facility]) Systolic blood pressure 147 mm[Hg] 147 mm[Hg] M EDENT ([facility]) Diastolic blood pressure 82 mm[Hg] 82 mm[Hg] MEDENT ([facility]) Body height 62.50 [in_i] 62.50 [in_i] MEDENT ([facility]) 5'2.50" Body weight 240.00 [lb_av] 240.00 [lb_av] MEDEN T ([facility]) Body mass index (BMI) [Ratio] 43.2 kg/m2 43.2 k g/m2 [facility] ([facility]) [place] body weight 110 [lb_av] 110 [lb_av] MEDEN T ([facility]) Body weight 108.864 kg 108.864 kg [facility] ([facility]) Body surface area Derived from formula 2.08 m2 2.08 m2 [facility] ([facility]) Body weight 247 [lb_av] 247 [lb_av] eCW1 ([facility]) Body height 62 [in_i] 62 [in_i] eCW1 ([facility]) Body mass index (BMI) [Ratio] 45.17 kg/m2 45.17 kg/m2 eCW1 ([facility]) Heart rate 90 /min 90 /min eCW1 ([facility]) Respiratory rate 18 /min 18 /min eCW1 (formerly [facility]) Body temperature 97.8 [degF] 97.8 [degF] eCW1 ( [facility]) Systolic blood pressure 132 mm[Hg] 132 mm[Hg] e CW1 ([facility]) Diastolic blood pressure 78 mm[Hg] 78 mm[Hg] eCW1 ([facility]) Body temperature 98.0 [degF] 98.0 [degF] MEDENT ([facility]) Systolic blood pressure 126 mm[Hg] 126 mm[Hg] M EDENT ([facility], [facility]) Diastolic blood pressure 87 mm[Hg] 87 mm[Hg] MEDENT ([facility], [facility]) Heart rate 86 /min 86 /min MEDENT ([facility], [facility]) Respiratory rate 16 /min 16 /min MEDENT ( [facility], [facility]) Oxygen saturation in Arterial blood by Pulse oximetry 98 % 98 % MEDENT ([facility], [facility]) Body weight 242.00 [lb_av] 242.00 [lb_av] MEDEN T ([facility], [facility]) Respiratory rate 18 /min 18 /min eCW1 (formerly [facility]) Body temperature 97.4 [degF] 97.4 [degF] eCW1 ( [facility]) Systolic blood pressure 140 mm[Hg] 140 mm[Hg] e CW1 ([facility]) Diastolic blood pressure 86 mm[Hg] 86 mm[Hg] eCW1 ([facility]) Body weight 244 [lb_av] 244 [lb_av] eCW1 ([facility]) Body height 62 [in_i] 62 [in_i] eCW1 ([facility]) Body mass index (BMI) [Ratio] 44.62 kg/m2 44.62 kg/m2 eCW1 ([facility]) Heart rate 90 /min 90 /min eCW1 ([facility]) Body weight 243 [lb_av] 243 [lb_av] eCW1 ([facility]) Body height 62 [in_i] 62 [in_i] eCW1 ([facility]) Body mass index (BMI) [Ratio] 44.44 kg/m2 44.44 kg/m2 W1 ([facility]) Heart rate 92 /min 92 /min eCW1 ([facility]) Respiratory rate 18 /min 18 /min eCW1 (formerly [facility]) Body temperature 96.7 [degF] 96.7 [degF] eCW1 ( [facility]) Systolic blood pressure 132 mm[Hg] 132 mm[Hg] e CW1 ([facility]) Diastolic blood pressure 82 mm[Hg] 82 mm[Hg] eCW1 ([facility]) Body weight 242 [lb_av] 242 [lb_av] eCW1 ([facility]) Body height 62 [in_i] 62 [in_i] eCW1 ([facility]) Body mass index (BMI) [Ratio] 44.26 kg/m2 44.26 kg/m2 eCW1 ([facility]) Heart rate 90 /min 90 /min eCW1 ([facility]) Respiratory rate 18 /min 18 /min eCW1 (formerly [facility]) Body temperature 96.6 [degF] 96.6 [degF] eCW1 ( [facility]) Systolic blood pressure 132 mm[Hg] 132 mm[Hg] e CW1 ([facility]) Diastolic blood pressure 82 mm[Hg] 82 mm[Hg] eCW1 ([facility]) Body weight 241 [lb_av] 241 [lb_av] eCW1 ([facility]) Body height 62 [in_i] 62 [in_i] eCW1 ([facility]) Body mass index (BMI) [Ratio] 44.07 kg/m2 44.07 kg/m2 eCW1 ([facility]) Heart rate 84 /min 84 /min eCW1 ([facility]) Respiratory rate 18 /min 18 /min eCW1 (formerly [facility]) Body temperature 97.2 [degF] 97.2 [degF] eCW1 ( [facility]) Systolic blood pressure 120 mm[Hg] 120 mm[Hg] e CW1 ([facility]) Diastolic blood pressure 80 mm[Hg] 80 mm[Hg] eCW1 ([facility]) Body weight 242 [lb_av] 242 [lb_av] eCW1 ([facility]) Body height 62 [in_i] 62 [in_i] eCW1 ([facility]) Body mass index (BMI) [Ratio] 44.26 kg/m2 44.26 kg/m2 eCW1 ([facility]) Heart rate 90 /min 90 /min eCW1 ([facility]) Respiratory rate 18 /min 18 /min eCW1 (formerly [facility]) Body temperature 98.6 [degF] 98.6 [degF] eCW1 ( [facility]) Systolic blood pressure 132 mm[Hg] 132 mm[Hg] e CW1 ([facility]) Diastolic blood pressure 82 mm[Hg] 82 mm[Hg] eCW1 ([facility]) ID Date Data Source [id number] 04/07/2020 09:42:[address] [facility] [place] Name Value Range Interpretation Code Description Data Source(s) WEIGHT RECORDED 240 lb 240 lb [facility] Body height Measured 62.99 in 62.99 in [facility] ID Date Data Source [id number] 03/26/2020 11:53:[address] [facility] [place] Name Value Range Interpretation Code Description Data Source(s) WEIGHT RECORDED 233 lb 233 lb [facility] Body height Measured 62.99 in 62.99 in [facility] WEIGHT RECORDED 233 lb 233 lb [facility] Body height Measured 62.99 in 62.99 in [facility] Patient Treatment Plan of Care Planned Activity Planned Date Details Description Data Source (s) Prednisone 50 MG Oral Tablet 09/22/2020 12:00:00 AM EDT eCW1 ([facility]) Benadryl Allergy 25 MG 09/22/2020 12:00:00 AM EDT eCW1 ([facility]) Prednisone 50 MG Oral Tablet 09/22/2020 12:00:00 AM EDT eCW1 ([facility]) Benadryl Allergy 25 MG 09/22/2020 12:00:00 AM EDT eCW1 ([facility]) Fluconazole 100 MG Oral Tablet 09/14/2020 12:00:00 AM EDT eCW1 ([facility]) Fluconazole 100 MG Oral Tablet 09/14/2020 12:00:00 AM EDT eCW1 ([facility]) Fluconazole 100 MG Oral Tablet 09/14/2020 12:00:00 AM EDT eCW1 ([facility]) Clobetasol Propionate 0.0005 MG/MG Topical Ointment [T emovate] 05/26/2020 12:00:00 AM EST eCW1 ([facility]) Levothyroxine Sodium 0.075 MG Oral Tablet 05/26/2020 12:00:00 AM ES T eCW1 ([facility]) 24 HR Glipizide 2.5 MG Extended Release Oral Tablet 05/26/19 12:00:00 AM EST eCW1 ([facility]) Propranolol Hydrochloride 10 MG Oral Tablet 05/26/2020 12:00:00 AM EST eCW1 ([facility]) Clobetasol Propionate 0.0005 MG/MG Topical Ointment [T emovate] 05/26/2020 12:00:00 AM EST eCW1 ([facility]) Levothyroxine Sodium 0.075 MG Oral Tablet 05/26/2020 12:00:00 AM ES T eCW1 ([facility]) 24 HR Glipizide 2.5 MG Extended Release Oral Tablet 05/26/19 12:00:00 AM EST eCW1 ([facility]) Propranolol Hydrochloride 10 MG Oral Tablet 05/26/2020 12:00:00 AM EST eCW1 ([facility]) sitagliptin 100 MG Oral Tablet [Januvia] 03/10/2020 12:00:00 AM EDT eCW1 ([facility]) sitagliptin 100 MG Oral Tablet [Januvia] 03/10/2020 12:00:00 AM EDT eCW1 ([facility]) sitagliptin 100 MG Oral Tablet [Januvia] 03/10/2020 12:00:00 AM EDT eCW1 ([facility]) sitagliptin 100 MG Oral Tablet [Januvia] 03/10/2020 12:00:00 AM EDT eCW1 ([facility]) Prednisone 50 MG Oral Tablet 03/09/2020 12:00:00 AM [facility] Diphenhydramine Hydrochloride 50 MG Oral Tablet 03/09/2020 12:00:00 AM [facility]
[2021-03-19] MEDS ORDERED: HYDR50TA70 PO (16:10)
[2021-03-19] MEDS ORDERED: PROP20TA72 PO (16:10)
[2021-03-19] MEDS ORDERED: ERGO500029 PO (16:10)
[2021-03-19 16:42] LABS: BASO # 0.1 10^3/uL (0.0-0.2); BASO % 0.7 % (0.0-1.0); EOS # 0.3 10^3/uL (0.0-0.5); EOS % 2.5 % (0.0-3.0); HEMATOCRIT 43.1 % (36.0-47.0); HEMOGLOBIN 13.9 g/dl (12.0-15.5); LYMPH # 2.6 10^3/uL (1.5-5.0); LYMPH % 21.6 % (24.0-44.0); MEAN CORPUSCULAR HEMOGLOBIN 27.8 pg (27.0-33.0); MEAN CORPUSCULAR HGB CONC 32.3 g/dl (32.0-36.5); MEAN CORPUSCULAR VOLUME 86.2 fl (80.0-96.0); MONO # 0.8 10^3/uL (0.0-0.8); MONO % 6.8 % (2.0-8.0); NEUTROPHILS # 8.3 10^3/uL (1.5-8.5); NEUTROPHILS % 68.1 % (36.0-66.0); PLATELET COUNT, AUTOMATED 316 10^3/uL (150-450); WHITE BLOOD COUNT 12.2 10^3/uL (4.0-10.0)
--- OUTSIDE RECORDS SUMMARY | 2021-03-19 16:43 | CCD ---
Author Author [facility] Organization [facility] Address Unknown Phone Unavailable Care Team Providers Care [employer] Name Role Phone ELLIOTT WEEMS MD Unavailable [...] Unavailable Unavailable REINELLIOTT KNIGHT MD Unavailable Unavailable ELLOITT WEEMS MD Unavailable Unavailable ELLIOTT WEEMS MD [...] PA Unavailable Unavailable Jamison CAMACHOSIE Unavailable Unavailable [place], Edilia EXPERIMENTAL FLIGHT TEST MECHANIC Unavailable Unavailable [place], Edilia EXPERIMENTAL FLIGHT TEST MECHANIC Unavailable Unavailable [place], Edilia EXPERIMENTAL FLIGHT TEST MECHANIC Unavailable Unavailable [place], Edilia EXPERIMENTAL FLIGHT TEST MECHANIC Unavailable Unavailable [place], Edilia EXPERIMENTAL FLIGHT TEST MECHANIC Unavailable Unavailable [place], Edilia EXPERIMENTAL FLIGHT TEST MECHANIC Unavailable Unavailable [place], Edilia EXPERIMENTAL FLIGHT TEST MECHANIC Unavailable Unavailable [place], Edilia EXPERIMENTAL FLIGHT TEST MECHANIC Unavailable Unavailable [place], Edilia EXPERIMENTAL FLIGHT TEST MECHANIC Unavailable Unavailable [place], Edilia EXPERIMENTAL FLIGHT TEST MECHANIC Unavailable Unavailable [place], Edilia EXPERIMENTAL FLIGHT TEST MECHANIC Unavailable Unavailable [place], Edilia EXPERIMENTAL FLIGHT TEST MECHANIC Unavailable Unavailable [place], Edilia EXPERIMENTAL FLIGHT TEST MECHANIC Unavailable Unavailable [place], Edilia EXPERIMENTAL FLIGHT TEST MECHANIC Unavailable Unavailable [place], Edilia EXPERIMENTAL FLIGHT TEST MECHANIC Unavailable Unavailable [place], Edilia EXPERIMENTAL FLIGHT TEST MECHANIC Unavailable Unavailable [place], Edilia EXPERIMENTAL FLIGHT TEST MECHANIC Unavailable Unavailable [place], Edilia EXPERIMENTAL FLIGHT TEST MECHANIC Unavailable Unavailable [place], Edilia EXPERIMENTAL FLIGHT TEST MECHANIC Unavailable Unavailable [place], Edilia EXPERIMENTAL FLIGHT TEST MECHANIC Unavailable Unavailable [place], Edilia EXPERIMENTAL FLIGHT TEST MECHANIC Unavailable Unavailable [place], Edilia EXPERIMENTAL FLIGHT TEST MECHANIC Unavailable Unavailable [place], Edilia EXPERIMENTAL FLIGHT TEST MECHANIC Unavailable Unavailable [place], Edilia EXPERIMENTAL FLIGHT TEST MECHANIC Unavailable Unavailable [place], Edilia EXPERIMENTAL FLIGHT TEST MECHANIC Unavailable Unavailable [place], Edilia EXPERIMENTAL FLIGHT TEST MECHANIC Unavailable Unavailable [place], Edilia EXPERIMENTAL FLIGHT TEST MECHANIC Unavailable Unavailable [place], Edilia EXPERIMENTAL FLIGHT TEST MECHANIC Unavailable Unavailable [place], Edilia EXPERIMENTAL FLIGHT TEST MECHANIC Unavailable Unavailable [place], Edilia EXPERIMENTAL FLIGHT TEST MECHANIC Unavailable Unavailable [place], Edilia EXPERIMENTAL FLIGHT TEST MECHANIC Unavailable Unavailable [place], Edilia EXPERIMENTAL FLIGHT TEST MECHANIC Unavailable Unavailable [place], Edilia EXPERIMENTAL FLIGHT TEST MECHANIC Unavailable Unavailable [place], Edilia EXPERIMENTAL FLIGHT TEST MECHANIC Unavailable Unavailable [place], Edilia EXPERIMENTAL FLIGHT TEST MECHANIC Unavailable Unavailable [place], [place] EXPERIMENTAL FLIGHT TEST MECHANIC Unavailable Unavailable Zee Camacho Unavailable Wenceslao Camach[place] Unavailable Jamison PRIETO Unavailable Unavailable [place], S Haley EXPERIMENTAL FLIGHT TEST MECHANIC-C Unavailable Unavailable [place], S Haley EXPERIMENTAL FLIGHT TEST MECHANIC-C Unavailable Unavailable [place], S Haley EXPERIMENTAL FLIGHT TEST MECHANIC-C Unavailable Unavailable [place], S Haley EXPERIMENTAL FLIGHT TEST MECHANIC-C Unavailable Unavailable [place], S Haley EXPERIMENTAL FLIGHT TEST MECHANIC-C Unavailable Unavailable [place], S Haley EXPERIMENTAL FLIGHT TEST MECHANIC-C Unavailable Unavailable [place], S Haley EXPERIMENTAL FLIGHT TEST MECHANIC-C Unavailable Unavailable [place], S Haley EXPERIMENTAL FLIGHT TEST MECHANIC-C Unavailable Unavailable [place], S Haley EXPERIMENTAL FLIGHT TEST MECHANIC-C Unavailable Unavailable [place], S Haley EXPERIMENTAL FLIGHT TEST MECHANIC-C Unavailable Unavailable [place], S Haley EXPERIMENTAL FLIGHT TEST MECHANIC-C Unavailable Unavailable [place], S Haley EXPERIMENTAL FLIGHT TEST MECHANIC-C Unavailable Unavailable [place], S Haley EXPERIMENTAL FLIGHT TEST MECHANIC-C Unavailable Unavailable [place], S Haley EXPERIMENTAL FLIGHT TEST MECHANIC-C Unavailable Unavailable [place], S Haley EXPERIMENTAL FLIGHT TEST MECHANIC-C Unavailable Unavailable [place], S Haley EXPERIMENTAL FLIGHT TEST MECHANIC-C Unavailable Unavailable [place], S Haley EXPERIMENTAL FLIGHT TEST MECHANIC-C Unavailable Unavailable [place], S Haley EXPERIMENTAL FLIGHT TEST MECHANIC-C Unavailable Unavailable [place], S Haley EXPERIMENTAL FLIGHT TEST MECHANIC-C Unavailable Unavailable [place], S Haley EXPERIMENTAL FLIGHT TEST MECHANIC-C Unavailable Unavailable [place], S Haley EXPERIMENTAL FLIGHT TEST MECHANIC-C Unavailable Unavailable [place], S Haley EXPERIMENTAL FLIGHT TEST MECHANIC-C Unavailable Unavailable [place], S Haley EXPERIMENTAL FLIGHT TEST MECHANIC-C Unavailable Unavailable [place], S Haley EXPERIMENTAL FLIGHT TEST MECHANIC-C Unavailable Unavailable DESJARLAIS, JASWINDER SPRING TESTER Unavailable Unavailable DESJARLAIS, JASWINDER SPRING TESTER Unavailable Unavailable DESJARLAIS, JASWINDER SPRING TESTER Unavailable Unavailable DESJARLAIS, JASWINDER SPRING TESTER Unavailable Unavailable DESJARLAIS, JASWINDER SPRING TESTER Unavailable Unavailable DESJARLAIS, JASWINDER SPRING TESTER Unavailable Unavailable DESJARLAIS, JASWINDER SPRING TESTER Unavailable Unavailable DESJARLAIS, JASWINDER SPRING TESTER Unavailable Unavailable DESJARLAIS, JASWINDER SPRING TESTER Unavailable Unavailable DESJARLAIS, JASWINDER SPRING TESTER Unavailable Unavailable Vance, W Les RPA-C Unavailable [...] is protected by Article 27-F of the [facility] Public Health law. If you continue you may have access to information: Regarding HIV / AIDS; Provided by facilities licensed or operated by the [facility] Office of Mental Health; or Provided by the [facility] Office for People With Developmental Disabilities. If such information is present, then the following [facility] mandated warning applies: This information has been [...] Description Data Source(s) Unknown Unknown Problem MEDENT ([facility], ) Unknown Unknown Problem MEDENT ([facility]) brother,sister,pgm,paternal aunt Encounters Encounter Providers Location Date Indications Data Source(s ) Outpatient Attender: Timmy Westbrook 03/17/2021 05:00:00 PM [facility] Outpatient Attender: Timmy Westbrook 03/03/2021 04:54:00 PM [facility] Outpatient Attender: JASWINDER SILVA NP 03/03/2021 04: 11:00 PM [facility] Outpatient Attender: ELLIOTT Celestin/Bennie/Mark/Adria dl 02/23/2021 03:30:00 PM EDT MEDENT ([facility], ) Outpatient Attender: Timmy Westbrook 02/17/2021 05:39:00 PM [facility] [place] [address] [address] 02/16/2021 12:00:00 AM EDT eCW1 ([facility]) Outpatient Attender: Timmy Westbrook 02/03/2021 05:00:00 PM [facility] Outpatient [facility] 02/03/2021 12:00:00 AM EDT eCW1 ([facility]) Outpatient Attender: Timmy Westbrook 01/20/2021 04:23:00 PM [facility] Outpatient Attender: JASWINDER SILVA NP 01/20/2021 04: 20:00 PM [facility] Out[place] [address] [address] 01/12/2021 12:00:00 AM EDT eCW1 ([facility]) Outpatient Attender: Timmy Westbrook 12/30/2020 03:53:00 PM [facility] Outpatient Attender: Vee Haji [facility] Main Office 12/29/2020 09:30:00 AM EDT MEDENT ([facility]) Outpatient Attender: JASWINDER SILVA NP 12/21/2020 04: 03:00 PM [facility] Outpatient Attender: Timmy Westbrook 12/16/2020 03:54:00 PM [facility] Outpatient Attender: Timmy Westbrook 12/03/2020 03:54:00 PM [facility] [place] [address] [address] 12/01/2020 12:00:00 AM EDT eCW1 ([facility]) Outpatient Attender: JASWINDER SILVA NP 11/23/2020 04: 20:00 PM [facility] Outpatient [address] [address] 11/16/2020 12:00:00 AM EDT eCW1 ([facility]) Outpatient Attender: NIKOLAY Celestin/Bennie/Mark/Adria knight 11/09/2020 03:00:00 PM EDT MEDENT ([facility] [place] [address] [address] 11/08/2020 12:00:00 AM EDT eCW1 ([facility]) Outpatient Attender: Timmy Westbrook 11/05/2020 03:59:00 PM [facility] Outpatient Attender: JASWINDER SILVA NP 10/26/2020 04: 13:00 PM [facility] Outpatient [address] [address] 10/20/2020 12:00:00 AM EDT [facility]CW1 [facility] Outpatient Attender: Zee Camacho 10/18/2020 05:58:00 PM [facility] Unknown [address] [address] 10/07/2020 12:00:00 AM EDT eCW1 [facility]) Outpatient Attender: JASWINDER SILVA NP 10/01/2020 01: 00:00 PM [facility] Outpatient Attender: Zee Camacho 09/27/2020 04:43:00 PM [facility] Unknown [address] [address] 09/22/2020 12:00:00 AM EDT eCW1 ([facility]) Outpatient Attender: JASWINDER SILVA NP 09/21/2020 04: 19:00 PM [facility] Unknown [address] [address] 09/14/2020 12:00:00 AM EDT eCW1 ([facility]) Outpatient Attender: Zee Camacho 09/13/2020 05:49:00 PM [facility] Outpatient [address] [address] 09/08/2020 12:00:00 AM EDT eCW1 ([facility]) Outpatient Attender: Zee Nicholas: ZEE CAMACHO 08/30/2020 04:46:00 PM [facility] Unknown [address] [address] 08/26/2020 12:00:00 AM EDT eCW1 ([facility]) Outpatient Attender: JASWINDER SILVA NP 08/24/2020 04: 10:00 PM [facility] Outpatient Attender: Haley CLARKC Main Office 08/19/2020 08:15:00 AM EDT [facility]AILEE [facility] Out[facility] Attender: Zee Nicholas: ZEE CAMACHO 08/16/2020 04:55:00 PM [facility] Outpatient [address] [address] 08/16/2020 12:00:00 AM EDT eCW1 ([facility]) [place] [address] [address] 08/03/2020 12:00:00 AM EDT eCW1 ([facility]) Outpatient Attender: Zee CamachoAttender: ZEE CAMACHO 08/02/2020 04:49:00 PM [facility] Outpatient [address] [address] 07/28/2020 12:00:00 AM EDT eCW1 ([facility]) Outpatient Attender: JASWINDER SILVA NP 07/27/2020 04: 11:00 PM [facility] Outpatient Attender: Haley YAO Main Office 07/27/2020 08:00:00 AM EDT MEDENT ([facility]) Outpatient Attender: ZEE CAMACHO 07/19/2020 04:48:00 PM [facility] Outpatient Attender: ELLIOTT Celestin/Bennie/Mark/Adria knight 07/08/2020 01:45:00 PM EST MEDENT ([facility]) Outpatient Attender: ZEE CAMACHO 07/05/2020 05:00:00 PM [facility] Outpatient Attender: JASWINDER SILVA NP 06/29/2020 04: 00:00 PM [facility] Outpatient Attender: ZEE CAMACHO 06/21/2020 05:00:00 PM [facility] Outpatient [address] [address] 06/17/2020 12:00:00 AM EST eCW1 ([facility]) Outpatient Attender: JASWINDER SILVA NP 06/15/2020 04: 16:00 PM [facility] Outpatient Attender: ZEE CAMACHO 06/07/2020 04:41:00 PM [facility] Outpatient Attender: DRE xavier 05/28/2020 04:25:00 PM EST MEDENT ([facility] [place] [address] [address] 05/26/2020 12:00:00 AM EST [facility] Outpatient Attender: ZEE CAMACHO 05/24/2020 05:40:00 PM [facility] Outpatient Attender: JASWINDER SILVA NP 05/20/2020 04: 20:00 PM [facility] Outpatient [address] [address] 05/19/2020 12:00:00 AM EST [facility]CW1 [facility] [place] [address] [address] 05/19/2020 12:00:00 AM EST [facility] [place] [address] [address] 05/11/2020 12:00:00 AM EST eCW1 ([facility]) Outpatient Attender: ZEE CAMACHO 05/10/2020 01:00:00 PM [facility] Outpatient Attender: EZE CAMACHO 04/29/2020 06:00:00 PM [facility] Outpatient Attender: JASWINDER SILVA NP 04/27/2020 04: 40:00 PM [facility] Outpatient [address] [address] 04/21/2020 12:00:00 AM EST [facility]CW1 [facility] Outpatient 04/21/2020 12:00:00 AM [facility] Outpatient Attender: ZEE CAMACHO 04/14/2020 05:00:00 PM [facility] Outpatient Referrer: EDWARD PRIETO 04/13/2020 12:00:00 AM [facility] Unknown [address] [address] 04/12/2020 12:00:00 AM EST [facility]CW[facility] Outpatient Attender: EDWARD PRIETO [id number] 04/07/2020 12 :00:00 AM EST 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[facility] 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liver Outpatient 04/07/2020 12:00:00 AM [facility] Outpatient Attender: JASWINDER SILVA NP 04/06/2020 04: 40:00 PM [facility] Unknown [address] [address] 04/06/2020 12:00:00 AM EST eCW1 ([facility]) Outpatient Attender: ZEE CAMACHO 04/05/2020 05:00:00 PM [facility] Outpatient Attender: EDWARD PRIETO 04/05/2020 12:00:00 AM [facility] Outpatient Referrer: EDWARD PRIETO 03/30/2020 12 :00:00 AM EST 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liver [facility] 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liver Outpatient Attender: ZEE CAMACHO 03/25/2020 04:42:00 PM [facility] Outpatient Attender: JASWINDER SILVA NP 03/12/2020 04: 00:00 PM [facility] Outpatient Attender: ZEE CAMACHO 03/11/2020 06:00:00 PM [facility] Outpatient [address] [address] 03/10/2020 12:00:00 AM EDT eCW1 ([facility]) [place]patient [address] [address] 03/03/2020 12:00:00 AM EDT eCW1 ([facility]) Outpatient Attender: JASWINDER SILVA NP 02/27/2020 04: 00:00 PM [facility] Outpatient Attender: ZEE CAMACHO 02/26/2020 06:00:00 PM [facility] Unknown [address] [address] 02/23/2020 12:00:00 AM EDT eCW1 ([facility]) Outpatient Attender: ZEE CAMACHO 02/12/2020 06:00:00 PM [facility] Unknown [address] [address] 02/11/2020 12:00:00 AM EDT eCW1 ([facility]) Outpatient Attender: JASWINDER SILVA NP 02/05/2020 [facility]: ZEE CAMACHO 01/29/2020 06:00:00 PM [facility] Outpatient Attender: JASWINDER SILVA SPRING TESTER 01/08/2020 10[facility]: ZEE CAMACHO 01/06/2020 06:00:00 PM [facility] Outpatient Attender: ZEE CAMACHO 12/24/2019 06:00:00 PM [facility] Outpatient Attender: JASWINDER SILVA SPRING TESTER 12/12/2019 01: [facility]: ZEE CAMACHO 12/10/2019 01:00:00 PM [facility] Outpatient Attender: ZEE CAMACHO 11/19/2019 10:21:00 AM [facility] Outpatient Attender: ZEE CAMACHO 11/10/2019 02:00:00 PM [facility] Outpatient Attender: ZEE CAMACHO 10/27/2019 02:00:00 PM [facility] Outpatient Attender: ZEE CAMACHO 10/13/2019 02:00:00 PM [facility] Outpatient Attender: EDWARD GuerreroA-MLTCACTR 10/08/2019 12 :00:00 AM EDT 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liver [facility] 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liver Outpatient Attender: ZEE CAMACHO 09/30/2019 06:15:00 PM [facility] Outpatient Attender: ZEE CAMACHO 09/15/2019 05:00:00 PM [facility] Outpatient Attender: ZEE CAMACHO 09/01/2019 05:00:00 PM [facility] Outpatient Attender: ZEE CAMACHO 08/21/2019 05:00:00 PM [facility] Outpatient Attender: ZEE CAMACHO 07/17/2019 04:59:00 PM E [facility] Outpatient Attender: ZEE CAMACHO 06/19/2019 05:00:00 PM E [facility] Emergency Attender: Les [facility] EMERGENCY ROOM-ER 1 06/15/2016 02:07:00 PM EST - 04/14/2017 04:06:00 PM [facility] Immunizations Vaccine Date Status Description Data Source(s) Moderna #3 dose COVID-19 (given elsewhere) SARSCOV2 VA C 100MCG/0.5ML IM 01/20/2021 07:26:00 AM EDT completed eCW1 ([facility]) COVID-19 VACCINE Moderna 01/20/2021 12:00:00 AM EDT completed NYSIIS Vaccine Series Complete: YESThis Data wa s Submitted to [facility] [employer]. Pneumococcal conjugate PCV 13 11/16/2020 02:16:00 PM EDT completed eCW1 ([facility]) Pneumococcal conjugate PCV 13 11/16/2020 02:16:00 PM EDT completed eCW1 ([facility]) Pneumococcal conjugate PCV 13 11/16/2020 02:16:00 PM EDT completed eCW1 ([facility]) Pneumococcal conjugate PCV 13 11/16/2020 02:16:00 PM EDT completed eCW1 ([facility]) Moderna #2 dose COVID-19 (given elsewhere) SARSCOV2 VA C 100MCG/0.5ML IM 06/16/2020 07:26:00 AM EST completed eCW1 ([facility]) COVID-19 VACCINE Moderna 06/16/2020 12:00:00 AM EST completed NYSIIS Vaccine Series Complete: YESThis Data wa s Submitted to [facility] [employer]. Moderna #1 dose COVID-19 SARSCOV2 VAC 100MCG/0.5ML IM 05/19/2020 07:25:00 AM EST completed eCW1 ([facility]) COVID-19 VACCINE Moderna 05/19/2020 12:00:00 AM EST completed NYSIIS Vaccine Series Complete: NOThis Data was Submitted to [facility] [employer]. IIV3. This is one of two codes replacing CVX 15, which is being retired. 01/22/2020 12:50:00 PM EDT completed eCW1 ([facility]) IIV3. This is one of two codes replacing CVX 15, which is being retired. 01/22/2020 12:50:00 PM EDT completed eCW1 ([facility]) IIV3. This is one of two codes replacing CVX 15, which is being retired. 01/22/2020 12:50:00 PM EDT completed eCW1 ([facility]) IIV3. This is one of two codes replacing CVX 15, which is being retired. 01/22/2020 12:50:00 PM EDT completed eCW1 ([facility]) IIV3. This is one of two codes replacing CVX 15, which is being retired. 01/22/2020 12:50:00 PM EDT completed eCW1 ([facility]) IIV3. This is one of two codes replacing CVX 15, which is being retired. 01/22/2020 12:50:00 PM EDT completed eCW1 ([facility]) IIV3. This is one of two codes replacing CVX 15, which is being retired. 01/22/2020 12:50:00 PM EDT completed eCW1 ([facility]) IIV3. This is one of two codes replacing CVX 15, which is being retired. 01/22/2020 12:50:00 PM EDT completed eCW1 ([facility]) IIV3. This is one of two codes replacing CVX 15, which is being retired. 01/22/2020 12:50:00 PM EDT completed eCW1 ([facility]) IIV3. This is one of two codes replacing CVX 15, which is being retired. 01/22/2020 12:50:00 PM EDT completed eCW1 ([facility]) IIV3. This is one of two codes replacing CVX 15, which is being retired. 01/22/2020 12:50:00 PM EDT completed eCW1 ([facility]) IIV3. This is one of two codes replacing CVX 15, which is being retired. 01/22/2020 12:50:00 PM EDT completed eCW1 ([facility]) IIV3. This is one of two codes replacing CVX 15, which is being retired. 01/22/2020 12:50:00 PM EDT completed eCW1 ([facility]) IIV3. This is one of two codes replacing CVX 15, which is being retired. 01/22/2020 12:50:00 PM EDT completed eCW1 ([facility]) IIV3. This is one of two codes replacing CVX 15, which is being retired. 01/22/2020 12:50:00 PM EDT completed eCW1 ([facility]) IIV3. This is one of two codes replacing CVX 15, which is being retired. 01/22/2020 12:50:00 PM EDT completed eCW1 ([facility]) IIV3. This is one of two codes replacing CVX 15, which is being retired. 01/22/2020 12:50:00 PM EDT completed eCW1 ([facility]) IIV3. This is one of two codes replacing CVX 15, which is being retired. 01/22/2020 12:50:00 PM EDT completed eCW1 ([facility]) IIV3. This is one of two codes replacing CVX 15, which is being retired. 01/22/2020 12:50:00 PM EDT completed eCW1 ([facility]) IIV3. This is one of two codes replacing CVX 15, which is being retired. 01/22/2020 12:50:00 PM EDT completed eCW1 ([facility]) IIV3. This is one of two codes replacing CVX 15, which is being retired. 01/22/2020 12:50:00 PM EDT completed eCW1 ([facility]) IIV3. This is one of two codes replacing CVX 15, which is being retired. 01/22/2020 12:50:00 PM EDT completed eCW1 ([facility]) IIV3. This is one of two codes replacing CVX 15, which is being retired. 01/22/2020 12:50:00 PM EDT completed eCW1 ([facility]) IIV3. This is one of two codes replacing CVX 15, which is being retired. 01/22/2020 12:50:00 PM EDT completed eCW1 ([facility]) IIV3. This is one of two codes replacing CVX 15, which is being retired. 01/22/2020 12:50:00 PM EDT completed eCW1 ([facility]) IIV3. This is one of two codes replacing CVX 15, which is being retired. 01/22/2020 12:50:00 PM EDT completed eCW1 ([facility]) IIV3. This is one of two codes replacing CVX 15, which is being retired. 01/22/2020 12:50:00 PM EDT completed eCW1 ([facility]) INFLUENZA VIRUS VACCINE QUADRIVALENT (6 MOS AN [...] 02/23/2021 12:00:00 AM EDT ORAL active MEDENT ([facility], ) pantoprazole 40 MG Delayed Release Oral Tablet [Protonix] Pr otonix 02/23/2021 12:00:00 AM EDT ORAL active M EDENT ([facility], ) pantoprazole 40 MG Delayed Release [...] 12:00:00 AM EDT RESPIRATORY active MEDENT ( [facility], ) Prednisone 10 MG Oral Tablet Prednisone 11/09/2020 12:00:00 AM EDT active MEDENT ([facility], ) 1,250 mcg (50,000 unit) 11/05/2020 [...] active Benadryl Allergy 25 MG eC W1 ([facility]) Benadryl Allergy 25 MG Benadryl Allergy 25 MG 09/22/2020 12:00:00 AM E DT active Benadryl Allergy 25 MG eC W1 ([facility]) Prednisone 50 MG Oral Tablet PredniSONE 50 MG PredniSONE 50 MG 09/22/2020 12:00:00 AM EDT 1.0 {tablet} active Pr edniSONE 50 MG eCW1 ([facility]) predniSONE 50 MG predniSONE 50 MG 09/22/2020 12:00:00 AM EDT 1.0 {tablet} active predniSONE 50 MG eCW1 ([facility]) Benadryl Allergy 25 MG Benadryl Allergy 25 MG 09/22/2020 12:00:00 AM E DT active Benadryl Allergy 25 MG eC W1 ([facility]) Prednisone 50 MG Oral Tablet predniSONE 50 MG predniSONE 50 MG 09/22/2020 12:00:00 AM EDT 1.0 {tablet} active pr edniSONE 50 MG eCW1 ([facility]) Prednisone 50 MG Oral Tablet predniSONE 50 MG predniSONE 50 MG 09/22/2020 12:00:00 AM EDT 1.0 {tablet} active pr edniSONE 50 MG eCW1 ([facility]) 20 mg 09/22/2020 12:00:00 AM EDT tablet 90 TAKE ONE TABLET BY MOUTH THREE TIMES A DAY TAKE ONE TABLET BY MOUTH THREE TIMES A DAY SOLD: 09/22/2020 [facility] Benadryl Allergy 25 MG Benadryl Allergy 25 MG 09/22/2020 12:00:00 AM E DT active Benadryl Allergy 25 MG eC W1 ([facility]) Prednisone 50 MG Oral Tablet predniSONE 50 MG predniSONE 50 MG 09/22/2020 12:00:00 AM EDT 1.0 {tablet} active pr edniSONE 50 MG eCW1 ([facility]) Benadryl Allergy 25 MG Benadryl Allergy 25 MG 09/22/2020 12:00:00 AM E DT active Benadryl Allergy 25 MG eC W1 ([facility]) Benadryl Allergy 25 MG Benadryl Allergy 25 MG 09/22/2020 12:00:00 AM E DT active eCW1 ([facility]) Prednisone 50 MG Oral Tablet PredniSONE 50 MG PredniSONE 50 MG 09/22/2020 12:00:00 AM EDT 1.0 {tablet} active eCW1 ([facility]) Prednisone 50 MG Oral Tablet predniSONE 50 MG predniSONE 50 MG 09/22/2020 12:00:00 AM EDT 1.0 {tablet} active pr edniSONE 50 MG eCW1 ([facility]) Cyproheptadine hydrochloride 4 MG Oral Tablet CYPROHEPTADINE HCL 09/22/2020 12:00:00 AM EDT tablet 60 TAKE ONE TABLET BY MOUTH TWICE A DAY TAKE ONE TABLET BY MOUTH TWICE A DAY SOLD: 09/22/2020 [facility] Benadryl Allergy 25 MG Benadryl Allergy 25 MG 09/22/2020 12:00:00 AM E DT active Benadryl Allergy 25 MG eC W1 ([facility]) Benadryl Allergy 25 MG Benadryl Allergy 25 MG 09/22/2020 12:00:00 AM E DT active Benadryl Allergy 25 MG eC W1 ([facility]) 50 mg 09/22/2020 12:00:00 AM EDT tablet [...] {tablet} active pr edniSONE 50 MG eCW1 ([facility]) 100 mg 09/15/2020 12:00:00 AM EDT tablet 3 TAKE ONE TABLET BY MOUTH EVERY DAY TAKE ONE TABLET BY MOUTH EVERY DAY SOLD: 09/16/2020 [facility] Fluconazole 100 MG Oral Tablet Fluconazole 100 MG 09/14/2020 12:00: 00 AM EDT 1.0 {tablet} active Fluconazole 100 MG eCW1 ([facility]) Fluconazole 100 MG Oral Tablet Fluconazole 100 MG 09/14/2020 12:00: 00 AM EDT 1.0 {tablet} active eCW1 ([facility]) Fluconazole 100 MG Oral Tablet Fluconazole 100 MG 09/14/2020 12:00: 00 AM EDT 1.0 {tablet} active Fluconazole 100 MG eCW1 ([facility]) Fluconazole 100 MG Oral Tablet Fluconazole 100 MG 09/14/2020 12:00: 00 AM EDT 1.0 {tablet} active Fluconazole 100 MG eCW1 ([facility]) Fluconazole 100 MG Oral Tablet Fluconazole 100 MG 09/14/2020 12:00: 00 AM EDT 1.0 {tablet} active Fluconazole 100 MG eCW1 ([facility]) Fluconazole 100 MG Oral Tablet Fluconazole 100 MG 09/14/2020 12:00: 00 AM EDT 1.0 {tablet} active Fluconazole 100 MG eCW1 ([facility]) Fluconazole 100 MG Oral Tablet Fluconazole 100 MG 09/14/2020 12:00: 00 AM EDT 1.0 {tablet} active Fluconazole 100 MG eCW1 ([facility]) Fluconazole 100 MG Oral Tablet Fluconazole 100 MG 09/14/2020 12:00: 00 AM EDT 1.0 {tablet} active Fluconazole 100 MG eCW1 ([facility]) Fluconazole 100 MG Fluconazole 100 MG 09/14/2020 12:00:00 AM EDT 1.0 {tablet} active Fluconazole 100 MG e CW1 ([facility]) montelukast 10 MG Oral Tablet MONTELUKAST SODIUM [...] {tablet} active Sertraline HCl 50 MG eCW1 ([facility]) sitagliptin 100 MG Oral Tablet [Januvia] Januvia 100 MG [facility] via 100 MG 07/27/2020 12:00:00 AM EDT 1.0 {tablet} active Januvia 100 MG eCW1 ([facility]) Pimecrolimus 10 MG/ML Topical Cream [Elidel] Elidel 12:00:00 AM EDT completed MEDENT ([facility]) 60 mg 07/09/2020 12:00:00 AM EST capsule [...] {tablet} active cl onazePAM 0.5 MG eCW1 ([facility]) Trazodone Hydrochloride 100 MG Oral Tablet TRAZODONE HCL 07/08/2020 12:00:00 AM EST tablet 30 TAKE ONE TABLET BY MOUTH AT BEDTIME TAKE ONE TABLET BY MOUTH AT BEDTIME SOLD: 07/08/2020 [facility] Trazodone Hydrochloride 100 MG Oral Tablet traZODone H Cl 100 MG traZODone HCl 100 MG 07/08/2020 12:00:00 AM EST 1.0 {tablet_at_bedtime} active traZODone HCl 100 MG eCW1 ([facility]) Trazodone Hydrochloride 100 MG Oral [...] 1.0 {application} active Temovate 0.05 % eCW1 ([facility]) 2.5 mg 05/26/2020 12:00:00 AM EST tablet [...] MOUTH TWO TIMES A DAY SOLD: 01/09/2021 [facility] 24 HR Glipizide 2.5 MG Extended Release Oral Tablet Gl ipiZIDE ER 2.5 MG GlipiZIDE ER 2.5 MG 05/26/2020 12:00:00 AM EST 1.0 {tablet_with_bre akfast} active GlipiZIDE ER 2.5 MG eCW1 ([facility]) 2.5 mg 05/26/2020 12:00:00 AM EST tablet extended release 24hr 30 TAKE ONE TABLET BY MOUTH WITH BREAKFAST TAKE ONE TABLET BY MOUTH WITH BREAKFAST SOLD: 09/18/2020 [facility] Levothyroxine Sodium 0.075 MG Oral Tablet Levothyroxin e Sodium 75 MCG Levothyroxine Sodium 75 MCG 05/26/2020 12:00:00 AM EST active Levothyroxine Sodium 75 MCG eCW1 ([facility]) 10 mg 05/26/2020 12:00:00 AM EST tablet 60 TAKE ONE TABLET BY MOUTH TWO TIMES A DAY TAKE ONE TABLET BY MOUTH TWO TIMES A DAY SOLD: 05/26/2020 [facility] Levothyroxine Sodium 0.075 MG Oral Tablet Levothyroxin e Sodium 75 MCG Levothyroxine Sodium 75 MCG 05/26/2020 12:00:00 AM EST active Levothyroxine Sodium 75 MCG eCW1 ([facility]) 24 HR Glipizide 2.5 MG Extended Release Oral Tablet Gl ipiZIDE ER 2.5 MG GlipiZIDE ER 2.5 MG 05/26/2020 12:00:00 AM EST 1.0 {tablet_with_bre akfast} active GlipiZIDE ER 2.5 MG eCW1 ([facility]) Clobetasol Propionate 0.0005 MG/MG Topical Ointment [T emovate] Temovate 0.05 % Temovate 0.05 % 05/26/2020 12:00:00 AM EST 1.0 {application} active Temovate 0.05 % eCW1 ([facility]) Levothyroxine Sodium 0.075 MG Oral Tablet Levothyroxin e Sodium 75 MCG Levothyroxine Sodium 75 MCG 05/26/2020 12:00:00 AM EST active Levothyroxine Sodium 75 MCG eCW1 ([facility]) Levothyroxine Sodium 0.075 MG Oral Tablet Levothyroxin e Sodium 75 MCG Levothyroxine Sodium 75 MCG 05/26/2020 12:00:00 AM EST active Levothyroxine Sodium 75 MCG eCW1 ([facility]) 75 mcg 05/26/2020 12:00:00 AM EST tablet 30 TAKE ONE TABLET IN THE MORNING ON AN EMPTY STOMACH TAKE ONE TABLET IN THE MORNING ON AN EMPTY STOMACH [facility] 24 HR Glipizide 2.5 MG Extended Release Oral Tablet Gl ipiZIDE ER 2.5 MG GlipiZIDE ER 2.5 MG 05/26/2020 12:00:00 AM EST 1.0 {tablet_with_bre akfast} active GlipiZIDE ER 2.5 MG eCW1 ([facility]) Levothyroxine Sodium 0.075 MG Oral Tablet Levothyroxin e Sodium 75 MCG Levothyroxine Sodium 75 MCG 05/26/2020 12:00:00 AM EST active Levothyroxine Sodium 75 MCG eCW1 ([facility]) Levothyroxine Sodium 0.075 MG Oral Tablet Levothyroxin e Sodium 75 MCG Levothyroxine Sodium 75 MCG 05/26/2020 12:00:00 AM EST active Levothyroxine Sodium 75 MCG eCW1 ([facility]) 10 mg 05/26/2020 12:00:00 AM EST tablet 60 TAKE ONE TABLET BY MOUTH TWO TIMES A DAY TAKE ONE TABLET BY MOUTH TWO TIMES A DAY SOLD: 06/24/2020 [facility] Clobetasol Propionate 0.0005 MG/MG Topical Ointment [T emovate] Temovate 0.05 % Temovate 0.05 % 05/26/2020 12:00:00 AM EST 1.0 {application} active Temovate 0.05 % eCW1 ([facility]) Propranolol Hydrochloride 10 MG Oral Tablet Propranolo l HCl 10 MG Propranolol HCl 10 MG 05/26/2020 12:00:00 AM EST 1.0 {tablet} ac tive Propranolol HCl 10 MG eCW1 ([facility]) Temovate 0.05 % Temovate 0.05 % 05/26/2020 12:00:00 AM EST 1.0 {application} active Temovate 0.05 % eCW1 ([facility]) Propranolol Hydrochloride 10 MG Oral Tablet Propranolo l HCl 10 MG Propranolol HCl 10 MG 05/26/2020 12:00:00 AM EST 1.0 {tablet} ac tive Propranolol HCl 10 MG eCW1 ([facility]) Clobetasol Propionate 0.0005 MG/MG Topical Ointment [T emovate] Temovate 0.05 % Temovate 0.05 % 05/26/2020 12:00:00 AM EST 1.0 {application} active eCW1 ([facility]) Clobetasol Propionate 0.0005 MG/MG Topical Ointment [T emovate] Temovate 0.05 % Temovate 0.05 % 05/26/2020 12:00:00 AM EST 1.0 {application} active Temovate 0.05 % eCW1 ([facility]) Clobetasol Propionate 0.0005 MG/MG Topical Ointment [T emovate] Temovate 0.05 % Temovate 0.05 % 05/26/2020 12:00:00 AM EST 1.0 {application} active Temovate 0.05 % eCW1 ([facility]) 75 mcg 05/26/2020 12:00:00 AM EST tablet 30 TAKE ONE TABLET IN THE MORNING ON AN EMPTY STOMACH TAKE ONE TABLET IN THE MORNING ON AN EMPTY STOMACH [facility] Clobetasol Propionate 0.0005 MG/MG Topical Ointment [T emovate] Temovate 0.05 % Temovate 0.05 % 05/26/2020 12:00:00 AM EST 1.0 {application} active Temovate 0.05 % eCW1 ([facility]) 24 HR Glipizide 2.5 MG Extended Release Oral Tablet Gl ipiZIDE ER 2.5 MG GlipiZIDE ER 2.5 MG 05/26/2020 12:00:00 AM EST 1.0 {tablet_with_bre akfast} active GlipiZIDE ER 2.5 MG eCW1 ([facility]) Levothyroxine Sodium 0.075 MG Oral Tablet Levothyroxin e Sodium 75 MCG Levothyroxine Sodium 75 MCG 05/26/2020 12:00:00 AM EST active Levothyroxine Sodium 75 MCG eCW1 ([facility]) Levothyroxine Sodium 0.075 MG Oral Tablet Levothyroxin e Sodium 75 MCG Levothyroxine Sodium 75 MCG 05/26/2020 12:00:00 AM EST active Levothyroxine Sodium 75 MCG eCW1 ([facility]) 10 mg 05/26/2020 12:00:00 AM EST tablet 60 TAKE ONE TABLET BY MOUTH TWO TIMES A DAY TAKE ONE TABLET BY MOUTH TWO TIMES A DAY SOLD: 08/23/2020 [facility] Propranolol Hydrochloride 10 MG Oral Tablet Propranolo l HCl 10 MG Propranolol HCl 10 MG 05/26/2020 12:00:00 AM EST 1.0 {tablet} ac tive Propranolol HCl 10 MG eCW1 ([facility]) Levothyroxine Sodium 0.075 MG Oral Tablet Levothyroxin e Sodium 75 MCG Levothyroxine Sodium 75 MCG 05/26/2020 12:00:00 AM EST active Levothyroxine Sodium 75 MCG eCW1 ([facility]) 2.5 mg 05/26/2020 12:00:00 AM EST tablet [...] 1.0 {application} active Temovate 0.05 % eCW1 ([facility]) Levothyroxine Sodium 0.075 MG Oral Tablet Levothyroxin e Sodium 75 MCG Levothyroxine Sodium 75 MCG 05/26/2020 12:00:00 AM EST active Levothyroxine Sodium 75 MCG eCW1 ([facility]) 2.5 mg 05/26/2020 12:00:00 AM EST tablet [...] 1.0 {application} active Temovate 0.05 % eCW1 ([facility]) Clobetasol Propionate 0.0005 MG/MG Topical Ointment [T emovate] Temovate 0.05 % Temovate 0.05 % 05/26/2020 12:00:00 AM EST 1.0 {application} active Temovate 0.05 % eCW1 ([facility]) Clobetasol Propionate 0.0005 MG/MG Topical Ointment [T emovate] Temovate 0.05 % Temovate 0.05 % 05/26/2020 12:00:00 AM EST 1.0 {application} active Temovate 0.05 % eCW1 ([facility]) Levothyroxine Sodium 0.075 MG Oral Tablet Levothyroxin e Sodium 75 MCG Levothyroxine Sodium 75 MCG 05/26/2020 12:00:00 AM EST active Levothyroxine Sodium 75 MCG eCW1 ([facility]) Clobetasol Propionate 0.0005 MG/MG Topical Ointment [T emovate] Temovate 0.05 % Temovate 0.05 % 05/26/2020 12:00:00 AM EST 1.0 {application} active Temovate 0.05 % eCW1 ([facility]) Clobetasol Propionate 0.0005 MG/MG Topical Ointment [T emovate] Temovate 0.05 % Temovate 0.05 % 05/26/2020 12:00:00 AM EST 1.0 {application} active Temovate 0.05 % eCW1 ([facility]) Levothyroxine Sodium 0.075 MG Oral Tablet Levothyroxin e Sodium 75 MCG Levothyroxine Sodium 75 MCG 05/26/2020 12:00:00 AM EST active Levothyroxine Sodium 75 MCG eCW1 ([facility]) 24 HR Glipizide 2.5 MG Extended Release Oral Tablet Gl ipiZIDE ER 2.5 MG GlipiZIDE ER 2.5 MG 05/26/2020 12:00:00 AM EST 1.0 {tablet_with_bre akfast} active GlipiZIDE ER 2.5 MG eCW1 ([facility]) Levothyroxine Sodium 0.075 MG Oral Tablet Levothyroxin e Sodium 75 MCG Levothyroxine Sodium 75 MCG 05/26/2020 12:00:00 AM EST active Levothyroxine Sodium 75 MCG eCW1 ([facility]) 2.5 mg 05/26/2020 12:00:00 AM EST tablet [...] EST active Levothyroxine Sodium 75 MCG eCW1 ([facility]) Clobetasol Propionate 0.0005 MG/MG Topical Ointment [T emovate] Temovate 0.05 % Temovate 0.05 % 05/26/2020 12:00:00 AM EST 1.0 {application} active Temovate 0.05 % eCW1 ([facility]) Clobetasol Propionate 0.0005 MG/MG Topical Ointment [T emovate] Temovate 0.05 % Temovate 0.05 % 05/26/2020 12:00:00 AM EST 1.0 {application} active Temovate 0.05 % eCW1 ([facility]) Propranolol Hydrochloride 10 MG Oral Tablet Propranolo l HCl 10 MG Propranolol HCl 10 MG 05/26/2020 12:00:00 AM EST 1.0 {tablet} ac tive Propranolol HCl 10 MG eCW1 ([facility]) Levothyroxine Sodium 0.075 MG Oral Tablet Levothyroxin e Sodium 75 MCG Levothyroxine Sodium 75 MCG 05/26/2020 12:00:00 AM EST active Levothyroxine Sodium 75 MCG eCW1 ([facility]) Levothyroxine Sodium 0.075 MG Oral Tablet Levothyroxin e Sodium 75 MCG Levothyroxine Sodium 75 MCG 05/26/2020 12:00:00 AM EST active eCW1 ([facility]) Clobetasol Propionate 0.0005 MG/MG Topical Ointment [T emovate] Temovate 0.05 % Temovate 0.05 % 05/26/2020 12:00:00 AM EST 1.0 {application} active Temovate 0.05 % eCW1 ([facility]) 2.5 mg 05/26/2020 12:00:00 AM EST tablet extended release 24hr 30 TAKE ONE TABLET BY MOUTH WITH BREAKFAST TAKE ONE TABLET BY MOUTH WITH BREAKFAST SOLD: 07/23/2020 [facility] Propranolol Hydrochloride 10 MG Oral Tablet Propranolo l HCl 10 MG Propranolol HCl 10 MG 05/26/2020 12:00:00 AM EST 1.0 {tablet} ac tive Propranolol HCl 10 MG eCW1 ([facility]) 75 mcg 05/26/2020 12:00:00 AM EST tablet 30 TAKE ONE TABLET IN THE MORNING ON AN EMPTY STOMACH TAKE ONE TABLET IN THE MORNING ON AN EMPTY STOMACH [facility] Levothyroxine Sodium 0.075 MG Oral Tablet Levothyroxin e Sodium 75 MCG Levothyroxine Sodium 75 MCG 05/26/2020 12:00:00 AM EST active Levothyroxine Sodium 75 MCG eCW1 ([facility]) pantoprazole 40 MG Delayed Release Oral Tablet [...] 1.0 {tablet} active Januvia 100 MG eCW1 ([facility]) sitagliptin 100 MG Oral Tablet [Januvia] Januvia 100 MG [facility] via 100 MG 03/10/2020 12:00:00 AM EDT 1.0 {tablet} active Januvia 100 MG eCW1 ([facility]) sitagliptin 100 MG Oral Tablet [Januvia] Januvia 100 MG [facility] via 100 MG 03/10/2020 12:00:00 AM EDT 1.0 {tablet} active Januvia 100 MG eCW1 ([facility]) sitagliptin 100 MG Oral Tablet [Januvia] Januvia 100 MG [facility] via 100 MG 03/10/2020 12:00:00 AM EDT 1.0 {tablet} active Januvia 100 MG eCW1 ([facility]) sitagliptin 100 MG Oral Tablet [Januvia] Januvia 100 MG [facility] via 100 MG 03/10/2020 12:00:00 AM EDT 1.0 {tablet} active Januvia 100 MG eCW1 ([facility]) sitagliptin 100 MG Oral Tablet [Januvia] Januvia 100 MG [facility] via 100 MG 03/10/2020 12:00:00 AM EDT 1.0 {tablet} active Januvia 100 MG eCW1 ([facility]) sitagliptin 100 MG Oral Tablet [Januvia] Januvia 100 MG [facility] via 100 MG 03/10/2020 12:00:00 AM EDT 1.0 {tablet} active Januvia 100 MG eCW1 ([facility]) sitagliptin 100 MG Oral Tablet [Januvia] Januvia 100 MG [facility] via 100 MG 03/10/2020 12:00:00 AM EDT 1.0 {tablet} active Januvia 100 MG eCW1 ([facility]) 50 mg 03/10/2020 12:00:00 AM EDT capsule 1 TAKE 1 TABLET [address] TAKE 1 TABLET [address] SOLD: 03/11/2020 [facility] Diphenhydramine Hydrochloride 50 MG Oral Tablet diphenhydrAMINE HCl 50 MG Oral Tablet (BENADRYL) diphenhydrAMINE HCl 50 MG Oral Tablet (BENADRYL) 03/09 12:00:00 AM EDT active Liver lesion 1 tablet, [address] [facility] Liver lesion Prednisone 50 MG Oral Tablet predniSONE 50 MG Oral Tab let (DELTASONE) predniSONE 50 MG Oral Tablet (DELTASONE) 03/09/2020 12:00:00 AM EDT active Liver lesion 1 tablet 13 hours prior to C T, [address] and [address] [facility] Liver lesion BLOOD SUGAR DIAGNOSTIC 03/05/2020 12:00:00 [...] MISCELLANEOUS THREE TIMES A DAY SOLD: 02/12/2020 [facility] 0.5 mg 02/11/2020 12:00:00 AM EDT [...] to desai Policy Desai Plan Information POMCO [id number] SP [id number] POMCO [id number] SP [id number] POMCO U [id number] Self [id number] POMCO [id number] SP [id number] POMCO [id number] SP [id number] POMCO [id number] SP [id number] POMCO [id number] SP [id number] r Commercial [id number] Self [id number] UMR U [id number] Self [id number] UMR [facility] [id number] SP [id number] [facility]MR [facility] [id number] SP [id number] UMR [facility] [id number] SP [id number] Umr Commercial [id number] Self [id number] ANSI-Commercial [id number] ANSI-Commercial [id number] ANSI-Commercial [id number] ANSI-Commercial [id number] ANSI-Commercial [id number]-[id number] ANSI-Commercial [id number] ANSI-Commercial [id number] ANSI-Commercial [id number] ANSI-Commercial [id number] ANSI-Commercial [id number] ANSI-Commercial [id number] [facility] Medigap Part B [id number] Self [id number] [facility] [place] [id number] Self [id number] ANSI-Commercial [id number] ANSI-Commercial [id number]-[id number] ANSI-Commercial [id number] ANSI-Commercial [id number]-e10e-[id number] ANSI-Commercial [id number] ANSI-Commercial [id number]-qw23-84qi-[id number] ANSI-Commercial [id number]-[id number] ANSI-Commercial [id number] ANSI-Commercial 32ljpd0k-[id number] 51hiyb2p-[id number] ANSI-Commercial [id number]-[id number] ANSI-Commercial [id number]-9r0w-8r8e-[id number] 4wa7t1hm-1h4g-7z0r-[id number] ANSI-Commercial [id number]-3812-[id number] [facility] [id number] Self [id number] ANSI-Commercial [id number]-[id number] ANSI-Commercial [id number] ANSI-Commercial [id number] ANSI-Commercial [id number]-pu10-3742-[id number]-de74-1854-[id number] Self Pay P none S none ANSI-Commercial [id number]-92p0-[id number] ANSI-Commercial [id number]-[id number] [id number]-[id number] ANSI-Commercial [id number] [id number] ANSI-Commercial [id number]-hnny-273v-3ga5-[id number] h80979am-eony-822h-9ge3-e6jg76fop0i1 ANSI-Commercial [id number]-[id number] ANSI-Commercial [id number]-[id number]-[id number] [id number]-[id number]-[id number] ANSI-Commercial [id number] [id number] ANSI-Commercial [id number]-4y4p-0664-[id number] ANSI-Commercial 2587rt4k-[id number]-zuwi-[id number] [id number]-[id number]-erfn-q4935jh7x812 ANSI-Commercial [id number]-1t73-h4uz-074q3z7jgg63 [id number]-7e67-z6sc-564w7i3gsy46 ANSI-Commercial [id number]-si0z-3p8jng5vc7a1 [id number]-hy1a-4m0xoa1hl8o1 ANSI-Commercial [id number]a17f2i6o 436w51t4-02v6-0547-7wq9-4r2fu04l2p6v ANSI-Commercial [id number] 22pfbw43-4[id number] ANSI-Commercial b5p81l7h-956b-[id number] i8v98n9f-674w-54rd-[id number] ANSI-Commercial [id number]-[id number] hqk85q8g-r3c2-2f78-i87q-[id number] ANSI-Commercial [id number]-sj92-64q5lb3605zy [id number]-ex58-22j2zi6941hd ANSI-Commercial 093z2c89-xt3r-4utq-ox90-000dv773663o 472n1q33-ct1b-2gxa-ni16-732un238333i ANSI-Commercial 4747o20b-35dw-8puz-6119-76rl180t8r7h 4100g96s-70at-8fji-0518-77ps152k7p0b ANSI-Commercial 5y08e19y-822y-2nx2-nrs4-5a0d548602p8 0y09u88i-889t-2qm7-dqu3-9r1t975357w6 ANSI-Commercial d1j124yc-10k8-15wl-wu5i-gn90l9750y8m l8y067sp-50l9-77eh-xc7p-cf21z7921q6t ANSI-Commercial 17u3u682-otk4-348t-37dm-82450d01102w 12k8o647-tea0-796w-33ai-26669i55660c ANSI-Commercial b393dbcd-73js-249t-z0d3-38w9n88z575k u091ytwf-37co-462l-n8a2-65w8t60t022h ANSI-Commercial ln68t788-aq34-9gz7-ip07-t41b0014634r rn77e298-st36-0kj4-do29-l40h8776786k ANSI-Commercial 2590b183-6960-576a-u642-82358h765tw2 4079d149-3995-609e-r551-76799o743kt5 ANSI-Commercial 6yn92i8z-o927-4x07-0ey8-y1913lss1dgv 8sf64r8k-s656-2e92-1pl1-m1033rir8cle ANSI-Commercial 1g20a30j-2290-0y34-q1h8-6xu7n75u3730 7f41u35n-0919-9b81-s0t3-9kq5o26s9142 ANSI-Commercial 7al22e85-ocup-2sfn-3b4x-y003zh847g99 4gd11a81-nmcb-1kby-1f1v-n752wc062l37 ANSI-Commercial y7znn88v-ja4k-0h99-j4j8-03d3k8a6604x j7xoy84x-yi2c-5f47-s5f7-83i6a0r0619b ANSI-Commercial 48c0f604-9753-0qj4-23i9-r2haw68789f2 61e3i810-3117-9pe3-23h6-v4bwi40586t6 ANSI-Commercial 7ny30thf-6e68-2g3j-32p6-np4796f45d76 2jm30lqg-6q35-4r3t-07z4-kt8338h58x28 ANSI-Commercial 8z145042-1656-9i50-0029-2gk368547n33 8e280399-0108-5h60-9672-2xk974042u68 ANSI-Commercial 558e4c67-s824-114s-z251-636v5a58854o 086m1b73-t621-052h-i373-483n3l18954q ANSI-Commercial 52os3375-0c0z-2wsn-011n-0818442bjr7a 26gb1275-2j3n-1dip-326n-7167785vrx5c ANSI-Commercial 501n1w94-ay13-8550-z406-7fb0zfj46952 251h3q19-pm22-5127-c782-4zc0ehw74871 ANSI-Commercial 064sn87t-6j43-439n-r1j5-3371br33nl03 085eb30o-3h53-858p-m3v8-0583ha50ks33 ANSI-Commercial 2671i0s2-uv5t-6873-6b3c-fd3jazcl620k 2729d3i0-ax2t-4766-7c3w-bg4cqqpr462h ANSI-Commercial 63zyk838-8657-6510-cj3c-r50t2uh08j8s 84omi527-3155-7312-ka6k-u11b6fw00a5v ANSI-Commercial 9yxm76b2-6k19-3136-828f-fdgb58892003 9lrc82p6-5q35-1761-986s-mtcd75139913 ANSI-Commercial jqa42754-889g-368l-6imo-3gk57h29lw6r cgq06854-400m-035u-7nhr-0gi79n83vv0l ANSI-Commercial 395yl65c-3523-1909-rj00-n2694jl487p5 387dx84k-8510-2432-pf76-w8860ex833u3 ANSI-Commercial 27zd7ze9-lxb8-0017-j9d9-19h3l0d2n899 45zi7kc1-jwe3-9367-x8f1-87y7k2n6v377 ANSI-Commercial 36p03a3u-0693-1691-6sp2-ud3i2s7r15vd 19x03h5y-2583-8131-0fk1-am1o2p4g57ll ANSI-Commercial 8wh15573-70dr-43z8-kd2a-42j8135y314o 9gx89945-82zi-63r4-dr6c-17g7967e262w ANSI-Commercial g926o99g-94j9-3840-w179-cib478006514 a826t83i-43w1-1065-l577-bpj530071225 ANSI-Commercial fu4r3w42-8q15-98w4-gv55-pepeqm2a5604 ot2b5h45-2g50-29n9-rx54-huujfo5t2641 ANSI-Commercial 6v2b3isy-52oh-2r0k-a925-p681b96ik467 2q5y0wjz-16qk-8t3i-c558-u989c71me320 ANSI-Commercial v62kt77f-951a-5118-5l4g-ne1d2821r7v4 h09on65q-371y-6747-9d2h-yu1e2823c1i2 ANSI-Commercial f7999l5m-23fb-919r-67x3-bgsf11df0cg1 c6491r3m-03yv-207v-49l8-ksqj94tp3ca4 [facility] [id number] SP [id number] POMCO [id number] SP [id number] POMCO [id number] SP [id number] POMCO P UNAVAILABLE S UNAVAILA BLE Self Pay P UNAVAILABLE S UNAVAILA BLE POMCO HEA [id number] S [id number] [facility] Commercial [id number] Self [id number] POMCO [id number] SP [id number] POMCO [id number] SP [id number] POMCO [id number] SP [id number] POMCO PPO P [id number] S [id number] NCA COMP [id number] SP [id number] POMCO 2 [id number] SELFPAY 5 UNAVAILABLE 1 UNAVAILA BLE O UNAVAILABLE UNA[facility]ILA BLE [facility] [facility] [id number] SP [id number] [employer] P [id number] S [id number] UMR [id number] S [id number] SELF PAY UNAVAILABLE S UNAVAILA BLE UMR [id number] S [id number] UMR [id number] S [id number] UMR [id number] S [id number] N POMCO [id number] S [id number] UMR [id number] S [id number] UMR [id number] S [id number] UMR [id number] S [id number] UMR O [id number] S [id number] UMR HEA [id number] S [id number] [employer]mercial [id number] Problems, Conditions, and Diagnoses Code Display Name Description Problem Type Effective Dates Data Source(s) F90.9 Attention-deficit hyperactivity disorder , unspecified type ATTENTION- DEFICIT HYPERACTIVITY DISORDER, UNSPECIF Diagnosis 02/17/2021 05:39:00 PM [facility] F60.9 Personality disorder, unspecified PERSONALITY DI SORDER, UNSPECIFIED Diagnosis 02/17/2021 05:39:00 PM EDT [facility] F31.9 Bipolar disorder, unspecified BIPOLAR DISORDER, UNSPEC IFIED Diagnosis 02/17/2021 05:39:00 PM EDT [facility] D13.4 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liver 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liver Diag nosis 04/07/2020 08:10:13 AM [facility] R25.1 Tremor, unspecified TREMOR, UNSPECIFIED Diagnosis 1 06:00:00 PM EDT [facility] K31.84 [id number] Gastroparesis Problem 11/16/2020 12:00:00 AM EDT eCW1 ([facility]) 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) F90.9 Attention deficit hyperactivity disorder ADHD (attention deficit hyperactivity disorder) Problem 02/12/2020 12:00:00 AM EDT eCW1 ([facility]) Surgeries/Procedures Procedure Description Date Indications Data Source(s) OFFICE OUTPATIENT VISIT 25 MINUTES 02/23/2021 12:00:00 AM EDT MEDKAILEE ([facility], ) OFFICE OUTPATIENT VISIT 25 MINUTES 12/29/2020 12:00:00 AM EDT MEDENT ([facility]) PNEUMOCOCCAL CONJ VACCINE 13 VALENT IM 11/16/2020 12:0 0:00 AM EDT eCW1 ([facility]) Spirometry 11/09/2020 12:00:00 AM EDT Hilario PARRA ([facility], ) OFFICE OUTPATIENT VISIT 25 MINUTES 11/09/2020 12:00:00 AM EDT MEDKAILEE ([facility], ) Endoscopy Upper GI Remove Foreign Body 08/31/2020 12:0 0:00 AM EDT MEDKAILEE ([facility], ) OFFICE OUTPATIENT VISIT 15 MINUTES 08/19/2020 12:00:00 AM EDT [facility] ([facility]) OFFICE OUTPATIENT VISIT 25 MINUTES 07/27/2020 12:00:00 AM EDT [facility] ([facility]) OFFICE OUTPATIENT NEW 30 MINUTES 07/08/2020 12:00:00 A M EST [facility] ([facility]) Results ID Date Data Source [id number] 02/03/2021 03:54:00 PM EDT [facility] ([facility]) Name Value Range Interpretation Code Description Data Thu rce(s) Supporting Document(s) Creatinine For GFR 0.70 mg/dL 0.55-1.30 Normal (applies to non -numeric results) [facility] ([facility]) Glomerular Filtration Rate Laboratory test result Normal (applies to non- numeric results) [facility]) <content>Units are mL/min/1.73 m2</content>
<content></content>
<content>Chronic Kidney Disease Staging per NKF:</content>
<content></content>
<content>Stage I & II GFR >=60 Normal to Mildly Decreased</content>
<content>Stage III GFR 30- 59 Moderately Decreased</content>
<content>Stage IV GFR 15-29 Severely Decreased</content>
<content>Stage V GFR <15 Very Little GFR Left</content>
<content>ESRD GFR <15 on NEPHROLOGY SOCIAL WORKER</content>
<content></content> ID Date Data Source [id number] 02/03/2021 03:54:00 PM EDT [facility] ([facility]) Name Value Range Interpretation Code Description Data Thu rce(s) Supporting Document(s) Urea nitrogen [Mass/volume] in Serum or Plasma 9 mg/dL 7 -18 Normal (applies to non-numeric results) [facility]) ID Date Data Source [id number] 11/09/2020 02:50:00 PM EDT [facility] ([facility]) Name Value Range Interpretation Code Description Data Thu rce(s) Supporting Document(s) FVC-Pred 3.53 L MEDENT ([facility], ) PDFReport Laboratory test result MEDENT ([facility], ) FVC-%Pred-Pre 47 L [facility] ([facility], ) FVC-Pre 1.66 L [facility] ([facility]) FVC-LLN 2.86 L [facility] ([facility], ) Fev1-Pre 1.45 L [facility] ([facility]) Fev1-%Pred-Pre 49 L [facility] ([facility]) Fev1-Pred 2.89 L [facility] ([facility]) Fev1-LLN 2.34 L [facility] ([facility]) Fev6-Pre 1.66 L [facility] ([facility]) Fev6-Pred 3.47 L [facility] ([facility]) Ryp2chf-Ucvp 83 % [facility] ([facility]) Fev6-%Pred-Pre 47 L [facility] ([facility]) Fev6-LLN 2.82 L [facility] ([facility]) Kid8ord-Xkc 87 % [facility] ([facility]) Xnv6yvc-%Pred-Pre 105 % [facility] ([facility]) Oym1eof-YMA 73 % [facility] ([facility]) Qoq2ugt-Bslb 98 % [facility] ([facility]) Hbx4kyp-Ncx 100 % [facility] ([facility]) Czh1wwv-%Pred-Pre 101 % [facility] ([facility]) FEFMax-%Pred-Pre 46 L/E/sec [facility] ([facility]) FEFMax-Pred 6.75 L/E/sec [facility] ([facility]) FEFMax-Pre 3.11 L/E/sec [facility] ([facility]) FEFMax-LLN 5.12 L/E/sec [facility] ([facility], ) Xra1360-Sxhb 3.08 L/E/sec [facility] ([facility]) Qmf6975-Fax 1.48 L/E/sec [facility] ([facility]) Qjm3506-FXC 1.90 L/E/sec [facility] ([facility], ) Sfd1153-%Pred-Pre 47 L/E/sec [facility] ([facility]) ExpTime-Pre 5.98 sec [facility] ([facility]) Cqh6rio4-Tngl 84 % [facility] ([facility], ) Gzw5lfs1-%Pred-Pre 103 % [facility] ([facility]) Ylk4rpj1-Aya 87 % [facility] ([facility]) Jpd9bgo6-CBH 75 % [facility] ([facility]) ID Date Data Source [id number] 09/22/2020 12:00:00 AM EDT [facility] Name Value Range Interpretation Code Description Data Thu rce(s) Supporting Document(s) 2019 Novel Coronavirus RNA Negative [facility] This lab was ordered by [facility] and reported by [facility]. ID Date Data Source [id number] 08/26/2020 09:30:00 AM EDT [facility] Name Value Range Interpretation Code Description Data Thu rce(s) Supporting Document(s) SARS-CoV-2 (COVID-19) RNA [Presence] in Respiratory specimen by NANCY with probe detection Not Detected [facility] This lab was ordered by [facility] and reported by [employer]. ID Date Data Source [id number] 04/07/2020 09:42:[address] [facility] Name Value Range Interpretation Code Description Data Thu rce(s) Supporting Document(s) Progress Note [facility] IRKNSv7gVmWKJtQa36/GRCrbLUKrh2AiCZonWHy6CQhqAWToW6CzMHC7eA3oNMK1LRjFCoHxHnNsJGI6 [facility] [file] ICAgICAgICAgICAgICAgICAgICAgICAgICAgICAgICAgICAgICAgICAgICAgICAgICAgICAgICAgICAg ICAgICAgICAgICAgICAgICAgICAgICAgDQogICAgIC AgICAgICAgICAgICAgICAgICAgICAgICAgICAgICAgICAgICAgICAgICAgICAgICAgICAgICAgICAgIC AgICAgICAgICAgICAgICAgICAgICAgICAgICAgICAgICAgDQogICAgICAgICAgICAgICAgICAgICAgIC AgICAgICAgICAgICAgICAgICAgICAgICAgICAgICAg ICAgICAgICAgICAgICAgICAgICAgICAgICAgICAgICAgICAgICAgICAgICAgDQogICAgICAgICAgICAg ICAgICAgICAgICAgICAgICAgICAgICAgICAgICAgICAgICAgICAgICAgICAgICAgICAgICAgICAgICAg ICAgICAgICAgICAgICAgICAgICAgICAgICAgDQogIC AgICAgICAgICAgICAgICAgICAgICAgICAgICAgICAgICAgICAgICAgICAgICAgICAgICAgICAgICAgIC AgICAgICAgICAgICAgICAgICAgICAgICAgICAgICAgICAgICAgDQogICAgICAgICAgICAgICAgICAgIC AgICAgICAgICAgICAgICAgICAgICAgICAgICAgICAg ICAgICAgICAgICAgICAgICAgICAgICAgICAgICAgICAgICAgICAgICAgICAgICAgDQogICAgICAgICAg ICAgICAgICAgICAgICAgICAgICAgICAgICAgICAgICAgICAgICAgICAgICAgICAgICAgICAgICAgICAg ICAgICAgICAgICAgICAgICAgICAgICAgICAgICAgDQ ogICAgICAgICAgICAgICAgICAgICAgICAgICAgICAgICAgICAgICAgICAgICAgICAgICAgICAgICAgIC AgICAgICAgICAgICAgICAgICAgICAgICAgICAgICAgICAgICAgICAgDQogICAgICAgICAgICAgICAgIC AgICAgICAgICAgICAgICAgICAgICAgICAgICAgICAg ICAgICAgICAgICAgICAgICAgICAgICAgICAgICAgICAgICAgICAgICAgICAgICAgICAgDQogICAgICAg ICAgICAgICAgICAgICAgICAgICAgICAgICAgICAgICAgICAgICAgICAgICAgICAgICAgICAgICAgICAg ICAgICAgICAgICAgICAgICAgICAgICAgICAgICAgIC HnGYl6H1qzLQKnLLJfUN0lRNb4Po4+SKwIRhYdMMF1clBusA4KSA1be1EyZIhkCKJkf9NvCUu2TS7YYP ZbOLtnGH6ALXsmps4RYZSjCOVenAOAi5bkLoSfYVL2WBGzBwyyCL6SDXDiL6tyrbOyTNFfDCZWTNprVF RGXUrqHHANNLBtKUOvHuEtXhYfYFSrNRDsFNGIQX0X HvQlD2CehG93FDZWZv4+FOwwpqItZdgONyVkRRJkn4WyUWz3GX5LMNIkUptih7NdSnPyZEGOKJxrQZ0E GGN3IAYxAUEaNk6NLTLlH050xjFwPY2KWx5CUgHiRF0zzd1NVsLsTODvIkxCYgr0XUbeDM6GzPAzKUoE fz7xmfSqgoNGw4CgujTrfACHa9tnPRBmMMftJRuoq0 VtiDQlWZYOGABlpPIlZN9sMV7gQTWcUOG2CdPuUCJJIN7VYOIrIQBvtJDhCMCoYBOEML5BNFnlSZK6JF FiaoUiwBWkWMpkVX0OOQYuqbLbBgNmUIWRYRn+Eh3ORF9bz6ZkORtxXLZsUF1pao0CCFwRUwJhR8M1sE FrM3F3TIhdMc0AMZRgYSXaNmBgKWZAOUjwTK2LBR1f waI0HD3FvKToBOZsPDYjdNZoEGt9Y37dxIAkZWmwHB6AYCL+Shirley+Zb7HTKJyDTOiTBZpWpEjQIZAYiNk Y0XfN4RHt3WaL4GpLO29uEovciTiGPyqLO3OQF7uXWAxWYWIRS8QsXWcoQ7nndBuAgAjTNAXOfQsB96e sXKiSUYuLDEsJIWtRf2GVHSxT5HrbuKrmKixuxLxHC UpEEBFBN8CSEovwbHaoIAahXuzJX10qBhmII1VPc7ITtElOF4usc5SeTCbMl8TXXQrRT6ZKZXtLDWvEF UcSCQ0WQZkXgRjBAlpBVIyCRSjKHH1NNVxZOFtPU2GUwJlGOUgDQejLCQwHINfEWBgai6YMPZrPDW8TB x2JUIgLQRgDJInAUkeRHXpLSZyQZZ0QAYmVQUhYR7G HbAeCICaQZT0HWhvLURaIBRwgr4TLSIpPSMePlu9MdKyTCYhPASiOFpbTPGxDVM2FIr5YOKnMYXoCJ1D ByQfMZNmROipUDDtTHOuBVSofv7ULUPsYHAtVFl3QPMwZLPcBKUnZFceCCHuUAFxSMb9ZBEeTMSjUE5F TnSoDSEmTRY3KEHzUCTiUKWvwy9OZJApRUOnEar7DB KjCMBmMEWgHRoaXIClAMJ2KxHlHCMiTHJxKZ8EYgFkLMHnKIG8OrflHKJjJGWiye9WLZLjSNHoPXwjEe WzOBMrNKNsHUwmVSBbYXE5AMD9CIYoGIPbAW4FHgNaNPZcEMz8ILzoNEWpACEdto4GAJKrQZXmNFS4Dt ZrNRCiMWFfPQdaNHVdIJAoNiK1TWJiQWZrQY0INjJh NUHeIvJdEpnvGMSjHQShij2RZGZqRKNbYBCyNKRfYIQrFLOnSBjdHHUyPYUwDbF3XHXxFMDtPL5IWoUo BJTfJRZ2NJBkFYArLLGcja8IOYAnJDX8MJJ4YmVcVUXqPZWgUPdkIBLuAKP7AOU2ASUoSWVvMF5TWtNh FZIvQGC4UyQwMKTdHUTeww8VAKTjMYM3GkfjLTSiIJ VjJBIpVQhdBZSfWEX7HsX3UHYwFUMyKQ5DFjSlFSTwSJd6TJNzIGVzPVPlvv5JCIXzWNE0QPDhLFHlQB UgKJLiUVsvVNStWOK7HHK6TVRnCONwZU9OOcKaDXGrMbTyAHklPPIjHEMchr0JEOOwUSG4EFN5QKKrRP LdMKFcVKrtEPBiVTXgMqK8VJRnYEQiMB1NPoSaZRdh AJOXAcz1GFieC5o5HBCqVT9ZJ1Lhs0RvCxMhYKPVHHesGE3jplQoHWZlYr8JD1eROae7L9X8WRBaXWJr ObDgOPDrGqNyLtUvXUHjLuf9KsXsGE0kONM5QcKyEHE9OdSfPmK1FUA0OnB3TqY8EPB9NfApVdG6SjMf OO4RVf2XBeG5LEM4jKDxJu0NZnV9WLmPJiMfPT5KWNg= ID Date Data Source [id number] 04/02/2020 04:47:[address] [facility] MR ABDOMEN WITH AND WITHOUT CONTRAST 741 [...] Never Smoker completed Never S moker eCW1 ([facility]) Smoking 01/12/2021 12:00:00 AM EDT Never Smoker completed Never S moker eCW1 ([facility]) Smoking 12/01/2020 12:00:00 AM EDT Never Smoker completed Never S moker eCW1 ([facility]) Smoking 11/19/2020 12:00:00 AM EDT Never Smoker completed Never S moker eCW1 ([facility]) Smoking 11/09/2020 12:00:00 AM EDT Patient has never smoked co mpleted Patient has never smoked [facility]ENT ([facility], ) Smoking 10/20/2020 12:00:00 AM EDT Never Smoker completed Never S moker eCW1 ([facility]) Smoking 10/20/2020 12:00:00 AM EDT Never Smoker completed Never S moker eCW1 ([facility]) Smoking 09/08/2020 12:00:00 AM EDT Never Smoker completed Never S moker eCW1 ([facility]) Smoking 09/08/2020 12:00:00 AM EDT Never Smoker completed Never S moker eCW1 ([facility]) Smoking 09/08/2020 12:00:00 AM EDT Never Smoker completed Never S moker eCW1 ([facility]) Smoking 09/08/2020 12:00:00 AM EDT Never Smoker completed Never S moker eCW1 ([facility]) Smoking 08/16/2020 12:00:00 AM EDT Never Smoker completed Never S moker eCW1 ([facility]) Smoking 08/16/2020 12:00:00 AM EDT Never Smoker completed Never S moker eCW1 ([facility]) Smoking 07/28/2020 12:00:00 AM EDT Never Smoker completed Never S moker eCW1 ([facility]) Smoking 07/28/2020 12:00:00 AM EDT Never Smoker completed Never S moker eCW1 ([facility]) Smoking 06/17/2020 12:00:00 AM EST Never Smoker completed Never S moker eCW1 ([facility]) Smoking 05/28/2020 12:00:00 AM EST Patient has never smoked co mpleted Patient has never smoked MEDENT ([facility]) Smoking 05/26/2020 12:00:00 AM EST Never Smoker completed Never S moker eCW1 ([facility]) Smoking 05/26/2020 12:00:00 AM EST Never Smoker completed Never S moker eCW1 ([facility]) Smoking 05/19/2020 12:00:00 AM EST Never Smoker completed Never S moker eCW1 ([facility]) Smoking 05/19/2020 12:00:00 AM EST Never Smoker completed Never S moker eCW1 ([facility]) Smoking 04/21/2020 12:00:00 AM EST Never Smoker completed Never S moker eCW1 ([facility]) Smoking 04/21/2020 12:00:00 AM EST Never Smoker completed Never S moker eCW1 ([facility]) Alcohol intake 04/07/2020 12:00:00 AM EST Current non-d soraya of alcohol (finding) completed Current non-drinker of alcohol (finding) [facility] Tobacco use and exposure 04/07/2020 12:00:00 AM EST Never used co mpleted Never used [facility] Smoking 04/07/2020 12:00:00 AM EST Never smoker completed Never s [facility] Smoking 03/13/2020 12:00:00 AM EDT Never Smoker completed Never S moker eCW1 ([facility]) Smoking 03/13/2020 12:00:00 AM EDT Never Smoker completed Never S moker eCW1 ([facility]) Smoking 03/13/2020 12:00:00 AM EDT Never Smoker completed Never S moker eCW1 ([facility]) Smoking 03/10/2020 12:00:00 AM EDT Never Smoker completed Never S moker eCW1 ([facility]) Vital Signs ID Date Data Source UNK Name Value Range Interpretation Code Description Data Source(s) [facility]stolic blood pressure 129 mm[Hg] 129 mm[facility]Hg[facility] Diastolic blood pressure 82 mm[Hg] 82 mm[Hg] [facility] ([facility]) Body height 62.50 [in_i] 62.50 [in_i] [facility] ([facility]) 5'2.50" Body weight 234.00 [lb_av] 234.00 [lb_av] MEDEN T ([facility]) Body mass index (BMI) [Ratio] 42.1 kg/m2 42.1 k g/m2 [facility] ([facility]) [place] body weight 110 [lb_av] 110 [lb_av] MEDEN T ([facility]) Body weight 106.142 kg 106.[address] [facility] ([facility]) Body surface area Derived from formula 2.06 m2 2.[address] [facility] ([facility]) Body weight 235 [lb_av] 235 [lb_av] eCW1 ([facility]) Body weight 106.6 kg 106.6 kg eCW1 ([facility]) Body height 62 [in_i] 62 [in_i] eCW1 ([facility]) Body mass index (BMI) [Ratio] 42.98 kg/m2 42.98 kg/m2 W1 ([facility]) Heart rate 83 /min 83 /min eCW1 ([facility]) Respiratory rate 18 /min 18 /min eCW1 ([facility]) Body temperature 96.9 [degF] 96.9 [degF] eCW1 ( [facility]) Systolic blood pressure 132 mm[Hg] 132 mm[Hg] e CW1 ([facility]) Diastolic blood pressure 78 mm[Hg] 78 mm[Hg] eCW1 ([facility]) Systolic blood pressure 127 mm[Hg] 127 mm[Hg] M EDENT ([facility]) Respiratory rate 16 /min 16 /min MEDENT ( [facility]) Diastolic blood pressure 63 mm[Hg] 63 mm[Hg] [facility] ([facility]) Body weight 234.00 [lb_av] 234.00 [lb_av] MEDEN T ([facility]) Body weight 233 [lb_av] 233 [lb_av] eCW1 ([facility]) Body height 62 [in_i] 62 [in_i] eCW1 ([facility]) Body mass index (BMI) [Ratio] 42.61 kg/m2 42.61 kg/m2 W1 ([facility]) Heart rate 84 /min 84 /min eCW1 ([facility]) Respiratory rate 18 /min 18 /min eCW1 ([facility]) Body temperature 96.9 [degF] 96.9 [degF] eCW1 ( [facility]) Systolic blood pressure 118 mm[Hg] 118 mm[Hg] e CW1 ([facility]) Diastolic blood pressure 80 mm[Hg] 80 mm[Hg] eCW1 ([facility]) Body weight 232 [lb_av] 232 [lb_av] eCW1 ([facility]) Body temperature 98.3 [degF] 98.3 [degF] eCW1 ( [facility]) Systolic blood pressure 108 mm[Hg] 108 mm[Hg] e CW1 ([facility]) Diastolic blood pressure 70 mm[Hg] 70 mm[Hg] eCW1 ([facility]) Body height 62 [in_i] 62 [in_i] eCW1 ([facility]) Body mass index (BMI) [Ratio] 42.43 kg/m2 42.43 kg/m2 eCW1 ([facility]) Heart rate 90 /min 90 /min eCW1 ([facility]) Respiratory rate 18 /min 18 /min eCW1 ([facility]) Heart rate 80 /min 80 /min MEDENT ([facility]) Oxygen saturation in Arterial blood by Pulse oximetry 96 % 96 % [facility] Body height 62.50 [in_i] 62.50 [in_i] MED[facility] ([facility]) 5'2.50" Body weight 234.25 [lb_av] 234.25 [lb_av] MEDEN T ([facility]) Body mass index (BMI) [Ratio] 42.2 kg/m2 42.2 k g/m2 [facility] ([facility]) [place] body weight 110 [lb_av] 110 [lb_av] MEDEN T ([facility]) Body weight 106.256 kg 106.[address] [facility] ([facility]) Body surface area Derived from formula 2.06 m2 2.[address] [facility] ([facility]) Systolic blood pressure 122 mm[Hg] 122 mm[Hg] [facility] Diastolic blood pressure 78 mm[Hg] 78 mm[Hg] [facility] ([facility]) Oxygen saturation in Arterial blood by Pulse oximetry 96 % 96 % [facility] ([facility]) Body height 62.50 [in_i] 62.50 [in_i] [facility] ([facility]) 5'2.50" Body weight 234.25 [lb_av] 234.25 [lb_av] MEDEN T ([facility]) Body mass index (BMI) [Ratio] 42.2 kg/m2 42.2 k g/m2 [facility] ([facility]) [place] body weight 110 [lb_av] 110 [lb_av] MEDEN T ([facility]) Body weight 106.256 kg 106.[address] [facility] ([facility]) Body surface area Derived from formula 2.06 m2 2.06 m2 MED[facility] ([facility], ) Body weight 231 [lb_av] 231 [lb_av] eCW1 ([facility]) Body height 62 [in_i] 62 [in_i] eCW1 ([facility]) Body mass index (BMI) [Ratio] 42.25 kg/m2 42.25 kg/m2 eCW1 ([facility]) Heart rate 93 /min 93 /min eCW1 ([facility]) Respiratory rate 19 /min 19 /min eCW1 ([facility]) Body temperature 97.3 [degF] 97.3 [degF] eCW1 ( [facility]) Systolic blood pressure 132 mm[Hg] 132 mm[Hg] e CW1 ([facility]) Diastolic blood pressure 78 mm[Hg] 78 mm[Hg] eCW1 ([facility]) Body weight 232 [lb_av] 232 [lb_av] eCW1 ([facility]) Body mass index (BMI) [Ratio] 42.43 kg/m2 42.43 kg/m2 eCW1 ([facility]) Heart rate 80 /min 80 /min eCW1 ([facility]) Respiratory rate 18 /min 18 /min eCW1 ([facility]) Body temperature 96.9 [degF] 96.9 [degF] eCW1 ( [facility]) Body height 62 [in_i] 62 [in_i] eCW1 ([facility]) Systolic blood pressure 114 mm[Hg] 114 mm[Hg] e CW1 ([facility]) Diastolic blood pressure 80 mm[Hg] 80 mm[Hg] eCW1 ([facility]) Diastolic blood pressure 76 mm[Hg] 76 mm[Hg] [facility] ([facility]) Systolic blood pressure 125 mm[Hg] 125 mm[Hg] M EDENT ([facility]) Body weight 234.00 [lb_av] 234.00 [lb_av] MEDEN T ([facility]) Body temperature 97.3 [degF] 97.3 [degF] [facility] ([facility]) Respiratory rate 18 /min 18 /min eCW1 ([facility]) Body weight 233 [lb_av] 233 [lb_av] eCW1 ([facility]) Body height 62 [in_i] 62 [in_i] eCW1 ([facility]) Body mass index (BMI) [Ratio] 42.61 kg/m2 42.61 kg/m2 eCW1 ([facility]) Heart rate 97 /min 97 /min eCW1 ([facility]) Body temperature 98.6 [degF] 98.6 [degF] eCW1 ( [facility]) Systolic blood pressure 130 mm[Hg] 130 mm[Hg] e CW1 ([facility]) Diastolic blood pressure 80 mm[Hg] 80 mm[Hg] eCW1 ([facility]) Body weight 247 [lb_av] 247 [lb_av] eCW1 ([facility]) Body height 62 [in_i] 62 [in_i] eCW1 ([facility]) Body mass index (BMI) [Ratio] 45.17 kg/m2 45.17 kg/m2 eCW1 ([facility]) Heart rate 79 /min 79 /min eCW1 ([facility]) Respiratory rate 18 /min 18 /min eCW1 ([facility]) Body temperature 98.6 [degF] 98.6 [degF] eCW1 ( [facility]) Systolic blood pressure 102 mm[Hg] 102 mm[Hg] e CW1 ([facility]) Diastolic blood pressure 69 mm[Hg] 69 mm[Hg] eCW1 ([facility]) Body mass index (BMI) [Ratio] 43.2 kg/m2 43.2 k g/m2 [facility] ([facility], ) [place] body weight 110 [lb_av] 110 [lb_av] MEDEN T ([facility], ) Body weight 108.864 kg 108.864 kg MEDKAILEE ([facility], ) Body height 62.50 [in_i] 62.50 [in_i] [facility] ([facility]) 5'2.50" Body weight 240.00 [lb_av] 240.00 [lb_av] MEDEN T ([facility]) Body surface area Derived from formula 2.08 m2 2.[address] [facility] ([facility]) Systolic blood pressure 147 mm[Hg] 147 mm[Hg] M EDENT ([facility]) Diastolic blood pressure 82 mm[Hg] 82 mm[Hg] MEDENT ([facility]) Body height 62.50 [in_i] 62.50 [in_i] MEDENT ([facility]) 5'2.50" Body weight 240.00 [lb_av] 240.00 [lb_av] MEDEN T ([facility]) Body mass index (BMI) [Ratio] 43.2 kg/m2 43.2 k g/m2 [facility] ([facility]) [place] body weight 110 [lb_av] 110 [lb_av] MEDEN T ([facility]) Body weight 108.864 kg 108.[address] [facility] ([facility]) Body surface area Derived from formula 2.08 m2 2.[address] [facility] ([facility]) Body weight 247 [lb_av] 247 [lb_av] eCW1 ([facility]) Body height 62 [in_i] 62 [in_i] eCW1 ([facility]) Body mass index (BMI) [Ratio] 45.17 kg/m2 45.17 kg/m2 eCW1 ([facility]) Heart rate 90 /min 90 /min eCW1 ([facility]) Respiratory rate 18 /min 18 /min eCW1 ([facility]) Body temperature 97.8 [degF] 97.8 [degF] eCW1 ( [facility]) Systolic blood pressure 132 mm[Hg] 132 mm[Hg] e CW1 ([facility]) Diastolic blood pressure 78 mm[Hg] 78 mm[Hg] eCW1 ([facility]) Diastolic blood pressure 87 mm[Hg] 87 mm[Hg] MEDENT ([facility], [facility]) Body temperature 98.0 [degF] 98.0 [degF] MEDENT ([facility], [facility]) Body weight 242.00 [lb_av] 242.00 [lb_av] MEDEN T ([facility], [facility]) Systolic blood pressure 126 mm[Hg] 126 mm[Hg] M EDENT ([facility], [facility]) Heart rate 86 /min 86 /min MEDENT ([facility], [facility]) Respiratory rate 16 /min 16 /min MEDENT ( [facility], [facility]) Oxygen saturation in Arterial blood by Pulse oximetry 98 % 98 % MEDENT ([facility], [facility]) Body weight 244 [lb_av] 244 [lb_av] eCW1 ([facility]) Body height 62 [in_i] 62 [in_i] eCW1 ([facility]) Body mass index (BMI) [Ratio] 44.62 kg/m2 44.62 kg/m2 W1 ([facility]) Heart rate 90 /min 90 /min eCW1 ([facility]) Respiratory rate 18 /min 18 /min eCW1 ([facility]) Body temperature 97.4 [degF] 97.4 [degF] eCW1 ( [facility]) Systolic blood pressure 140 mm[Hg] 140 mm[Hg] e CW1 ([facility]) Diastolic blood pressure 86 mm[Hg] 86 mm[Hg] eCW1 ([facility]) Body weight 243 [lb_av] 243 [lb_av] eCW1 ([facility]) Body height 62 [in_i] 62 [in_i] eCW1 ([facility]) Body mass index (BMI) [Ratio] 44.44 kg/m2 44.44 kg/m2 W1 ([facility]) Heart rate 92 /min 92 /min eCW1 ([facility]) Respiratory rate 18 /min 18 /min eCW1 ([facility]) Body temperature 96.7 [degF] 96.7 [degF] eCW1 ( [facility]) Systolic blood pressure 132 mm[Hg] 132 mm[Hg] e CW1 ([facility]) Diastolic blood pressure 82 mm[Hg] 82 mm[Hg] eCW1 ([facility]) Body weight 242 [lb_av] 242 [lb_av] eCW1 ([facility]) Heart rate 90 /min 90 /min eCW1 ([facility]) Respiratory rate 18 /min 18 /min eCW1 ([facility]) Body temperature 96.6 [degF] 96.6 [degF] eCW1 ( [facility]) Body mass index (BMI) [Ratio] 44.26 kg/m2 44.26 kg/m2 eCW1 ([facility]) Systolic blood pressure 132 mm[Hg] 132 mm[Hg] e CW1 ([facility]) Diastolic blood pressure 82 mm[Hg] 82 mm[Hg] eCW1 ([facility]) Body height 62 [in_i] 62 [in_i] eCW1 ([facility]) Body weight 241 [lb_av] 241 [lb_av] eCW1 ([facility]) Body height 62 [in_i] 62 [in_i] eCW1 ([facility]) Body mass index (BMI) [Ratio] 44.07 kg/m2 44.07 kg/m2 eCW1 ([facility]) Heart rate 84 /min 84 /min eCW1 ([facility]) Respiratory rate 18 /min 18 /min eCW1 ([facility]) Body temperature 97.2 [degF] 97.2 [degF] eCW1 ( [facility]) Systolic blood pressure 120 mm[Hg] 120 mm[Hg] e CW1 ([facility]) Diastolic blood pressure 80 mm[Hg] 80 mm[Hg] eCW1 ([facility]) Heart rate 90 /min 90 /min eCW1 ([facility]) Body weight 242 [lb_av] 242 [lb_av] eCW1 ([facility]) Body height 62 [in_i] 62 [in_i] eCW1 ([facility]) Body mass index (BMI) [Ratio] 44.26 kg/m2 44.26 kg/m2 eCW1 ([facility]) Respiratory rate 18 /min 18 /min eCW1 ([facility]) Body temperature 98.6 [degF] 98.6 [degF] eCW1 ( [facility]) Systolic blood pressure 132 mm[Hg] 132 mm[Hg] e CW1 ([facility]) Diastolic blood pressure 82 mm[Hg] 82 mm[Hg] eCW1 ([facility]) ID Date Data Source [id number] 04/07/2020 09:42:[address] [facility] Name Value Range Interpretation Code Description Data Source(s) WEIGHT RECORDED 240 lb 240 lb [facility] Body height Measured 62.99 in 62.99 in [facility] ID Date Data Source [id number] 03/26/2020 11:53:[address] [facility] Name Value Range Interpretation Code Description Data Source(s) WEIGHT RECORDED 233 lb 233 lb [facility] Body height Measured 62.99 in 62.99 in [facility] WEIGHT RECORDED 233 lb 233 lb [facility] Body height Measured 62.99 in 62.99 in [facility] Patient Treatment Plan of Care Planned Activity Planned Date Details Description Data Source (s) Prednisone 50 MG Oral Tablet 09/22/2020 12:00:00 AM EDT eCW1 ([facility]) Benadryl Allergy 25 MG 09/22/2020 12:00:00 AM EDT eCW1 ([facility]) Prednisone 50 MG Oral Tablet 09/22/2020 12:00:00 AM EDT eCW1 ([facility]) Benadryl Allergy 25 MG 09/22/2020 12:00:00 AM EDT eCW1 ([facility]) Fluconazole 100 MG Oral Tablet 09/14/2020 12:00:00 AM EDT eCW1 ([facility]) Fluconazole 100 MG Oral Tablet 09/14/2020 12:00:00 AM EDT eCW1 ([facility]) Fluconazole 100 MG Oral Tablet 09/14/2020 12:00:00 AM EDT eCW1 ([facility]) Clobetasol Propionate 0.0005 MG/MG Topical Ointment [T emovate] 05/26/2020 12:00:00 AM EST eCW1 ([facility]) Levothyroxine Sodium 0.075 MG Oral Tablet 05/26/2020 12:00:00 AM ES T eCW1 ([facility]) 24 HR Glipizide 2.5 MG Extended Release Oral Tablet 05/26/19 12:00:00 AM EST eCW1 ([facility]) Propranolol Hydrochloride 10 MG Oral Tablet 05/26/2020 12:00:00 AM EST eCW1 ([facility]) Clobetasol Propionate 0.0005 MG/MG Topical Ointment [T emovate] 05/26/2020 12:00:00 AM EST eCW1 ([facility]) Levothyroxine Sodium 0.075 MG Oral Tablet 05/26/2020 12:00:00 AM ES T eCW1 ([facility]) 24 HR Glipizide 2.5 MG Extended Release Oral Tablet 05/26/19 12:00:00 AM EST eCW1 ([facility]) Propranolol Hydrochloride 10 MG Oral Tablet 05/26/2020 12:00:00 AM EST eCW1 ([facility]) sitagliptin 100 MG Oral Tablet [Januvia] 03/10/2020 12:00:00 AM EDT eCW1 ([facility]) sitagliptin 100 MG Oral Tablet [Januvia] 03/10/2020 12:00:00 AM EDT eCW1 ([facility]) sitagliptin 100 MG Oral Tablet [Januvia] 03/10/2020 12:00:00 AM EDT eCW1 ([facility]) sitagliptin 100 MG Oral Tablet [Januvia] 03/10/2020 12:00:00 AM EDT eCW1 ([facility]) Prednisone 50 MG Oral Tablet 03/09/2020 12:00:00 AM [facility] Diphenhydramine Hydrochloride 50 MG Oral Tablet 03/09/2020 12:00:00 AM [facility]
--- NOTE | 2021-03-19 17:46 | ECGEPIP ---
[facility] - ED Test Date: 2021-03-19 Pat Name: MACHO ARRIOLA Department: Room: - Gender: Female [employer] Hel[employer]: : [id number] Requested By: López Guerrero Order Number: [id number] Reading MD: López Guerrero Measurements Intervals [place] Rate: 83 P: 45 MA: 174 QRS: -25 QRSD: 98 T: 43 QT: 424 QTc: 498 Interpretive Statements Normal sinus rhythm Prolonged QT Delayed R wave progression Nonspecific ST T wave changes 07/02/[address] T wave changes Electronically Signed on 03-19-2021 17:46:21 EDT by López Guerrero
--- NOTE | 2021-03-19 18:09 | REP ---
INDICATION: presyncope. COMPARISON: 07/02/2019, 09/29/2016 TECHNIQUE: AP portable seated FINDINGS: Lungs hypoinflated. Slight elevation of the right diaphragm. There is no effusion or definite infiltrate. Some crowding of markings in the bases. No dense consolidation or parenchymal mass seen. Heart is not enlarged for AP portable technique with this degree of inflation. The aorta and airway are intact. No abnormal widening of the mediastinum. Bony thorax unremarkable. No free air under the diaphragm. IMPRESSION: 1. Hypoinflated chest with some crowded markings in the bases. No acute cardiopulmonary change. <Electronically signed by Cj Diana > 03/19/21 [id number]
[2021-03-19 18:26] VITALS: BP 136/77
== END 2021-03-19 18:28 | disposition home or self-care (01) ==
LOC: M ED 15:41
DX: R55 Syncope and collapse (principal); J45.909 Unspecified asthma, uncomplicated; E11.9 Type 2 diabetes mellitus without complications; E03.9 Hypothyroidism, unspecified; F31.9 Bipolar disorder, unspecified; K76.89 Other specified diseases of liver; K21.9 Gastro-esophageal reflux disease without esophagitis; Z79.899 Other long term (current) drug therapy; Z79.890 Hormone replacement therapy; Z88.0 Allergy status to penicillin; Z88.1 Allergy status to other antibiotic agents; Z88.8 Allergy status to other drugs, medicaments and biological substances; Z91.018 Allergy to other foods; Z91.040 Latex allergy status; Z91.041 Radiographic dye allergy status

== ENCOUNTER → 2021-03-29 | Outpatient (REF) | payer OTHER ==
[~2021-03-29] MED LIST changes: +ERGO500029 PO; +PROP20TA72 PO
[2021-03-29 13:46] LABS: APPEARANCE, URINE CLEAR (CLEAR); BACTERIA, URINE AUTO NEGATIVE (NEGATIVE); BILIRUBIN, URINE AUTO NEGATIVE (NEGATIVE); BLOOD, URINE BLOOD 1+ (NEGATIVE); COLOR, URINE STRAW (YELLOW); GLUCOSE, URINE (UA) AUTO NEGATIVE (NEGATIVE); KETONE, URINE AUTO NEGATIVE (NEGATIVE); LEUKOCYTE ESTERASE, URINE AUTO NEGATIVE (NEGATIVE); NITRITE, URINE AUTO NEGATIVE (NEGATIVE); PROTEIN, URINE AUTO NEGATIVE (NEGATIVE); RBC, URINE AUTO 5 /HPF (0-3); SPECIFIC GRAVITY URINE AUTO 1.008 (1.002-1.035); SQUAMOUS EPITHELIAL CELL UR AU 1 /HPF (0-6); UROBILINOGEN, URINE AUTO 0.2 mg/dL (0.0-2.0); WBC, URINE AUTO 1 /HPF (0-3)
== END ==
LOC: M SMT 12:59
PROVIDERS: ATTEND Nurse Practitioner Women's Health
DX: R35.1 Nocturia (principal)

== ENCOUNTER → 2021-04-04 | Outpatient (CLI) | payer OTHER ==
--- NOTE | 2021-04-04 17:51 | REP ---
INDICATION: KIDNEY STONES URETERAL STONE COMPARISON: 10/07/2020 TECHNIQUE: Axial noncontrast images from the lung bases to the pubic symphysis with coronal and sagittal reformations. This CT examination was performed using the following dose reduction techniques: Automated exposure control, adjustment of mA and/or kv according to the patient's size, and use of iterative reconstruction technique. FINDINGS: Lung bases demonstrate trace pleural effusions. Visualized heart and pericardium normal. Liver demonstrates hepatosteatosis. Spleen, pancreas, bilateral adrenal glands are normal. Right kidney is unremarkable. Left kidney includes 2 mm nonobstructing calculus. A 3 mm calculus is identified within the dependent portion of the bladder consistent with recently passed right kidney stone. The enteric system is unremarkable and without obstruction or acute inflammatory process. Normal terminal ileum and appendix identified in the right lower quadrant. Pelvis demonstrates normal bladder and prior hysterectomy. No ascites. No free air. No adenopathy. No focal inflammatory stranding. Abdominal aorta without aneurysm. Musculoskeletal structures are intact and without acute osseous abnormality. IMPRESSION: 1. Nonobstructing 2 mm left renal stone and 3 mm recently passed right renal stone within the bladder. <Electronically signed by Chago Shirley > 04/04/21 [id number]
== END ==
LOC: M RAD 17:09
PROVIDERS: ATTEND Nurse Practitioner Women's Health
DX: R31.29 Other microscopic hematuria (principal); N20.1 Calculus of ureter

== ENCOUNTER → 2021-05-25 | Outpatient (CLI) | payer OTHER ==
[~2021-05-25] MED LIST changes: -CEFD1CAP8 PO; +CEFD300C41 PO; -MONT10TA10 PO; +MONT10TA97 PO
[2021-05-25 11:04] LABS: CREATININE, URINE 80.9 MG/DL; MALB URINE SIEMENS < 5.0 MG/L; MAU/CREAT RATIO 6.1 MCG/MG (0.0-30.0)
[2021-05-25 11:09] LABS: ALBUMIN 3.7 GM/DL (3.2-5.2); ALT/SGPT 45 U/L (12-78); BILIRUBIN,TOTAL 0.2 MG/DL (0.2-1.0); BLOOD UREA NITROGEN 6 MG/DL (7-18); CALCIUM LEVEL 9.8 MG/DL (8.5-10.1); CARBON DIOXIDE LEVEL 31 MEQ/L (21-32); CHLORIDE LEVEL 104 MEQ/L (98-107); CREATININE FOR GFR 0.68 MG/DL (0.55-1.30); GLOMERULAR FILTRATION RATE > 60.0 (>58); GLUCOSE, FASTING 225 MG/DL (70-100); SODIUM LEVEL 141 MEQ/L (136-145); TOTAL PROTEIN 6.6 GM/DL (6.4-8.2)
[2021-05-25 11:15] LABS: HEMOGLOBIN A1c 6.8 %
== END ==
LOC: M WUC 08:05
PROVIDERS: ATTEND Nurse Practitioner Adult Health
DX: E11.9 Type 2 diabetes mellitus without complications (principal); E55.9 Vitamin D deficiency, unspecified; K76.0 Fatty (change of) liver, not elsewhere classified; E03.9 Hypothyroidism, unspecified

== ENCOUNTER → 2021-05-25 | Outpatient (CLI) | payer OTHER ==
[2021-05-25 10:50] LABS: LITHIUM LEVEL 0.77 MEQ/L (0.60-1.20); TOTAL 25(OH) VITAMIN D 34.2 NG/ML (30.0-100.0)
== END ==
LOC: M WUC 08:02
PROVIDERS: ATTEND Nurse Practitioner Psychiatric/Mental Health
DX: F31.64 Bipolar disorder, current episode mixed, severe, with psychotic features (principal)

== ENCOUNTER → 2021-07-22 | Outpatient (REF) | payer OTHER ==
[2021-07-22 13:54] LABS: APPEARANCE, URINE CLEAR (CLEAR); BACTERIA, URINE AUTO NEGATIVE (NEGATIVE); BILIRUBIN, URINE AUTO NEGATIVE (NEGATIVE); BLOOD, URINE BLOOD NEGATIVE (NEGATIVE); COLOR, URINE STRAW (YELLOW); GLUCOSE, URINE (UA) AUTO 3+ mg/dL (NEGATIVE); KETONE, URINE AUTO NEGATIVE (NEGATIVE); LEUKOCYTE ESTERASE, URINE AUTO NEGATIVE (NEGATIVE); NITRITE, URINE AUTO NEGATIVE (NEGATIVE); PROTEIN, URINE AUTO NEGATIVE (NEGATIVE); RBC, URINE AUTO 0 /HPF (0-3); SPECIFIC GRAVITY URINE AUTO 1.009 (1.002-1.035); SQUAMOUS EPITHELIAL CELL UR AU 1 /HPF (0-6); UROBILINOGEN, URINE AUTO 0.2 mg/dL (0.0-2.0); WBC, URINE AUTO 1 /HPF (0-3)
== END ==
LOC: M SMT 12:59
PROVIDERS: ATTEND Urology
DX: R31.29 Other microscopic hematuria (principal)

== ENCOUNTER → 2021-07-28 | Outpatient (CLI) | payer OTHER ==
[2021-07-28 14:17] LABS: HEMATOCRIT 42.6 % (36.0-47.0); HEMOGLOBIN 13.9 g/dl (12.0-15.5); MEAN CORPUSCULAR HEMOGLOBIN 29.1 pg (27.0-33.0); MEAN CORPUSCULAR HGB CONC 32.6 g/dl (32.0-36.5); MEAN CORPUSCULAR VOLUME 89.1 fl (80.0-96.0); PLATELET COUNT, AUTOMATED 314 10^3/uL (150-450); RED BLOOD COUNT 4.78 10^6/uL (4.00-5.40); WHITE BLOOD COUNT 12.8 10^3/uL (4.0-10.0)
[2021-07-28 14:51] LABS: ALBUMIN 3.3 GM/DL (3.2-5.2); ALT/SGPT 34 U/L (12-78); BILIRUBIN,TOTAL 0.3 MG/DL (0.2-1.0); BLOOD UREA NITROGEN 9 MG/DL (7-18); CALCIUM LEVEL 9.2 MG/DL (8.5-10.1); CARBON DIOXIDE LEVEL 31 MEQ/L (21-32); CHLORIDE LEVEL 105 MEQ/L (98-107); CREATININE FOR GFR 0.64 MG/DL (0.55-1.30); GLOMERULAR FILTRATION RATE > 60.0 (>58); GLUCOSE, FASTING 153 MG/DL (70-100); SODIUM LEVEL 139 MEQ/L (136-145)
== END ==
LOC: M LAB 12:42
PROVIDERS: ATTEND Urology
DX: N32.81 Overactive bladder (principal)

== ENCOUNTER → 2021-08-05 | Outpatient (REF) | payer OTHER | LOC: M SMT 08:18 | PROVIDERS: ATTEND Urology | DX: N32.81 Overactive bladder (principal) ==

== ENCOUNTER → 2021-08-10 | Outpatient (CLI) | payer OTHER ==
[~2021-08-10] MED LIST changes: +ATOM80CA6 PO; +FAMO40TA3 PO; +LEVA1.2519 IN; +QUET50TA4 PO; +SERT25TA85 PO; +TRAZ1TAB14 PO; +ZOLO50TA PO
== END ==
LOC: M LABSMTC 11:05
PROVIDERS: ATTEND Anesthesiology
DX: Z11.52 Encounter for screening for COVID-19 (principal); Z20.822 Contact with and (suspected) exposure to COVID-19

== ENCOUNTER → 2021-08-11 | Outpatient (CLI) | payer OTHER ==
[~2021-08-11] MED LIST changes: +CLIN-250 PO
[2021-08-11 13:09] LABS: APPEARANCE, URINE CLEAR (CLEAR); BACTERIA, URINE AUTO NEGATIVE (NEGATIVE); BILIRUBIN, URINE AUTO NEGATIVE (NEGATIVE); BLOOD, URINE BLOOD NEGATIVE (NEGATIVE); COLOR, URINE STRAW (YELLOW); GLUCOSE, URINE (UA) AUTO NEGATIVE (NEGATIVE); KETONE, URINE AUTO NEGATIVE (NEGATIVE); LEUKOCYTE ESTERASE, URINE AUTO NEGATIVE (NEGATIVE); NITRITE, URINE AUTO NEGATIVE (NEGATIVE); PROTEIN, URINE AUTO NEGATIVE (NEGATIVE); RBC, URINE AUTO 0 /HPF (0-3); SPECIFIC GRAVITY URINE AUTO 1.003 (1.002-1.035); SQUAMOUS EPITHELIAL CELL UR AU 1 /HPF (0-6); UROBILINOGEN, URINE AUTO 0.2 mg/dL (0.0-2.0); WBC, URINE AUTO 0 /HPF (0-3)
== END ==
LOC: M LAB 12:05
PROVIDERS: ATTEND Urology
DX: N32.81 Overactive bladder (principal)

== ENCOUNTER 2021-08-15 10:41 | Day surgery (SDC) | payer OTHER ==
[~2021-08-15] VITALS: Ht 157.5 cm; Wt 103.9 kg
[~2021-08-15 10:41] MED LIST changes: -CLIN-250 PO; +LIDOCAINE 1% MDV 20ML VIAL SQ PRN; +LR 1,000 ML IV ONE; +ceFAZolin SOD 2 GM in IV 1 EA IV ONE
[2021-08-15] MEDS ORDERED: LIDOCAINE 2% 100MG/5ML SDV (FOR ANES.) As Ordered ONE (12:22)
[2021-08-15] MEDS ORDERED: propofoL 200 MG/20 ML VIAL As Ordered ONE (12:22)
[2021-08-15] MEDS ORDERED: fentaNYL 100 MCG/2 ML INJECTION As Ordered ONE (12:22)
[2021-08-15] MEDS ORDERED: MIDAZOLAM INJ 2MG/2ML VIAL (J2250 PER 1MG) As Ordered ONE (12:22)
[2021-08-15] MEDS ORDERED: LIDOCAINE 1% SDV 30ML VIAL As Ordered ONE (12:23)
[2021-08-15] MEDS ORDERED: CLIN-250 PO (13:41)
[2021-08-15 14:15] VITALS: BP 134/75
== END 2021-08-15 14:19 | disposition home or self-care (01) ==
LOC: M SDC 10:41
PROVIDERS: ATTEND Urology
DX: N32.81 Overactive bladder (principal); E11.9 Type 2 diabetes mellitus without complications; E03.9 Hypothyroidism, unspecified; K58.8 Other irritable bowel syndrome; K21.9 Gastro-esophageal reflux disease without esophagitis; D13.4 Benign neoplasm of liver; F41.9 Anxiety disorder, unspecified; F31.9 Bipolar disorder, unspecified; G47.30 Sleep apnea, unspecified; R06.83 Snoring; Z88.0 Allergy status to penicillin; Z88.1 Allergy status to other antibiotic agents; Z91.041 Radiographic dye allergy status; Z91.040 Latex allergy status; Z91.013 Allergy to seafood; Z79.899 Other long term (current) drug therapy; Z79.890 Hormone replacement therapy
CPT/HCPCS: 64561; J0690; J2250; J3010

== ENCOUNTER → 2021-08-24 | Outpatient (CLI) | payer OTHER ==
[~2021-08-24] MED LIST changes: +CLIN-250 PO; -LIDOCAINE 1% MDV 20ML VIAL SQ PRN; -LR 1,000 ML IV ONE; -ceFAZolin SOD 2 GM in IV 1 EA IV ONE
== END ==
LOC: M LABSMTC 10:26
PROVIDERS: ATTEND Anesthesiology
DX: Z01.818 Encounter for other preprocedural examination (principal); Z11.52 Encounter for screening for COVID-19

== ENCOUNTER 2021-08-29 13:38 | Day surgery (SDC) | payer OTHER ==
[~2021-08-29] VITALS: Ht 157.5 cm; Wt 103.9 kg
[~2021-08-29 13:38] MED LIST changes: +LIDOCAINE 1% MDV 20ML VIAL SQ PRN; +LR 1,000 ML IV ONE; +ceFAZolin SOD 2 GM in IV 1 EA IV ONE
[2021-08-29] MEDS ORDERED: LIDOCAINE 1% SDV 30ML VIAL As Ordered ONE ×2 (14:45→16:01)
[2021-08-29] MEDS ORDERED: KETOROLAC 60MG 2ML VIAL As Ordered ONE (14:49)
[2021-08-29] MEDS ORDERED: propofoL 200 MG/20 ML VIAL As Ordered ONE (14:49)
[2021-08-29] MEDS ORDERED: ONDANSETRON 4MG/2ML VIAL As Ordered ONE (14:49)
[2021-08-29] MEDS ORDERED: LIDOCAINE 2% 100MG/5ML SDV (FOR ANES.) As Ordered ONE (14:49)
[2021-08-29] MEDS ORDERED: MIDAZOLAM INJ 2MG/2ML VIAL (J2250 PER 1MG) As Ordered ONE (14:50)
[2021-08-29] MEDS ORDERED: fentaNYL 100 MCG/2 ML INJECTION As Ordered ONE (14:50)
[2021-08-29] MEDS ORDERED: ACETAMINOPHEN 1000MG 100ML IV BTL (OFIRMEV) (J0131 PER 10MG) As Ordered ONE (15:41)
[2021-08-29] MEDS ORDERED: SEVOFLURANE INHAL SOLN 250 ML BTL As Ordered ONE (15:48)
[2021-08-29] MEDS ORDERED: HYDR-3713 PO (16:36)
[2021-08-29] MEDS ORDERED: CEPH500C PO (16:36)
[2021-08-29 17:11] VITALS: BP 143/76
== END 2021-08-29 17:18 | disposition home or self-care (01) ==
LOC: M SDC 13:38
PROVIDERS: ATTEND Urology
DX: N32.81 Overactive bladder (principal); E11.9 Type 2 diabetes mellitus without complications; E03.9 Hypothyroidism, unspecified; K58.8 Other irritable bowel syndrome; D13.4 Benign neoplasm of liver; K21.9 Gastro-esophageal reflux disease without esophagitis; R00.0 Tachycardia, unspecified; F41.9 Anxiety disorder, unspecified; F32.A Depression, unspecified; J45.909 Unspecified asthma, uncomplicated; G47.30 Sleep apnea, unspecified; R06.83 Snoring; Z88.0 Allergy status to penicillin; Z88.1 Allergy status to other antibiotic agents; Z91.041 Radiographic dye allergy status; Z91.040 Latex allergy status; Z91.013 Allergy to seafood; Z79.899 Other long term (current) drug therapy; Z79.890 Hormone replacement therapy; Z79.84 Long term (current) use of oral hypoglycemic drugs
CPT/HCPCS: 64590; 76000; 95971; C1778; C1897; J0131; J0690; J1885; J2250; J2405; J3010

== ENCOUNTER → 2021-09-02 | Outpatient (CLI) | payer OTHER ==
[~2021-09-02] MED LIST changes: +CEPH500C PO; +HYDR-3713 PO; -LIDOCAINE 1% MDV 20ML VIAL SQ PRN; -LR 1,000 ML IV ONE; -ceFAZolin SOD 2 GM in IV 1 EA IV ONE
[2021-09-02 17:14] LABS: MALB URINE SIEMENS 5.8 MG/L; MAU/CREAT RATIO 5.5 MCG/MG (0.0-30.0)
[2021-09-02 17:20] LABS: ALBUMIN 3.6 GM/DL (3.2-5.2); ALT/SGPT 39 U/L (12-78); BILIRUBIN,TOTAL 0.4 MG/DL (0.2-1.0); BLOOD UREA NITROGEN 7 MG/DL (7-18); CALCIUM LEVEL 9.5 MG/DL (8.5-10.1); CARBON DIOXIDE LEVEL 31 MEQ/L (21-32); CHLORIDE LEVEL 105 MEQ/L (98-107); CHOLESTEROL LEVEL 170 MG/DL (<200); CHOLESTEROL RISK RATIO 5.666 (<5); CREATININE FOR GFR 0.59 MG/DL (0.55-1.30); GLOMERULAR FILTRATION RATE > 60.0 (>58); GLUCOSE, FASTING 169 MG/DL (70-100); HDL CHOLESTEROL 30 MG/DL (>40); LDL CHOLESTEROL 101 MG/DL (<100); NON-HDL-C 140 MG/DL; POTASSIUM SERUM 4.1 MEQ/L (3.5-5.1); SODIUM LEVEL 141 MEQ/L (136-145); TOTAL 25(OH) VITAMIN D 33.4 NG/ML (30.0-100.0); TOTAL PROTEIN 6.1 GM/DL (6.4-8.2); TRIGLYCERIDES LEVEL 197 MG/DL (<150)
[2021-09-02 18:07] LABS: HEMOGLOBIN A1c 7.3 %
== END ==
LOC: M WUC 11:36
PROVIDERS: ATTEND Nurse Practitioner Adult Health
DX: K76.0 Fatty (change of) liver, not elsewhere classified (principal); E11.9 Type 2 diabetes mellitus without complications; Z13.220 Encounter for screening for lipoid disorders; E03.9 Hypothyroidism, unspecified; E55.9 Vitamin D deficiency, unspecified

== ENCOUNTER → 2021-09-23 | Outpatient (CLI) | payer OTHER | LOC: M RAD 16:29 | PROVIDERS: ATTEND Internal Medicine Pulmonary Disease | DX: J45.20 Mild intermittent asthma, uncomplicated (principal) ==

== ENCOUNTER → 2021-10-28 | Outpatient (REF) | payer OTHER ==
[~2021-10-28] MED LIST changes: +ALBU2.5V10 INH; -ALBU83IN INH
[2021-10-28 18:20] LABS: AMORPHOUS SEDIMENT SMALL (NEGATIVE); APPEARANCE, URINE CLEAR (CLEAR); BACTERIA, URINE AUTO 1+ (NEGATIVE); BILIRUBIN, URINE AUTO NEGATIVE (NEGATIVE); BLOOD, URINE BLOOD NEGATIVE (NEGATIVE); COLOR, URINE STRAW (YELLOW); GLUCOSE, URINE (UA) AUTO NEGATIVE (NEGATIVE); KETONE, URINE AUTO NEGATIVE (NEGATIVE); LEUKOCYTE ESTERASE, URINE AUTO NEGATIVE (NEGATIVE); NITRITE, URINE AUTO NEGATIVE (NEGATIVE); PROTEIN, URINE AUTO NEGATIVE (NEGATIVE); RBC, URINE AUTO 0 /HPF (0-3); SPECIFIC GRAVITY URINE AUTO 1.006 (1.002-1.035); SQUAMOUS EPITHELIAL CELL UR AU 2 /HPF (0-6); UROBILINOGEN, URINE AUTO 0.2 mg/dL (0.0-2.0); WBC, URINE AUTO 1 /HPF (0-3)
== END ==
LOC: M LAB REF 17:04
PROVIDERS: ATTEND Physician Assistant
DX: N39.0 Urinary tract infection, site not specified (principal)

== ENCOUNTER → 2021-11-30 | Outpatient (CLI) | payer OTHER, SELFPAY ==
[2021-11-30 09:15] LABS: ESTRADIOL 87.1 PG/ML; FOLLICLE STIMULATING HORMONE 11.3 mIU/mL
== END ==
LOC: M LAB 07:35
PROVIDERS: ATTEND Specialist
DX: Z78.0 Asymptomatic menopausal state (principal)

== ENCOUNTER → 2021-11-30 | Outpatient (CLI) | payer OTHER, SELFPAY ==
[2021-11-30 08:45] LABS: HEMATOCRIT 41.8 % (36.0-47.0); HEMOGLOBIN 13.2 g/dl (12.0-15.5); MEAN CORPUSCULAR HEMOGLOBIN 28.8 pg (27.0-33.0); MEAN CORPUSCULAR HGB CONC 31.6 g/dl (32.0-36.5); MEAN CORPUSCULAR VOLUME 91.1 fl (80.0-96.0); PLATELET COUNT, AUTOMATED 293 10^3/uL (150-450); RED BLOOD COUNT 4.59 10^6/uL (4.00-5.40); WHITE BLOOD COUNT 9.5 10^3/uL (4.0-10.0)
[2021-11-30 09:04] LABS: HEMOGLOBIN A1c 8.2 %
[2021-11-30 09:16] LABS: ALBUMIN 3.5 GM/DL (3.2-5.2); ALT/SGPT 52 U/L (12-78); BILIRUBIN,TOTAL 0.2 MG/DL (0.2-1.0); BLOOD UREA NITROGEN 5 MG/DL (7-18); CALCIUM LEVEL 8.9 MG/DL (8.5-10.1); CARBON DIOXIDE LEVEL 27 MEQ/L (21-32); CHLORIDE LEVEL 110 MEQ/L (98-107); CREATININE FOR GFR 0.68 MG/DL (0.55-1.30); GLOMERULAR FILTRATION RATE > 60.0 (>58); GLUCOSE, FASTING 218 MG/DL (70-100); LITHIUM LEVEL 0.64 MEQ/L (0.60-1.20); SODIUM LEVEL 143 MEQ/L (136-145); TOTAL PROTEIN 6.4 GM/DL (6.4-8.2)
[2021-11-30 09:50] LABS: TOTAL 25(OH) VITAMIN D 45.6 NG/ML (30.0-100.0)
== END ==
LOC: M LAB 07:33
PROVIDERS: ATTEND Nurse Practitioner Adult Health
DX: F31.9 Bipolar disorder, unspecified (principal); E11.9 Type 2 diabetes mellitus without complications; E55.9 Vitamin D deficiency, unspecified; E03.9 Hypothyroidism, unspecified; D72.829 Elevated white blood cell count, unspecified

== ENCOUNTER → 2022-01-03 | Outpatient (CLI) | payer OTHER ==
[2022-01-03 12:56] LABS: ESTRADIOL 79.1 PG/ML
== END ==
LOC: M LAB 11:14
PROVIDERS: ATTEND Specialist
DX: Z79.890 Hormone replacement therapy (principal)

== ENCOUNTER → 2022-01-26 | Outpatient (CLI) | payer OTHER ==
[2022-01-26 08:22] LABS: HEMOGLOBIN A1c 7.2 %
[2022-01-26 08:55] LABS: ALBUMIN 3.4 GM/DL (3.2-5.2); ALT/SGPT 40 U/L (12-78); BILIRUBIN,TOTAL 0.4 MG/DL (0.2-1.0); BLOOD UREA NITROGEN 6 MG/DL (7-18); CALCIUM LEVEL 9.1 MG/DL (8.5-10.1); CARBON DIOXIDE LEVEL 29 MEQ/L (21-32); CHLORIDE LEVEL 108 MEQ/L (98-107); CREATININE FOR GFR 0.64 MG/DL (0.55-1.30); GLOMERULAR FILTRATION RATE > 60.0 (>58); GLUCOSE, FASTING 127 MG/DL (70-100); LITHIUM LEVEL 0.56 MEQ/L (0.60-1.20); POTASSIUM SERUM 3.9 MEQ/L (3.5-5.1); SODIUM LEVEL 140 MEQ/L (136-145); TOTAL PROTEIN 6.3 GM/DL (6.4-8.2)
[2022-01-26 09:05] LABS: CREATININE, URINE 48.1 MG/DL; MALB URINE SIEMENS < 5.0 MG/L; MAU/CREAT RATIO 10.3 MCG/MG (0.0-30.0)
[2022-01-26 10:28] LABS: TOTAL 25(OH) VITAMIN D 53.5 NG/ML (30.0-100.0)
[2022-01-27 08:09] LABS: C-PEPTIDE 2.5 ng/mL (1.1-4.4); INSULIN LEVEL 17.5 uIU/mL (2.6-24.9)
== END ==
LOC: M LAB 07:01
PROVIDERS: ATTEND Nurse Practitioner Adult Health
DX: E11.9 Type 2 diabetes mellitus without complications (principal)

== ENCOUNTER → 2022-03-05 | Outpatient (CLI) | payer OTHER ==
[2022-03-05 13:53] LABS: BLOOD UREA NITROGEN 12 MG/DL (7-18); CREATININE FOR GFR 1.06 MG/DL (0.55-1.30); GLOMERULAR FILTRATION RATE > 60.0 (>58)
== END ==
LOC: M LAB 12:56
PROVIDERS: ATTEND Internal Medicine Gastroenterology
DX: D37.6 Neoplasm of uncertain behavior of liver, gallbladder and bile ducts (principal)

== ENCOUNTER → 2022-03-06 | Outpatient (CLI) | payer OTHER ==
[~2022-03-06] MED LIST changes: +ISOVUE-370 76% 100ML VIAL As Ordered ONE
== END ==
LOC: M RAD 13:02
PROVIDERS: ATTEND Internal Medicine Gastroenterology
DX: D37.6 Neoplasm of uncertain behavior of liver, gallbladder and bile ducts (principal)

== ENCOUNTER → 2022-03-06 | Outpatient (CLI) | payer OTHER ==
[~2022-03-06] MED LIST changes: -ISOVUE-370 76% 100ML VIAL As Ordered ONE
== END ==
LOC: M EKG 13:09
PROVIDERS: ATTEND Registered Nurse
DX: F31.2 Bipolar disorder, current episode manic severe with psychotic features (principal)

== ENCOUNTER → 2022-04-21 | Outpatient (CLI) | payer OTHER ==
[2022-04-21 10:11] LABS: HEMOGLOBIN A1c 6.8 % (4.0-6.0)
[2022-04-21 10:24] LABS: CREATININE, URINE 80.5 MG/DL
[2022-04-21 10:25] LABS: ALBUMIN 3.4 G/DL (3.2-5.2); ALKALINE PHOSPHATASE 112 U/L (46-116); ALT/SGPT 37 U/L (7.0-40); AST/SGOT 47 U/L (<34); BILIRUBIN,TOTAL 0.3 MG/DL (0.3-1.2); BLOOD UREA NITROGEN 8 MG/DL (9-23); CALCIUM LEVEL 8.7 MG/DL (8.5-10.1); CARBON DIOXIDE LEVEL 31 MMOL/L (20-31); CHLORIDE LEVEL 106 MMOL/L (98-107); CREATININE FOR GFR 0.64 MG/DL (0.55-1.30); GLOMERULAR FILTRATION RATE > 60.0 (>58); GLUCOSE, FASTING 139 MG/DL (60-100); MALB URINE SIEMENS < 3.0 MG/DL; MAU/CREAT RATIO 3.7 MCG/MG (0.0-30.0); SODIUM LEVEL 142 MMOL/L (136-145); TOTAL PROTEIN 6.1 G/DL (5.7-8.2)
[2022-04-21 10:26] LABS: LITHIUM LEVEL < 1.00 MEQ/L (0.60-1.20)
[2022-04-21 10:30] LABS: THYROID STIMULATING HORMONE 4.002 uIU/ML (0.55-4.78); TOTAL 25(OH) VITAMIN D 48.8 NG/ML (20.0-100.0)
== END ==
LOC: M WUC 08:06
PROVIDERS: ATTEND Nurse Practitioner Adult Health
DX: E11.9 Type 2 diabetes mellitus without complications (principal); F31.9 Bipolar disorder, unspecified; E55.9 Vitamin D deficiency, unspecified

== ENCOUNTER → 2022-07-18 | Outpatient (CLI) | payer OTHER ==
[~2022-07-18] MED LIST changes: -DULE100A INH; +MOME13HF8 INH
[2022-07-18 10:18] LABS: HEMOGLOBIN A1c 6.4 % (4.0-6.0)
[2022-07-18 10:19] LABS: CREATININE, URINE 84.4 MG/DL; MALB URINE SIEMENS < 3.0 MG/L; MAU/CREAT RATIO 3.5 MCG/MG (0.0-30.0)
[2022-07-18 10:21] LABS: LITHIUM LEVEL 0.74 MMOL/L (0.60-1.20)
[2022-07-18 10:22] LABS: THYROID STIMULATING HORMONE 4.001 uIU/ML (0.55-4.78); TOTAL 25(OH) VITAMIN D 44.2 NG/ML (20.0-100.0)
[2022-07-18 10:34] LABS: ALBUMIN 3.5 G/DL (3.2-5.2); ALKALINE PHOSPHATASE 127 U/L (46-116); ALT/SGPT 32 U/L (7.0-40); AST/SGOT 27 U/L (<34); BILIRUBIN,TOTAL 0.3 MG/DL (0.3-1.2); BLOOD UREA NITROGEN 13 MG/DL (9-23); CALCIUM LEVEL 8.9 MG/DL (8.5-10.1); CARBON DIOXIDE LEVEL 32 MMOL/L (20-31); CHLORIDE LEVEL 105 MMOL/L (98-107); CHOLESTEROL LEVEL 146 MG/DL (<200); CREATININE FOR GFR 0.69 MG/DL (0.55-1.30); GLOMERULAR FILTRATION RATE > 60.0 (>58); GLUCOSE, FASTING 135 MG/DL (60-100); HDL CHOLESTEROL 36.5 MG/DL (>40); LDL CHOLESTEROL 81.3 MG/DL (<100); MAGNESIUM LEVEL 1.9 MG/DL (1.8-2.4); NON-HDL-C 110 MG/DL; POTASSIUM SERUM 3.9 MMOL/L (3.5-5.1); SODIUM LEVEL 141 MMOL/L (136-145); TOTAL PROTEIN 6.2 G/DL (5.7-8.2); TRIGLYCERIDES LEVEL 141 MG/DL (<150)
== END ==
LOC: M WUC 08:02
PROVIDERS: ATTEND Nurse Practitioner Adult Health
DX: E11.9 Type 2 diabetes mellitus without complications (principal); F31.9 Bipolar disorder, unspecified; Z13.220 Encounter for screening for lipoid disorders; N13.2 Hydronephrosis with renal and ureteral calculous obstruction; E03.9 Hypothyroidism, unspecified; E55.9 Vitamin D deficiency, unspecified

== ENCOUNTER → 2022-07-31 | Outpatient (CLI) | payer OTHER | LOC: M LAB 16:32 | PROVIDERS: ATTEND Nurse Practitioner Adult Health | DX: J39.2 Other diseases of pharynx (principal) ==

== ENCOUNTER → 2022-09-26 | Outpatient (REF) | payer OTHER ==
[2022-09-26 14:55] LABS: APPEARANCE, URINE CLEAR (CLEAR); BACTERIA, URINE AUTO NEGATIVE (NEGATIVE); BILIRUBIN, URINE AUTO NEGATIVE (NEGATIVE); BLOOD, URINE BLOOD NEGATIVE (NEGATIVE); COLOR, URINE YELLOW (YELLOW); GLUCOSE, URINE (UA) AUTO NEGATIVE (NEGATIVE); KETONE, URINE AUTO NEGATIVE (NEGATIVE); LEUKOCYTE ESTERASE, URINE AUTO NEGATIVE (NEGATIVE); MUCUS, URINE SMALL (NEGATIVE); NITRITE, URINE AUTO NEGATIVE (NEGATIVE); PROTEIN, URINE AUTO NEGATIVE (NEGATIVE); RBC, URINE AUTO 0 /HPF (0-3); SPECIFIC GRAVITY URINE AUTO 1.016 (1.002-1.035); SQUAMOUS EPITHELIAL CELL UR AU 1 /HPF (0-6); UROBILINOGEN, URINE AUTO 0.2 mg/dL (0.0-2.0); WBC, URINE AUTO 5 /HPF (0-3)
== END ==
LOC: M LABSMT 08:16
PROVIDERS: ATTEND Urology
DX: N32.81 Overactive bladder (principal)

== ENCOUNTER → 2023-01-10 | Outpatient (CLI) | payer OTHER ==
[2023-01-10 09:27] LABS: BLOOD UREA NITROGEN 7 MG/DL (9-23); CREATININE FOR GFR 0.59 MG/DL (0.55-1.30); GLOMERULAR FILTRATION RATE > 60.0 (>58)
[2023-01-10 09:37] LABS: LITHIUM LEVEL 0.56 MMOL/L (1.0-1.20)
== END ==
LOC: M LAB 08:02
PROVIDERS: ATTEND Psychiatry & Neurology Psychiatry
DX: F31.89 Other bipolar disorder (principal); F41.1 Generalized anxiety disorder

== ENCOUNTER → 2023-01-21 | Outpatient (CLI) | payer OTHER ==
[2023-01-21 10:05] LABS: HEMATOCRIT 43.8 % (36.0-47.0); MEAN CORPUSCULAR HEMOGLOBIN 28.3 pg (27.0-33.0); MEAN CORPUSCULAR VOLUME 88.5 fl (80.0-96.0); PLATELET COUNT, AUTOMATED 292 10^3/uL (150-450); RED BLOOD COUNT 4.95 10^6/uL (4.00-5.40); WHITE BLOOD COUNT 10.6 10^3/uL (4.0-10.0)
[2023-01-21 10:33] LABS: CREATININE, URINE 56.3 MG/DL; MALB URINE SIEMENS < 3.0 MG/L; MAU/CREAT RATIO 5.3 MCG/MG (0.0-30.0)
[2023-01-21 10:35] LABS: ALBUMIN 3.6 G/DL (3.2-5.2); ALKALINE PHOSPHATASE 122 U/L (46-116); ALT/SGPT 34 U/L (7.0-40); AST/SGOT 31 U/L (<34); BILIRUBIN,TOTAL 0.4 MG/DL (0.3-1.2); BLOOD UREA NITROGEN 7 MG/DL (9-23); CALCIUM LEVEL 9.2 MG/DL (8.5-10.1); CARBON DIOXIDE LEVEL 29 MMOL/L (20-31); CHLORIDE LEVEL 106 MMOL/L (98-107); CHOLESTEROL LEVEL 167 MG/DL (<200); CHOLESTEROL RISK RATIO 3.69 (<5); CREATININE FOR GFR 0.66 MG/DL (0.55-1.30); GLOMERULAR FILTRATION RATE > 60.0 (>58); GLUCOSE, FASTING 146 MG/DL (60-100); HDL CHOLESTEROL 45.2 MG/DL (>40); NON-HDL-C 121.8 MG/DL; POTASSIUM SERUM 3.8 MMOL/L (3.5-5.1); SODIUM LEVEL 143 MMOL/L (136-145); TOTAL 25(OH) VITAMIN D 41.5 NG/ML (20.0-100.0); TOTAL PROTEIN 6.2 G/DL (5.7-8.2); TRIGLYCERIDES LEVEL 139 MG/DL (<150)
[2023-01-21 10:37] LABS: HEMOGLOBIN A1c 6.4 % (4.0-6.0)
[2023-01-21 11:09] LABS: LITHIUM LEVEL 0.64 MMOL/L (1.0-1.20)
== END ==
LOC: M LAB 09:22
PROVIDERS: ATTEND Nurse Practitioner Adult Health
DX: E11.9 Type 2 diabetes mellitus without complications (principal)

== ENCOUNTER → 2023-01-28 | Outpatient (CLI) | payer OTHER ==
[2023-01-28 09:56] LABS: BLOOD UREA NITROGEN 7 MG/DL (9-23); CREATININE FOR GFR 0.67 MG/DL (0.55-1.30); GLOMERULAR FILTRATION RATE > 60.0 (>58)
[2023-01-28 09:57] LABS: LITHIUM LEVEL 0.63 MMOL/L (1.0-1.20)
== END ==
LOC: M LAB 08:58
PROVIDERS: ATTEND Psychiatry & Neurology Psychiatry
DX: F41.1 Generalized anxiety disorder (principal)

== ENCOUNTER → 2023-02-23 | Outpatient (CLI) | payer OTHER ==
[~2023-02-23] MED LIST changes: -CEFD300C41 PO; +CEFD300C42 PO
[2023-02-23 08:27] LABS: BLOOD UREA NITROGEN 5 MG/DL (9-23); GLOMERULAR FILTRATION RATE > 60.0 (>58)
== END ==
LOC: M LAB 07:15
PROVIDERS: ATTEND Psychiatry & Neurology Psychiatry
DX: F31.89 Other bipolar disorder (principal)

== ENCOUNTER 2023-02-27 10:55 | Observation (INO) | payer OTHER ==
[~2023-02-27] VITALS: Ht 157.5 cm; Wt 108.6 kg
[2023-02-27] MEDS ORDERED: BASA100I SC (11:17)
[2023-02-27] MEDS ORDERED: AZEL1SPR3 NARES (11:17)
[2023-02-27] MEDS ORDERED: ESTR1TAB PO (11:17)
[2023-02-27] MEDS ORDERED: GLIP10TA18 PO (11:17)
[2023-02-27] MEDS ORDERED: SYMB16INH INH (11:17)
[2023-02-27] MEDS ORDERED: LEVOTAB10 PO (11:17)
[2023-02-27] MEDS ORDERED: FLUT50SP17 NARES (11:17)
[2023-02-27] MEDS ORDERED: HUMA100I5 SC (11:17)
[2023-02-27 11:50] LABS: BASO # 0.1 10^3/uL (0.0-0.2); BASO % 0.6 % (0.0-1.0); EOS # 0.2 10^3/uL (0.0-0.5); EOS % 2.8 % (0.0-3.0); HEMATOCRIT 40.8 % (36.0-47.0); LYMPH % 23.3 % (24.0-44.0); MEAN CORPUSCULAR HEMOGLOBIN 28.4 pg (27.0-33.0); MEAN CORPUSCULAR HGB CONC 31.9 g/dl (32.0-36.5); MEAN CORPUSCULAR VOLUME 89.1 fl (80.0-96.0); MONO # 0.5 10^3/uL (0.0-0.8); MONO % 5.3 % (2.0-8.0); NEUTROPHILS # 5.7 10^3/uL (1.5-8.5); NEUTROPHILS % 67.6 % (36.0-66.0); PLATELET COUNT, AUTOMATED 275 10^3/uL (150-450); RED BLOOD COUNT 4.58 10^6/uL (4.00-5.40); WHITE BLOOD COUNT 8.5 10^3/uL (4.0-10.0)
[2023-02-27 12:23] LABS: BLOOD UREA NITROGEN 6 MG/DL (9-23); CALCIUM LEVEL 9.2 MG/DL (8.5-10.1); CARBON DIOXIDE LEVEL 27 MMOL/L (20-31); CHLORIDE LEVEL 105 MMOL/L (98-107); CREATININE FOR GFR 0.52 MG/DL (0.55-1.30); GLOMERULAR FILTRATION RATE > 60.0 (>58); GLUCOSE, FASTING 303 MG/DL (60-100); LITHIUM LEVEL 1.32 MMOL/L (1.0-1.20); POTASSIUM SERUM 3.9 MMOL/L (3.5-5.1); SODIUM LEVEL 139 MMOL/L (136-145)
[2023-02-27] MEDS ORDERED: MED REC IN PROGRESS XX SCH (13:35)
[2023-02-27 14:38] LABS: ALBUMIN 3.4 G/DL (3.2-5.2); ALKALINE PHOSPHATASE 126 U/L (46-116); ALT/SGPT 41 U/L (7.0-40); AST/SGOT 46 U/L (<34); BILIRUBIN,DIRECT < 0.1 MG/DL (<0.4); BILIRUBIN,TOTAL 0.2 MG/DL (0.3-1.2); MAGNESIUM LEVEL 1.9 MG/DL (1.8-2.4); TOTAL PROTEIN 6.4 G/DL (5.7-8.2)
[2023-02-27] MEDS ORDERED: QUET100T2 PO (15:06)
[2023-02-27] MEDS ORDERED: QUET300T2 PO (15:06)
[2023-02-27] MEDS ORDERED: HOME MED LIST COMPLETE! XX SCH (15:10)
[2023-02-27 15:13] LABS: THYROID STIMULATING HORMONE 3.547 uIU/ML (0.55-4.78)
[2023-02-27 15:31] VITALS: BP 121/54; TEMP 97.8; O2SAT 97
[2023-02-27] MEDS: LR 1,000 ML IV SCH (15:34)
[2023-02-27 16:51] LABS: INR 1.09; PROTHROMBIN TIME 13.8 SECONDS (12.5-14.5)
[2023-02-27 16:52] LABS: PARTIAL THROMBOPLASTIN TIME 26.4 SECONDS (24.8-34.2)
[2023-02-27] MEDS ORDERED: RIVAROXABAN 10MG TAB (XARELTO) PO SCH (18:00)
[2023-02-27] MEDS ORDERED: GLUCAGON INJ 1MG VIAL SC PRN (18:30)
[2023-02-27] MEDS ORDERED: DEXTROSE 50% 50ML SYRINGE IV PRN (18:30)
[2023-02-27] MEDS ORDERED: GLUCOSE 4GM CHEW TABLET PO PRN (18:30)
[2023-02-27] MEDS ORDERED: LEVALBUTEROL HFA 45MCG/ACT 15GM INHALER INH PRN (18:30)
[2023-02-27 19:57] VITALS: BP 129/68; TEMP 99.3; O2SAT 98
[2023-02-27] MEDS: PANTOPRAZOLE 40MG TAB (PROTONIX) PO SCH (20:15)
[2023-02-27] MEDS: LEVEMIR (INSULIN DETEMIR) 1 UNITS/0.01ML SC SCH (20:16)
[2023-02-27] MEDS ORDERED: clonazePAM 0.5 MG TAB PO SCH (21:00)
[2023-02-27] MEDS ORDERED: INSULIN LISPRO (NovoLOG) PER UNIT SC SCH (21:00)
[2023-02-27] MEDS ORDERED: traZODone 50 MG TAB PO SCH (21:00)
[2023-02-27] MEDS ORDERED: MONTELUKAST 10 MG TAB PO SCH (21:00)
[2023-02-27] MEDS ORDERED: QUEtiapine FUMARATE 100 MG TAB PO SCH (21:00)
[2023-02-27] MEDS: QUEtiapine FUMARATE 50MG TAB PO SCH (21:23)
[2023-02-27 23:37] VITALS: BP 112/63; TEMP 98.3; O2SAT 94
[2023-02-28 03:39] VITALS: BP 98/58; TEMP 97.5; O2SAT 93
[2023-02-28 04:32] LABS: LITHIUM LEVEL 0.84 MMOL/L (1.0-1.20)
[2023-02-28 04:33] LABS: ALBUMIN 3.1 G/DL (3.2-5.2); ALKALINE PHOSPHATASE 111 U/L (46-116); ALT/SGPT 34 U/L (7.0-40); AST/SGOT 37 U/L (<34); BILIRUBIN,TOTAL 0.3 MG/DL (0.3-1.2); BLOOD UREA NITROGEN < 5 MG/DL (9-23); CALCIUM LEVEL 8.9 MG/DL (8.5-10.1); CARBON DIOXIDE LEVEL 28 MMOL/L (20-31); CHLORIDE LEVEL 106 MMOL/L (98-107); CREATININE FOR GFR 0.55 MG/DL (0.55-1.30); GLOMERULAR FILTRATION RATE > 60.0 (>58); GLUCOSE, FASTING 141 MG/DL (60-100); MAGNESIUM LEVEL 1.8 MG/DL (1.8-2.4); POTASSIUM SERUM 3.6 MMOL/L (3.5-5.1); SODIUM LEVEL 141 MMOL/L (136-145); TOTAL PROTEIN 5.6 G/DL (5.7-8.2)
[2023-02-28] MEDS: LR 1,000 ML IV SCH (05:15)
[2023-02-28] MEDS ORDERED: LEVOTHYROXINE 75MCG TABLET (0.075MG) PO SCH (06:00)
[2023-02-28 08:00] VITALS: BP 132/68; TEMP 97.8; O2SAT 90
[2023-02-28] MEDS ORDERED: SYMBICORT 160/4.5MCG INHALER 6GM INH SCH (08:00)
[2023-02-28] MEDS ORDERED: QUEtiapine FUMARATE 100 MG TAB PO SCH (09:00)
[2023-02-28] MEDS ORDERED: ENOXAPARIN 40MG/0.4ML SYRINGE (J1650 PER 10MG) SC SCH (09:00)
[2023-02-28] MEDS ORDERED: estradioL 1 MG TAB PO SCH (09:00)
[2023-02-28] MEDS ORDERED: FAMOTIDINE 20 MG TAB PO SCH (09:00)
[2023-02-28] MEDS ORDERED: SERTRALINE HCL 25 MG TABLET PO SCH (09:00)
[2023-02-28] MEDS ORDERED: FLUTICASONE PROP 0.05% NASAL SPRAY 16 GM (FLONASE) NARES SCH (09:00)
[2023-02-28] MEDS: LEVEMIR (INSULIN DETEMIR) 1 UNITS/0.01ML SC SCH (09:03)
[2023-02-28] MEDS: INSULIN LISPRO (NovoLOG) PER UNIT SC SCH ×2 (09:03→12:44)
[2023-02-28] MEDS: PANTOPRAZOLE 40MG TAB (PROTONIX) PO SCH (09:05)
[2023-02-28] MEDS: QUEtiapine FUMARATE 50MG TAB PO SCH (11:38)
[2023-02-28 12:18] VITALS: BP 140/78; TEMP 98.3; O2SAT 92
[2023-02-28] MEDS ORDERED: CARIPRAZINE 1.5MG CAPSULE (VRAYLAR) PO ONE (14:00)
[2023-02-28] MEDS ORDERED: AZELASTINE 137MCG NASAL SPY 30 ML (ASTELIN) SCH (21:00)
== END 2023-02-28 15:27 | disposition home or self-care (01) ==
LOC: M ED 10:55 → M ED INP 10:56 → M PCU 15:25
PROVIDERS: ADMIT Internal Medicine; ATTEND Internal Medicine
DX: R51.9 Headache, unspecified (principal); R25.1 Tremor, unspecified; G47.9 Sleep disorder, unspecified; T43.591A Poisoning by other antipsychotics and neuroleptics, accidental (unintentional), initial encounter; F31.9 Bipolar disorder, unspecified; E03.9 Hypothyroidism, unspecified; E11.9 Type 2 diabetes mellitus without complications; F41.9 Anxiety disorder, unspecified; J45.909 Unspecified asthma, uncomplicated; K21.9 Gastro-esophageal reflux disease without esophagitis; R35.89 Other polyuria; R63.1 Polydipsia; N80.9 Endometriosis, unspecified; Z81.8 Family history of other mental and behavioral disorders; Z62.811 Personal history of psychological abuse in childhood; Z91.041 Radiographic dye allergy status; Z88.0 Allergy status to penicillin; Z91.040 Latex allergy status; Z88.1 Allergy status to other antibiotic agents; Z91.013 Allergy to seafood; Z79.899 Other long term (current) drug therapy; Z79.4 Long term (current) use of insulin; Z79.890 Hormone replacement therapy; Z80.51 Family history of malignant neoplasm of kidney
CPT/HCPCS: 36415; 70450; 80048; 80053; 80076; 80178; 81001; 83735; 84443; 85025; 85610; 85730; 87635; 93005; 94640; 99284; J1815

== ENCOUNTER → 2023-03-01 | Outpatient (CLI) | payer OTHER ==
[~2023-03-01] MED LIST changes: +AZEL1SPR3 NARES; +BASA100I SC; +ESTR1TAB PO; +FLUT50SP17 NARES; +GLIP10TA18 PO; +HUMA100I5 SC; +QUET300T2 PO; +SYMB16INH INH
== END ==
LOC: M LAB 09:54
PROVIDERS: ATTEND Internal Medicine
DX: Z79.899 Other long term (current) drug therapy (principal)

== ENCOUNTER 2023-03-05 13:31 | Emergency (ER) | payer OTHER ==
[~2023-03-05] VITALS: Ht 157.5 cm; Wt 109.1 kg
[2023-03-05 13:32] VITALS: TEMP 97.8
[2023-03-05 14:47] LABS: BASO # 0.1 10^3/uL (0.0-0.2); BASO % 0.7 % (0.0-1.0); EOS # 0.3 10^3/uL (0.0-0.5); EOS % 3.1 % (0.0-3.0); HEMATOCRIT 37.7 % (36.0-47.0); HEMOGLOBIN 12.3 g/dl (12.0-15.5); LYMPH # 2.3 10^3/uL (1.5-5.0); LYMPH % 28.4 % (24.0-44.0); MEAN CORPUSCULAR HEMOGLOBIN 28.5 pg (27.0-33.0); MEAN CORPUSCULAR HGB CONC 32.6 g/dl (32.0-36.5); MEAN CORPUSCULAR VOLUME 87.5 fl (80.0-96.0); MONO # 0.5 10^3/uL (0.0-0.8); MONO % 5.9 % (2.0-8.0); NEUTROPHILS % 61.7 % (36.0-66.0); PLATELET COUNT, AUTOMATED 301 10^3/uL (150-450); RED BLOOD COUNT 4.31 10^6/uL (4.00-5.40); WHITE BLOOD COUNT 8.2 10^3/uL (4.0-10.0)
[2023-03-05] MEDS ORDERED: PRED20TA PO (19:21)
[2023-03-05] MEDS ORDERED: predniSONE 20 MG TAB PO ONE (19:40)
[2023-03-05 21:00] VITALS: BP 140/71
[2023-03-05 21:15] VITALS: O2SAT 95
[2023-03-06 08:19] LABS: BLOOD UREA NITROGEN 6 MG/DL (7-21); CALCIUM LEVEL 9.2 MG/DL (8.4-10.2); CARBON DIOXIDE LEVEL 25 MEQ/L (22-30); CHLORIDE LEVEL 105 MEQ/L (98-107); CREATININE FOR GFR 0.7 MG/DL (0.7-1.5); GLOMERULAR FILTRATION RATE > 60.0 (>58); GLUCOSE, FASTING 189 MG/DL (70-99); SODIUM LEVEL 141 MEQ/L (134-153)
[2023-03-06 08:20] LABS: ALBUMIN 4.1 G/DL (3.9-5.0); ALKALINE PHOSPHATASE 125 U/L (35-104); ALT/SGPT 38 U/L (1-33); AST/SGOT 47 U/L (5-40); BILIRUBIN,DIRECT < 0.2 MG/DL (0.1-0.4); BILIRUBIN,TOTAL < 0.7 MG/DL (0.2-1.3); TOTAL PROTEIN 6.1 G/DL (6.3-8.2)
== END 2023-03-05 21:23 | disposition home or self-care (01) ==
LOC: M ED 13:31
DX: R06.02 Shortness of breath (principal); R00.0 Tachycardia, unspecified; T43.595A Adverse effect of other antipsychotics and neuroleptics, initial encounter; E11.9 Type 2 diabetes mellitus without complications; J45.909 Unspecified asthma, uncomplicated; G47.33 Obstructive sleep apnea (adult) (pediatric); F31.9 Bipolar disorder, unspecified; E03.9 Hypothyroidism, unspecified; Z79.899 Other long term (current) drug therapy; Z91.041 Radiographic dye allergy status; Z88.0 Allergy status to penicillin; Z88.1 Allergy status to other antibiotic agents; Z91.040 Latex allergy status; Z91.013 Allergy to seafood
CPT/HCPCS: 71045; 80047; 80048; 80076; 84484; 85025; 87486; 87581; 87633; 87798; 93005; 93041; 94760; 99285; J7512

== ENCOUNTER → 2023-04-29 | Outpatient (CLI) | payer OTHER ==
[~2023-04-29] MED LIST changes: +CEFD1CAP9 PO; -CEFD300C42 PO; -FLUT50SP17 NARES; +FLUTISP NARES
[2023-04-29 09:13] LABS: HEMATOCRIT 39.1 % (36.0-47.0); HEMOGLOBIN 12.7 g/dl (12.0-15.5); MEAN CORPUSCULAR HEMOGLOBIN 27.2 pg (27.0-33.0); MEAN CORPUSCULAR HGB CONC 32.5 g/dl (32.0-36.5); MEAN CORPUSCULAR VOLUME 83.7 fl (80.0-96.0); PLATELET COUNT, AUTOMATED 254 10^3/uL (150-450); RED BLOOD COUNT 4.67 10^6/uL (4.00-5.40); WHITE BLOOD COUNT 6.9 10^3/uL (4.0-10.0)
[2023-04-29 09:52] LABS: CREATININE, URINE 121.4 MG/DL; MALB URINE SIEMENS < 3.0 MG/L; MAU/CREAT RATIO 2.4 MCG/MG (0.0-30.0)
[2023-04-29 09:53] LABS: ALBUMIN 3.5 G/DL (3.2-5.2); ALKALINE PHOSPHATASE 141 U/L (46-116); ALT/SGPT 79 U/L (7.0-40); AST/SGOT 49 U/L (<34); BILIRUBIN,TOTAL 0.3 MG/DL (0.3-1.2); BLOOD UREA NITROGEN 15 MG/DL (9-23); CALCIUM LEVEL 9.1 MG/DL (8.5-10.1); CARBON DIOXIDE LEVEL 27 MMOL/L (20-31); CHLORIDE LEVEL 108 MMOL/L (98-107); CHOLESTEROL LEVEL 164 MG/DL (<200); CHOLESTEROL RISK RATIO 4.59 (<5); CREATININE FOR GFR 0.56 MG/DL (0.55-1.30); GLOMERULAR FILTRATION RATE > 60.0 (>58); GLUCOSE, FASTING 267 MG/DL (60-100); HDL CHOLESTEROL 35.7 MG/DL (>40); LDL CHOLESTEROL 97.5 MG/DL (<100); NON-HDL-C 128.3 MG/DL; SODIUM LEVEL 143 MMOL/L (136-145); TOTAL PROTEIN 6.1 G/DL (5.7-8.2); TRIGLYCERIDES LEVEL 154 MG/DL (<150)
[2023-04-29 09:55] LABS: THYROID STIMULATING HORMONE 1.506 uIU/ML (0.55-4.78)
== END ==
LOC: M LAB 08:51
PROVIDERS: ATTEND Nurse Practitioner Adult Health
DX: D72.829 Elevated white blood cell count, unspecified (principal)

== ENCOUNTER → 2023-05-23 | Outpatient (CLI) | payer OTHER ==
[~2023-05-23] MED LIST changes: +PROHANCE 279.3MG/ML 15ML VIAL As Ordered ONE; +PROHANCE 279.3MG/ML 5ML VIAL As Ordered ONE
== END ==
LOC: M RAD 16:32
PROVIDERS: ATTEND Internal Medicine Gastroenterology
DX: D37.6 Neoplasm of uncertain behavior of liver, gallbladder and bile ducts (principal)

== ENCOUNTER 2023-06-15 11:18 | Emergency (ER) | payer OTHER ==
[~2023-06-15] VITALS: Ht 157.5 cm; Wt 110.8 kg
[~2023-06-15 11:18] MED LIST changes: -PROHANCE 279.3MG/ML 15ML VIAL As Ordered ONE; -PROHANCE 279.3MG/ML 5ML VIAL As Ordered ONE
[2023-06-15] MEDS ORDERED: HALO5TAB33 (12:10)
[2023-06-15] MEDS ORDERED: REXU1TAB3 PO (12:10)
[2023-06-15 13:31] LABS: BASO % 0.6 % (0.0-1.0); EOS # 0.1 10^3/uL (0.0-0.5); HEMATOCRIT 40.1 % (36.0-47.0); HEMOGLOBIN 13.2 g/dl (12.0-15.5); LYMPH # 1.9 10^3/uL (1.5-5.0); LYMPH % 28.7 % (24.0-44.0); MEAN CORPUSCULAR HEMOGLOBIN 27.3 pg (27.0-33.0); MEAN CORPUSCULAR HGB CONC 32.9 g/dl (32.0-36.5); MONO # 0.4 10^3/uL (0.0-0.8); MONO % 5.4 % (2.0-8.0); NEUTROPHILS # 4.2 10^3/uL (1.5-8.5); NEUTROPHILS % 62.8 % (36.0-66.0); PLATELET COUNT, AUTOMATED 246 10^3/uL (150-450); RED BLOOD COUNT 4.83 10^6/uL (4.00-5.40); WHITE BLOOD COUNT 6.6 10^3/uL (4.0-10.0)
[2023-06-15 14:04] LABS: ALBUMIN 3.4 G/DL (3.2-5.2); ALKALINE PHOSPHATASE 162 U/L (46-116); ALT/SGPT 43 U/L (7.0-40); AST/SGOT 35 U/L (<34); BILIRUBIN,DIRECT 0.1 MG/DL (<0.4); BILIRUBIN,TOTAL 0.3 MG/DL (0.3-1.2); BLOOD UREA NITROGEN 8 MG/DL (9-23); CALCIUM LEVEL 8.9 MG/DL (8.5-10.1); CARBON DIOXIDE LEVEL 27 MMOL/L (20-31); CHLORIDE LEVEL 105 MMOL/L (98-107); CREATININE FOR GFR 0.47 MG/DL (0.55-1.30); GLOMERULAR FILTRATION RATE > 60.0 (>58); GLUCOSE, FASTING 250 MG/DL (60-100); SODIUM LEVEL 139 MMOL/L (136-145); TOTAL PROTEIN 6.3 G/DL (5.7-8.2)
[2023-06-15 14:06] LABS: THYROID STIMULATING HORMONE 0.724 uIU/ML (0.55-4.78)
[2023-06-15 14:07] LABS: FREE T4 0.87 NG/DL (0.89-1.76)
[2023-06-15 14:52] VITALS: BP 119/68; TEMP 97; O2SAT 97
[2023-06-15] MEDS ORDERED: MIRA3350 PO (14:55)
[2023-06-15] MEDS ORDERED: LUMA42CA PO (14:55)
[2023-06-15] MEDS ORDERED: HOME MED LIST COMPLETE! XX SCH (15:00)
== END 2023-06-15 14:56 | disposition home or self-care (01) ==
LOC: M ED 11:18
DX: R42 Dizziness and giddiness (principal); R53.83 Other fatigue; F31.9 Bipolar disorder, unspecified; F32.A Depression, unspecified; T42.4X5A Adverse effect of benzodiazepines, initial encounter; E11.9 Type 2 diabetes mellitus without complications; G47.30 Sleep apnea, unspecified; K58.9 Irritable bowel syndrome, unspecified; Z91.041 Radiographic dye allergy status; Z88.0 Allergy status to penicillin; Z88.1 Allergy status to other antibiotic agents; Z91.040 Latex allergy status; Z91.013 Allergy to seafood; Z79.899 Other long term (current) drug therapy; Z79.890 Hormone replacement therapy; Z79.4 Long term (current) use of insulin; Z79.51 Long term (current) use of inhaled steroids

== ENCOUNTER → 2023-07-03 | Outpatient (CLI) | payer OTHER ==
[~2023-07-03] MED LIST changes: +E-Z-GAS II EFFERVESCENT PACKET (SODIUM BICARB./CITRIC ACID/SIMETHICONE) As Ordered ONE; +E-Z-HD 98% w/w 340GM SUSP BTL As Ordered ONE; +E-Z-PAQUE 96% w/w SUSP 176GM BTL As Ordered ONE; +HALO5TAB33; +LUMA42CA PO; +MIRA3350 PO; +REXU1TAB3 PO
== END ==
LOC: M RAD 09:37
PROVIDERS: ATTEND Internal Medicine Gastroenterology
DX: K22.4 Dyskinesia of esophagus (principal)

== ENCOUNTER → 2023-07-19 | Outpatient (REF) | payer OTHER ==
[~2023-07-19] MED LIST changes: -E-Z-GAS II EFFERVESCENT PACKET (SODIUM BICARB./CITRIC ACID/SIMETHICONE) As Ordered ONE; -E-Z-HD 98% w/w 340GM SUSP BTL As Ordered ONE; -E-Z-PAQUE 96% w/w SUSP 176GM BTL As Ordered ONE
== END ==
LOC: M LAB REF 16:15
PROVIDERS: ATTEND Physician Assistant
DX: J02.9 Acute pharyngitis, unspecified (principal)

== ENCOUNTER → 2023-08-04 | Outpatient (CLI) | payer OTHER ==
[~2023-08-04] MED LIST changes: +DUPI300I SC; +LITH1TAB PO; +REXU1TAB5 PO; +STRA80CA PO; +TRAZ-189 PO
[2023-08-04 10:37] LABS: HEMATOCRIT 44.9 % (36.0-47.0); HEMOGLOBIN 14.4 g/dl (12.0-15.5); MEAN CORPUSCULAR HEMOGLOBIN 27.6 pg (27.0-33.0); MEAN CORPUSCULAR HGB CONC 32.1 g/dl (32.0-36.5); PLATELET COUNT, AUTOMATED 319 10^3/uL (150-450); RED BLOOD COUNT 5.22 10^6/uL (4.00-5.40); WHITE BLOOD COUNT 8.9 10^3/uL (4.0-10.0)
[2023-08-04 10:54] LABS: HEMOGLOBIN A1c 7.6 % (4.0-6.0)
[2023-08-04 11:02] LABS: CREATININE, URINE 72.6 MG/DL; MALB URINE SIEMENS < 3.0 MG/L; MAU/CREAT RATIO 4.1 MCG/MG (0.0-30.0)
[2023-08-04 11:03] LABS: ALBUMIN 3.8 G/DL (3.2-5.2); ALKALINE PHOSPHATASE 168 U/L (46-116); ALT/SGPT 39 U/L (7.0-40); AST/SGOT 31 U/L (<34); BILIRUBIN,TOTAL 0.4 MG/DL (0.3-1.2); BLOOD UREA NITROGEN 11 MG/DL (9-23); CALCIUM LEVEL 9.5 MG/DL (8.5-10.1); CARBON DIOXIDE LEVEL 31 MMOL/L (20-31); CHLORIDE LEVEL 107 MMOL/L (98-107); CHOLESTEROL LEVEL 147 MG/DL (<200); CHOLESTEROL RISK RATIO 3.77 (<5); CREATININE FOR GFR 0.61 MG/DL (0.55-1.30); GLOMERULAR FILTRATION RATE > 60.0 (>58); GLUCOSE, FASTING 146 MG/DL (60-100); HDL CHOLESTEROL 38.9 MG/DL (>40); LDL CHOLESTEROL 83.1 MG/DL (<100); NON-HDL-C 108.1 MG/DL; SODIUM LEVEL 142 MMOL/L (136-145); TOTAL PROTEIN 6.7 G/DL (5.7-8.2); TRIGLYCERIDES LEVEL 125 MG/DL (<150)
[2023-08-04 11:04] LABS: THYROID STIMULATING HORMONE 1.055 uIU/ML (0.55-4.78); TOTAL 25(OH) VITAMIN D 36.4 NG/ML (20.0-100.0)
== END ==
LOC: M LAB 09:07
PROVIDERS: ATTEND Nurse Practitioner Adult Health
DX: D72.829 Elevated white blood cell count, unspecified (principal); E11.9 Type 2 diabetes mellitus without complications; Z13.220 Encounter for screening for lipoid disorders; E03.9 Hypothyroidism, unspecified; E55.9 Vitamin D deficiency, unspecified

== ENCOUNTER 2023-08-17 10:33 | Day surgery (SDC) | payer OTHER ==
[~2023-08-17] VITALS: Ht 157.5 cm; Wt 2.3 kg
[2023-08-17] MEDS: NS 1,000 ML IV ONE (10:50)
[2023-08-17] MEDS ORDERED: LABETALOL 100MG/20ML VIAL As Ordered ONE (11:59)
[2023-08-17] MEDS ORDERED: propofoL 500 MG/50 ML VIAL As Ordered ONE (11:59)
[2023-08-17] MEDS ORDERED: propofoL 200 MG/20 ML VIAL As Ordered ONE (12:06)
[2023-08-17 12:12] VITALS: TEMP 97
[2023-08-17 12:30] VITALS: BP 145/72; O2SAT 96
[2023-08-17] MEDS ORDERED: DESFLURANE 240 ML INHALANT As Ordered ONE (22:22)
== END 2023-08-17 12:43 | disposition home or self-care (01) ==
LOC: M OPP 10:33
PROVIDERS: ATTEND Internal Medicine Gastroenterology
DX: D12.2 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ascending colon (principal); K63.5 Polyp of colon; K64.8 Other hemorrhoids; R19.4 Change in bowel habit; R13.11 Dysphagia, oral phase; E11.9 Type 2 diabetes mellitus without complications; G47.30 Sleep apnea, unspecified; Z99.89 Dependence on other enabling machines and devices; Z79.4 Long term (current) use of insulin; Z79.620 Long term (current) use of immunosuppressive biologic; Z79.818 Long term (current) use of other agents affecting estrogen receptors and estrogen levels; Z79.899 Other long term (current) drug therapy; Z88.1 Allergy status to other antibiotic agents; Z91.013 Allergy to seafood; Z91.040 Latex allergy status; Z91.041 Radiographic dye allergy status
CPT/HCPCS: 43235; 45380; 45385; 88305; J1920

== ENCOUNTER → 2023-11-04 | Outpatient (CLI) | payer OTHER ==
[~2023-11-04] MED LIST changes: -CRAN400C PO; +CRANBERRY400 MG PO
[2023-11-04 10:16] LABS: HEMOGLOBIN A1c 5.8 % (4.0-6.0)
[2023-11-04 10:27] LABS: CREATININE, URINE 168.4 MG/DL; MAU/CREAT RATIO 2.3 MCG/MG (0.0-30.0)
[2023-11-04 10:29] LABS: ALBUMIN 3.6 G/DL (3.2-5.2); ALKALINE PHOSPHATASE 144 U/L (46-116); ALT/SGPT 52 U/L (7.0-40); AST/SGOT 30 U/L (<34); BILIRUBIN,TOTAL 0.4 MG/DL (0.3-1.2); BLOOD UREA NITROGEN 10 MG/DL (9-23); CALCIUM LEVEL 9.3 MG/DL (8.5-10.1); CARBON DIOXIDE LEVEL 28 MMOL/L (20-31); CHLORIDE LEVEL 108 MMOL/L (98-107); CHOLESTEROL LEVEL 168 MG/DL (<200); CHOLESTEROL RISK RATIO 4.24 (<5); CREATININE FOR GFR 0.67 MG/DL (0.55-1.30); GLOMERULAR FILTRATION RATE > 60.0 (>58); GLUCOSE, FASTING 96 MG/DL (60-100); HDL CHOLESTEROL 39.6 MG/DL (>40); LDL CHOLESTEROL 110.2 MG/DL (<100); MAGNESIUM LEVEL 1.9 MG/DL (1.8-2.4); NON-HDL-C 128.4 MG/DL; POTASSIUM SERUM 4.3 MMOL/L (3.5-5.1); SODIUM LEVEL 140 MMOL/L (136-145); TOTAL PROTEIN 6.2 G/DL (5.7-8.2); TRIGLYCERIDES LEVEL 91 MG/DL (<150)
[2023-11-04 10:31] LABS: THYROID STIMULATING HORMONE 0.786 uIU/ML (0.55-4.78); TOTAL 25(OH) VITAMIN D 62.3 NG/ML (20.0-100.0)
== END ==
LOC: M LAB 09:17
PROVIDERS: ATTEND Nurse Practitioner Adult Health
DX: E11.9 Type 2 diabetes mellitus without complications (principal)

== ENCOUNTER → 2023-11-27 | Outpatient (REF) | payer OTHER ==
[2023-11-27 18:29] LABS: APPEARANCE, URINE HAZY (CLEAR); BACTERIA, URINE AUTO 1+ (NEGATIVE); BILIRUBIN, URINE AUTO NEGATIVE (NEGATIVE); BLOOD, URINE BLOOD NEGATIVE (NEGATIVE); COLOR, URINE YELLOW (YELLOW); GLUCOSE, URINE (UA) AUTO NEGATIVE (NEGATIVE); KETONE, URINE AUTO NEGATIVE (NEGATIVE); LEUKOCYTE ESTERASE, URINE AUTO TRACE (NEGATIVE); MUCUS, URINE SMALL (NEGATIVE); NITRITE, URINE AUTO POSITIVE (NEGATIVE); PROTEIN, URINE AUTO 1+ mg/dL (NEGATIVE); RBC, URINE AUTO 1 /HPF (0-3); SPECIFIC GRAVITY URINE AUTO 1.025 (1.002-1.035); SQUAMOUS EPITHELIAL CELL UR AU 3 /HPF (0-6); UROBILINOGEN, URINE AUTO 0.2 mg/dL (0.0-2.0); WBC, URINE AUTO 20 /HPF (0-3)
== END ==
LOC: M SMT 17:17
PROVIDERS: ATTEND Urology
DX: R39.9 Unspecified symptoms and signs involving the genitourinary system (principal)

== ENCOUNTER → 2024-01-18 | Outpatient (CLI) | payer OTHER ==
[~2024-01-18] MED LIST changes: +BACT800T5 PO; +EZET10TA21 PO; +LISI2.5T9 PO; +MIRA50TA2 PO
[2024-01-18 07:55] LABS: HEMATOCRIT 41.1 % (36.0-47.0); HEMOGLOBIN 13.3 g/dl (12.0-15.5); MEAN CORPUSCULAR HEMOGLOBIN 28.3 pg (27.0-33.0); MEAN CORPUSCULAR HGB CONC 32.4 g/dl (32.0-36.5); MEAN CORPUSCULAR VOLUME 87.4 fl (80.0-96.0); PLATELET COUNT, AUTOMATED 314 10^3/uL (150-450); WHITE BLOOD COUNT 11.1 10^3/uL (4.0-10.0)
[2024-01-18 08:41] LABS: ALBUMIN 3.4 G/DL (3.2-5.2); ALKALINE PHOSPHATASE 131 U/L (46-116); ALT/SGPT 36 U/L (7.0-40); AST/SGOT 20 U/L (<34); BILIRUBIN,TOTAL 0.4 MG/DL (0.3-1.2); BLOOD UREA NITROGEN 10 MG/DL (9-23); CALCIUM LEVEL 9.1 MG/DL (8.5-10.1); CARBON DIOXIDE LEVEL 28 MMOL/L (20-31); CHLORIDE LEVEL 109 MMOL/L (98-107); CREATININE FOR GFR 0.66 MG/DL (0.55-1.30); GLOMERULAR FILTRATION RATE > 60.0 (>58); GLUCOSE, FASTING 108 MG/DL (60-100); POTASSIUM SERUM 4.2 MMOL/L (3.5-5.1); SODIUM LEVEL 140 MMOL/L (136-145)
== END ==
LOC: M LAB 07:21
PROVIDERS: ATTEND Urology
DX: N32.81 Overactive bladder (principal)

== ENCOUNTER 2024-01-28 07:11 | Day surgery (SDC) | payer OTHER ==
[~2024-01-28] VITALS: Ht 157.5 cm; Wt 95.2 kg
[~2024-01-28 07:11] MED LIST changes: -BACT800T5 PO
[2024-01-28] MEDS ORDERED: ONDANSETRON 4MG 2ML VIAL As Ordered ONE (08:24)
[2024-01-28] MEDS ORDERED: fentaNYL 100 MCG/2 ML INJECTION As Ordered ONE (08:24)
[2024-01-28] MEDS ORDERED: propofoL 200 MG/20 ML VIAL As Ordered ONE (08:24)
[2024-01-28] MEDS ORDERED: LIDOCAINE 2% 100MG/5ML SDV (FOR ANES.) As Ordered ONE (08:24)
[2024-01-28] MEDS ORDERED: MIDAZOLAM INJ 2MG/2ML VIAL As Ordered ONE (08:25)
[2024-01-28] MEDS ORDERED: ceFAZolin 1GM VIAL As Ordered ONE (08:34)
[2024-01-28] MEDS: LR 1,000 ML IV SCH (08:41)
[2024-01-28] MEDS: ceFAZolin SOD 2 GM in IV 1 EA IV ONE (08:50)
[2024-01-28] MEDS ORDERED: ACETAMINOPHEN 1000MG 100ML IV BAG As Ordered ONE (09:05)
[2024-01-28] MEDS: LIDOCAINE 1% SDV 30ML VIAL As Ordered ONE (09:05)
[2024-01-28] MEDS ORDERED: flumazeniL 0.5MG/5ML VIAL As Ordered ONE (09:15)
[2024-01-28] MEDS ORDERED: BACT800T5 PO (10:05)
[2024-01-28 10:16] VITALS: BP 122/66; TEMP 97.3; O2SAT 96
== END 2024-01-28 10:35 | disposition home or self-care (01) ==
LOC: M SDC 07:11
PROVIDERS: ATTEND Urology
DX: T83.110A Breakdown (mechanical) of urinary electronic stimulator device, initial encounter (principal); Y73.2 Prosthetic and other implants, materials and accessory gastroenterology and urology devices associated with adverse incidents; N32.81 Overactive bladder; N39.41 Urge incontinence; E11.9 Type 2 diabetes mellitus without complications; G47.30 Sleep apnea, unspecified; Z88.0 Allergy status to penicillin; Z88.1 Allergy status to other antibiotic agents; Z91.041 Radiographic dye allergy status; Z91.040 Latex allergy status; Z91.013 Allergy to seafood; Z79.899 Other long term (current) drug therapy
CPT/HCPCS: 64561; 64585; 64595; 76000; C1778; C1897; J0131; J0690; J1100; J2250; J2405; J3010

== ENCOUNTER → 2024-02-08 | Outpatient (CLI) | payer OTHER ==
[~2024-02-08] MED LIST changes: +BACT800T5 PO
[2024-02-08 09:17] LABS: HEMOGLOBIN A1c 5.1 % (4.0-6.0)
[2024-02-08 09:20] LABS: HEMATOCRIT 41.7 % (36.0-47.0); HEMOGLOBIN 13.4 g/dl (12.0-15.5); MEAN CORPUSCULAR HEMOGLOBIN 28.8 pg (27.0-33.0); MEAN CORPUSCULAR HGB CONC 32.1 g/dl (32.0-36.5); MEAN CORPUSCULAR VOLUME 89.5 fl (80.0-96.0); PLATELET COUNT, AUTOMATED 325 10^3/uL (150-450); RED BLOOD COUNT 4.66 10^6/uL (4.00-5.40); WHITE BLOOD COUNT 10.4 10^3/uL (4.0-10.0)
[2024-02-08 09:21] LABS: ALBUMIN 3.4 G/DL (3.2-5.2); ALKALINE PHOSPHATASE 109 U/L (46-116); ALT/SGPT 24 U/L (7.0-40); AST/SGOT 11 U/L (<34); BILIRUBIN,TOTAL 0.3 MG/DL (0.3-1.2); BLOOD UREA NITROGEN 9 MG/DL (9-23); CALCIUM LEVEL 9.1 MG/DL (8.5-10.1); CARBON DIOXIDE LEVEL 30 MMOL/L (20-31); CHLORIDE LEVEL 110 MMOL/L (98-107); CHOLESTEROL LEVEL 121 MG/DL (<200); CHOLESTEROL RISK RATIO 2.64 (<5); CREATININE FOR GFR 0.64 MG/DL (0.55-1.30); GLOMERULAR FILTRATION RATE > 60.0 (>58); GLUCOSE, FASTING 82 MG/DL (60-100); HDL CHOLESTEROL 45.8 MG/DL (>40); LITHIUM LEVEL 0.43 MMOL/L (1.0-1.20); NON-HDL-C 75.2 MG/DL; SODIUM LEVEL 139 MMOL/L (136-145); THYROID STIMULATING HORMONE 1.121 uIU/ML (0.55-4.78); TOTAL PROTEIN 6.2 G/DL (5.7-8.2); TRIGLYCERIDES LEVEL 86 MG/DL (<150)
[2024-02-08 09:23] LABS: TOTAL 25(OH) VITAMIN D 65.8 NG/ML (20.0-100.0)
[2024-02-08 09:35] LABS: CREATININE, URINE 80.9 MG/DL; MALB URINE SIEMENS < 3.0 MG/L; MAU/CREAT RATIO 3.7 MCG/MG (0.0-30.0)
== END ==
LOC: M LAB 07:49
PROVIDERS: ATTEND Nurse Practitioner Adult Health
DX: E11.9 Type 2 diabetes mellitus without complications (principal); E55.9 Vitamin D deficiency, unspecified; E03.9 Hypothyroidism, unspecified; D72.829 Elevated white blood cell count, unspecified; F31.89 Other bipolar disorder; Z13.220 Encounter for screening for lipoid disorders

== ENCOUNTER 2024-03-03 10:00 | Day surgery (SDC) | payer OTHER ==
[~2024-03-03] VITALS: Ht 157.5 cm; Wt 95.3 kg
[~2024-03-03 10:00] MED LIST changes: +ceFAZolin SOD 2 GM in IV 1 EA IV ONE
[2024-03-03] MEDS ORDERED: ONDANSETRON 4MG 2ML VIAL As Ordered ONE (13:27)
[2024-03-03] MEDS ORDERED: propofoL 200 MG/20 ML VIAL As Ordered ONE (13:27)
[2024-03-03] MEDS ORDERED: dexmedeTOMIDine (4MCG/ML)200MCG/50ML BTL (PRECEDEX) As Ordered ONE (13:27)
[2024-03-03] MEDS ORDERED: fentaNYL 100 MCG/2 ML INJECTION As Ordered ONE (13:27)
[2024-03-03] MEDS ORDERED: MIDAZOLAM INJ 2MG/2ML VIAL As Ordered ONE (13:27)
[2024-03-03] MEDS ORDERED: LIDOCAINE 2% 100MG/5ML SDV (FOR ANES.) As Ordered ONE (13:27)
[2024-03-03] MEDS: ceFAZolin SOD 2 GM in IV 1 EA IV ONE (13:50)
[2024-03-03] MEDS: LIDOCAINE 1% MDV 20ML VIAL As Ordered ONE (14:10)
[2024-03-03] MEDS: ceFAZolin 1GM VIAL As Ordered ONE (14:10)
[2024-03-03] MEDS: LIDOCAINE 1% SDV 30ML VIAL As Ordered ONE (14:10)
[2024-03-03] MEDS ORDERED: ACETAMINOPHEN 1000MG 100ML IV BAG As Ordered ONE (14:12)
[2024-03-03 15:34] VITALS: BP 153/84; TEMP 97.9; O2SAT 100
== END 2024-03-03 15:45 | disposition home or self-care (01) ==
LOC: M SDC 10:00
PROVIDERS: ATTEND Urology
DX: N32.81 Overactive bladder (principal); E11.9 Type 2 diabetes mellitus without complications; G47.30 Sleep apnea, unspecified; Z68.39 Body mass index [BMI] 39.0-39.9, adult; Z88.0 Allergy status to penicillin; Z88.1 Allergy status to other antibiotic agents; Z91.041 Radiographic dye allergy status; Z91.040 Latex allergy status; Z91.013 Allergy to seafood; Z79.899 Other long term (current) drug therapy
CPT/HCPCS: 64561; 64590; 76000; C1778; C1787; J0131; J0690; J2250; J2405; J3010

== ENCOUNTER → 2024-04-04 | Outpatient (CLI) | payer OTHER ==
[~2024-04-04] MED LIST changes: +HYOS0.3723 PO; -HYOS0.374 PO; +LEVA15HF2 INH; -LEVAINH INH; +METF-1156 PO; -METF-817 PO; -ceFAZolin SOD 2 GM in IV 1 EA IV ONE
== END ==
LOC: M LAB 11:54
DX: F31.70 Bipolar disorder, currently in remission, most recent episode unspecified (principal)

== ENCOUNTER → 2024-05-12 | Outpatient (CLI) | payer OTHER ==
[~2024-05-12] MED LIST changes: -LEVA1.2519 IN; +LEVA1.2526 IN; -POTA10808 PO; +POTA10809 PO
== END ==
LOC: M LAB 08:29
DX: F31.2 Bipolar disorder, current episode manic severe with psychotic features (principal)

== ENCOUNTER → 2024-05-17 | Outpatient (CLI) | payer OTHER ==
[2024-05-17 10:20] LABS: HEMOGLOBIN A1c 5.3 % (4.0-6.0)
[2024-05-17 10:34] LABS: CREATININE, URINE 79.5 MG/DL; MALB URINE SIEMENS < 3.0 MG/L
[2024-05-17 10:35] LABS: ALBUMIN 3.6 G/DL (3.2-5.2); ALKALINE PHOSPHATASE 103 U/L (35-104); ALT/SGPT 21 U/L (7.0-40); AST/SGOT 16 U/L (<34); BILIRUBIN,TOTAL 0.4 MG/DL (0.3-1.2); BLOOD UREA NITROGEN 9 MG/DL (9-23); CALCIUM LEVEL 9.5 MG/DL (8.5-10.1); CARBON DIOXIDE LEVEL 32 MMOL/L (20-31); CHLORIDE LEVEL 107 MMOL/L (98-107); CHOLESTEROL LEVEL 141 MG/DL (<200); CREATININE FOR GFR 0.63 MG/DL (0.55-1.30); GLOMERULAR FILTRATION RATE > 60.0 (>58); GLUCOSE, FASTING 103 MG/DL (60-100); HDL CHOLESTEROL 48.5 MG/DL (>40); LDL CHOLESTEROL 79.3 MG/DL (<100); NON-HDL-C 92.5 MG/DL; POTASSIUM SERUM 4.6 MMOL/L (3.5-5.1); SODIUM LEVEL 143 MMOL/L (136-145); TOTAL PROTEIN 6.3 G/DL (5.7-8.2); TRIGLYCERIDES LEVEL 66 MG/DL (<150)
[2024-05-17 10:38] LABS: FREE T4 1.32 NG/DL (0.89-1.76)
[2024-05-17 10:39] LABS: TOTAL 25(OH) VITAMIN D 63.9 NG/ML (20.0-100.0)
[2024-05-17 11:03] LABS: THYROID STIMULATING HORMONE 0.963 uIU/ML (0.55-4.78)
== END ==
LOC: M LAB 08:38
PROVIDERS: ATTEND Nurse Practitioner Adult Health
DX: E11.9 Type 2 diabetes mellitus without complications (principal); E03.9 Hypothyroidism, unspecified; Z13.220 Encounter for screening for lipoid disorders; E55.9 Vitamin D deficiency, unspecified

== ENCOUNTER → 2024-06-28 | Outpatient (CLI) | payer OTHER | LOC: M LAB 08:14 | PROVIDERS: ATTEND Nurse Practitioner Psychiatric/Mental Health | DX: F31.81 Bipolar II disorder (principal) ==

== ENCOUNTER → 2024-08-17 | Outpatient (CLI) | payer OTHER ==
[~2024-08-17] MED LIST changes: +GLIP-320 PO; -GLIP10TA18 PO; +GLIP2.5T46 PO; -GLIP2.5T6 PO
[2024-08-17 10:36] LABS: HEMATOCRIT 43.5 % (36.0-47.0); HEMOGLOBIN 14.3 g/dl (12.0-15.5); MEAN CORPUSCULAR HEMOGLOBIN 28.5 pg (27.0-33.0); MEAN CORPUSCULAR HGB CONC 32.9 g/dl (32.0-36.5); MEAN CORPUSCULAR VOLUME 86.8 fl (80.0-96.0); PLATELET COUNT, AUTOMATED 333 10^3/uL (150-450); RED BLOOD COUNT 5.01 10^6/uL (4.00-5.40); WHITE BLOOD COUNT 10.8 10^3/uL (4.0-10.0)
[2024-08-17 11:08] LABS: CREATININE, URINE 161.3 MG/DL; MALB URINE SIEMENS < 3.0 MG/L
[2024-08-17 11:13] LABS: ALBUMIN 3.8 G/DL (3.2-5.2); ALKALINE PHOSPHATASE 113 U/L (35-104); ALT/SGPT 25 U/L (7.0-40); AST/SGOT 22 U/L (<34); BILIRUBIN,TOTAL 0.5 MG/DL (0.3-1.2); BLOOD UREA NITROGEN 10 MG/DL (9-23); CALCIUM LEVEL 9.1 MG/DL (8.5-10.1); CARBON DIOXIDE LEVEL 30 MMOL/L (20-31); CHLORIDE LEVEL 105 MMOL/L (98-107); CHOLESTEROL LEVEL 120 MG/DL (<200); CHOLESTEROL RISK RATIO 2.59 (<5); CREATININE FOR GFR 0.66 MG/DL (0.55-1.30); GLOMERULAR FILTRATION RATE > 60.0 (>58); GLUCOSE, FASTING 88 MG/DL (60-100); HDL CHOLESTEROL 46.3 MG/DL (>40); LDL CHOLESTEROL 58.7 MG/DL (<100); NON-HDL-C 73.7 MG/DL; SODIUM LEVEL 142 MMOL/L (136-145); TOTAL PROTEIN 6.5 G/DL (5.7-8.2); TRIGLYCERIDES LEVEL 75 MG/DL (<150)
[2024-08-17 11:15] LABS: FREE T4 1.31 NG/DL (0.89-1.76); THYROID STIMULATING HORMONE 1.422 uIU/ML (0.55-4.78)
[2024-08-17 11:16] LABS: TOTAL 25(OH) VITAMIN D 59.3 NG/ML (20.0-100.0)
== END ==
LOC: M LAB 09:58
PROVIDERS: ATTEND Nurse Practitioner Adult Health
DX: D72.829 Elevated white blood cell count, unspecified (principal); E11.9 Type 2 diabetes mellitus without complications; E03.9 Hypothyroidism, unspecified; Z13.220 Encounter for screening for lipoid disorders; E55.9 Vitamin D deficiency, unspecified

== ENCOUNTER → 2024-09-04 | Outpatient (CLI) | payer OTHER | LOC: M LAB 09:33 | PROVIDERS: ATTEND Nurse Practitioner Psychiatric/Mental Health | DX: Z79.899 Other long term (current) drug therapy (principal) ==

== ENCOUNTER → 2024-11-27 | Outpatient (CLI) | payer OTHER ==
[2024-11-27 08:01] LABS: ESTIMATED AVERAGE GLUCOSE 100.0 MG/DL (60-110)
[2024-11-27 08:11] LABS: ALT/SGPT 37 U/L (7.0-40); AST/SGOT 25 U/L (<34); CALCIUM LEVEL 9.5 MG/DL (8.5-10.1); CARBON DIOXIDE LEVEL 30 MMOL/L (20-31); CHLORIDE LEVEL 104 MMOL/L (98-107); CHOLESTEROL LEVEL 140 MG/DL (<200); CHOLESTEROL RISK RATIO 2.76 (<5); CREATININE FOR GFR 0.71 MG/DL (0.55-1.30); GLOMERULAR FILTRATION RATE > 90.0 (>58); LDL CHOLESTEROL 69.1 MG/DL (<100); NON-HDL-C 89.3 MG/DL; POTASSIUM SERUM 4.4 MMOL/L (3.5-5.1); SODIUM LEVEL 144 MMOL/L (136-145); TRIGLYCERIDES LEVEL 101 MG/DL (<150)
[2024-11-27 08:13] LABS: FREE T4 1.41 NG/DL (0.89-1.76)
== END ==
LOC: M LAB 06:48
PROVIDERS: ATTEND Nurse Practitioner Adult Health
DX: K76.0 Fatty (change of) liver, not elsewhere classified (principal); E55.9 Vitamin D deficiency, unspecified; E11.9 Type 2 diabetes mellitus without complications

== ENCOUNTER → 2024-11-27 | Outpatient (CLI) | payer OTHER | LOC: M LAB 07:10 → EDSTATUS 11-28 10:12 | PROVIDERS: ATTEND Nurse Practitioner Psychiatric/Mental Health | DX: Z79.899 Other long term (current) drug therapy (principal) ==

== ENCOUNTER → 2024-12-31 | Outpatient (CLI) | payer OTHER | LOC: M RAD 16:24 | PROVIDERS: ATTEND Nurse Practitioner Adult Health | DX: R22.1 Localized swelling, mass and lump, neck (principal) ==

== ENCOUNTER → 2025-01-25 | Outpatient (REF) | payer OTHER ==
[~2025-01-25] MED LIST changes: -EZET10TA21 PO; +EZET10TA57 PO; -LUMA42CA PO; +LUMA42CA4 PO
== END ==
LOC: M LAB REF 17:38
DX: B34.9 Viral infection, unspecified (principal)

== ENCOUNTER → 2025-01-30 | Outpatient (CLI) | payer OTHER | LOC: M LAB 07:35 | DX: F31.81 Bipolar II disorder (principal) ==

== ENCOUNTER → 2025-02-17 | Outpatient (CLI) | payer OTHER | LOC: M LAB 07:25 | PROVIDERS: ATTEND Nurse Practitioner Psychiatric/Mental Health | DX: Z79.899 Other long term (current) drug therapy (principal) ==

== ENCOUNTER → 2025-02-17 | Outpatient (CLI) | payer OTHER ==
[2025-02-17 08:26] LABS: PLATELET COUNT, AUTOMATED 284 10^3/uL (150-450)
[2025-02-17 08:50] LABS: ALT/SGPT 26 U/L (7.0-40); AST/SGOT 25 U/L (<34); CALCIUM LEVEL 9.4 MG/DL (8.5-10.1); CARBON DIOXIDE LEVEL 31 MMOL/L (20-31); CHLORIDE LEVEL 105 MMOL/L (98-107); CHOLESTEROL LEVEL 112 MG/DL (<200); CHOLESTEROL RISK RATIO 2.26 (<5); CREATININE FOR GFR 0.70 MG/DL (0.55-1.30); GLOMERULAR FILTRATION RATE > 90.0 (>58); LDL CHOLESTEROL 48.5 MG/DL (<100); NON-HDL-C 62.5 MG/DL; POTASSIUM SERUM 4.5 MMOL/L (3.5-5.1); SODIUM LEVEL 142 MMOL/L (136-145); TRIGLYCERIDES LEVEL 70 MG/DL (<150)
[2025-02-17 08:54] LABS: TOTAL 25(OH) VITAMIN D 91.5 NG/ML (20.0-100.0)
[2025-02-17 08:55] LABS: FREE T4 1.20 NG/DL (0.89-1.76)
[2025-02-17 10:00] LABS: ESTIMATED AVERAGE GLUCOSE 103.0 MG/DL (60-110)
== END ==
LOC: M LAB 07:21
PROVIDERS: ATTEND Nurse Practitioner Adult Health
DX: E11.9 Type 2 diabetes mellitus without complications (principal)

== ENCOUNTER → 2025-03-24 | Outpatient (CLI) | payer OTHER | LOC: M RAD 15:08 | PROVIDERS: ATTEND Nurse Practitioner Adult Health | DX: R22.1 Localized swelling, mass and lump, neck (principal) ==